=== PATIENT | male | born 1955 | race Caucasian/White ===

== ENCOUNTER 2020-04-22 16:27 | Emergency (ER) | payer BC ==
[2020-04-22 16:44] VITALS: BP 126/77; PULSE 91; RESP 18; TEMP 98.4
[2020-04-22] MEDS ORDERED: SODIUM CHLORIDE 0.9% 1,000 ML IV ONE (17:14)
[2020-04-22] MEDS ORDERED: THIAMINE 100 MG/ML 2 ML VIAL IM STA (17:14)
[2020-04-22 18:00] LABS: Basophils # (A) 0.1 k/uL (0-0.2); Basophils % (A) 1 %; Eosinophils # (A) 0.1 k/uL (0-0.7); Eosinophils % (A) 2 %; HCT 47.7 % (39.0-53.0); HGB 15.7 gm/dL (13.0-17.5); Lymphocytes # (A) 2.7 k/uL (1.0-4.8); Lymphocytes % (A) 44 %; MCH 33.7 pg (25.0-35.0); MCHC 32.9 g/dL (31.0-37.0); MCV 102.4 fL (80.0-100.0); Macrocytosis Slight; Mean Platelet Volume 8.6; Monocytes # (A) 0.5 k/uL (0-1.0); Monocytes % (A) 9 %; Neutrophils # (A) 2.4 k/uL (1.3-7.7); Neutrophils % (A) 40 %; Platelet Count 191 k/uL (150-450); RBC 4.66 m/uL (4.30-5.90); RDW 14.2 % (11.5-15.5)
[2020-04-22 18:11] LABS: Amphetamine Screen,Urine Not Detected (NotDetected); Barbiturate Screen,Urine Not Detected (NotDetected); Benzodiazepines Screen,Urine Not Detected (NotDetected); Cocaine Screen,Urine Not Detected (NotDetected); Methadone Screen, Urine Not Detected (NotDetected); Opiate Screen,Urine Not Detected (NotDetected); Oxycodone Screen, Urine Not Detected (NotDetected); Phencyclidine Screen,Urine Not Detected (NotDetected); Tricyclic Antidepressant,Urine Not Detected (NotDetected); Urn Cannabinoid Scrn Not Detected (NotDetected)
[2020-04-22 18:18] LABS: ALT 67 U/L (4-49); AST 179 U/L (17-59); African American GFR (CKD) >90 (>60 ml/min/1.73 sqM); Albumin 3.9 g/dL (3.5-5.0); Alkaline Phosphatase 170 U/L (38-126); Anion Gap 9 mmol/L; Blood Urea Nitrogen 9 mg/dL (9-20); Calcium 8.9 mg/dL (8.4-10.2); Carbon Dioxide 36 mmol/L (22-30); Chloride 97 mmol/L (98-107); Glucose 103 mg/dL (74-99); Magnesium 1.6 mg/dL (1.6-2.3); Non-African American GFR(CKD) >90 (>60 ml/min/1.73 sqM); Potassium 3.1 mmol/L (3.5-5.1); Sodium 142 mmol/L (137-145); Total Bilirubin 0.8 mg/dL (0.2-1.3); Total Protein 7.3 g/dL (6.3-8.2)
--- NOTE | 2020-04-22 18:53 | ED ---
General Adult HPI - General Source: patient, RN notes reviewed, old records reviewed Mode of arrival: ambulatory Limitations: no limitations <Chema Perez - Last Filed: 04/22/20 20:53> <Maki Baca - Last Filed: 04/22/20 22:00> - General Chief complaint: Psychiatric Symptoms Stated complaint: pickup order Time Seen by Provider: 04/22/20 16:40 - History of Present Illness Initial comments: This is a 64-year-old male who presents to the emergency department because he's been petition by his to the Court in the Court has directed him to come to the emergency department for evaluation. Patient himself does not want to be here he denies any problems he denies suicidal ideations however he does state he is depressed and doesn't care to live anymore but he has no plans to kill himself. Patient states he just assumed continued drinking and enjoys fpc. Patient denies any pain patient denies difficulty breathing patient denies any fever chills per patient denies any abdominal pain patient denies nausea vomiting. Patient states he has drank today. states is not taking care of himself is not eating and he has not taken a shower. states she's lost all motivation. (Chema Perez) - Related Data Home Medications Medication Instructions Recorded Confirmed Naproxen Sodium [Aleve] 220 mg PO DAILY PRN 04/22/20 04/22/20 Allergies Allergy/AdvReac Type Severity Reaction Status Date / Time Penicillins Allergy Rash/Hives Verified 04/22/20 16:44 Review of Systems ROS Other: All systems not noted in ROS Statement are negative. <Chema Perez - Last Filed: 04/22/20 20:53> ROS Other: All systems not noted in ROS Statement are negative. <Maki Baca - Last Filed: 04/22/20 22:00> ROS Statement: Those systems with pertinent positive or pertinent negative responses have been documented in the HPI. Past Medical History Past Medical History: Hypertension Past Surgical History: Hernia Repair Past Psychological History: Depression Smoking Status: Never smoker Past Alcohol Use History: Abuse, Daily Past Drug Use History: None Reported <Chema Perez - Last Filed: 04/22/20 20:53> General Exam Limitations: no limitations <Chema Perez - Last Filed: 04/22/20 20:53> - General Exam Comments Initial Comments: GENERAL: Patient is well-developed and well-nourished. Patient is nontoxic and well- hydrated and is in no acute distress. Patient does appear to be intoxicated ENT: Neck is soft and supple. No significant lymphadenopathy is noted. Oropharynx i s clear. Moist mucous membranes. Neck has full range of motion without eliciting any pain. EYES: The sclera were anicteric and conjunctiva were pink and moist. Extraocular movements were intact and pupils were equal round and reactive to light. Eyelids were unremarkable. PULMONARY: Unlabored respirations. Good breath sounds bilaterally. No audible rales rhonchi or wheezing was noted. CARDIOVASCULAR: There is a regular rate and rhythm without any murmurs gallops or rubs. ABDOMEN: Soft and nontender with normal bowel sounds. SKIN: Skin is clear with no lesions or rashes and otherwise unremarkable. NEUROLOGIC: Patient is alert and oriented x3. Cranial nerves II through XII are grossly intact. Motor and sensory are also intact. Normal speech, volume and content. Symmetrical smile. MUSCULOSKELETAL: Normal extremities with adequate strength and full range of motion. LYMPHATICS: No significant lymphadenopathy is noted PSYCHIATRIC: Patient is not suicidal however he does seem very depressed and he states he doesn't care if he lives or dies. (Chema Perez) Course Vital Signs 04/22/20 16:40 Temperature 98.4 F Pulse Rate 91 Respiratory 18 Rate Blood Pressure 126/77 O2 Sat by Pulse 94 L Oximetry Medical Decision Making - Lab Data Result diagrams: 04/22/20 17:56 04/22/20 17:57 <Chema Perez - Last Filed: 04/22/20 20:53> - Lab Data Result diagrams: 04/22/20 17:56 04/22/20 17:57 <Maki Baca - Last Filed: 04/22/20 22:00> - Medical Decision Making Dr. Baca will be taking over the care of this patient at 8:45 PM (Chema Perez) - Lab Data Lab Results 04/22/20 04/22/20 04/22/20 Range/Units 17:56 17:56 17:57 WBC 6.0 (3.8-10.6) k/uL RBC 4.66 (4.30-5.90) m/uL Hgb 15.7 (13.0-17.5) gm/dL Hct 47.7 (39.0-53.0) % MCV 102.4 H (80.0-100.0) fL MCH 33.7 (25.0-35.0) pg MCHC 32.9 (31.0-37.0) g/dL RDW 14.2 (11.5-15.5) % Plt Count 191 (150-450) k/uL Neutrophils % 40 % Lymphocytes % 44 % Monocytes % 9 % Eosinophils % 2 % Basophils % 1 % Neutrophils # 2.4 (1.3-7.7) k/uL Lymphocytes # 2.7 (1.0-4.8) k/uL Monocytes # 0.5 (0-1.0) k/uL Eosinophils # 0.1 (0-0.7) k/uL Basophils # 0.1 (0-0.2) k/uL Macrocytosis Slight Sodium 142 (137-145) mmol/L Potassium 3.1 L (3.5-5.1) mmol/L Chloride 97 L (98-107) mmol/L Carbon Dioxide 36 H (22-30) mmol/L Anion Gap 9 mmol/L BUN 9 (9-20) mg/dL Creatinine 0.51 L (0.66-1.25) mg/dL Est GFR (CKD-EPI)AfAm >90 (>60 ml/min/1.73 sqM) Est GFR (CKD-EPI)NonAf >90 (>60 ml/min/1.73 sqM) Glucose 103 H (74-99) mg/dL Calcium 8.9 (8.4-10.2) mg/dL Magnesium 1.6 (1.6-2.3) mg/dL Total Bilirubin 0.8 (0.2-1.3) mg/dL AST 179 H (17-59) U/L ALT 67 H (4-49) U/L Alkaline Phosphatase 170 H (38-126) U/L Total Protein 7.3 (6.3-8.2) g/dL Albumin 3.9 (3.5-5.0) g/dL Urine Opiates Screen Not Detected (NotDetected) Ur Oxycodone Screen Not Detected (NotDetected) Urine Methadone Screen Not Detected (NotDetected) Ur Propoxyphene Screen Not Detected (NotDetected) Ur Barbiturates Screen Not Detected (NotDetected) U Tricyclic Antidepress Not Detected (NotDetected) Ur Phencyclidine Scrn Not Detected (NotDetected) Ur Amphetamines Screen Not Detected (NotDetected) U Methamphetamines Scrn Not Detected (NotDetected) U Benzodiazepines Scrn Not Detected (NotDetected) Urine Cocaine Screen Not Detected (NotDetected) U Marijuana (THC) Screen Not Detected (NotDetected) Disposition <Chema Perez - Last Filed: 04/22/20 20:53> Is patient prescribed a controlled substance at d/c from ED?: No Time of Disposition: 22:00 <Maki Baca - Last Filed: 04/22/20 22:00> Clinical Impression: Alcohol abuse Disposition: HOME SELF-CARE Condition: Stable Instructions (If sedation given, give patient instructions): Abuse of Alcohol (ED) Referrals: None,Stated [Primary Care Provider] - 1-2 days
== END 2020-04-22 22:14 | disposition home or self-care (01) ==
LOC: EC 16:27
DX: F10.10 Alcohol abuse, uncomplicated (principal); F32.9 Major depressive disorder, single episode, unspecified; Z88.0 Allergy status to penicillin; Y90.9 Presence of alcohol in blood, level not specified
CPT/HCPCS: 36415; 80053; 80306; 82075; 83735; 85025; 99284

== ENCOUNTER 2020-06-02 16:32 | Inpatient (IN) | payer BC ==
[2020-06-02] MEDS ORDERED: THIAMINE 100 MG/ML 2 ML VIAL IM STA (16:59)
[2020-06-02] MEDS ORDERED: LORazepam 2 MG/ML INJ IV PRN ×3 (16:59)
[2020-06-02 17:53] LABS: Basophils # (A) 0.1 k/uL (0-0.2); Basophils % (A) 1 %; Eosinophils % (A) 0 %; HCT 33.8 % (39.0-53.0); HGB 11.4 gm/dL (13.0-17.5); Lymphocytes # (A) 0.7 k/uL (1.0-4.8); Lymphocytes % (A) 7 %; MCH 32.9 pg (25.0-35.0); MCHC 33.8 g/dL (31.0-37.0); Mean Platelet Volume 11.5; Monocytes # (A) 0.5 k/uL (0-1.0); Monocytes % (A) 6 %; Neutrophils # (A) 7.7 k/uL (1.3-7.7); Neutrophils % (A) 85 %; Platelet Count 257 k/uL (150-450); RBC 3.47 m/uL (4.30-5.90); RDW 15.4 % (11.5-15.5); WBC 9.1 k/uL (3.8-10.6)
[2020-06-02 18:05] LABS: ALT 16 U/L (4-49); AST 47 U/L (17-59); African American GFR (CKD) >90 (>60 ml/min/1.73 sqM); Albumin 3.1 g/dL (3.5-5.0); Alcohol <10 mg/dL; Alkaline Phosphatase 98 U/L (38-126); Anion Gap 11 mmol/L; Blood Urea Nitrogen 22 mg/dL (9-20); Calcium 8.3 mg/dL (8.4-10.2); Carbon Dioxide 40 mmol/L (22-30); Chloride 83 mmol/L (98-107); Glucose 143 mg/dL (74-99); Magnesium 1.6 mg/dL (1.6-2.3); Non-African American GFR(CKD) >90 (>60 ml/min/1.73 sqM); Sodium 134 mmol/L (137-145)
--- NOTE | 2020-06-02 18:08 | ED ---
General Adult HPI - General Chief complaint: Chest Pain Stated complaint: Chest pain Time Seen by Provider: 06/02/20 16:45 Source: patient, RN notes reviewed, old records reviewed Mode of arrival: wheelchair - History of Present Illness Initial comments: 64-year-old male presenting for psychiatric evaluation and evaluation of chest pain. Patient has been basically bedbound for the past several months. He's been drinking one gallon of vodka every 1-2 days. He has not been eating or drinking otherwise. He denies a suicidal plan but states he does not want to live. He admits that he has been depressed. Additionally has been complaining of chest pain anterior chest pain nonradiating. Patient is a poor historian but further history is obtained from the patient's . He states that his last drink was approximately 4 days ago. - Related Data Home Medications Medication Instructions Recorded Confirmed No Known Home Medications 06/02/20 06/02/20 Allergies Allergy/AdvReac Type Severity Reaction Status Date / Time Penicillins Allergy Rash/Hives Verified 06/02/20 17:45 Review of Systems ROS Statement: Those systems with pertinent positive or pertinent negative responses have been documented in the HPI. ROS Other: All systems not noted in ROS Statement are negative. Past Medical History Past Medical History: Hypertension Past Surgical History: Hernia Repair Past Psychological History: Depression Smoking Status: Former smoker Past Alcohol Use History: Abuse, Daily Past Drug Use History: None Reported General Exam General appearance: alert, in no apparent distress, cachectic Head exam: Present: atraumatic, normocephalic Eye exam: Present: normal appearance ENT exam: Present: mucous membranes dry Neck exam: Present: normal inspection. Absent: tenderness, meningismus Respiratory exam: Present: normal lung sounds bilaterally. Absent: respiratory distress Cardiovascular Exam: Present: regular rate, normal rhythm GI/Abdominal exam: Present: soft, tenderness (Minimal epigastric tenderness). Absent: distended, guarding, rebound Extremities exam: Present: normal inspection, normal capillary refill. Absent: pedal edema Neurological exam: Present: alert, oriented X3, CN II-XII intact. Absent: motor sensory deficit Psychiatric exam: Present: depressed, flat affect, suicidal ideation Skin exam: Present: warm, dry, intact Course Vital Signs 06/02/20 06/02/20 06/02/20 16:38 16:52 18:17 Temperature 98.7 F Pulse Rate 102 H 94 Pulse Rate [ 95 Web Content Coordinator ] Respiratory 18 18 Rate Blood Pressure 99/62 120/60 O2 Sat by Pulse 98 87 L Oximetry 06/02/20 18:18 Temperature Pulse Rate Pulse Rate [ Web Content Coordinator ] Respiratory Rate Blood Pressure O2 Sat by Pulse 96 Oximetry EKG Findings - EKG Comments: EKG Findings:: EKG: Sinus rhythm with marked arrhythmia, low voltage, no ST segment elevation, rate of 95, UT interval 146, QRS duration 88, QTC prolonged at 580. Medical Decision Making - Medical Decision Making 64-year-old male with suicidal thoughts, chest pain, alcohol abuse. Patient has been sober for the past 4 days. Workup reveals EKG which is sinus rhythm, no ST segment elevation there is significantly prolonged QTC at 580. Patient has significant left foot abnormalities with a potassium of 2.0. His magnesium is 1.6. He is replaced with both oral and IV potassium as well as IV magnesium. His troponin is negative. Chest x-ray negative for acute cardiopulmonary dis ease. Given the very low potassium and prolonged QT I did discuss case with Dr. Sherrie calixto for the ICU, at this time she has felt to be stable for a telemetry bed on stepdown unit does not require ICU at this time. Patient has been admitted to Dr. Dey who has accepted patient. He will be monitored for alcohol withdrawal, electrolyte Replacement, and suicide precaution. - Lab Data Result diagrams: 06/02/20 17:40 06/02/20 17:40 Lab Results 06/02/20 06/02/20 06/02/20 Range/Units 17:40 17:40 17:40 WBC 9.1 (3.8-10.6) k/uL RBC 3.47 L (4.30-5.90) m/uL Hgb 11.4 L D (13.0-17.5) gm/dL Hct 33.8 L (39.0-53.0) % MCV 97.4 D (80.0-100.0) fL MCH 32.9 (25.0-35.0) pg MCHC 33.8 (31.0-37.0) g/dL RDW 15.4 (11.5-15.5) % Plt Count 257 (150-450) k/uL Neutrophils % 85 % Lymphocytes % 7 % Monocytes % 6 % Eosinophils % 0 % Basophils % 1 % Neutrophils # 7.7 (1.3-7.7) k/uL Lymphocytes # 0.7 L (1.0-4.8) k/uL Monocytes # 0.5 (0-1.0) k/uL Eosinophils # 0.0 (0-0.7) k/uL Basophils # 0.1 (0-0.2) k/uL PT 9.8 (9.0-12.0) sec INR 0.9 (<1.2) APTT 22.9 (22.0-30.0) sec Sodium 134 L (137-145) mmol/L Potassium 2.0 L* (3.5-5.1) mmol/L Chloride 83 L (98-107) mmol/L Carbon Dioxide 40 H (22-30) mmol/L Anion Gap 11 mmol/L BUN 22 H (9-20) mg/dL Creatinine 0.66 (0.66-1.25) mg/dL Est GFR (CKD-EPI)AfAm >90 (>60 ml/min/1.73 sqM) Est GFR (CKD-EPI)NonAf >90 (>60 ml/min/1.73 sqM) Glucose 143 H (74-99) mg/dL Calcium 8.3 L (8.4-10.2) mg/dL Magnesium 1.6 (1.6-2.3) mg/dL Total Bilirubin 1.0 (0.2-1.3) mg/dL AST 47 (17-59) U/L ALT 16 (4-49) U/L Alkaline Phosphatase 98 (38-126) U/L Troponin I (0.000-0.034) ng/mL Total Protein 6.0 L (6.3-8.2) g/dL Albumin 3.1 L (3.5-5.0) g/dL Lipase 128 (23-300) U/L Serum Alcohol <10 mg/dL 06/02/20 Range/Units 17:40 WBC (3.8-10.6) k/uL RBC (4.30-5.90) m/uL Hgb (13.0-17.5) gm/dL Hct (39.0-53.0) % MCV (80.0-100.0) fL MCH (25.0-35.0) pg MCHC (31.0-37.0) g/dL RDW (11.5-15.5) % Plt Count (150-450) k/uL Neutrophils % % Lymphocytes % % Monocytes % % Eosinophils % % Basophils % % Neutrophils # (1.3-7.7) k/uL Lymphocytes # (1.0-4.8) k/uL Monocytes # (0-1.0) k/uL Eosinophils # (0-0.7) k/uL Basophils # (0-0.2) k/uL PT (9.0-12.0) sec INR (<1.2) APTT (22.0-30.0) sec Sodium (137-145) mmol/L Potassium (3.5-5.1) mmol/L Chloride (98-107) mmol/L Carbon Dioxide (22-30) mmol/L Anion Gap mmol/L BUN (9-20) mg/dL Creatinine (0.66-1.25) mg/dL Est GFR (CKD-EPI)AfAm (>60 ml/min/1.73 sqM) Est GFR (CKD-EPI)NonAf (>60 ml/min/1.73 sqM) Glucose (74-99) mg/dL Calcium (8.4-10.2) mg/dL Magnesium (1.6-2.3) mg/dL Total Bilirubin (0.2-1.3) mg/dL AST (17-59) U/L ALT (4-49) U/L Alkaline Phosphatase (38-126) U/L Troponin I <0.012 (0.000-0.034) ng/mL Total Protein (6.3-8.2) g/dL Albumin (3.5-5.0) g/dL Lipase (23-300) U/L Serum Alcohol mg/dL Critical Care Time Critical Care Time: Yes Total Critical Care Time: 35 Disposition Clinical Impression: Chest pain, Suicidal ideation, Hypokalemia, Prolonged QT interval, Alcohol withdrawal Disposition: ADMITTED IP TO THIS [facility] Condition: Serious Is patient prescribed a controlled substance at d/c from ED?: No Referrals: None,Stated [Primary Care Provider] - 1-2 days Decision to Admit Reason: Admit from EC Decision Date: 06/02/20 Decision Time: 18:41
[2020-06-02 18:09] LABS: INR 0.9 (<1.2); MCV 97.4 fL (80.0-100.0); Partial Thromboplastin Time 22.9 sec (22.0-30.0); Prothrombin Time 9.8 sec (9.0-12.0)
[2020-06-02] MEDS ORDERED: POTASSIUM CHLORIDE ER 20 MEQ TAB.ER PO STA (18:12)
[2020-06-02] MEDS ORDERED: MAGNESIUM SULFATE-D5W PMX 1 GM in DEXTROSE/WATER 1 100ML.BAG IVPB ONE (18:12)
--- NOTE | 2020-06-02 18:34 | XR ---
EXAMINATION TYPE: XR chest 2V DATE OF EXAM: 06/02/2020 COMPARISON: NONE HISTORY: Palpitations. Alcohol withdrawal for 4 days. TECHNIQUE: Frontal and lateral views of the chest are obtained. FINDINGS: There is no focal air space opacity, pleural effusion, or pneumothorax seen. The cardiac silhouette size is within normal limits. The osseous structures are somewhat demineralized. High ri ding bilateral humeral head suggests chronic rotator cuff tears. IMPRESSION: No acute cardiopulmonary process.
[2020-06-02] MEDS ORDERED: NALOXONE 0.4 MG/ML 1 ML VIAL IV PRN (18:37)
[2020-06-02] MEDS: POTASSIUM CHLORIDE 10 MEQ in WATER FOR INJECTION 1 100ML.BAG IVPB SCH ×2 (18:48→20:10)
[2020-06-02] MEDS: SODIUM CHLORIDE 0.9% 1,000 ML IV SCH (18:49)
[2020-06-02 21:49] LABS: African American GFR (CKD) >90 (>60 ml/min/1.73 sqM); Anion Gap 9 mmol/L; Blood Urea Nitrogen 21 mg/dL (9-20); Calcium 7.9 mg/dL (8.4-10.2); Chloride 83 mmol/L (98-107); Glucose 118 mg/dL (74-99); Magnesium 2.2 mg/dL (1.6-2.3); Non-African American GFR(CKD) >90 (>60 ml/min/1.73 sqM); Sodium 132 mmol/L (137-145)
[2020-06-02 21:56] LABS: Carbon Dioxide 40 mmol/L (22-30); Potassium 2.4 mmol/L (3.5-5.1)
[2020-06-02] MEDS ORDERED: Potassium Replacement Protocol 1 EACH MISC MISCELLANE PRN (22:14)
[2020-06-02] MEDS ORDERED: POTASSIUM CHLORIDE 10 MEQ in WATER FOR INJECTION 1 100ML.BAG IVPB STA (22:53)
--- NOTE | 2020-06-02 23:35 | P.HPIM ---
History of Present Illness H&P Date: 06/02/20 Chief Complaint: skipped beats 64 year old male with alcohol abuse and hypertension not currently on medications patient comes in due to skipped beats that he has felt earlier today, that he has never felt in his life, he grew concerned and decided to come to the hospital patient describes the event as "he felt his heart has stopped" and was very scared. he down plays his alcohol abuse, and does not think he has a problem , his reported that he drinks 1 gallon of vodka over 2 days. he does not take any medications at home, except for occasional aspirin. he claims to be in good health. denies any chest pain or truoble breathing. denies any GI bleeding. with the episode of skipped beat today, he denies any associated chest pain or trouble breathing, denies any dizziness or lightheadedness, he was not doing anything when it happened, but when he felt it he layed down to rest , and notified his to call EMS and take him to the hospital , as he was afraid to . he denies any suicidal ideation, and claims that he was taken out of context , as he meant he does not want to live with heart disease. again he denies suicidal ideation. patient , reports that he seems to be depressed, and that he has been bed bound for the past month, and all he does is drinking. denies any recent travel or hospitalization , denies any heart disease, denies any sick contact. in the ED, he was found to be hypoxic 87% on room air, and started on oxygen , severe hypokalemia and hypomagnesemia with prolonged QT interval. ER discussed the patient condition with ICU who declined the patient and suggested he get admitted to step down unit at this time with close monitoring. Review of Systems Pertinent positives as noted in HPI. All other systems were reviewed and are negative Past Medical History Past Medical History: Hypertension Past Surgical History: Hernia Repair Past Psychological History: Depression Smoking Status: Former smoker Past Alcohol Use History: Abuse, Daily Past Drug Use History: None Reported Medications and Allergies Home Medications Medication Instructions Recorded Confirmed Type No Known Home Medications 06/02/20 06/02/20 History Allergies Allergy/AdvReac Type Severity Reaction Status Date / Time Penicillins Allergy Rash/Hives Verified 06/02/20 17:45 Physical Exam Vitals: Vital Signs Temp Pulse Pulse Resp BP Pulse Ox 06/02/20 20:14 98.9 F 102 H 17 110/81 99 06/02/20 18:18 96 06/02/20 18:17 94 18 120/60 87 L 06/02/20 16:52 95 06/02/20 16:38 98.7 F 102 H 18 99/62 98 Intake and Output 06/02/20 06/02/20 06/02/20 06:59 14:59 22:59 Other: Weight 45.359 kg Constitutional: No acute distress, conversant, pleasant, patient looks older than stated age Eyes: Anicteric sclerae, moist conjunctiva, Pupils equal round reactive to light ENMT: NC/AT Oropharynx clear, no erythema, exudates Neck: Supple, FROM, no masses, or JVD No carotid bruits No thyromegaly Lungs: Clear to auscultation Clear to percussion Normal respiratory effort, no accessory muscle use Cardiovascular: Heart regular in rate and rhythm, No murmurs, gallops, or rubs No peripheral edema Abdominal: Soft Nontender, no guarding, rebound or rigidity Abdomen moving with respiration Normoactive bowel sounds No hepatomegaly, No splenomegaly No palpable mass No abdominal wall hernia noted Skin: Normal temperature, tone, texture, turgor No induration No subcutaneous nodules No rash, lesions No ulcers Extremities: No digital cyanosis No clubbing Pedal pulses intact and symmetrical Radial pulses intact and symmetrical No calf tenderness Psychiatric: Alert and oriented to person, place depressed affect fair judgement Neuro Muscles Strength 4/5 in all 4 extremities Sensation to light touch grossly present throughout Cranial nerves II-XII grossly intact No focal sensory deficits Lymphatics: no palpable cervical or supraclavicular , or inguinal lymph nodes Results CBC & Chem 7: 06/02/20 17:40 06/02/20 21:14 Labs: Abnormal Lab Results - Last 24 Hours (Table) 06/02/20 06/02/20 Range/Units 17:40 17:40 RBC 3.47 L (4.30-5.90) m/uL Hgb 11.4 L D (13.0-17.5) gm/dL Hct 33.8 L (39.0-53.0) % Lymphocytes # 0.7 L (1.0-4.8) k/uL Sodium 134 L (137-145) mmol/L Potassium 2.0 L* (3.5-5.1) mmol/L Chloride 83 L (98-107) mmol/L Carbon Dioxide 40 H (22-30) mmol/L BUN 22 H (9-20) mg/dL Glucose 143 H (74-99) mg/dL Calcium 8.3 L (8.4-10.2) mg/dL Total Protein 6.0 L (6.3-8.2) g/dL Albumin 3.1 L (3.5-5.0) g/dL Assessment and Plan Assessment: Acute hypoxic respiratory failure Acute severe hypokalemia and hypomagnesemia with prolonged QT interval Alcohol abuse pending all call withdrawals Metabolic alkalosis Very mild anemia Plan Replace potassium Supplemental oxygen as needed Chest x-ray is negative Nephrology consult for severe hypokalemia and metabolic alkalosis Check UA PPI Close monitoring of potassium Cardiac monitoring Benzodiazepines per CIWA scale Thiamine suicide precautions psych eval full code DVT prophylaxis: heparin sc tid Discussed with: Patient, ER Anticipated length of stay > than [address]: home A total of 75 minutes was spent on the care of this complex patient more than 50% of the time was spent in counseling and care coordination.
[2020-06-02] MEDS ORDERED: POTASSIUM CHLORIDE 10 MEQ in WATER FOR INJECTION 1 100ML.BAG IVPB ONE (23:59)
[2020-06-03] MEDS: HEPARIN SODIUM,PORCINE 5,000 UNIT/ML 1 ML VIAL SQ SCH ×3 (00:02→18:18)
[2020-06-03] MEDS: POTASSIUM CHLORIDE ER 20 MEQ TAB.ER PO SCH ×3 (01:03→05:25)
[2020-06-03] MEDS: POTASSIUM CHLORIDE 20 MEQ in WATER FOR INJECTION 1 100ML.BAG IVPB SCH ×4 (01:55→09:11)
[2020-06-03] MEDS: POTASSIUM CHLORIDE 10 MEQ in WATER FOR INJECTION 1 100ML.BAG IVPB SCH (03:43)
[2020-06-03 04:28] LABS: Appearance,Urine Clear (Clear); Bilirubin,Urine Negative (Negative); Blood,Urine Negative (Negative); Color,Urine Yellow; Glucose,Urine (UA) Negative (Negative); Ketones,Urine 2+ (Negative); Leukocyte Esterase,Urine Negative (Negative); Nitrite,Urine Negative (Negative); PH, Urine 8.5 (5.0-8.0); Protein,Urine Trace (Negative); Specific Gravity,Urine 1.012 (1.001-1.035)
[2020-06-03] MEDS ORDERED: POTASSIUM CHLORIDE ER 20 MEQ TAB.ER PO STA (07:01)
[2020-06-03 07:44] LABS: African American GFR (CKD) >90 (>60 ml/min/1.73 sqM); Anion Gap 6 mmol/L; Blood Urea Nitrogen 17 mg/dL (9-20); Calcium 7.9 mg/dL (8.4-10.2); Carbon Dioxide 35 mmol/L (22-30); Chloride 94 mmol/L (98-107); Glucose 83 mg/dL (74-99); Non-African American GFR(CKD) >90 (>60 ml/min/1.73 sqM); Potassium 3.5 mmol/L (3.5-5.1); Sodium 135 mmol/L (137-145)
[2020-06-03 07:57] LABS: HCT 30.4 % (39.0-53.0); HGB 10.3 gm/dL (13.0-17.5); MCHC 33.9 g/dL (31.0-37.0); MCV 100.3 fL (80.0-100.0); Platelet Count 255 k/uL (150-450); RBC 3.03 m/uL (4.30-5.90); RDW 15.3 % (11.5-15.5)
[2020-06-03 08:18] LABS: Mean Platelet Volume 12.2
[2020-06-03] MEDS: PANTOPRAZOLE 40 MG TABLET PO SCH (09:18)
[2020-06-03] MEDS: FOLIC ACID 1 MG TAB PO SCH (09:18)
[2020-06-03] MEDS: THIAMINE 100 MG TAB PO SCH ×2 (09:18→18:52)
--- NOTE | 2020-06-03 11:31 | P.PN ---
Subjective Progress Note Date: 06/03/20 Patient's only complaint today is weakness of his left arm as well as back pain, tells me that this is the reason he came in to be evaluated. Denies any mood disturbance today including suicidal ideation. Objective - Vital Signs Vital signs: Vital Signs Temp 97.9 F 06/03/20 08:00 Pulse 81 06/03/20 08:00 Resp 17 06/03/20 08:00 BP 136/60 06/03/20 08:00 Pulse Ox 95 06/03/20 08:00 Intake & Output 06/02/20 06/03/20 06/03/20 18:59 06:59 18:59 Intake Total 1000 Balance 1000 Weight 45.359 kg 47.2 kg 47.2 kg Intake: Intake, IV Titration 500 Amount Potassium Chloride 10 meq 100 In Water For Injection 1 100ml.bag @ 100 mls/hr IVPB ONCE STA Rx#: [id number] Potassium Chloride 20 meq 100 In Water For Injection 1 100ml.bag @ 50 mls/hr IVPB Q2HR [facility] Rx#: [id number] Sodium Chloride 0.9% 1, 300 000 ml @ 50 mls/hr IV . Q20H [facility] Rx#:[id number] Blood Product 500 Other: Voiding Method Toilet Toilet # Voids 1 1 - Exam Gen: awake, alert HEENT: normocephalic, atraumatic, good hearing acuity, moist mucous membranes Resp: CTAB, good air exchange, no accessory muscle use, no wheezes, crackles, rhonchi CVS: good distal perfusion x 4, RRR, no murmurs, clicks, gallops GI: soft, NTTP, ND : no SPT, no CVAT, bautista catheter not present MSK: no pitting edema, no clubbing Neuro: left arm proximal weakness, cannot abduct shoulder against gravityno sensory deficits, appropriate tone Psych: cooperative, euthymic mood - Labs CBC & Chem 7: 06/03/20 06:48 06/03/20 06:48 Labs: Abnormal Lab Results - Last 24 Hours (Table) 06/02/20 06/02/20 06/02/20 Range/Units 17:40 17:40 21:14 RBC 3.47 L (4.30-5.90) m/uL Hgb 11.4 L D (13.0-17.5) gm/dL Hct 33.8 L (39.0-53.0) % MCV (80.0-100.0) fL Lymphocytes # 0.7 L (1.0-4.8) k/uL Sodium 134 L 132 L (137-145) mmol/L Potassium 2.0 L* 2.4 L* (3.5-5.1) mmol/L Chloride 83 L 83 L (98-107) mmol/L Carbon Dioxide 40 H 40 H (22-30) mmol/L BUN 22 H 21 H (9-20) mg/dL Creatinine 0.59 L (0.66-1.25) mg/dL Glucose 143 H 118 H (74-99) mg/dL Calcium 8.3 L 7.9 L (8.4-10.2) mg/dL Total Protein 6.0 L (6.3-8.2) g/dL Albumin 3.1 L (3.5-5.0) g/dL Urine pH (5.0-8.0) Urine Protein (Negative) Urine Ketones (Negative) 06/03/20 06/03/20 06/03/20 Range/Units 04:16 04:17 06:48 RBC 3.03 L (4.30-5.90) m/uL Hgb 10.3 L (13.0-17.5) gm/dL Hct 30.4 L (39.0-53.0) % MCV 100.3 H (80.0-100.0) fL Lymphocytes # (1.0-4.8) k/uL Sodium (137-145) mmol/L Potassium 3.1 L (3.5-5.1) mmol/L Chloride (98-107) mmol/L Carbon Dioxide (22-30) mmol/L BUN (9-20) mg/dL Creatinine (0.66-1.25) mg/dL Glucose (74-99) mg/dL Calcium (8.4-10.2) mg/dL Total Protein (6.3-8.2) g/dL Albumin (3.5-5.0) g/dL Urine pH 8.5 H (5.0-8.0) Urine Protein Trace H (Negative) Urine Ketones 2+ H (Negative) 06/03/20 Range/Units 06:48 RBC (4.30-5.90) m/uL Hgb (13.0-17.5) gm/dL Hct (39.0-53.0) % MCV (80.0-100.0) fL Lymphocytes # (1.0-4.8) k/uL Sodium 135 L (137-145) mmol/L Potassium (3.5-5.1) mmol/L Chloride 94 L (98-107) mmol/L Carbon Dioxide 35 H (22-30) mmol/L BUN (9-20) mg/dL Creatinine 0.54 L (0.66-1.25) mg/dL Glucose (74-99) mg/dL Calcium 7.9 L (8.4-10.2) mg/dL Total Protein (6.3-8.2) g/dL Albumin (3.5-5.0) g/dL Urine pH (5.0-8.0) Urine Protein (Negative) Urine Ketones (Negative) Assessment and Plan Assessment: Back Pain with Radiculopathy Acute severe hypokalemia and hypomagnesemia with prolonged QT interval Alcohol abuse pending Alcohol Withdrawal Syndrome Metabolic alkalosis Very mild anemia Acute hypoxic respiratory failure, resolved Plan Replace potassium Supplemental oxygen as needed Chest x-ray is negative Nephrology consult for severe hypokalemia and metabolic alkalosis Check UA PPI Close monitoring of potassium Cardiac monitoring Benzodiazepines per CIWA scale Thiamine suicide precautions psych eval MRI C/T Spine to evaluate left sided radiculopathy full code DVT prophylaxis: heparin sc tid Discussed with: Patient, ER Anticipated length of stay > than [address]: home A total of 75 minutes was spent on the care of this complex patient more than 50% of the time was spent in counseling and care coordination.
--- NOTE | 2020-06-03 12:40 | P.NPCON ---
History of Present Illness - Reason for Consult hypokalemia - History of Present Illness Reason for consultation: Hypokalemia History of present illness: Patient is a 64-year-old male seen in renal consultation for hypokalemia. Patient's potassium level was 2.0 on admission and was aggressively replaced. It was 3.5 this morning. Patient states he came to the hospital due to a syncopal episode. He has history of heavy alcohol abuse and states he drinks about 3 alcoholic beverages daily with vodka. Patient states that his oral intake for about 2 months has been quite poor. He also states he wasn't high blood pressure medications but is unsure of the name but states he has been taking them for quite some time now. His magnesium level is 1.6 on admission and was also replaced. He denies any history of kidney disease. Denies family history of kidney disease. No vomiting or diarrhea. Good urine output. No hematuria or dysuria. Blood pressure well controlled. He also admits to generalized weakness as well as pain in his lower back. Vital signs are stable. General: The patient appeared well nourished and normally developed. HEENT: Head exam is unremarkable. Neck is without jugular venous distension. LUNGS: Lungs are clear to auscultation and percussion. Breath sounds decreased. HEART: Rate and Rhythm are regular. ABDOMEN: Soft, nontender. EXTREMITITES: No clubbing, cyanosis, or edema. Past Medical History Past Medical History: Hypertension History of Any Multi-Drug Resistant Organisms: None Reported Past Surgical History: Hernia Repair Past Anesthesia/Blood Transfusion Reactions: No Reported Reaction Smoking Status: Former smoker - Past Family History Mother Additional Family Medical History / Comment(s): PT. STATES HIS [facility] Medications and Allergies Home Medications Medication Instructions Recorded Confirmed Type No Known Home Medications 06/02/20 06/02/20 History Allergies Allergy/AdvReac Type Severity Reaction Status Date / Time Penicillins Allergy Rash/Hives Verified 06/02/20 17:45 Physical Exam Vitals: Vital Signs Temp Pulse Pulse Pulse Resp BP BP 06/03/20 08:00 97.9 F 81 17 136/60 06/03/20 04:00 87 19 110/61 06/03/20 00:00 98.4 F 83 18 114/60 06/02/20 20:14 98.9 F 102 H 17 110/81 06/02/20 18:18 06/02/20 18:17 94 18 120/60 06/02/20 16:52 95 06/02/20 16:38 98.7 F 102 H 18 99/62 Pulse Ox 06/03/20 08:00 95 06/03/20 04:00 93 L 06/03/20 00:00 91 L 06/02/20 20:14 99 06/02/20 18:18 96 06/02/20 18:17 87 L 06/02/20 16:52 06/02/20 16:38 98 Intake and Output 06/02/20 06/03/20 06/03/20 22:59 06:59 14:59 Intake Total 1000 Balance 1000 Intake: Intake, IV Titration 500 Amount Potassium Chloride 10 meq 100 In Water For Injection 1 100ml.bag @ 100 mls/hr IVPB ONCE STA Rx#: [id number] Potassium Chloride 20 meq 100 In Water For Injection 1 100ml.bag @ 50 mls/hr IVPB Q2HR [facility] Rx#: [id number] Sodium Chloride 0.9% 1, 300 000 ml @ 50 mls/hr IV . Q20H [facility] Rx#:[id number] Blood Product 500 Other: Voiding Method Toilet Toilet # Voids 1 1 Weight 45.359 kg 47.2 kg 47.2 kg Results - Lab Results Most recent lab results Calcium 7.9 mg/dL (8.4-10.2) L 06/03/20 06:48 Magnesium 2.2 mg/dL (1.6-2.3) 06/02/20 21:14 06/03/20 06:48 06/03/20 06:48 Assessment and Plan Plan: Assessment: 1. Hypokalemia secondary to poor oral intake and saline diuresis. Improved. 2. Hypomagnesemia secondary to poor intake and further renal losses due to alcohol abuse. 3. Alcohol abuse. 4. Hypovolemic hyponatremia. 5. Metabolic alkalosis secondary to volume contraction. Better with IV fluids. Plan: Replace potassium. 40 mEq k-dur today. Maintain normal saline. Repeat electrolytes in the morning. Check phosphorus level. Thank you for the consultation. I will continue to follow the patient with you during his hospital stay.
--- NOTE | 2020-06-03 13:45 | P.CN ---
Psychiatric Consult - . Consult date: 06/03/20 Consult:: 06/03/20 13:35 IDENTIFYING DATA: This patient is a 64-year-old male with a history of alcohol use who is currently lives with his in a house and also lives with his 2 kids. Patient has been retired from working at [employer]. HISTORY OF PRESENT ILLNESS: The patient presented to the hospital yesterday with his for the complaints of chest pain and alcohol use. Patient apparently has been bed bound for several months and claimed to have been drinking alcohol excessively at home for the past 4 days. Patient also reported that he was having poor intake with food recently as per ER report. Patient apparently made a passive suicidal statement to ER staff members and psychiatry was asked to evaluate patient. Patient had low potassium low magnesium and troponins were negative on admission. Patient's nurse claims that he has been denying any suicidal thoughts and has had no behavioral issues. Patient was seen lying on the bed and was agreeable to speak to automatic typewriter inspector. Patient appeared to be debilitated and weak and strength. He claims that he is doing "fine today" and denied any depressive symptoms. He states that "it was all taken out of context when I said that" referring to the passive suicidal statement that he made in the ER and claims that it was mainly because of his bedbound condition. He states that he has been drinking approximately 2 glasses of vodka per day and switches between that and beer for the past few years. He was minimizing his drinking. He did admit that his drinking has been causing him to deteriorate more medically and claims that he would be willing to take medications for cravings. He denies any issues with sleep and states that he is getting his appetite back. At this time patient denies any suicidal or homical ideations, intent or plan. Patient denies any auditory, visual hallucinations and denies any paranoia or delusions. Patients admits to using alcohol less stated above and denies any cigarette use or any other recreational drug use. PAST PSYCHIATRIC HISTORY: Patient has a a history of anxiety/depression. Patient denies being on any psychiatric medications. Patient denies any previous psychiatric hospitalizations. Patient denies any psychiatric outpatient follow- up. Patient denies any history of suicide attempts in the past. PAST MEDICAL HISTORY: Hypertension and hernia repair.. ALLERGIES: as per EMR. CHEMICAL DEPENDENCY HISTORY: as per HPI. FAMILY PSYCHIATRIC/SUBSTANCE USE HISTORY: denies SOCIAL HISTORY: Patient was born and raised in [place] and he states that he completed high school. He claims that he worked for [employer] for 25 years and is now retired. He currently lives with his in a house along with his 2 kids. He denies any legal history. MENTAL STATUS EXAM: General Appearance: Patient appears to be older than stated age is thin/frail, alert, pleasant, and cooperative. Patient appears to have poor hygiene and grooming wearing hospital gown with fair eye contact. Behavior: Patient is calmly lying in bed without any agitated behavior. Speech: Patient's speech is fluent and nonpressured. Mood/Affect: Patient reports their mood is "fine today ", affect is congruent Suicidality/Homicidality: Patient denies having any suicidal or homicidal ideation intent or plan. Perceptions: Patient denies any visual hallucinations and denies any auditory hallucinations Though content/process: There is no evidence of any delusional thought content and thought process is linear and goal-directed. [place] and minimizing alcohol use. Memory and concentration: AOX3, grossly intact for the purposes of this session. Can spell "WORLD" backwards Judgment and insight: Superficial IMPRESSIONS: Depressive disorder unspecified, rule out secondary to alcohol use Alcohol use disorder, currently in withdrawal PLAN: -At this time patient DOES NOT meet criteria for inpatient psychiatric admission. -Would recommend the following medication changes/additions: Patient is agreeable to start Cymbalta 30 mg daily for mood/anxiety/pain, patient is also agreeable to start naltrexone 50 mg by mouth daily for alcohol cravings. -Continue with thiamine and folic acid. -1-1 sitter can be discontinued at this time as patient is denying any suicidal thoughts -Continue with [facility] protocol with when necessary Ativan for alcohol withdrawal. Continue to monitor monitor vital signs and restore electrolytes. -machine farmworker to provide patient with resources for outpatient treatment programs and AA meetings in the community. -Psychiatry will sign off at this point, please contact with any questions. 06/03/20 13:44
[2020-06-03] MEDS: DULoxetine HCL 30 MG CAPSULE.DR PO SCH (15:03)
[2020-06-03] MEDS: NALTREXONE HCL 50 MG TAB PO SCH (15:03)
--- NOTE | 2020-06-03 16:26 | CDI ---
Likely secondary to Bone marrow suppression from ETOH abuse Documentation Clarification Form Date: 06/03/2020 04:21:35 PM From: Carol Wright RN, CCDS Admit Date: 06/02/2020 06:38:00 PM Patient Name: Sage Ibarra Visit Number: [id number] ATTENTION: The Clinical Documentation Specialists (CDI) and [facility] Coding Staff appreciate your assistance in clarifying documentation. Please respond to the clarification below the line at the bottom and electronically sign. The CDI & [facility] Coding staff will review the response and follow-up if needed. Please note: Queries are made part of the Legal Health Record. If you have any questions, please contact the author of this message via ITS. Dr. Aaron Connors Anemia is documented in the H&P and Progress Notes and requires further specificity. . History/Risk Factors: ETOH abuse with withdrawal, hypomag, hypokalemia, hyponatremia, prolonged QT interval Clinical indicators: 06/02-06/03 H&P and Attending Progress note: "Very mild Anemia" Hemoglobin: 11.4/10.3 Hematocrit: 33.8/30.4 Treatment: Labs AM Daily In order to capture the severity of condition, please clarify the type of anemia and etiology if known. Chronic blood loss anemia Iron deficiency anemia Nutritional anemia Anemia of chronic disease Unable to determine Other, please specify (Last Form Revision: December 2019) MTDD
--- NOTE | 2020-06-03 16:37 | CDI ---
Mild protein calorie nutrition Documentation Clarification Form Date: 06/03/2020 04:27:40 PM From: Carol Wright RN, CCDS Admit Date: 06/02/2020 06:38:00 PM Patient Name: Sage Ibarra Visit Number: [id number] ATTENTION: The Clinical Documentation Specialists (CDI) and [facility] Coding Staff appreciate your assistance in clarifying documentation. Please respond to the clarification below the line at the bottom and electronically sign. The CDI & [facility] Coding staff will review the response and follow-up if needed. Please note: Queries are made part of the Legal Health Record. If you have any questions, please contact the author of this message via ITS. Dr. Aaron Connors A low BMI has been noted in a patient with chronic alcoholism. Please provide clinical significance. History/Risk Factors: ETOH, Depression, HTN Clinical Indicators: 06/02 ED Note: " General appearance: alert, in no apparent distress, cachectic." 06/03 Psych consult: "Patient appears to be older than stated age is thin/frail, alert, pleasant, and cooperative." 06/02-06/03 Lab: NA+ 134/132/135, K+ 2.0/2.4/3.5, total protein 6, albumin 3.1 Current BMI: 17.9 Insufficient energy intake: poor appetite Weight Loss: pt denies weight loss 06/03 Dietary Consult: Patient appears underweight, 79% of IBW Treatment: Dietary Consult: completed 06/03 Supplements: Ensure Enlive BID, Thiamine 100 mg PO BID Folic acid 1 mg PO QD Mag replacement protocol Potassium replacement protocol Lab monitoring: Am Daily In your professional opinion, can you please clarify if these findings signify one of the following conditions? Mild Protein-Calorie Malnutrition Moderate Protein-Calorie Malnutrition Severe Protein-Calorie Malnutrition Other condition, please specify Unable to determine (Last Revision: April 2019) MTDD
[2020-06-03] MEDS: SODIUM CHLORIDE 0.9% 1,000 ML IV SCH (18:18)
[2020-06-04] MEDS: HEPARIN SODIUM,PORCINE 5,000 UNIT/ML 1 ML VIAL SQ SCH ×3 (00:22→17:10)
[2020-06-04] MEDS: PANTOPRAZOLE 40 MG TABLET PO SCH (06:34)
[2020-06-04] MEDS: THIAMINE 100 MG TAB PO SCH ×2 (06:34→17:15)
[2020-06-04 08:06] LABS: African American GFR (CKD) >90 (>60 ml/min/1.73 sqM); Anion Gap 7 mmol/L; Blood Urea Nitrogen 11 mg/dL (9-20); Carbon Dioxide 31 mmol/L (22-30); Chloride 100 mmol/L (98-107); Glucose 101 mg/dL (74-99); Magnesium 1.8 mg/dL (1.6-2.3); Non-African American GFR(CKD) >90 (>60 ml/min/1.73 sqM); Phosphorus 1.3 mg/dL (2.5-4.5); Potassium 2.9 mmol/L (3.5-5.1); Sodium 138 mmol/L (137-145)
[2020-06-04] MEDS ORDERED: Phosphorus Replacement Protoco 1 EACH MISC MISCELLANE PRN (08:44)
[2020-06-04] MEDS ORDERED: Magnesium Replacement Protocol 1 EACH MISC MISCELLANE PRN (08:45)
[2020-06-04] MEDS ORDERED: POTASSIUM CHLORIDE ER 20 MEQ TAB.ER PO ONE (09:00)
--- NOTE | 2020-06-04 10:25 | P.PN ---
Subjective Progress Note Date: 06/04/20 No new complaints today. Pending MRI results. K is within normal range at this time. Objective - Vital Signs Vital signs: Vital Signs Temp 97.5 F L 06/03/20 20:40 Pulse 81 06/04/20 04:00 Resp 19 06/04/20 04:00 BP 143/79 06/04/20 04:00 Pulse Ox 92 L 06/04/20 04:00 Intake & Output 06/03/20 06/04/20 06/04/20 18:59 06:59 18:59 Intake Total 580 Balance 580 Weight 47.2 kg 47.3 kg Intake: Intake, IV Titration 100 Amount Potassium Chloride 10 meq 100 In Water For Injection 1 100ml.bag @ 100 mls/hr IVPB ONCE ONE Rx#: [id number] Oral 480 Other: Voiding Method Toilet Toilet # Voids 3 1 # Bowel Movements 4 - Exam Gen: awake, alert HEENT: normocephalic, atraumatic, good hearing acuity, moist mucous membranes Resp: CTAB, good air exchange, no accessory muscle use, no wheezes, crackles, rhonchi CVS: good distal perfusion x 4, RRR, no murmurs, clicks, gallops GI: soft, NTTP, ND : no SPT, no CVAT, bautista catheter not present MSK: no pitting edema, no clubbing Neuro: left arm proximal weakness, cannot abduct shoulder against gravityno sensory deficits, appropriate tone Psych: cooperative, euthymic mood - Labs CBC & Chem 7: 06/03/20 06:48 06/04/20 07:09 Labs: Abnormal Lab Results - Last 24 Hours (Table) 06/04/20 Range/Units 07:09 Potassium 2.9 L (3.5-5.1) mmol/L Carbon Dioxide 31 H (22-30) mmol/L Creatinine 0.42 L (0.66-1.25) mg/dL Glucose 101 H (74-99) mg/dL Calcium 8.0 L (8.4-10.2) mg/dL Phosphorus 1.3 L (2.5-4.5) mg/dL Assessment and Plan Assessment: Back Pain with Radiculopathy Acute severe hypokalemia and hypomagnesemia with prolonged QT interval Alcohol abuse pending Alcohol Withdrawal Syndrome Metabolic alkalosis Very mild anemia Acute hypoxic respiratory failure, resolved Plan Replace potassium Supplemental oxygen as needed Chest x-ray is negative Nephrology consult for severe hypokalemia and metabolic alkalosis Check UA PPI Close monitoring of potassium Cardiac monitoring Benzodiazepines per CIWA scale Thiamine suicide precautions psych eval MRI C/T Spine to evaluate left sided radiculopathy - pending, can likely go home with appropriate follow up afterward full code DVT prophylaxis: heparin sc tid Discussed with: Patient Anticipated length of stay > than [address]: home
[2020-06-04] MEDS: MAGNESIUM SULFATE-D5W PMX 1 GM in DEXTROSE/WATER 1 100ML.BAG IVPB SCH ×2 (10:26→13:06)
[2020-06-04] MEDS: FOLIC ACID 1 MG TAB PO SCH (10:27)
[2020-06-04] MEDS: DULoxetine HCL 30 MG CAPSULE.DR PO SCH (10:27)
[2020-06-04] MEDS: NALTREXONE HCL 50 MG TAB PO SCH (10:28)
[2020-06-04] MEDS: POTASSIUM PHOSPHATE 10 MMOL in SODIUM CHLORIDE 0.9% 250 ML IV SCH ×3 (10:38→17:10)
[2020-06-04] MEDS: POTASSIUM CHLORIDE ER 20 MEQ TAB.ER PO SCH ×2 (13:06→17:10)
--- NOTE | 2020-06-04 15:09 | P.PN ---
Subjective Patient is seen in follow-up for hypokalemia. Potassium 2.9 today. Oral intake poor. Admits to diarrhea. No n/v. Good UO. Vitals: stable. HEENT: NC/AT, no JVD. Heart: RRR, no murmurs. Lungs: Breath sounds decreased. Abdomen: Soft, non-tender. Ext: No edema. Objective - Vital Signs Vital signs: Vital Signs Temp 97.8 F 06/04/20 08:00 Pulse 80 06/04/20 08:00 Resp 18 06/04/20 08:00 BP 146/67 06/04/20 08:00 Pulse Ox 98 06/04/20 08:00 Intake & Output 06/03/20 06/04/20 06/04/20 18:59 06:59 18:59 Intake Total 580 Balance 580 Weight 47.2 kg 47.3 kg Intake: Intake, IV Titration 100 Amount Potassium Chloride 10 meq 100 In Water For Injection 1 100ml.bag @ 100 mls/hr IVPB ONCE ONE Rx#: [id number] Oral 480 Other: Voiding Method Toilet Toilet Toilet # Voids 3 1 # Bowel Movements 4 - Labs CBC & Chem 7: 06/03/20 06:48 06/04/20 07:09 Labs: Abnormal Lab Results - Last 24 Hours (Table) 06/04/20 Range/Units 07:09 Potassium 2.9 L (3.5-5.1) mmol/L Carbon Dioxide 31 H (22-30) mmol/L Creatinine 0.42 L (0.66-1.25) mg/dL Glucose 101 H (74-99) mg/dL Calcium 8.0 L (8.4-10.2) mg/dL Phosphorus 1.3 L (2.5-4.5) mg/dL Assessment and Plan Plan: Assessment: 1. Hypokalemia secondary to poor oral intake and saline diuresis. Improving with replacement. 2. Hypomagnesemia secondary to poor intake and further renal losses due to alcohol abuse. Better. 3. Alcohol abuse. 4. Hypovolemic hyponatremia. Better. 5. Metabolic alkalosis secondary to volume contraction. Better with IV fluids. 6. Hypophosphatemia due to poor intake. Plan: Replace potassium. 80 mEq k-dur today. Maintain normal saline. Repeat electrolytes in the morning. Replace phosphorus.
--- NOTE | 2020-06-04 17:31 | MR ---
EXAMINATION TYPE: MR cspine/tspine wo con DATE OF EXAM: 06/04/2020 COMPARISON: NONE HISTORY: Weakness, lt arm radiculopathy TECHNIQUE: Multiplanar, multisequence imaging of cervical and thoracic spine are performed without co ntrast FINDINGS: C-SPINE: FINDINGS: Sagittal images of the cervical spine show the craniocervical junction to appear within nor mal limits. The cervical and upper thoracic spinal cord is normal in caliber and signal. There is lo ss of normal cervical curvature with grade 1 anterolisthesis C3 on C4 and C4 on C5 and grade 1 retrol isthesis of C5 on C6 and C6 on C7. The vertebral body heights are normal. Mild to moderate disc spac e narrowing C4-C5 through C6-C7 levels with mild to moderate anterior spurring. The bone marrow signa l intensity is overall heterogeneous. Axial images at the C2-C3 level shows mild uncovertebral facet degenerative changes causing mild righ t greater than left bilateral neural foraminal narrowing. Axial images at the C3-C4 level show broad-based posterior disc protrusion mildly effacing anterior t hecal sac and uncovertebral facet degenerative changes causing mild to moderate left greater than rig ht bilateral neural foraminal narrowing. Axial images at C4-C5 levels are broad-based posterior disc protrusion effacing anterior thecal sac w ith mild to moderate bilateral neural foraminal narrowing. Axial images at C5-C6 level show spondylolisthesis and right paracentral spur disc complex effacing t he anterior thecal sac and causing moderate right greater than left bilateral neural foraminal narrow ing. Axial images at C6-C7 level shows spondylosis and broad-based right paracentral/foraminal disc protru hazel effacing ventral lateral thecal sac and causing advanced right with moderate to advanced left-si ded neural foraminal narrowing. Axial images at C7-T1 level are within normal limits. IMPRESSION: Loss of normal cervical curvature with multilevel spondylolisthesis and degenerative walls ges greatest at C6-C7 level as detailed above. T-SPINE: Spinal cord shows normal course, caliber, and signal as it courses the thoracic spine. Vertebral bod y heights and alignment are satisfactory. Disc space heights fairly well maintained. Mild multilevel anterior spurring in the lower thoracic spine. Bone marrow signal intensity is preserved. No suspici ous large posterior disc herniations in the thoracic spine. Axial images show tiny central disc protrusion mildly facing anterior thecal sac at T2-T3 level. Ther e are left paracentral disc protrusions effacing the anterolateral thecal sac at T8-T9 and T9-T10 lev els corresponding to sagittal image 7. Visualized upper abdomen and thorax shows no obvious abnormali ty. IMPRESSION: Mild multilevel degenerative changes in thoracic spine as detailed above.
[2020-06-04 18:14] VITALS: RESP 16
[2020-06-05] MEDS: HEPARIN SODIUM,PORCINE 5,000 UNIT/ML 1 ML VIAL SQ SCH ×2 (00:57→09:06)
[2020-06-05 04:23] VITALS: PULSE 76
[2020-06-05] MEDS: SODIUM CHLORIDE 0.9% 1,000 ML IV SCH ×2 (06:03→06:48)
[2020-06-05] MEDS: PANTOPRAZOLE 40 MG TABLET PO SCH (06:48)
[2020-06-05] MEDS: THIAMINE 100 MG TAB PO SCH (06:48)
[2020-06-05 06:51] LABS: African American GFR (CKD) >90 (>60 ml/min/1.73 sqM); Anion Gap 5 mmol/L; Blood Urea Nitrogen 5 mg/dL (9-20); Calcium 7.9 mg/dL (8.4-10.2); Carbon Dioxide 27 mmol/L (22-30); Chloride 101 mmol/L (98-107); Glucose 92 mg/dL (74-99); Magnesium 1.8 mg/dL (1.6-2.3); Non-African American GFR(CKD) >90 (>60 ml/min/1.73 sqM); Phosphorus 2.5 mg/dL (2.5-4.5); Potassium 3.4 mmol/L (3.5-5.1); Sodium 133 mmol/L (137-145)
[2020-06-05] MEDS ORDERED: SODIUM PHOSPHATE 10 MMOL in SODIUM CHLORIDE 0.9% 250 ML IVPB ONE (07:29)
[2020-06-05] MEDS ORDERED: Magnesium Replacement Protocol 1 EACH MISC MISCELLANE PRN (07:30)
[2020-06-05] MEDS: MAGNESIUM SULFATE-D5W PMX 1 GM in DEXTROSE/WATER 1 100ML.BAG IVPB SCH ×2 (09:05→10:26)
[2020-06-05] MEDS: POTASSIUM CHLORIDE ER 20 MEQ TAB.ER PO SCH ×2 (09:06→10:27)
[2020-06-05] MEDS: DULoxetine HCL 30 MG CAPSULE.DR PO SCH (09:06)
[2020-06-05] MEDS: NALTREXONE HCL 50 MG TAB PO SCH (09:06)
[2020-06-05] MEDS: FOLIC ACID 1 MG TAB PO SCH (09:06)
--- NOTE | 2020-06-05 11:09 | P.PN ---
Subjective Patient is seen in follow-up for hypokalemia. Potassium 3.4 today. Oral intake remains poor. No vomiting. Hemodynamically stable. Vitals: stable. HEENT: NC/AT, no JVD. Heart: RRR, no murmurs. Lungs: Breath sounds decreased. Abdomen: Soft, non-tender. Ext: No edema. Objective - Vital Signs Vital signs: Vital Signs Temp 97.7 F 06/04/20 20:00 Pulse 76 06/05/20 04:00 Resp 16 06/05/20 04:00 BP 162/71 06/05/20 04:00 Pulse Ox 94 L 06/05/20 04:00 Intake & Output 06/04/20 06/05/20 06/05/20 18:59 06:59 18:59 Intake Total 240 1140 100 Balance 240 1140 100 Weight 48.7 kg Intake: Intake, IV Titration 400 Amount Sodium Chloride 0.9% 1, 400 000 ml @ 50 mls/hr IV . Q20H [facility] Rx#:[id number] Oral 240 740 100 Other: Voiding Method Toilet Toilet # Voids 0 1 # Bowel Movements 1 - Labs CBC & Chem 7: 06/03/20 06:48 06/05/20 06:04 Labs: Abnormal Lab Results - Last 24 Hours (Table) 06/04/20 06/05/20 Range/Units 20:21 06:04 Sodium 133 L (137-145) mmol/L Potassium 3.4 L 3.4 L (3.5-5.1) mmol/L BUN 5 L (9-20) mg/dL Creatinine 0.43 L (0.66-1.25) mg/dL Calcium 7.9 L (8.4-10.2) mg/dL Assessment and Plan Plan: Assessment: 1. Hypokalemia secondary to poor oral intake and saline diuresis. Improving with replacement. 2. Hypomagnesemia secondary to poor intake and further renal losses due to alcohol abuse. Better. 3. Alcohol abuse. 4. Hypovolemic hyponatremia. Improved with IV hydration. 5. Metabolic alkalosis secondary to volume contraction. Better with IV fluids. 6. Hypophosphatemia due to poor intake. Better post replacement. Plan: Replace potassium. 40 mEq k-dur today. Maintain normal saline. Repeat electrolytes in the morning. Encouraged oral intake.
[2020-06-05 11:58] VITALS: BP 123/70; TEMP 98
[2020-06-05 15:17] VITALS: BMI 18.4
--- NOTE | 2020-06-05 21:17 | P.DS ---
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 Initial vital signs showed a pulse of 102 and a blood pressure of 99/62. He was initially 87% on room air. Laboratory analysis demonstrated profound hypokalemia, hyponatremia, and hypomagnesemia. Chest x-ray showed no acute process. He was admitted for severe electrolyte arrangement and impending alcohol withdrawal. He was seen by nephrology who felt that his electrolytes disturbances were secondary to low solute intake and accommodation with alcohol use. He was seen by psychiatry who recommended initiation of naltrexone and Cymbalta as well as outpatient therapy, and the patient did not require inpatient mental health unit. During his hospital stay he did complain of some neck pain he underwent MRI of the cervical and thoracic spine which showed multiple areas of neural foraminal narrowing. He was started on Valtrex down and did well. He did not require any b enzodiazepines for treatment of alcohol withdrawal during his hospital stay. He is determined stable for discharge home. He will started on steroids to help with his neck pain and radiculopathy. He will follow-up with Dr. James. I also suggested Emily Young for nurse practitioner however wants to set him up with her PCP. Patient given 10 day supply of naltrexone and cymbalta as well as medrol dose pack. Patient seen and examined at bedside. No chest pain, no neck pain, no nausea, tolerating oral intake. Vital signs reviewed and stable. General: non toxic, no distress, appears older than stated age Derm: warm, dry Head: atraumatic, normocephalic, symmetric Eyes: EOMI, no lid lag, anicteric sclera Mouth: no lip lesion, mucus membranes moist Cardiovascular: S1S2 reg, no murmur, positive posterior tibial pulse bilateral, Lungs: CTA bilateral, no rhonchi, no rales , no accessory muscle use Abdominal: soft, nontender to palpation, no guarding, no appreciable organomegaly Ext: no gross muscle atrophy, no edema, no contractures Neuro: CN II-XI grossly intact, no focal neuro deficits Psych: Alert, oriented, appropriate affect A total of 35 minutes of time were spent preparing this complex discharge summary . Patient Condition at Discharge: Stable Plan - Discharge Summary Discharge Rx Participant: No New Discharge Prescriptions: New DULoxetine HCL [Cymbalta] 30 mg PO DAILY #10 capsule. Folic Acid 1 mg PO DAILY #10 tab methylPREDNISolone Dose Pack [Medrol Dose Pack] 4 mg PO DIRECTED #21 package Naltrexone HCl [Revia] 50 mg PO DAILY #10 tab Thiamine [Vitamin B-1] 100 mg PO BID-W/MEALS #10 tab Discharge Medication List DULoxetine HCL [Cymbalta] 30 mg PO DAILY #10 capsule. 06/05/20 [Rx] Folic Acid 1 mg PO DAILY #10 tab 06/05/20 [Rx] Naltrexone HCl [Revia] 50 mg PO DAILY #10 tab 06/05/20 [Rx] Thiamine [Vitamin B-1] 100 mg PO BID-W/MEALS #10 tab 06/05/20 [Rx] methylPREDNISolone Dose Pack [Medrol Dose Pack] 4 mg PO DIRECTED #21 package 06/05/20 [Rx] Follow up Appointment(s)/Referral(s): Kyra James DO [Doctor of Osteopathic Medicine] - 06/10/20 10:30 am ([facility]) Emily Young NPC [REFERRING] - 1 Week ( would like to set up with her PCP) None,Stated [Primary Care Provider] - 1-2 days Patient Instructions/Handouts: Alcohol Withdrawal (DC), Alcohol Withdrawal (GEN) Activity/Diet/Wound Care/Special Instructions: Activity: as tolerated Diet: regular Special Instructions: Abstain alcohol Follow with Psychiatry Discharge Disposition: HOME SELF-CARE
== END 2020-06-05 15:39 | disposition home or self-care (01) | DRG 896 ==
LOC: EC 16:32 → 3SCARD 18:38
PROVIDERS: ADMIT Family Medicine; ATTEND Family Medicine
DX: F10.230 Alcohol dependence with withdrawal, uncomplicated (principal); J96.01 Acute respiratory failure with hypoxia; E44.1 Mild protein-calorie malnutrition; Z68.1 Body mass index [BMI] 19.9 or less, adult; R64 Cachexia; R45.851 Suicidal ideations; E87.3 Alkalosis; E87.1 Hypo-osmolality and hyponatremia; D63.8 Anemia in other chronic diseases classified elsewhere; E83.39 Other disorders of phosphorus metabolism; F10.220 Alcohol dependence with intoxication, uncomplicated; F32.9 Major depressive disorder, single episode, unspecified; I10 Essential (primary) hypertension; R94.31 Abnormal electrocardiogram [ECG] [EKG]; E87.6 Hypokalemia; E83.42 Hypomagnesemia; D75.89 Other specified diseases of blood and blood-forming organs; M48.02 Spinal stenosis, cervical region; M54.12 Radiculopathy, cervical region; E86.1 Hypovolemia; Y90.0 Blood alcohol level of less than 20 mg/100 ml; Z74.01 Bed confinement status; Z98.890 Other specified postprocedural states; Z87.891 Personal history of nicotine dependence; Z88.0 Allergy status to penicillin
CPT/HCPCS: 36415; 71046; 72141; 72146; 80048; 80053; 80320; 81003; 83690; 83735; 84100; 84132; 84484; 85025; 85027; 85610; 85730; 93005; 96365; 96368; 96372; 99291

== ENCOUNTER 2021-08-21 20:40 | Inpatient (IN) | payer BC, MEDICARE ==
--- NOTE | 2021-08-21 22:16 | ED ---
Psych HPI - General Chief Complaint: Psychiatric Symptoms Stated Complaint: Mental Health Time Seen by Provider: 08/21/21 21:37 Source: patient, family, EMS, RN notes reviewed, old records reviewed Mode of arrival: EMS Limitations: no limitations - History of Present Illness Initial Comments: This is a 65-year-old male to the emergency department today. Patient presents today for evaluation of psychiatric illness. Patient has EMS called by family under petition for evaluation by psychiatry. Patient started taking care of himself not taking his medications and was concerned about patient's mental health MD Complaint: feels depressed Associated Psychiatric Symptoms: depression History of same: Yes Quality: intermittent, getting worse Worsens With: none Context: not taking psychiatric medications Associated Symptoms: denies other symptoms Treatments Prior to Arrival: placed on mental health hold If Self Harm: admits thoughts of self harm - Related Data Home Medications Medication Instructions Recorded Confirmed DULoxetine HCL [Cymbalta] 60 mg PO DAILY 08/21/21 08/21/21 Thiamine [Vitamin B-1] 100 mg PO DAILY 08/21/21 08/21/21 Previous Rx's Medication Instructions Recorded Folic Acid 1 mg PO DAILY #10 tab 06/05/20 Allergies Allergy/AdvReac Type Severity Reaction Status Date / Time Penicillins Allergy Rash/Hives Verified 08/21/21 22:15 Review of Systems ROS Statement: Those systems with pertinent positive or pertinent negative responses have been documented in the HPI. ROS Other: All systems not noted in ROS Statement are negative. Past Medical History Past Medical History: Hypertension History of Any Multi-Drug Resistant Organisms: None Reported Past Surgical History: Hernia Repair Additional Past Surgical History / Comment(s): 2 umbilical hernia repair Past Anesthesia/Blood Transfusion Reactions: No Reported Reaction Past Psychological History: Depression Smoking Status: Former smoker Past Alcohol Use History: Daily Past Drug Use History: None Reported - Past Family History Mother Additional Family Medical History / Comment(s): PT. STATES HIS MOTHER FROM [facility] General Exam Limitations: no limitations General appearance: alert, in no apparent distress, anxious Head exam: Present: atraumatic, normocephalic, normal inspection Eye exam: Present: normal appearance, PERRL, EOMI. Absent: scleral icterus, conjunctival injection, periorbital swelling ENT exam: Present: normal exam, mucous membranes moist Neck exam: Present: normal inspection. Absent: tenderness, meningismus, lymphadenopathy Respiratory exam: Present: normal lung sounds bilaterally. Absent: respiratory distress, wheezes, rales, rhonchi, stridor Cardiovascular Exam: Present: normal rhythm, tachycardia, normal heart sounds. Absent: systolic murmur, diastolic murmur, rubs, gallop, clicks GI/Abdominal exam: Present: soft, normal bowel sounds. Absent: distended, tenderness, guarding, rebound, rigid Extremities exam: Present: normal inspection, full ROM, normal capillary refill. Absent: tenderness, pedal edema, joint swelling, calf tenderness Back exam: Present: normal inspection Neurological exam: Present: alert, oriented X3, CN II-XII intact Psychiatric exam: Present: normal affect, normal mood Skin exam: Present: warm, dry, intact, normal color. Absent: rash Course Vital Signs 08/21/21 08/22/21 20:56 05:43 Temperature 99.0 F Pulse Rate 120 H 88 Respiratory 18 19 Rate Blood Pressure 181/89 164/76 O2 Sat by Pulse 96 100 Oximetry - Reevaluation(s) Reevaluation #1: 08/21/21 22:15 Medical record is reviewed Reevaluation #2: 08/21/21 22:15 Medical clear for psychiatric evaluation Disposition Clinical Impression: Suicidal ideation, Alcohol withdrawal Disposition: TRANSFER TO PSYCH HOSP/UNIT Condition: Fair Is patient prescribed a controlled substance at d/c from ED?: No
[2021-08-21] MEDS: LORazepam 1 MG TAB PO ONE ×2 (22:39→22:48)
[2021-08-22] MEDS ORDERED: MAG HYDROX/AL HYDROX/SIMETH 30 ML CUP PO PRN (07:18)
[2021-08-22] MEDS ORDERED: ACETAMINOPHEN TAB 325 MG TAB PO PRN (07:18)
[2021-08-22] MEDS ORDERED: MAGNESIUM HYDROXIDE 2,400 MG/10 ML CUP PO PRN (07:18)
[2021-08-22] MEDS ORDERED: LORazepam 1 MG TAB PO PRN (07:18)
[2021-08-22] MEDS ORDERED: NICOTINE 21MG/24HR PATCH TRANSDERM SCH (09:00)
[2021-08-22] MEDS ORDERED: LORazepam 2 MG/ML INJ IM STA (10:48)
[2021-08-22 11:10] VITALS: BP 204/109; PULSE 120; RESP 16; TEMP 97.4
== END 2021-08-22 12:35 | disposition short-term general hospital (02) | DRG 885 ==
LOC: EC 20:40 → SUPCPDRO 20:40 → 3MHU 08-22 07:14
PROVIDERS: ADMIT Psychiatry & Neurology Psychiatry; ATTEND Psychiatry & Neurology Psychiatry
DX: F33.3 Major depressive disorder, recurrent, severe with psychotic symptoms (principal); R45.851 Suicidal ideations; F10.231 Alcohol dependence with withdrawal delirium; I10 Essential (primary) hypertension; Z87.891 Personal history of nicotine dependence; Z20.822 Contact with and (suspected) exposure to COVID-19; Z98.890 Other specified postprocedural states; Z91.14 Patient's other noncompliance with medication regimen; Z79.899 Other long term (current) drug therapy; Z88.0 Allergy status to penicillin; Z82.5 Family history of asthma and other chronic lower respiratory diseases; F10.229 Alcohol dependence with intoxication, unspecified; E83.42 Hypomagnesemia; R00.0 Tachycardia, unspecified
CPT/HCPCS: 82075; 87635; 99285

== ENCOUNTER 2021-08-22 11:00 | Inpatient (IN) | payer BC, MEDICARE ==
[2021-08-22] MEDS ORDERED: NALOXONE 0.4 MG/ML 1 ML VIAL IV PRN (13:05)
[2021-08-22] MEDS ORDERED: MELATONIN 3 MG TABLET PO PRN (13:05)
[2021-08-22] MEDS ORDERED: ACETAMINOPHEN TAB 325 MG TAB PO PRN (13:05)
[2021-08-22] MEDS ORDERED: ONDANSETRON 4 MG/2 ML VIAL IVP PRN (13:05)
[2021-08-22] MEDS ORDERED: THIAMINE 100 MG/ML 2 ML VIAL IM STA (13:07)
[2021-08-22] MEDS ORDERED: LORazepam 2 MG/ML INJ IV PRN (13:07)
[2021-08-22 13:44] LABS: Basophils % (A) 0 %; Eosinophils # (A) 0.1 k/uL (0-0.7); Eosinophils % (A) 1 %; HCT 42.9 % (39.0-53.0); HGB 14.7 gm/dL (13.0-17.5); Lymphocytes # (A) 1.1 k/uL (1.0-4.8); Lymphocytes % (A) 8 %; MCH 35.5 pg (25.0-35.0); MCHC 34.4 g/dL (31.0-37.0); MCV 103.2 fL (80.0-100.0); Macrocytosis Slight; Mean Platelet Volume 8.1; Monocytes # (A) 0.8 k/uL (0-1.0); Monocytes % (A) 6 %; Neutrophils # (A) 11.6 k/uL (1.3-7.7); Neutrophils % (A) 84 %; Platelet Count 167 k/uL (150-450); RBC 4.15 m/uL (4.30-5.90); RDW 13.5 % (11.5-15.5); WBC 13.8 k/uL (3.8-10.6)
[2021-08-22 13:55] LABS: ALT 35 U/L (4-49); AST 88 U/L (17-59); African American GFR (CKD) >90 (>60 ml/min/1.73 sqM); Albumin 3.9 g/dL (3.5-5.0); Alkaline Phosphatase 132 U/L (38-126); Anion Gap 12 mmol/L; Blood Urea Nitrogen 16 mg/dL (9-20); Calcium 9.1 mg/dL (8.4-10.2); Carbon Dioxide 24 mmol/L (22-30); Chloride 102 mmol/L (98-107); Glucose 138 mg/dL (74-99); Magnesium 1.2 mg/dL (1.6-2.3); Non-African American GFR(CKD) >90 (>60 ml/min/1.73 sqM); Potassium 3.6 mmol/L (3.5-5.1); Sodium 138 mmol/L (137-145); Total Bilirubin 1.2 mg/dL (0.2-1.3); Total Protein 7.1 g/dL (6.3-8.2)
[2021-08-22] MEDS ORDERED: METOPROLOL TARTRATE 25 MG TAB PO SCH (14:01)
[2021-08-22] MEDS ORDERED: POTASSIUM CHLORIDE ER 20 MEQ TAB.ER PO STA (14:02)
[2021-08-22] MEDS ORDERED: SODIUM CHLORIDE 0.9% 1,000 ML IV ONE (14:06)
--- NOTE | 2021-08-22 14:09 | P.HPIM ---
History of Present Illness H&P Date: 08/22/21 This is a 65-year-old male with past medical history significant for alcohol abuse presented to the ER yesterday petition by his as he was making suicidal statements while he was drunk. Patient was evaluated in the ER and admitted to the psych unit. I was called by the psych nurse today as patient was having significant alcohol withdrawal and they could not handle him. I asked them to transfer the patient to the medical floor. Sewn after arrival to the medical floor his nurse only as patient was having episodes of wide complex tachycardia with heart rate up to 200. Patient was hemodynamically stable. He was only complaining of heart fluttering but denies any chest pain. He denies any cardiac history. He was inconsistent with the amount of alcohol that he usually drinks. He told me that he drinks 2-3 beers per day +1 drink of vodka. I was able to discuss the patient's condition with Dr. Allen in the hallway and he walked into the room and at that time patient was having a narrow complex tachycardia with a heart rate up to 195. After carotid massage heart rate came down to 130 sinus tachycardia. Patient remained hemodynamically stable. Review of Systems Review of system: 14 points review of systems were obtained and were negative except to what were mentioned in the HPI. Past Medical History Past Medical History: Hypertension History of Any Multi-Drug Resistant Organisms: None Reported Past Surgical History: Hernia Repair Additional Past Surgical History / Comment(s): 2 umbilical hernia repair Past Anesthesia/Blood Transfusion Reactions: No Reported Reaction Past Psychological History: Depression Smoking Status: Former smoker Past Alcohol Use History: Daily Past Drug Use History: None Reported - Past Family History Mother Additional Family Medical History / Comment(s): PT. STATES HIS MOTHER FROM [facility] Medications and Allergies Home Medications Medication Instructions Recorded Confirmed Type Folic Acid 1 mg PO DAILY #10 tab 06/05/20 08/21/21 Rx DULoxetine HCL [Cymbalta] 60 mg PO DAILY 08/21/21 08/21/21 History Thiamine [Vitamin B-1] 100 mg PO DAILY 08/21/21 08/21/21 History Allergies Allergy/AdvReac Type Severity Reaction Status Date / Time Penicillins Allergy Rash/Hives Verified 08/21/21 22:15 Physical Exam Vitals: Intake and Output 08/21/21 08/22/2108/22/21 22:59 06:59 14:59 Other: Weight 55.9 kg General: The patient is awake and alert, in no distress Eye: there is normal conjunctiva bilaterally. Neck: The neck is supple, there is no JVD. Cardiovascular: Normal S1-S2, no S3-S4, no murmurs. Respiratory: Lungs clear to auscultation bilaterally Gastrointestinal: Abdomen is soft, nontender Musculoskeletal: There is no pedal edema. Neurological:. Speech is normal. Skin: Skin is warm and dry Results CBC & Chem 7: 08/22/21 13:34 08/22/21 13:34 Labs: Abnormal Lab Results - Last 24 Hours (Table) 08/22/21 08/22/21 Range/Units 13:34 13:34 WBC 13.8 H (3.8-10.6) k/uL RBC 4.15 L (4.30-5.90) m/uL MCV 103.2 H (80.0-100.0) fL MCH 35.5 H (25.0-35.0) pg Neutrophils # 11.6 H (1.3-7.7) k/uL Glucose 138 H (74-99) mg/dL Magnesium 1.2 L (1.6-2.3) mg/dL AST 88 H (17-59) U/L Alkaline Phosphatase 132 H (38-126) U/L Assessment and Plan Assessment: 1. Alcohol intoxication on presentation now with alcohol withdrawal/impending DTs 2. Wide-complex tachycardia with heart rate up to 200 then SVT aborted with carotid massage 3. Hypomagnesemia 4. Suicidal ideation on presentation while patient was on, currently denies any suicidal thoughts Today, I reviewed his medication list and lab work results I will replace his potassium and magnesium Continue telemetry monitoring, check troponin, order echocardiogram Cardiology consulted, appreciate recommendations 1 L normal saline bolus then D5/half-normal saline at 100 mL per hour [facility] Valium 5 mg 3 times a day Thiamine and folic acid and multivitamins Repeat lab work in the morning
[2021-08-22] MEDS: MAGNESIUM SULFATE-D5W PMX 1 GM in DEXTROSE/WATER 1 100ML.BAG IVPB SCH ×2 (14:18→15:30)
[2021-08-22] MEDS: THIAMINE 100 MG TAB PO SCH (14:18)
[2021-08-22] MEDS: DEXTROSE 5%-0.45% NACL 1,000 ML IV SCH ×2 (14:25→22:44)
[2021-08-22 15:31] LABS: Magnesium 1.3 mg/dL (1.6-2.3)
--- NOTE | 2021-08-22 15:48 | CONS ---
CONSULTATION Mr. Ibarra is a 65-year-old male who was admitted to the hospital to undergo evaluation for alcohol withdrawal. He had episode of tachycardia, was transferred to telemetry floor. On the telemetry floor he was in what appeared to be SVT with narrow complex. Apparently the patient was making suicidal statements. According to the patient, he was told about 6 months ago that he has a rapid heartbeat. He denies any chest discomfort. He has dyspnea. He is feeling the palpitations but no syncope. He has no clear PND or orthopnea. On the telemetry floor he was noted to have narrow- complex tachycardia at a rate in the 190s. After carotid massage and a he is in sinus tachycardia. Hemodynamically he is stable otherwise. He has no documented history of hypertension or hyperlipidemia. He is nondiabetic. REVIEW OF SYSTEMS: RESPIRATORY SYSTEM: He has dyspnea on exertion. No recent wheezing or cough. GI SYSTEM: No recent GI bleeding. No peptic ulcer disease. SYSTEM: No dysuria or hematuria. NERVOUS SYSTEM: No stroke or seizure. PHYSICAL EXAMINATION: He is a 65-year-old male, alert. No apparent distress. Blood pressure initially 172/105. Heart rate was in the 200s. After carotid massage his rate in sinus tachycardia in the 130s. Blood pressure 184/80. HEAD: Normocephalic. EYES: Sclerae anicteric. NECK: Good carotid upstroke. No bruit. LUNGS: Decreased air exchange. No wheezes. HEART: Regular rate and rhythm. S1, S2. Tachycardic. No rub. Plus a systolic murmur. ABDOMEN: Soft, nontender. Positive bowel sounds. No organomegaly. EXTREMITIES: No edema. Intact distal pulses. LAB DATA: Troponin 0.022. BUN and creatinine of 16 and 0.7. Potassium 3.6. Hemoglobin of 14.7. EKG revealed a narrow-complex tachycardia consistent with SVT. IMPRESSION: 1. Alcohol withdrawal with history of alcoholism. 2. Supraventricular tachycardia, probably exacerbated from the alcohol. 3. Hypertension of unknown duration. RECOMMENDATIONS: I will increase the dose of his beta kevin that was started recently. I will check his thyroid function tests. I will obtain echocardiogram with Doppler. Will check his magnesium. Continue the rest of his medical regimen. Depending on his progress, further recommendations will be made. Thank you for this consult. Will follow with you. MMODL / IJN: [id number] /
[2021-08-22] MEDS: diazePAM 5 MG TAB PO SCH ×2 (17:19→21:04)
[2021-08-22] MEDS: METOPROLOL TARTRATE 50 MG TAB PO SCH (20:21)
[2021-08-23] MEDS: LORazepam 2 MG/ML INJ IV PRN ×5 (00:04→22:15)
[2021-08-23] MEDS: THIAMINE 100 MG TAB PO SCH ×2 (06:37→16:50)
[2021-08-23] MEDS: DEXTROSE 5%-0.45% NACL 1,000 ML IV SCH (06:37)
[2021-08-23 08:25] LABS: African American GFR (CKD) >90 (>60 ml/min/1.73 sqM); Anion Gap 11 mmol/L; Blood Urea Nitrogen 6 mg/dL (9-20); Calcium 8.9 mg/dL (8.4-10.2); Carbon Dioxide 26 mmol/L (22-30); Chloride 100 mmol/L (98-107); Glucose 183 mg/dL (74-99); Magnesium 1.7 mg/dL (1.6-2.3); Non-African American GFR(CKD) >90 (>60 ml/min/1.73 sqM); Sodium 137 mmol/L (137-145)
[2021-08-23] MEDS ORDERED: Magnesium Replacement Protocol 1 EACH MISC MISCELLANE PRN (08:27)
[2021-08-23] MEDS ORDERED: Potassium Replacement Protocol 1 EACH MISC MISCELLANE PRN (08:27)
[2021-08-23] MEDS: METOPROLOL TARTRATE 50 MG TAB PO SCH ×2 (08:59→21:22)
[2021-08-23] MEDS: MAGNESIUM SULFATE-D5W PMX 1 GM in DEXTROSE/WATER 1 100ML.BAG IVPB SCH ×2 (08:59→10:59)
[2021-08-23] MEDS: POTASSIUM CHLORIDE ER 20 MEQ TAB.ER PO SCH ×2 (08:59→10:59)
[2021-08-23] MEDS: diazePAM 5 MG TAB PO SCH (08:59)
[2021-08-23] MEDS: MULTIVITAMINS, THERA 1 EACH TAB PO SCH (08:59)
--- NOTE | 2021-08-23 12:53 | PN ---
PROGRESS NOTE Mrs. Ibarra is a 65-year-old male with a history of chronic alcoholism who was transferred to telemetry floor because of SVT. He remains in sinus mechanism. He appears to be more awake and alert. He has some abdominal pain but no chest pain. His breathing has been stable. He denies any dizziness or palpitation. He denies any nausea. He continues to be on metoprolol tartrate 50 mg twice a day. PHYSICAL EXAMINATION: Blood pressure 147/80 with a heart rate in the 90s. LUNGS: With decreased air exchange, no wheezes. HEART: Regular rate and rhythm, S1, S2. No S3. No rub. ABDOMEN: Soft. Mild generalized tenderness. EXTREMITIES: No edema. LAB DATA: Potassium 3.0, BUN and creatinine 66 and 0.64. IMPRESSION: 1. Alcoholism, being treated with alcohol withdrawal. 2. Supraventricular tachycardia, remains sinus mechanism. 3. Hypertension, stable. RECOMMENDATIONS: From the cardiac standpoint I will replace his potassium. Continue rest of his medical regimen. He will have an echocardiogram done tomorrow and if he is stable, we will continue on the present regimen. MMODL / IJN: [id number] /
--- NOTE | 2021-08-23 13:40 | P.PN ---
Subjective Patient is doing well today. Heart rate well controlled on the monitor. No events overnight reported to me by nursing staff. No evidence of withdrawal. Patient is not requiring IV Ativan anymore. Objective - Vital Signs Vital signs: Vital Signs Temp 98.1 F 08/23/21 10:58 Pulse 85 08/23/21 10:58 Resp 16 08/23/21 10:58 BP 150/89 08/23/21 10:58 Pulse Ox 96 08/23/21 10:58 Intake & Output 08/22/21 08/23/21 08/23/21 18:59 06:59 18:59 Intake Total 237 240 118 Output Total 450 850 Balance -213 -610 118 Weight 55.9 kg 55 kg Intake: Intake, IV Titration 240 Amount Dextrose 5%-0.45% NaCl 1, 240 000 ml @ 100 mls/hr IV . Q10H MABEL Rx#:[id number] Oral 237 118 Output: Urine 450 850 Other: Voiding Method Urinal # Voids 2 1 # Bowel Movements 1 - Exam General: The patient is awake and alert, in no distress Eye: there is normal conjunctiva bilaterally. Neck: The neck is supple, there is no JVD. Cardiovascular: Normal S1-S2, no S3-S4, no murmurs. Respiratory: Lungs clear to auscultation bilaterally Gastrointestinal: Abdomen is soft, nontender Musculoskeletal: There is no pedal edema. Neurological:. Speech is normal. Skin: Skin is warm and dry - Labs CBC & Chem 7: 08/22/21 13:34 08/23/21 07:48 Labs: Abnormal Lab Results - Last 24 Hours (Table) 08/22/21 08/22/21 08/22/21 Range/Units 13:34 13:34 13:34 WBC 13.8 H (3.8-10.6) k/uL RBC 4.15 L (4.30-5.90) m/uL MCV 103.2 H (80.0-100.0) fL MCH 35.5 H (25.0-35.0) pg Neutrophils # 11.6 H (1.3-7.7) k/uL Potassium (3.5-5.1) mmol/L BUN (9-20) mg/dL Creatinine (0.66-1.25) mg/dL Glucose 138 H (74-99) mg/dL Magnesium 1.2 L 1.3 L (1.6-2.3) mg/dL AST 88 H (17-59) U/L Alkaline Phosphatase 132 H (38-126) U/L 08/23/21 Range/Units 07:48 WBC (3.8-10.6) k/uL RBC (4.30-5.90) m/uL MCV (80.0-100.0) fL MCH (25.0-35.0) pg Neutrophils # (1.3-7.7) k/uL Potassium 3.0 L (3.5-5.1) mmol/L BUN 6 L (9-20) mg/dL Creatinine 0.64 L (0.66-1.25) mg/dL Glucose 183 H (74-99) mg/dL Magnesium (1.6-2.3) mg/dL AST (17-59) U/L Alkaline Phosphatase (38-126) U/L Assessment and Plan Assessment: 1. Alcohol intoxication on presentation now with alcohol withdrawal/impending DTs 2. Wide-complex tachycardia with heart rate up to 200 then SVT aborted with carotid massage 3. Hypomagnesemia 4. Suicidal ideation on presentation while patient was on, currently denies any suicidal thoughts Today, I reviewed his medication list and lab work results Potassium and magnesium replacement ordered Continue telemetry monitoring, Pending echocardiogram Cardiology consulted, appreciate recommendations As needed [facility] protocol Decrease Valium dose of 5 mg daily Thiamine and folic acid and multivitamins Repeat lab work in the morning Anticipate transfer back to [facility] possibly tomorrow
[2021-08-23 15:15] VITALS: RESP 18
[2021-08-23 19:30] LABS: African American GFR (CKD) >90 (>60 ml/min/1.73 sqM); Anion Gap 7 mmol/L; Blood Urea Nitrogen 5 mg/dL (9-20); Carbon Dioxide 28 mmol/L (22-30); Chloride 101 mmol/L (98-107); Glucose 135 mg/dL (74-99); Non-African American GFR(CKD) >90 (>60 ml/min/1.73 sqM); Potassium 3.4 mmol/L (3.5-5.1); Sodium 136 mmol/L (137-145)
[2021-08-23] MEDS ORDERED: LORazepam 2 MG/ML INJ IV STA (21:16)
[2021-08-24] MEDS: DEXTROSE 5%-0.45% NACL 1,000 ML IV SCH ×2 (02:06→06:41)
[2021-08-24] MEDS: LORazepam 2 MG/ML INJ IV PRN ×3 (03:14→08:52)
[2021-08-24 06:10] LABS: Basophils % (A) 0 %; Eosinophils # (A) 0.1 k/uL (0-0.7); Eosinophils % (A) 1 %; HCT 43.2 % (39.0-53.0); HGB 14.1 gm/dL (13.0-17.5); Lymphocytes # (A) 1.5 k/uL (1.0-4.8); Lymphocytes % (A) 19 %; MCH 35.1 pg (25.0-35.0); MCHC 32.7 g/dL (31.0-37.0); MCV 107.3 fL (80.0-100.0); Macrocytosis Moderate; Mean Platelet Volume 8.8; Monocytes # (A) 0.5 k/uL (0-1.0); Monocytes % (A) 6 %; Neutrophils # (A) 5.7 k/uL (1.3-7.7); Neutrophils % (A) 72 %; Platelet Count 131 k/uL (150-450); RBC 4.03 m/uL (4.30-5.90); RDW 12.5 % (11.5-15.5); WBC 7.9 k/uL (3.8-10.6)
[2021-08-24 06:26] LABS: African American GFR (CKD) >90 (>60 ml/min/1.73 sqM); Anion Gap 8 mmol/L; Blood Urea Nitrogen 4 mg/dL (9-20); Carbon Dioxide 26 mmol/L (22-30); Chloride 104 mmol/L (98-107); Glucose 113 mg/dL (74-99); Non-African American GFR(CKD) >90 (>60 ml/min/1.73 sqM); Potassium 3.4 mmol/L (3.5-5.1); Sodium 138 mmol/L (137-145)
[2021-08-24] MEDS: THIAMINE 100 MG TAB PO SCH ×2 (06:40→15:57)
[2021-08-24] MEDS: POTASSIUM CHLORIDE ER 20 MEQ TAB.ER PO SCH ×2 (06:40→08:00)
[2021-08-24] MEDS: MULTIVITAMINS, THERA 1 EACH TAB PO SCH (08:00)
[2021-08-24] MEDS: METOPROLOL TARTRATE 50 MG TAB PO SCH ×2 (08:00→20:09)
[2021-08-24] MEDS ORDERED: amLODIPine 2.5 MG TAB PO SCH (09:00)
[2021-08-24] MEDS ORDERED: diazePAM 5 MG TAB PO SCH (09:00)
--- NOTE | 2021-08-24 11:39 | ECHOF ---
Referral Reason:Arrhythmia MEASUREMENTS -------- HEIGHT: 162.6 cm WEIGHT: 55.3 kg BP: 169/84 RVIDd: 2.8 cm (< 3.3) IVSd: 1.1 cm (0.6 - 1.1) LVIDd: 4.1 cm (3.9 - 5.3) LVPWd: 1.3 cm (0.6 - 1.1) IVSs: 1.4 cm LVIDs: 3.5 cm LVPWs: 1.5 cm LA Diam: 3.0 cm (2.7 - 3.8) LAESV Index (A-L): 18.26 ml/m Ao Diam: 3.2 cm (2.0 - 3.7) AV Cusp: 1.9 cm (1.5 - 2.6) MV EXCURSION: 18.221 mm (> 18.000) MV EF SLOPE: 192 mm/s (70 - 150) EPSS: 0.5 cm MV E Giancarlo: 0.70 m/s MV DecT: 88 ms MV A Giancarlo: 0.31 m/s MV E/A Ratio: 2.22 FINDINGS -------- Sinus rhythm. This was a technically good study. The left ventricular size is normal. There is mild concentric left ventricular hypertrophy. Overa ll left ventricular systolic function is mild-moderately impaired with, an EF between 40 - 45 %. Ba toño posterior LV wall motion is hypokinetic. Basal inferior LV wall motion is hypokinetic. Basa l inferoseptal LV wall motion is hypokinetic. Mid inferior LV wall motion is hypokinetic. Mid i nferoseptal LV wall motion is hypokinetic. The right ventricle is normal in size. Normal LA size by volume 22+/-6 ml/m2. The right atrium is normal in size. Interatrial and interventricular septum intact. The aortic valve is trileaflet, and appears structurally normal. No aortic stenosis or regurgitation. The mitral valve leaflets are mildly thickened. There is trace mitral regurgitation. The tricuspid valve appears structurally normal. Unable to estimate RVSP due to inadequate TR jet s pectral doppler profile. The pulmonic valve was not well visualized. The aortic root size is normal. Normal inferior vena cava with normal inspiratory collapse consistent with estimated right atrial pre ssure of 5 mmHg. There is no pericardial effusion. CONCLUSIONS -------- 1. The left ventricular size is normal. 2. There is mild concentric left ventricular hypertrophy. 3. Overall left ventricular systolic function is mild-moderately impaired with, an EF between 40 - 45 %. 4. Basal posterior LV wall motion is hypokinetic. 5. Basal inferior LV wall motion is hypokinetic. 6. Basal inferoseptal LV wall motion is hypokinetic. 7. Mid inferior LV wall motion is hypokinetic. 8. Mid inferoseptal LV wall motion is hypokinetic. 9. The aortic valve is trileaflet, and appears structurally normal. No aortic stenosis or regurgitati on. 10. The mitral valve leaflets are mildly thickened. 11. There is trace mitral regurgitation. 12. The aortic root size is normal. 13. There is no pericardial effusion. FIRE TENDER: Angie Gordon RDCS
--- NOTE | 2021-08-24 14:05 | P.DS ---
Providers Date of admission: 08/22/21 12:54 Expected date of discharge: 08/24/21 Attending physician: Julio Fajardo Consults: 08/22/21 14:01 Consult Physician Routine Consulting Provider: Ladi Allen Consult Reason/Comments: Wide complex tachycardia Do you want consulting provider notified?: Yes 08/22/21 14:08 Consult Physician Routine Consulting Provider: Balta Pettit Consult Reason/Comments: Suicidal ideation on presentation Do you want consulting provider notified?: Yes Primary care physician: [facility] Course: This is a 65-year-old male who was transferred from the psych unit to the medical floor for further treatment of symptoms of withdrawal. Upon her laboratory with the floor, patient went into SVT with a heart rate up to 200 that was aborted with carotid massage. This is always a list of his medical problems at this this hospitalization. 1. Alcohol intoxication on presentation now with alcohol withdrawal/impending DTs 2. SVT: Seen and evaluated by cardiology. Started on metoprolol 50 mg twice daily. Echocardiogram showed percent with some wall motion abnormalities. 3. Hypomagnesemia, replaced 4. Suicidal ideation on presentation while patient was on, currently denies any suicidal thoughts Patient's overall condition remains stable. He was cleared by cardiology for discharge. He will return to the psych unit for further treatment. Plan - Discharge Summary Discharge Rx Participant: No New Discharge Prescriptions: New Metoprolol Tartrate [Lopressor] 50 mg PO BID tab Multivitamins, Thera [Multivitamin (formulary)] 1 each PO DAILY tab Continue Folic Acid 1 mg PO DAILY #10 tab DULoxetine HCL [Cymbalta] 60 mg PO DAILY Thiamine [Vitamin B-1] 100 mg PO DAILY Discharge Medication List Folic Acid 1 mg PO DAILY #10 tab 06/05/20 [Rx] DULoxetine HCL [Cymbalta] 60 mg PO DAILY 08/21/21 [History] Thiamine [Vitamin B-1] 100 mg PO DAILY 08/21/21 [History] Metoprolol Tartrate [Lopressor] 50 mg PO BID tab 08/24/21 [Rx] Multivitamins, Thera [Multivitamin (formulary)] 1 each PO DAILY tab 08/24/21 [Rx] Discharge Disposition: TRANSFER TO PSYCH HOSP/UNIT
--- NOTE | 2021-08-24 14:14 | P.PN ---
Subjective Progress Note Date: 08/24/21 HISTORY OF PRESENT ILLNESS: This is a 65-year-old male who presented to the hospital with apparent suicidal ideations. Patient was admitted for evaluation and also for alcohol withdrawal. Cardiology is following for an episode of SVT that resolved with carotid massage. The patient has had no further episodes of SVT. Echocardiogram completed revealed ejection fraction 40-45%, basal posterior, basal inferior, basal inferior septal, mid inferior, and mid inferior septal LV wall hypokinesis, trace mitral regurgitation. The patient currently denies chest pain or pressure. He denies shortness of breath. He denies palpitations. Denies dizziness or lightheadedness. PHYSICAL EXAM: VITAL SIGNS: Reviewed. GENERAL: Well-developed in no acute distress. NECK: Supple. No JVD or thyromegaly LUNGS: Respirations even and unlabored. Lungs essentially clear to auscultation bilaterally. HEART: Regular rate and rhythm. S1 and S2 heard. EXTREMITIES: Normal range of motion. No clubbing or cyanosis. Peripheral pulses intact. No lower extremity edema ASSESSMENT: Suicidal ideation Alcohol withdrawal History of alcohol abuse Hypertension Supraventricular tachycardia Mildly impaired LV function, etiology unclear PLAN: Continue metoprolol 50 mg twice a day Add Lisinopril 5 mg daily Patient is stable from a cardiac standpoint. Continue with conservative management. Patient to follow up outpatient with Dr. Allen We will sign off. Please reconsult if needed. Nurse practitioner note has been reviewed by physician. Signing provider agrees with the documented findings, assessment, and plan of care. Objective - Vital Signs Vital signs: Vital Signs Temp 98.7 F 08/24/21 11:39 Pulse 87 08/24/21 11:39 Resp 18 08/24/21 11:39 BP 136/74 08/24/21 11:39 Pulse Ox 95 08/24/21 11:39 Intake & Output 08/23/21 08/24/21 08/24/21 18:59 06:59 18:59 Intake Total 1412 Balance 1412 Weight 55.5 kg Intake: Intake, IV Titration 600 Amount Dextrose 5%-0.45% NaCl 1, 400 000 ml @ 100 mls/hr IV . Q10H [facility] Rx#:[id number] Magnesium Sulfate-D5w Pmx 200 1 gm In Dextrose/Water 1 100ml.bag @ 100 mls/hr IVPB Q1H MABEL Rx#: [id number] Oral 812 Other: Voiding Method Toilet Urinal # Voids 2 700 # Bowel Movements 2 - Labs CBC & Chem 7: 08/24/21 05:47 08/24/21 05:47 Labs: Abnormal Lab Results - Last 24 Hours (Table) 08/23/21 08/24/21 08/24/21 Range/Units 18:33 05:47 05:47 RBC 4.03 L (4.30-5.90) m/uL MCV 107.3 H (80.0-100.0) fL MCH 35.1 H (25.0-35.0) pg Plt Count 131 L (150-450) k/uL Sodium 136 L (137-145) mmol/L Potassium 3.4 L 3.4 L (3.5-5.1) mmol/L BUN 5 L 4 L (9-20) mg/dL Glucose 135 H 113 H (74-99) mg/dL
--- NOTE | 2021-08-24 14:29 | P.CN ---
Psychiatric Consult - . Consult date: 08/24/21 Consult:: 08/24/21 14:28 IDENTIFYING DATA: This patient is a retired, , 65-year-old male who presented to the emergency department on 08/21/21 under petition by his family for increased depression and suicidal ideation. HISTORY OF PRESENT ILLNESS: The patient presented to the hospital on 08/21/21, brought in under petition by EMS for increased depression and suicidal ideation. The patient was initially transferred to the psychiatric unit but due to concerns of significant alcohol withdrawal, the patient was transferred to the medical floor. Upon admission to the medical floor, the patient was having episodes of eye complex tachycardia with heart rate up to 200. The patient did endorse significant palpitations. Patient was placed on CIWA protocol with Ativan as needed and scheduled Valium 5 mg daily. The patient was assessed on the medical floor by this provider. The patient continues to endorse significant symptoms of depression. He reports feelings of helplessness, low mood, difficulty sleeping, and suicidal ideation. He reports that he has been feeling increasingly suicidal over the past few weeks. He is unable to determine how long he has been feeling depressed. Present at the patient's bedside is the patient's who provides collateral information with permission granted by the patient. The patient's reports that the patient has been feeling increasingly depressed ever since 2016. She reports that he was generally a very high functioning individual although did drink heavily and excessively for many years. She reports that in 2016, the patient began being more irritable, depressed, and isolative. She also states that the patient has a a decrease in appetite, hygiene and grooming, and has not been sleeping. Within the past 2 weeks, the patient is also dealing with the loss of his dog. Patient endorses significant feelings of hopelessness and helplessness secondary to this. The patient does not endorse any significant symptoms of bipolar disorder. He reports no peer to excessive energy, grandiosity, mood lability, or psychosis. The patient is currently denying any auditory or visual hallucinations but his does express concern that the patient has been noted to speak to people that were not present. Furthermore, the patient does later admit that he has been able to see his grandmother who many years ago. This occurs in the context of his alcohol use. In regards to substance abuse, the patient does report that he drinks 1 glass of a vodka cranberry per day. Collateral information from the patient's reveals that the patient drinks up to a half gallon of vodka per day on top of 2-3 beers per day. The patient's reports that the patient has been drinking heavily for many years. The patient denies any previous treatment for his alcohol use disorder. He states that he went to Alcoholics Anonymous once but refuses to go back there. He currently denies any significant issues regarding his alcohol use. The patient denies any tobacco use. He reports no marijuana use or illicit drug use. The patient denies any significant history of trauma. He reports no history of physical or sexual abuse. PAST PSYCHIATRIC HISTORY: Patient has a history of depression and alcohol use disorder. The patient is currently prescribed Cymbalta which she is not adherent to. As per , the patient appears a hospitalized in [facility] 2 years ago for depression and suicidal ideation the context of heavy alcohol use. Patient denies any psychiatric outpatient follow-up. Patient denies any history of suicide attempts in the past. PAST MEDICAL HISTORY: Past Medical History: Hypertension History of Any Multi-Drug Resistant Organisms: None Reported Past Surgical History: Hernia Repair Additional Past Surgical History / Comment(s): 2 umbilical hernia repair Past Anesthesia/Blood Transfusion Reactions: No Reported Reaction Past Psychological History: Depression Smoking Status: Former smoker Past Alcohol Use History: Daily Past Drug Use History: None Reported ALLERGIES: as per EMR. CHEMICAL DEPENDENCY HISTORY: as per HPI. FAMILY PSYCHIATRIC/SUBSTANCE USE HISTORY: No reported family psychiatric history or substance abuse history. SOCIAL HISTORY: Patient was born and raised in [place], [place]. The patient has been to his Kelly for 25 years and they have 2 adult children ages 24 and 27 together. The patient lives with his son, daughter, and his . The patient recently lost his dog 2 weeks ago. History of Kelly working at [employer] prior to retiring in 2019. He reports graduating high school. He denies any legal issues. MENTAL STATUS EXAM: General Appearance: Patient appears to be stated age is alert, pleasant, and cooperative. Patient appears to have poor hygiene and grooming wearing hospital gown with intermittent eye contact. Behavior: Patient is calmly lying in bed without any agitated behavior. Speech: Patient's speech is fluent and nonpressured. At times, the patient's speech is dysarthric. Mood/Affect: Patient reports their mood is "depressed", affect is congruent, irritable, and sad. Suicidality/Homicidality: Patient admits to suicidal ideation but no homicidal ideation, intention, and/or plan. Perceptions: The patient admits to visual hallucinations but no auditory hallucinations. Though content/process: The patient appears to confabulate some things as the patient's denies certain events of the patient speaks of. Memory and concentration: AOX2, the patient is not alert and oriented to place. Grossly intact for the purposes of this session. Can spell "WORLD" backwards Judgment and insight: poor Vital Signs Temp 98.7 F 08/24/21 11:39 Pulse 87 08/24/21 11:39 Resp 18 08/24/21 11:39 BP 136/74 08/24/21 11:39 Pulse Ox 95 08/24/21 11:39 Intake & Output 08/23/21 08/24/21 08/24/21 18:59 06:59 18:59 Intake Total 1412 Balance 1412 Weight 55.5 kg Intake: Intake, IV Titration 600 Amount Dextrose 5%-0.45% NaCl 1, 400 000 ml @ 100 mls/hr IV . Q10H [facility]EL Rx#:[id number] Magnesium Sulfate-D5w Pmx 200 1 gm In Dextrose/Water 1 100ml.bag @ 100 mls/hr IVPB Q1H MABEL Rx#: [id number] Oral 812 Other: Voiding Method Toilet Urinal # Voids 2 700 # Bowel Movements 2 Laboratory Results - Last 24 Hours 08/23/21 08/23/21 08/24/21 18:33 18:33 05:47 WBC RBC Hgb Hct MCV MCH MCHC RDW Plt Count MPV Neutrophils % Lymphocytes % Monocytes % Eosinophils % Basophils % Neutrophils # Lymphocytes # Monocytes # Eosinophils # Basophils # Macrocytosis Sodium 136 L 138 Potassium 3.4 L 3.4 L Chloride 101 104 Carbon Dioxide 28 26 Anion Gap 7 8 BUN 5 L 4 L Creatinine 0.82 0.68 Est GFR (CKD-EPI)AfAm >90 >90 Est GFR (CKD-EPI)NonAf >90 >90 Glucose 135 H 113 H Calcium 9.0 9.0 Magnesium 2.2 2.0 08/24/21 05:47 WBC 7.9 RBC 4.03 L Hgb 14.1 Hct 43.2 MCV 107.3 H MCH 35.1 H MCHC 32.7 RDW 12.5 Plt Count 131 L MPV 8.8 Neutrophils % 72 Lymphocytes % 19 Monocytes % 6 Eosinophils % 1 Basophils % 0 Neutrophils # 5.7 Lymphocytes # 1.5 Monocytes # 0.5 Eosinophils # 0.1 Basophils # 0.0 Macrocytosis Moderate Sodium Potassium Chloride Carbon Dioxide Anion Gap BUN Creatinine Est GFR (CKD-EPI)AfAm Est GFR (CKD-EPI)NonAf Glucose Calcium Magnesium IMPRESSIONS: Major depressive disorder, recurrent, severe with psychotic features Alcohol use disorder PLAN: -At this time patient DOES meet criteria for inpatient psychiatric admission. -Would recommend the following medication changes/additions: Continue Valium 5 mg by mouth daily for alcohol withdrawal Continue Ativan PRN per CIWA protocol -Repeat EKG to monitor for QTc prolongation. -Cannot leave AMA at this time. Patient will need a petition and certification if attempting to leave AMA. -When medically stable, patient is eligible for transfer to a psych bed when available. 08/24/21 14:28
[2021-08-24 20:15] VITALS: BP 109/65; PULSE 103; TEMP 98.4
[2021-08-25] MEDS ORDERED: lisinopriL 5 MG TAB PO SCH (09:00)
== END 2021-08-24 20:20 | DRG 897 ==
LOC: 3SCARD 12:54
PROVIDERS: ADMIT Internal Medicine; ATTEND Internal Medicine
DX: F10.229 Alcohol dependence with intoxication, unspecified (principal); I47.1 Supraventricular tachycardia; R45.851 Suicidal ideations; F10.239 Alcohol dependence with withdrawal, unspecified; E83.42 Hypomagnesemia; I10 Essential (primary) hypertension; Z79.899 Other long term (current) drug therapy; Z87.891 Personal history of nicotine dependence; F32.9 Major depressive disorder, single episode, unspecified
CPT/HCPCS: 80048; 80053; 83036; 83735; 84443; 84484; 85025; 93306

== ENCOUNTER 2021-08-24 17:42 | Inpatient (IN) | payer BC, MEDICARE ==
[2021-08-24] MEDS ORDERED: LORazepam 1 MG TAB PO PRN ×2 (17:45→17:47)
[2021-08-24] MEDS ORDERED: MAGNESIUM HYDROXIDE 2,400 MG/10 ML CUP PO PRN (17:45)
[2021-08-24] MEDS ORDERED: MAG HYDROX/AL HYDROX/SIMETH 30 ML CUP PO PRN (17:45)
[2021-08-24] MEDS ORDERED: LORazepam 2 MG/ML INJ IM PRN (17:47)
[2021-08-24] MEDS ORDERED: HALOPERIDOL LACTATE 5 MG/ML 1 ML VIAL IM PRN (17:47)
[2021-08-24] MEDS: METOPROLOL TARTRATE 50 MG TAB PO SCH (22:08)
--- NOTE | 2021-08-25 01:28 | P.PN ---
Progress Note - Text Progress Note Date: 08/25/21 The patient refused to be seen or evaluated.
[2021-08-25] MEDS: MULTIVITAMINS, THERA 1 EACH TAB PO SCH (08:50)
[2021-08-25] MEDS: THIAMINE 100 MG TAB PO SCH (08:50)
[2021-08-25] MEDS: METOPROLOL TARTRATE 50 MG TAB PO SCH ×2 (08:50→20:59)
[2021-08-25] MEDS: lisinopriL 5 MG TAB PO SCH (08:50)
[2021-08-25] MEDS: FOLIC ACID 1 MG TAB PO SCH (08:50)
[2021-08-25] MEDS: LORazepam 1 MG TAB PO PRN (08:56)
[2021-08-25] MEDS: ACETAMINOPHEN TAB 325 MG TAB PO PRN (08:57)
[2021-08-25] MEDS ORDERED: DULoxetine HCL 60 MG CAPSULE.DR PO SCH (09:00)
--- NOTE | 2021-08-25 12:51 | P.HP ---
Psychiatric H&P - . H&P Date: 08/25/21 History & Physical: Allergies Allergy/AdvReac Type Severity Reaction Status Date / Time Penicillins Allergy Rash/Hives Verified 08/22/21 15:05 Vital Signs Temp 97.7 F 08/24/21 21:15 Pulse 113 H 08/25/21 08:55 Resp 18 08/25/21 08:55 BP 156/87 08/25/21 08:55 Pulse Ox 99 08/24/21 21:15 Intake & Output 08/24/21 08/25/21 08/25/21 18:59 06:59 18:59 Weight 55.5 kg 57.1 kg 08/25/21 12:51 IDENTIFYING DATA: Patient is a tired, , 65-year-old male who presented to the emergency department on 08/21/21, under petition by his family for increased depression and suicidal ideation. HPI: Patient presented to the hospital initially on 08/21/2001, brought in under petition by EMS for increased depression and suicidal ideation. The patient was initially transferred to the psychiatric unit but due to concerns for alcohol withdrawal, the patient was transferred to the medical floor. The patient was stabilized and monitored on the medical floor and was transferred back to the psychiatric unit. Upon presentation on the psychiatric unit, the patient continues to endorse significant symptoms of depression outside the context of his heavy alcohol use. He reports feelings of helplessness, hopelessness, low mood, difficult to sleeping, and does admit to suicidal ideation. He reports that the suicidal ideation occurs only when he is drinking heavily. The patient reports that he drinks excessively in order to cope. He states that he is coping because he believes that his has been cheating on him for the last 2 years. He reports that he feels unwanted and that him and his sleep in separate beds and that he misses sex. The patient does report on top of his marital stressors that he lost his dog 2 weeks prior to this admission. The patient does admit that he has been having a difficult time and feels like people do not want anything to do with him anymore. As per discussion with the patient's all the patient was admitted on the medical floor, the patient's notes that the patient has had a significant decline in his hygiene and grooming as well. The patient reports no prior attempts at suicide. The patient does not endorse any significant history of bipolar disorder. He reports no pervasive depressive energy, grandiosity, or impulsivity. He does report a history of auditory hallucinations and visual hallucinations which she describes as seeing his and mother who many years ago. This typically occurs when the patient is drinking. The patient minimizes how much she drinks. Initially, he tells this provider as well as the staff that he drinks approximately 1 shot of vodka per day. Collateral information provided by the patient's all use on the medical floor report that the patient has been drinking up to half a gallon of vodka per day for many years. Of concern, the patient appears to have issues regarding his short-term memory and has at times seemed to confabulate. He seems to be slow in processing what is told to him. PAST PSYCHIATRIC HISTORY: Patient states that he has a history of depression and alcohol use disorder. The patient has been prescribed Cymbalta but has not been in adherent to this medication. The patient was hospitalized in [place] approximately 2 years ago for depression and suicidal ideation. The patient does not follow up with any outpatient provider. Patient denies any history of suicide attempts in the past. PMH: Past Medical History: Hypertension History of Any Multi-Drug Resistant Organisms: None Reported Past Surgical History: Hernia Repair Additional Past Surgical History / Comment(s): 2 umbilical hernia repair Past Anesthesia/Blood Transfusion Reactions: No Reported Reaction Past Psychological History: Depression Smoking Status: Former smoker Past Alcohol Use History: Daily Past Drug Use History: None Reported ALLERGIES: Penicillins CHEMICAL DEPENDENCY HISTORY: As per HPI FAMILY PSYCHIATRIC/SUBSTANCE USE HISTORY: No reported psychiatric or substance abuse history in the family. SOCIAL HISTORY: Patient was born and raised in [place], [place]. He has been to his Aruna for 25 years and they have 2 adult children ages 24 and 27 together. The patient lives with his son, daughter, and his . He was preceding employed working at [employer] prior to retiring in 2019. He graduated high school. He denies any legal issues. MENTAL STATUS EXAM: General Appearance: Patient appears to be stated age is alert, directable, and attempts to cooperate. Patient appears to have poor hygiene and grooming, albeit better than yesterday.. Behavior: Patient is seated without any agitated behavior. Psychomotor slowing is evident. Eye contact is intermittent. Speech: Patient's speech is monotone, nonspontaneous, low in volume, minimal. Mood/Affect: Patient reports their mood is depressed, affect is congruent and withdrawn. Suicidality/Homicidality: The patient denies any current suicidal or homicidal ideation, intention, and/or plan. Perceptions: Patient denies any visual hallucinations and denies any auditory hallucinations Though content/process: There is no evidence of any delusional thought content and thought process is linear and goal-directed. Memory and concentration: Patient is alert and oriented to person and place but not to time. Concentration appears to be grossly poor. Judgment and insight: poor STRENGTHS/WEAKNESSES: Strength is that patient has a supportive family, housing, and income. Weakness is that patient engages in heavy alcohol use. INTELLECT: average IMPRESSIONS: Major depressive disorder, recurrent, severe, with psychotic features Alcohol use disorder Rule out major neurocognitive disorder secondary to prolonged alcohol use PLAN: -Patient is admitted under involuntary status to MHU for stabilization of psychiatric symptoms and safety. Patient signed adult voluntary form and medication consent and is placed in patient's chart. -Medications : We will start the patient on Zoloft for management of depression/anxiety Discontinue Cymbalta at this time. We will consider the initiation of naltrexone for alcohol use disorder. -We will perform a MoCA for assessment of neurocognitive disorder -Ativan and haldol PRN for agitation/aggression -Started thiamine, MVM for etoh use -CIWA protocol with Ativan PRN for ETOH withdrawal -Patient was counselled on substance abuse and desired to cut back on use -Patient was informed of the risks, benefits and side effects of the medication and patient verbally consented to taking the medications. Patient signed med consent form and was placed in chart. -Internal Medicine consult to perform medical evaluation and physical. -NRT - nicotine patch -SW on board for discharge planning. Encourage patient to participate in groups to work on coping skills. 08/25/21 12:51
[2021-08-26] MEDS: THIAMINE 100 MG TAB PO SCH (08:21)
[2021-08-26] MEDS: METOPROLOL TARTRATE 50 MG TAB PO SCH ×2 (08:21→21:39)
[2021-08-26] MEDS: MULTIVITAMINS, THERA 1 EACH TAB PO SCH (08:21)
[2021-08-26] MEDS: lisinopriL 5 MG TAB PO SCH (08:22)
[2021-08-26] MEDS: LORazepam 1 MG TAB PO PRN (08:22)
[2021-08-26] MEDS: ACETAMINOPHEN TAB 325 MG TAB PO PRN (08:22)
[2021-08-26] MEDS: FOLIC ACID 1 MG TAB PO SCH (08:22)
[2021-08-26] MEDS ORDERED: SERTRALINE 25 MG TAB PO SCH (09:00)
--- NOTE | 2021-08-26 10:30 | P.PN ---
Progress Note - Text Progress Note Date: 08/26/21 Interval History: Patient was seen resting in bed and was directable and agreeable to speak with data analyst report writer in the office., The patient is unable to provide hospitalization. He is currently a poor historian. He is otherwise not reporting any significant symptoms regarding his depression or anxiety at this time. He is currently denying any suicidal or homicidal ideation, intention, and/or plan. He is not reporting any auditory or visual hallucinations. He is denying any paranoia or other delusions. The patient was agreeable to a [place] Cognitive Assessment today which revealed that the patient did have significant issues regarding his cognitive function. The patient does acknowledge today that he does have an alcohol problem. He does not wish to start any inpatient rehabilitation at this time. He has been adherent with his medications and is not endorsing any significant side effects. Mental Status Exam: General Appearance: Patient appears to be stated age is alert, directable, and cooperative. Fair hygiene and grooming. Behavior: Patient is calmly seated without any agitated behavior. Psychomotor slowing is evident. Speech: Patient's speech is fluent and nonpressured. Mood/Affect: Mood is improving mildly, affect is congruent and blunted. Suicidality/Homicidality: Patient is currently denying any suicidal or homicidal ideation, intention, and/or plan. Perceptions: Patient denies any visual hallucinations and denies any auditory hallucinations Though content/process: There is no evidence of any delusional thought content and thought process is linear and goal-directed. 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 Patient has signed adult voluntary form and medication consent and was placed in patient's chart. -Medications: Increase Zoloft to 50 mg by mouth daily for depression/anxiety Start Naltrexone 50 mg daily for alcohol use disorder. -When necessary Ativan and Haldol for agitation/aggression. -SW on board for discharge planning. Encouraged the patient to participate in milieu.
[2021-08-27] MEDS: LORazepam 1 MG TAB PO PRN (01:18)
[2021-08-27] MEDS: ACETAMINOPHEN TAB 325 MG TAB PO PRN (03:18)
[2021-08-27] MEDS: MULTIVITAMINS, THERA 1 EACH TAB PO SCH (08:54)
[2021-08-27] MEDS: NALTREXONE HCL 50 MG TAB PO SCH (08:54)
[2021-08-27] MEDS: FOLIC ACID 1 MG TAB PO SCH (08:54)
[2021-08-27] MEDS: THIAMINE 100 MG TAB PO SCH (08:54)
[2021-08-27] MEDS: lisinopriL 5 MG TAB PO SCH (08:54)
[2021-08-27] MEDS: METOPROLOL TARTRATE 50 MG TAB PO SCH ×2 (08:54→20:17)
[2021-08-27] MEDS ORDERED: SERTRALINE 50 MG TAB PO SCH (09:00)
--- NOTE | 2021-08-27 11:01 | P.PN ---
Progress Note - Text Progress Note Date: 08/27/21 Interval History: Patient was seen resting in bed and was directable and agreeable to speak with writer editor in his room. Currently, the patient is not reporting any suicidal or homicidal ideation, intention, and/or plan. He is not reporting any auditory or visual hallucinations. He is not reporting any paranoia or delusions. The patient is alert and oriented in all spheres this morning. He has been adherent with his medications and is not endorsing any significant side effects at this time. He does not wish to go to rehab as he does not think that his alcohol use is a problem but reports that he only drinks approximately one to 2 shots of liquor per night as compared to the history provided by his reports that he drinks much more than that. The patient was informed that he does have neurocognitive deficits that are likely due to his prolonged alcohol use. Despite this, the patient does not appear to be interested in rehabilitation at this time is requesting to be discharged home. Hygiene and grooming has improved. Mental Status Exam: General Appearance: Patient appears to be stated age is alert, directable, and cooperative. Fair hygiene and grooming. Behavior: Patient is calmly seated upright in bed without any agitated behavior. Psychomotor slowing is evident. Speech: Patient's speech is fluent and nonpressured. Mood/Affect: Mood is improving mildly, affect is congruent and constricted Suicidality/Homicidality: Patient is currently denying any suicidal or homicidal ideation, intention, and/or plan. Perceptions: Patient denies any visual hallucinations and denies any auditory hallucinations Though content/process: There is no evidence of any delusional thought content and thought process is linear and goal-directed. 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 Patient has signed adult voluntary form and medication consent and was placed in patient's chart. Anticipate discharge tomorrow. We will set up aftercare appointments with the recommendation for intensive outpatient treatment. -Medications: Increase Zoloft to 75 mg by mouth daily for depression/anxiety Continue Naltrexone 50 mg daily for alcohol use disorder. -When necessary Ativan and Haldol for agitation/aggression. -SW on board for discharge planning. Encouraged the patient to participate in milieu.
[2021-08-28 06:32] VITALS: TEMP 98.2
[2021-08-28 08:58] VITALS: BP 166/69; PULSE 92; RESP 16
[2021-08-28] MEDS: METOPROLOL TARTRATE 50 MG TAB PO SCH (08:59)
[2021-08-28] MEDS: THIAMINE 100 MG TAB PO SCH (09:00)
[2021-08-28] MEDS: NALTREXONE HCL 50 MG TAB PO SCH (09:00)
[2021-08-28] MEDS: lisinopriL 5 MG TAB PO SCH (09:00)
[2021-08-28] MEDS ORDERED: SERTRALINE 25 MG TAB PO SCH (09:00)
[2021-08-28] MEDS: MULTIVITAMINS, THERA 1 EACH TAB PO SCH (09:00)
[2021-08-28] MEDS: FOLIC ACID 1 MG TAB PO SCH (09:00)
--- NOTE | 2021-08-28 11:13 | P.DS ---
Providers Date of admission: 08/24/21 20:25 Expected date of discharge: 08/28/21 Attending physician: Johnny Dunaway MD Consults: 08/24/21 17:45 Consult Physician Routine Consulting Provider: Arlette Joe Consult Reason/Comments: H&P and medical Do you want consulting provider notified?: Yes Primary care physician: Emily Amado - Discharge Diagnosis(es) (1) Major depressive disorder Current Visit: Yes Status: Acute Priority: High (2) Alcohol use disorder Current Visit: Yes Status: Chronic Priority: Medium (3) Neurocognitive disorder Current Visit: Yes Status: Chronic Priority: Medium Hospital Course: Admission HPI: Patient is a tired, , 65-year-old male who presented to the emergency department on 08/21/21, under petition by his family for increased depression and suicidal ideation. Patient presented to the hospital initially on 08/21/2001, brought in under petition by EMS for increased depression and suicidal ideation. The patient was initially transferred to the psychiatric unit but due to concerns for alcohol withdrawal, the patient was transferred to the medical floor. The patient was stabilized and monitored on the medical floor and was transferred back to the psychiatric unit. Upon presentation on the psychiatric unit, the patient continues to endorse significant symptoms of depression outside the context of his heavy alcohol use. He reports feelings of helplessness, hopelessness, low mood, difficult to sleeping, and does admit to suicidal ideation. He reports that the suicidal ideation occurs only when he is drinking heavily. The patient reports that he drinks excessively in order to cope. He states that he is coping because he believes that his has been cheating on him for the last 2 years. He reports that he feels unwanted and that him and his sleep in separate beds and that he misses sex. The patient does report on top of his marital stressors that he lost his dog 2 weeks prior to this admission. The patient does admit that he has been having a difficult time and feels like people do not want anything to do with him anymore. As per discussion with the patient's all the patient was admitted on the medical floor, the patient's notes that the patient has had a significant decline in his hygiene and grooming as well. The patient reports no prior attempts at suicide. The patient does not endorse any significant history of bipolar disorder. He reports no pervasive depressive energy, grandiosity, or impulsivity. He does report a history of auditory hallucinations and visual hallucinations which she describes as seeing his and mother who many years ago. This typically occurs when the patient is drinking. The patient minimizes how much she drinks. Initially, he tells this provider as well as the staff that he drinks approximately 1 shot of vodka per day. Collateral information provided by the patient's all use on the medical floor report that the patient has been drinking up to half a gallon of vodka per day for many years. Of concern, the patient appears to have issues regarding his short-term memory and has at times seemed to confabulate. He seems to be slow in processing what is told to him. Patient states that he has a history of depression and alcohol use disorder. The patient has been prescribed Cymbalta but has not been in adherent to this medication. The patient was hospitalized in [place] approximately 2 years ago for depression and suicidal ideation. The patient does not follow up with any outpatient provider. Patient denies any history of suicide attempts in the past. Hospital course: Upon admission to the unit patient was initially presenting with significant cognitive deficits and endorsing symptoms of depression and a history of alcoholism. Patient was however directable and agreeable to commence treatment after much discussion and counseling. Patient got along well with other patients on the unit and followed unit protocol. Patient was compliant with the medications and denied any side effects throughout hospital course. Patient was started on zoloft for depression/anxiety. Patient spoke of his stressors and engaged in therapy both group and individual. Patient was also seen by medical team for history and physical exam. Naltrexone was added to his regimen to aid in decreasing alcohol consumption. A [place] Cognitive Assessment was performed on the unit which revealed significant cognitive deficits as the patient scored a 20/30. Throughout the course of the hospitalization patient gradually improved with regards to mood, anxiety, judgement and insught. On the day of discharge patient denied any suicidal or homicidal ideations intent or plan denied any auditory or visual hallucinations. Patient endorsed wanting to live for his health and family. The patient denied any access to guns or weapons. Patient denied any paranoia and did not endorse any delusions. Patient does have a significant history of alcohol abuse was counseled on abstaining from all substances including alcohol and marijuana. Patient was offered however declined inpatient substance-abuse rehab. Patient was also counseled on the medications and need for regular compliance and was encouraged to follow-up with their outpatient appointment for mental health and also for primary care. Prior to discharge a family meeting will be arranged by social work therapist to answer any questions and ensure safety upon discharge. Mental status exam: General Appearance: Patient appears to be stated age is alert, pleasant, and cooperative. Patient is in no acute distress and has good hygiene and grooming Behavior: Patient is calmly seated without any agitated behavior. Speech: Patient's speech is fluent and nonpressured. Mood/Affect: Patient reports their mood is "Feeling okay", affect is congruent and euthymic. Suicidality/Homicidality: Patient denies having any suicidal or homicidal ideation intent or plan. Perceptions: Patient denies any auditory or visual hallucinations. Though content/process: There is no evidence of any delusional thought content and thought process is linear and goal-directed. Patient is more future- oriented. Memory and concentration: AOX3, grossly intact for the purposes of this session. Can spell "WORLD" backwards correctly. Judgment and insight: Improved with guarded prognosis Vital Signs Temp 98.2 F 08/28/21 06:31 Pulse 92 08/28/21 08:57 Resp 16 08/28/21 08:57 BP 166/69 08/28/21 08:57 Pulse Ox 99 08/28/21 08:57 Impression: Major depressive disorder, recurrent, severe, with psychotic features Alcohol use disorder Neurocognitive disorder secondary to prolonged alcohol use Plan: -Continue with discharge today as patient has improved and stabilized psychiatrically and is not currently an imminent threat to himself and/or others. Patient will remain at chronically elevated risk for harm to self and/or others due to his alcohol abuse. -Continue medications: Zoloft 75 mg daily for depression/anxiety Naltrexone 50 mg daily for alcohol use disorder. -Patient was counseled on the need for medication compliance and appropriate follow-up at mental health and also primary care for medical issues. Patient verbalized understanding and agreed. -Social work to arrange for and conduct family meeting to ensure safety upon discharge and answer any questions/concerns. Social work also to arrange for patients follow up appointments with [facility] for psychiatric care along with follow up with primary care provider. -Patient counseled on abstaining from recreational drugs and marijuana and alcohol. Was informed/educated on the adverse effects on their physical and mental health. Patient verbally agreed and understood. Patient was offered substance abuse treatment however declined at this time. -Patient was instructed to return to the hospital or seek immediate medical care if their psychiatric or medical symptoms do worsen or reoccur. -Psychoeducation and supportive therapy provided to patient. Risks and benefits of pharmacological treatment versus the risks and benefits of nontreatment weight and discussed. Informed consent discussion held. Common side effects of psychotropics discussed such as, but not limited to headache, GI disturbance, sexual dysfunction, movement disorders, sedation, and orthostatic hypotension. Life threatening and blackbox warnings of prescribed medications also discussed. Potential risks of operating a vehicle or heavy machinery discussed with patient at length. Advised on importance of compliance and a reliable and responsible manner. Patient advised to review FDA consumer labeling of all medications prior to taking. Patient verbalized understanding of potential risks, and agrees with current treatment plan. Patient advised to medically contact physician/emergency personnel if any acute changes in condition occur. -Please refer to the patient's medical hospitalization prior to transfer to this unit for a copy of his labs. Allergies Allergy/AdvReac Type Severity Reaction Status Date / Time Penicillins Allergy Rash/Hives Verified 08/22/21 15:05 Patient Condition at Discharge: Stable Plan - Discharge Summary Discharge Rx Participant: No New Discharge Prescriptions: New Folic Acid 1 mg PO DAILY 30 Days tab Metoprolol Tartrate [Lopressor] 50 mg PO BID 30 Days tab Multivitamins, Thera [Multivitamin (formulary)] 1 each PO DAILY 30 Days tab lisinopriL [Zestril] 5 mg PO DAILY 30 Days tab Naltrexone HCl [Revia] 50 mg PO DAILY 30 Days tab Thiamine [Vitamin B-1] 100 mg PO DAILY 30 Days tab Sertraline [Zoloft] 75 mg PO DAILY 30 Days tab Discontinued Folic Acid 1 mg PO DAILY #10 tab DULoxetine HCL [Cymbalta] 60 mg PO DAILY lisinopriL [Zestril] 5 mg PO DAILY #90 tablet Thiamine [Vitamin B-1] 100 mg PO DAILY Metoprolol Tartrate [Lopressor] 50 mg PO BID tab Multivitamins, Thera [Multivitamin (formulary)] 1 each PO DAILY tab Discharge Medication List Folic Acid 1 mg PO DAILY 30 Days tab 08/28/21 [Rx] Metoprolol Tartrate [Lopressor] 50 mg PO BID 30 Days tab 08/28/21 [Rx] Multivitamins, Thera [Multivitamin (formulary)] 1 each PO DAILY 30 Days tab 08/28/21 [Rx] Naltrexone HCl [Revia] 50 mg PO DAILY 30 Days tab 08/28/21 [Rx] Sertraline [Zoloft] 75 mg PO DAILY 30 Days tab 08/28/21 [Rx] Thiamine [Vitamin B-1] 100 mg PO DAILY 30 Days tab 08/28/21 [Rx] lisinopriL [Zestril] 5 mg PO DAILY 30 Days tab 08/28/21 [Rx] Follow up Appointment(s)/Referral(s): [facility] [Outside] - 09/08/21 12:30 pm (Lila Vallejo ) [facility] [NON-STAFF] - 1 Week Patient Instructions/Handouts: Help Prevent Suicide (DC) Activity/Diet/Wound Care/Special Instructions: Activity and diet as tolerated. Avoid the use of street drugs and alcohol. Take all medications as prescribed. When you are in need of refills on your medications please contact your medical provider and/or outpatient psychiatrist to have this done. Please go to scheduled outpatient appointment for aftercare treatment. If symptoms return or become worse, call the crisis line at and/or go to the nearest emergency room for evaluation. Discharge Disposition: HOME SELF-CARE
== END 2021-08-28 11:10 | disposition home or self-care (01) | DRG 885 ==
LOC: 3MHU 20:25
PROVIDERS: ADMIT Psychiatry & Neurology Psychiatry; ATTEND Psychiatry & Neurology Psychiatry
PROC: HZ2ZZZZ Detoxification Services for Substance Abuse Treatment (ICD-10-PCS; principal; 2021-08-24)
DX: F33.3 Major depressive disorder, recurrent, severe with psychotic symptoms (principal); R45.851 Suicidal ideations; R41.9 Unspecified symptoms and signs involving cognitive functions and awareness; F10.10 Alcohol abuse, uncomplicated; F41.9 Anxiety disorder, unspecified; I10 Essential (primary) hypertension; Z79.899 Other long term (current) drug therapy; Z87.891 Personal history of nicotine dependence; Z88.0 Allergy status to penicillin; Z87.19 Personal history of other diseases of the digestive system

== ENCOUNTER → 2024-06-08 | Outpatient (CLI) | payer MEDICARE | END | disposition home or self-care (01) | LOC: LABPRL 12:00 | PROVIDERS: ATTEND Nurse Practitioner Family | DX: Z00.00 Encounter for general adult medical examination without abnormal findings (principal); Z12.5 Encounter for screening for malignant neoplasm of prostate | CPT/HCPCS: 80061; 80053; 82607; 82746; 85025; 82306; 83036; G0103 ==

== ENCOUNTER 2024-09-08 11:14 | Emergency (ER) | payer MEDICARE ==
[2024-09-08 11:30] VITALS: RESP 16
--- NOTE | 2024-09-08 11:44 | ED ---
General Adult HPI - General Source: patient, EMS, RN notes reviewed, old records reviewed Mode of arrival: EMS Limitations: altered mental status <Chema Perez - Last Filed: 09/08/24 14:13> <Tristin Fenton - Last Filed: 09/08/24 18:29> - General Chief complaint: Psychiatric Symptoms Stated complaint: Suicidal ideations Time Seen by Provider: 09/08/24 11:30 - History of Present Illness Initial comments: This is a 68-year-old male who presents to the emergency department and he states he was drinking last night watching hockey game he got up this morning had a few more drinks and then his son wanted to come to be evaluated. Patient states he has no physical complaints. Patient states he is a little depressed because his told him that she loves him but is not in love with him but he is not suicidal and states he never has been. Patient denies wanting to hurt anyone else he denies any delusions or hallucinations. Patient admits to drinking freely. (Chema Perez) - Related Data Home Medications Medication Instructions Recorded Confirmed No Known Home Medications 09/08/24 09/08/24 Allergies Allergy/AdvReac Type Severity Reaction Status Date / Time Penicillins Allergy Rash/Hives Verified 09/08/24 13:11 Review of Systems ROS Other: All systems not noted in ROS Statement are negative. <Chema Perez - Last Filed: 09/08/24 14:13> ROS Other: All systems not noted in ROS Statement are negative. <Tristin Fenton - Last Filed: 09/08/24 18:29> ROS Statement: Those systems with pertinent positive or pertinent negative responses have been documented in the HPI. Past Medical History Past Medical History: Hypertension Additional Past Medical History / Comment(s): Alcohol dependence. states patient drinks daily. SHe finds shooters and bottles empty all day long. States, "He is NEVER without a drink in his hands". History of Any Multi-Drug Resistant Organisms: None Reported Past Surgical History: Hernia Repair Additional Past Surgical History / Comment(s): 2 umbilical hernia repair Past Anesthesia/Blood Transfusion Reactions: No Reported Reaction Past Psychological History: Depression Smoking Status: Current every day smoker Past Alcohol Use History: Daily Past Drug Use History: None Reported - Past Family History Mother Additional Family Medical History / Comment(s): PT. STATES HIS MOTHER FROM [facility] <Chema Perez - Last Filed: 09/08/24 14:13> General Exam Limitations: altered mental status <Chema Perez - Last Filed: 09/08/24 14:13> - General Exam Comments Initial Comments: GENERAL: Patient is well-developed and well-nourished. Patient is nontoxic and well- hydrated and is in no acute distress. ENT: Neck is soft and supple. No significant lymphadenopathy is noted. Oropharynx is clear. Moist mucous membranes. Neck has full range of motion without eliciting any pain. EYES: The sclera were anicteric and conjunctiva were pink and moist. Extraocular movements were intact and pupils were equal round and reactive to light. Eyelids were unremarkable. PULMONARY: Unlabored respirations. Good breath sounds bilaterally. No audible rales rhonchi or wheezing was noted. CARDIOVASCULAR: There is a regular rate and rhythm without any murmurs gallops or rubs. ABDOMEN: Soft and nontender with normal bowel sounds. SKIN: Skin is clear with no lesions or rashes and otherwise unremarkable. NEUROLOGIC: Patient is alert and oriented x3. Cranial nerves II through XII are grossly intact. Motor and sensory are also intact. Normal speech, volume and content. Symmetrical smile. MUSCULOSKELETAL: Normal extremities with adequate strength and full range of motion. LYMPHATICS: No significant lymphadenopathy is noted PSYCHIATRIC: Normal psychiatric evaluation. Patient denies suicidal or homicidal ideations (Chema Perez) Course Vital Signs 09/08/24 11:17 Temperature 98.6 F Pulse Rate 91 Respiratory 16 Rate Blood Pressure 125/87 O2 Sat by Pulse 99 Oximetry Medical Decision Making - Lab Data Result diagrams: 09/08/24 12:20 09/08/24 12:20 <Chema Perez - Last Filed: 09/08/24 14:13> - Lab Data Result diagrams: 09/08/24 12:20 09/08/24 12:20 <Tristin Fenton - Last Filed: 09/08/24 18:29> - Medical Decision Making Was pt. sent in by a medical professional or institution (, PA, PRACTICE PERFORMANCE MANAGER, urgent care, hospital, or shelter...) When possible be specific @ -No Did you speak to anyone other than the patient for history (EMS, parent, family, police, friend...)? What history was obtained from this source @ -No Did you review nursing and triage notes (agree or disagree)? Why? @ -I reviewed and agree with nursing and triage notes Were old charts reviewed (outside hosp., previous admission, EMS record, old EKG, old radiological studies, urgent care reports/EKG's, shelter records)? Report findings @ -No old charts were reviewed Differential Diagnosis? @ -Differential Mental Health Depression, anxiety, bipolar, psychosis, schizophrenia, borderline personality, situational depression, adjustment disorder, behavioral disorder, brain tumor, malingering, substance abuse, encephalopathy, medication reaction, dementia, hypothyroidism, degenerative neurologic disorder, lupus.... This is not meant to be all-inclusive list EKG interpreted by me (3pts min.). @ -As above X-rays interpreted by me (1pt min.). @ -None done CT interpreted by me (1pt min.). @ -None done U/S interpreted by me (1pt. min.). @ -None done What testing was considered but not performed or refused? (CT, X-rays, U/S, labs)? Why? @ -None What meds were considered but not given or refused? Why? @ -None Did you discuss the management of the patient with other professionals (pro fessionals i.e. , PA, PRACTICE PERFORMANCE MANAGER, lab, RT, psych nurse, social media content specialist, switch engineer, teacher, juvenile probation officer, case investigator)? Give summary @ -No Was smoking cessation discussed for >3mins.? @ -No Was critical care preformed (if so, how long)? @ -No Were there social determinants of health that impacted care today? How? (Homelessness, low income, unemployed, alcoholism, drug addiction, transportation, low edu. Level, literacy, decrease access to med. care, fdc, rehab)? @ -No Was there de-escalation of care discussed even if they declined (Discuss DNR or withdrawal of care, Hospice)? DNR status @ -No What co-morbidities impacted this encounter? (DM, HTN, Smoking, COPD, CAD, Cancer, CVA, ARF, Chemo, Hep., AIDS, mental health diagnosis, sleep apnea, morbid obesity)? @ -None Was patient admitted / discharged? Hospital course, mention meds given and route, prescriptions, significant lab abnormalities, going to OR and other pertinent info. @ -Patient is still intoxicated so Dr. Fenton will be taking over the care of this patient at 3 PM (Chema Perez) Signed out to me pending sobriety and evaluation by EPS. EPS evaluated patient and determined after discussion with psychiatry that he does not meet inpatient criteria for inpatient psychiatry. Patient be discharged home with a safety plan. Patient, myself, EPS all in agreement with this plan. Patient will be discharged home at this time. Diagnosis/symptom? @ -Encounter for psychiatric evaluation, alcohol intoxication Acute, or Chronic, or Acute on Chronic? @ -Acute Uncomplicated (without systemic symptoms) or Complicated (systemic symptoms)? @ -Uncomplicated Side effects of treatment? @ -None Exacerbation, Progression, or Severe Exacerbation] @ -No Poses a threat to life or bodily function? @ -Unlikely (Tristin Fenton) - Lab Data Lab Results 09/08/24 09/08/24 09/08/24 Range/Units 12:20 12:20 12:20 WBC 7.5 (3.8-10.6) k/uL RBC 5.13 (4.30-5.90) m/uL Hgb 17.5 (13.0-17.5) gm/dL Hct 54.2 H (39.0-53.0) % MCV 105.8 H (80.0-100.0) fL MCH 34.2 (25.0-35.0) pg MCHC 32.3 (31.0-37.0) g/dL RDW 12.9 (11.5-15.5) % Plt Count 164 (150-450) k/uL MPV 9.0 Neutrophils % 64 % Lymphocytes % 23 % Monocytes % 9 % Eosinophils % 0 % Basophils % 1 % Neutrophils # 4.8 (1.3-7.7) k/uL Lymphocytes # 1.7 (1.0-4.8) k/uL Monocytes # 0.7 (0-1.0) k/uL Eosinophils # 0.0 (0-0.7) k/uL Basophils # 0.1 (0-0.2) k/uL Macrocytosis Slight Sodium 142 (137-145) mmol/L Potassium 4.4 (3.5-5.1) mmol/L Chloride 103 (98-107) mmol/L Carbon Dioxide 27 (22-30) mmol/L Anion Gap 12 mmol/L BUN 25 H (9-20) mg/dL Creatinine 1.03 (0.66-1.25) mg/dL Est GFR (CKD-EPI)AfAm 86 (>60 ml/min/1.73 sqM) Est GFR (CKD-EPI)NonAf 75 (>60 ml/min/1.73 sqM) Glucose 79 (74-99) mg/dL Calcium 9.9 (8.4-10.2) mg/dL Magnesium 1.9 (1.6-2.3) mg/dL Total Bilirubin 1.0 (0.2-1.3) mg/dL AST 355 H (17-59) U/L ALT 172 H (4-49) U/L Alkaline Phosphatase 110 (38-126) U/L Total Protein 8.5 H (6.3-8.2) g/dL Albumin 5.2 H (3.5-5.0) g/dL Urine Opiates Screen Not Detected (NotDetected) Ur Oxycodone Screen Not Detected (NotDetected) Urine Methadone Screen Not Detected (NotDetected) Ur Barbiturates Screen Not Detected (NotDetected) U Tricyclic Antidepress Not Detected (NotDetected) Ur Phencyclidine Scrn Not Detected (NotDetected) Ur Amphetamines Screen Not Detected (NotDetected) U Methamphetamines Scrn Not Detected (NotDetected) U Benzodiazepines Scrn Not Detected (NotDetected) Urine Cocaine Screen Not Detected (NotDetected) U Marijuana (THC) Screen Detected H (NotDetected) Disposition <Chema Perez - Last Filed: 09/08/24 14:13> Is patient prescribed a controlled substance at d/c from ED?: No Time of Disposition: 18:26 <Tristin Fenton - Last Filed: 09/08/24 18:29> Clinical Impression: Encounter for psychiatric assessment, Alcohol intoxication Disposition: HOME SELF-CARE Condition: Good Additional Instructions: Follow safety plan Referrals: None,Stated [Primary Care Provider] - 1-2 days
[2024-09-08] MEDS: SODIUM CHLORIDE 0.9% 1,000 ML IV ONE (12:23)
[2024-09-08 14:02] LABS: Basophils # (A) 0.1 k/uL (0-0.2); Basophils % (A) 1 %; Eosinophils % (A) 0 %; HCT 54.2 % (39.0-53.0); HGB 17.5 gm/dL (13.0-17.5); Lymphocytes # (A) 1.7 k/uL (1.0-4.8); Lymphocytes % (A) 23 %; MCH 34.2 pg (25.0-35.0); MCHC 32.3 g/dL (31.0-37.0); MCV 105.8 fL (80.0-100.0); Macrocytosis Slight; Monocytes # (A) 0.7 k/uL (0-1.0); Monocytes % (A) 9 %; Neutrophils # (A) 4.8 k/uL (1.3-7.7); Neutrophils % (A) 64 %; Platelet Count 164 k/uL (150-450); RBC 5.13 m/uL (4.30-5.90); RDW 12.9 % (11.5-15.5); WBC 7.5 k/uL (3.8-10.6)
[2024-09-08 14:09] LABS: ALT 172 U/L (4-49); AST 355 U/L (17-59); African American GFR (CKD) 86 (>60 ml/min/1.73 sqM); Albumin 5.2 g/dL (3.5-5.0); Alkaline Phosphatase 110 U/L (38-126); Anion Gap 12 mmol/L; Blood Urea Nitrogen 25 mg/dL (9-20); Calcium 9.9 mg/dL (8.4-10.2); Carbon Dioxide 27 mmol/L (22-30); Chloride 103 mmol/L (98-107); Glucose 79 mg/dL (74-99); Magnesium 1.9 mg/dL (1.6-2.3); Non-African American GFR(CKD) 75 (>60 ml/min/1.73 sqM); Potassium 4.4 mmol/L (3.5-5.1); Sodium 142 mmol/L (137-145); Total Protein 8.5 g/dL (6.3-8.2)
[2024-09-08 14:12] LABS: Amphetamine Screen,Urine Not Detected (NotDetected); Barbiturate Screen,Urine Not Detected (NotDetected); Benzodiazepines Screen,Urine Not Detected (NotDetected); Cocaine Screen,Urine Not Detected (NotDetected); Methadone Screen, Urine Not Detected (NotDetected); Opiate Screen,Urine Not Detected (NotDetected); Oxycodone Screen, Urine Not Detected (NotDetected); Phencyclidine Screen,Urine Not Detected (NotDetected); Tricyclic Antidepressant,Urine Not Detected (NotDetected); Urn Cannabinoid Scrn Detected (NotDetected)
[2024-09-08 19:02] VITALS: BP 158/72; PULSE 83; TEMP 98.7
== END 2024-09-08 19:28 | disposition home or self-care (01) ==
LOC: EC 11:14
DX: Z13.30 Encounter for screening examination for mental health and behavioral disorders, unspecified (principal); F10.129 Alcohol abuse with intoxication, unspecified; F17.200 Nicotine dependence, unspecified, uncomplicated; Z88.0 Allergy status to penicillin
CPT/HCPCS: 36415; 80053; 80306; 82075; 83735; 85025; 99285

== ENCOUNTER 2025-01-13 16:56 | Inpatient (IN) | payer BC, MEDICARE ==
[2025-01-13 17:43] LABS: Basophils # (A) 0.1 k/uL (0-0.2); Basophils % (A) 1 %; Eosinophils # (A) 0.1 k/uL (0-0.7); Eosinophils % (A) 1 %; HCT 50.6 % (39.0-53.0); HGB 16.2 gm/dL (13.0-17.5); Lymphocytes # (A) 2.2 k/uL (1.0-4.8); Lymphocytes % (A) 26 %; Macrocytosis Moderate; Mean Platelet Volume 7.9; Monocytes # (A) 0.4 k/uL (0-1.0); Monocytes % (A) 5 %; Neutrophils # (A) 5.3 k/uL (1.3-7.7); Neutrophils % (A) 64 %; Platelet Count 316 k/uL (150-450); RBC 4.77 m/uL (4.30-5.90); RDW 13.2 % (11.5-15.5); WBC 8.3 k/uL (3.8-10.6)
[2025-01-13 18:06] LABS: INR 0.9 (<1.2); Prothrombin Time 10.6 sec (10.0-12.5)
[2025-01-13 18:08] LABS: Amphetamine Screen,Urine Not Detected (NotDetected); Barbiturate Screen,Urine Not Detected (NotDetected); Benzodiazepines Screen,Urine Not Detected (NotDetected); Cocaine Screen,Urine Not Detected (NotDetected); Methadone Screen, Urine Not Detected (NotDetected); Opiate Screen,Urine Not Detected (NotDetected); Oxycodone Screen, Urine Not Detected (NotDetected); Phencyclidine Screen,Urine Not Detected (NotDetected); Tricyclic Antidepressant,Urine Not Detected (NotDetected); Urn Cannabinoid Scrn Not Detected (NotDetected)
[2025-01-13 18:17] LABS: ALT 43 U/L (4-49); AST 104 U/L (17-59); African American GFR (CKD) >90 (>60 ml/min/1.73 sqM); Albumin 4.6 g/dL (3.5-5.0); Alkaline Phosphatase 128 U/L (38-126); Anion Gap 16 mmol/L; Blood Urea Nitrogen 11 mg/dL (9-20); Calcium 9.8 mg/dL (8.4-10.2); Carbon Dioxide 26 mmol/L (22-30); Chloride 104 mmol/L (98-107); Glucose 88 mg/dL (74-99); Magnesium 1.8 mg/dL (1.6-2.3); Non-African American GFR(CKD) >90 (>60 ml/min/1.73 sqM); Sodium 146 mmol/L (137-145); Total Bilirubin 0.6 mg/dL (0.2-1.3); Total Protein 8.1 g/dL (6.3-8.2)
--- NOTE | 2025-01-13 19:10 | CT ---
EXAMINATION TYPE: CT brain cspine wo con DATE OF EXAM: 01/13/2025 COMPARISON: CLINICAL INDICATION: Male, 69 years old with history of trauma; [facility], Pt presents to ED following a fa ll from standing position around 1pm today. Pt did hit head, +LOC, denies thinner use. Pt c/o left ri b and back pain TECHNIQUE: CT scan of the head and cervical spine are performed without contrast. CT DLP: [address] CTDI: mGy Automated exposure control for dose reduction was used. FINDINGS: There is no acute intracranial hemorrhage, mass effect, or midline shift identified. The ventricles and sulci are within normal limits in size. The globes are intact and the visualized sinuses are dhruv ar. Cervical spine is visualized in its entirety from C1 through upper thoracic levels and demonstrates s atisfactory alignment without evidence of acute fracture or dislocation. Prevertebral soft tissue ap pears within normal limits. The C1-C2 articulation is unremarkable. IMPRESSION: There is no acute fracture or dislocation evident in the cervical spine. 2. No acute intracranial hemorrhage, mass effect, or midline shift is seen. [facility], , 01/13/2025 7:07 PM
--- NOTE | 2025-01-13 19:14 | CT ---
EXAMINATION TYPE: CT ChestAbdPelvis w con DATE OF EXAM: 01/13/2025 7:03 PM COMPARISON: None. CLINICAL INDICATION: Male, 69 years old with history of trauma, Pt presents to ED following a fall fr om standing position around 1pm today. Pt did hit head, +LOC, denies thinner use. Pt c/o left rib and back pain, TECHNIQUE: Axial imaging was performed with sagittal coronal reformats. 3D reconstruction performed o n a separate workstation. IV CONTRAST: with IV Contrast, patient injected with 100ml mL of Isovue 300. (None if empty) CT DLP: 908.4 mGycm, Automated exposure control for dose reduction was used. FINDINGS: CHEST LUNGS: There is no evidence for pneumothorax. The lungs are clear and free of focal contusion or ate lectasis. No pleural effusion MEDIASTINUM: Thoracic aorta is of normal caliber without CT evidence to suggest traumatic induced ao rtic injury. No mediastinal fluid or blood. No pericardial fluid or cardia abnormality. HILAR STRUCTURES: No evidence for mass. No hilar adenopathy is appreciated. OTHER: No significant abnormality. OSSEOUS: No displaced osseous fractures identified. CT ABDOMEN AND PELVIS FINDINGS: LIVER/GB: No focal laceration, contusion or subcapsular hemorrhage. Noncalcified gallstones sugges brittanie. Hepatic steatosis. No space occupying hepatic lesion. Biliary tree is of normal caliber. PANCREAS: No evidence for transection. No inflammation. No distinct mass. SPLEEN: No focal laceration, contusion or subcapsular hemorrhage. ADRENALS: No hemorrhage. No nodule. No thickening. KIDNEYS/BLADDER: No focal laceration, contusion or subcapsular hemorrhage. No hydronephrosis. No n ephrolithiasis. No disctinct renal mass. BOWEL: Bowel is intact. No evidence for pneumoperitoneum. GENITAL ORGANS: No gross abnormality. LYMPH NODES: No greater than 1cm abdominal or pelvic lymph nodes areappreciated. AORTA: No traumatic aortic injury visualized. OSSEOUS STRUCTURES: No displaced fracture seen. OTHER: No evidence for hemoperitoneum. Trace free fluid within the pelvis. IMPRESSION: 1. No evidence for traumatic injury to the chest. 2. No evidence for traumatic injury to the abdomen or pelvis. [facility], , 01/13/2025 7:12 PM
--- NOTE | 2025-01-13 19:15 | ED ---
General Adult HPI - General Chief complaint: Fall Stated complaint: Fall Time Seen by Provider: 01/13/25 17:00 Source: patient, family, RN notes reviewed, old records reviewed Mode of arrival: ambulatory Limitations: no limitations - History of Present Illness Initial comments: Is a 69-year-old male who presents to the emergency department who is a daily drinker. Patient tripped today and fell and hit his head normal as if he lost conscious because no one was there. Patient was down at most for an hour according to family. Patient does not have any complaints other than rib pain at this time. Patient denies any back pain. Patient denies any leg or upper extremity pain. - Related Data Home Medications Medication Instructions Recorded Confirmed No Known Home Medications 09/08/24 01/13/25 Allergies Allergy/AdvReac Type Severity Reaction Status Date / Time Penicillins Allergy Rash/Hives Verified 01/13/25 19:24 Review of Systems ROS Statement: Those systems with pertinent positive or pertinent negative responses have been documented in the HPI. ROS Other: All systems not noted in ROS Statement are negative. Past Medical History Past Medical History: Hypertension Additional Past Medical History / Comment(s): Alcohol dependence. states patient drinks daily. SHe finds shooters and bottles empty all day long. States, "He is NEVER without a drink in his hands". History of Any Multi-Drug Resistant Organisms: None Reported Past Surgical History: Hernia Repair Additional Past Surgical History / Comment(s): 2 umbilical hernia repair Past Anesthesia/Blood Transfusion Reactions: No Reported Reaction Past Psychological History: Depression Smoking Status: Current every day smoker Past Alcohol Use History: Daily Past Drug Use History: None Reported - Past Family History Mother Additional Family Medical History / Comment(s): PT. STATES HIS MOTHER FROM [facility] General Exam - General Exam Comments Initial Comments: GENERAL: Patient is well-developed and well-nourished. Patient is nontoxic and well- hydrated and is in no acute distress however he does appear very intoxicated ENT: Neck is soft and supple. No significant lymphadenopathy is noted. Oropharynx is clear. Moist mucous membranes. Neck has full range of motion without eliciting any pain. EYES: The sclera were anicteric and conjunctiva were pink and moist. Extraocular movements were intact and pupils were equal round and reactive to light. Eyelids were unremarkable. PULMONARY: Unlabored respirations. Good breath sounds bilaterally. No audible rales rhonchi or wheezing was noted. CARDIOVASCULAR: There is a regular rate and rhythm without any murmurs gallops or rubs. ABDOMEN: Soft and nontender with normal bowel sounds. SKIN: Patient has a superficial laceration on top of his scalp in the frontal region. Also has an abrasion to his back in the right thoracic region. Patient has an abrasion above the right eye NEUROLOGIC: Patient is alert and oriented x3. Cranial nerves II through XII are grossly intact. Motor and sensory are also intact. Normal speech, volume and content. Symmetrical smile. MUSCULOSKELETAL: Normal extremities with adequate strength and full range of motion. LYMPHATICS: No significant lymphadenopathy is noted PSYCHIATRIC: Normal psychiatric evaluation. Limitations: no limitations Course Vital Signs 01/13/25 01/13/25 01/13/25 16:57 17:55 18:47 Temperature 98.0 F Pulse Rate 100 101 H 90 Respiratory 24 20 20 Rate Blood Pressure 174/96 161/97 160/87 O2 Sat by Pulse 98 97 97 Oximetry Procedures - Adams Protocol (Time Out) Nurse: John Chavez Medical Decision Making - Medical Decision Making Use interpreted by myself but EKG shows sinus rhythm at 97 bpm AR was under 97 QRS is 80 QT interval 343 QTc is 398. Patient's EKG shows no ST segment elevation or depression. Was pt. sent in by a medical professional or institution ([facility] Alcantara, [employer]IVER, urgent care, hospital, or prison...) When possible be specific @ -No Did you speak to anyone other than the patient for history (EMS, parent, family, police, friend...)? What history was obtained from this source @ -No Did you review nursing and triage notes (agree or disagree)? Why? @ -I reviewed and agree with nursing and triage notes Were old charts reviewed (outside hosp., previous admission, EMS record, old EKG, old radiological studies, urgent care reports/EKG's, prison records)? Report findings @ -No old charts were reviewed Differential Diagnosis? @ -Differential Musculoskeletal Muscular strain, contusion, ligament sprain, fracture, arthritis, septic arthritis, bursitis, cellulitis, muscle spasm, nerve compression, DVT, arterial occlusion, herpes zoster, electrolyte abnormality, tumor.... This is not meant to be in all inclusive list EKG interpreted by me (3pts min.). @ -As above X-rays interpreted by me (1pt min.). @ -None done CT interpreted by me (1pt min.). @ -The brain and C-spine showed no acute abnormality. I remove the collar at this point because the patient was moving his neck around would not sit still. CT of the chest abdomen pelvis showed no acute abnormality. U/S interpreted by me (1pt. min.). @ -None done What testing was considered but not performed or refused? (CT, X-rays, U/S, labs)? Why? @ -None What meds were considered but not given or refused? Why? @ -None Did you discuss the management of the patient with other professionals (professionals i.e. , PA, AUTO TRANSPORT DRIVER, lab, RT, psych nurse, community mental health social worker, all around patternmaker, teacher, school resource officer, case assistant)? Give summary @ -I spoke with sound physicians he agreed admit the patient Was smoking cessation discussed for >3mins.? @ -No Was critical care preformed (if so, how long)? @ -No Were there social determinants of health that impacted care today? How? (Homelessness, low income, unemployed, alcoholism, drug addiction, transportation, low edu. Level, literacy, decrease access to med. care, shelter, rehab)? @ -No Was there de-escalation of care discussed even if they declined (Discuss DNR or withdrawal of care, Hospice)? DNR status @ -No What co-morbidities impacted this encounter? (DM, HTN, Smoking, COPD, CAD, Cancer, CVA, ARF, Chemo, Hep., AIDS, mental health diagnosis, sleep apnea, morbid obesity)? @ -None Was patient admitted / discharged? Hospital course, mention meds given and route, prescriptions, significant lab abnormalities, going to OR and other pertinent info. @ -Patient's alcohol level was 333 and the troponin was mildly elevated since. Patient was highly intoxicated could not trust his history at this point so he will be admitted overnight troponins will be repeated and patient will be put on CIID protocol Undiagnosed new problem with uncertain prognosis? @ -No Drug Therapy requiring intensive monitoring for toxicity (Heparin, Nitro, Insulin, Cardizem)? @ -No Were any procedures done? @ -No Diagnosis/symptom? @ -Alcohol intoxication Acute, or Chronic, or Acute on Chronic? @ -Default Uncomplicated (without systemic symptoms) or Complicated (systemic symptoms)? @ -Complicated Side effects of treatment? @ -No Exacerbation, Progression, or Severe Exacerbation? @ -No Poses a threat to life or bodily function? How? (Chest pain, USA, PA, pneumonia, PE, COPD, DKA, ARF, appy, cholecystitis, CVA, Diverticulitis, Homicidal, Suicidal, threat to staff... and all critical care pts) @ -No Diagnosis/symptom? @ -Abrasion scalp Acute, or Chronic, or Acute on Chronic? @ -Acute Uncomplicated (without systemic symptoms) or Complicated (systemic symptoms)? @ -Uncomplicated Side effects of treatment? @ -None Exacerbation, Progression, or Severe Exacerbation] @ -No Poses a threat to life or bodily function? @ -No Diagnosis/symptom? @ -Elevated troponin Acute, or Chronic, or Acute on Chronic? @ -Acute Uncomplicated (without systemic symptoms) or Complicated (systemic symptoms)? @ -Complicated Side effects of treatment? @ -None Exacerbation, Progression, or Severe Exacerbation] @ -No Poses a threat to life or bodily function? @ -Yes this could lead to an PA and endorgan dysfunction - Lab Data Result diagrams: 01/13/25 17:28 01/13/25 17:28 Lab Results 01/13/25 01/13/25 01/13/25 Range/Units 17:20 17:24 17:28 WBC 8.3 (3.8-10.6) k/uL RBC 4.77 (4.30-5.90) m/uL Hgb 16.2 (13.0-17.5) gm/dL Hct 50.6 (39.0-53.0) % MCV 106.0 H (80.0-100.0) fL MCH 34.0 (25.0-35.0) pg MCHC 32.0 (31.0-37.0) g/dL RDW 13.2 (11.5-15.5) % Plt Count 316 (150-450) k/uL MPV 7.9 Neutrophils % 64 % Lymphocytes % 26 % Monocytes % 5 % Eosinophils % 1 % Basophils % 1 % Neutrophils # 5.3 (1.3-7.7) k/uL Lymphocytes # 2.2 (1.0-4.8) k/uL Monocytes # 0.4 (0-1.0) k/uL Eosinophils # 0.1 (0-0.7) k/uL Basophils # 0.1 (0-0.2) k/uL Macrocytosis Moderate PT (10.0-12.5) sec INR (<1.2) APTT (22.0-30.0) sec Sodium (137-145) mmol/L Potassium (3.5-5.1) mmol/L Chloride (98-107) mmol/L Carbon Dioxide (22-30) mmol/L Anion Gap mmol/L BUN (9-20) mg/dL Creatinine (0.66-1.25) mg/dL Est GFR (CKD-EPI)AfAm (>60 ml/min/1.73 sqM) Est GFR (CKD-EPI)NonAf (>60 ml/min/1.73 sqM) Glucose (74-99) mg/dL Plasma Lactic Acid Yaakov (0.7-2.0) mmol/L Calcium (8.4-10.2) mg/dL Magnesium (1.6-2.3) mg/dL Total Bilirubin (0.2-1.3) mg/dL AST (17-59) U/L ALT (4-49) U/L Alkaline Phosphatase (38-126) U/L Troponin I (0.000-0.034) ng/mL Total Protein (6.3-8.2) g/dL Albumin (3.5-5.0) g/dL Urine Opiates Screen (NotDetected) Ur Oxycodone Screen (NotDetected) Urine Methadone Screen (NotDetected) Ur Barbiturates Screen (NotDetected) U Tricyclic Antidepress (NotDetected) Ur Phencyclidine Scrn (NotDetected) Ur Amphetamines Screen (NotDetected) U Methamphetamines Scrn (NotDetected) U Benzodiazepines Scrn (NotDetected) Urine Cocaine Screen (NotDetected) U Marijuana (THC) Screen (NotDetected) Serum Alcohol mg/dL Blood Type O Positive Blood Type Confirm O Positive Blood Type Recheck No Previous Record Bld Type Recheck Status CABO Indicated Antibody Screen NEGATIVE Spec Expiration Date 01/16/2025232301/13/25 01/13/25 01/13/25 Range/Units 17:28 17:28 17:28 WBC (3.8-10.6) k/uL RBC (4.30-5.90) m/uL Hgb (13.0-17.5) gm/dL Hct (39.0-53.0) % MCV (80.0-100.0) fL MCH (25.0-35.0) pg MCHC (31.0-37.0) g/dL RDW (11.5-15.5) % Plt Count (150-450) k/uL MPV Neutrophils % % Lymphocytes % % Monocytes % % Eosinophils % % Basophils % % Neutrophils # (1.3-7.7) k/uL Lymphocytes # (1.0-4.8) k/uL Monocytes # (0-1.0) k/uL Eosinophils # (0-0.7) k/uL Basophils # (0-0.2) k/uL Macrocytosis PT 10.6 (10.0-12.5) sec INR 0.9 (<1.2) APTT 24.0 (22.0-30.0) sec Sodium 146 H (137-145) mmol/L Potassium 5.0 (3.5-5.1) mmol/L Chloride 104 (98-107) mmol/L Carbon Dioxide 26 (22-30) mmol/L Anion Gap 16 mmol/L BUN 11 (9-20) mg/dL Creatinine 0.76 (0.66-1.25) mg/dL Est GFR (CKD-EPI)AfAm >90 (>60 ml/min/1.73 sqM) Est GFR (CKD-EPI)NonAf >90 (>60 ml/min/1.73 sqM) Glucose 88 (74-99) mg/dL Plasma Lactic Acid Yaakov 3.0 H* (0.7-2.0) mmol/L Calcium 9.8 (8.4-10.2) mg/dL Magnesium 1.8 (1.6-2.3) mg/dL Total Bilirubin 0.6 (0.2-1.3) mg/dL AST 104 H (17-59) U/L ALT 43 (4-49) U/L Alkaline Phosphatase 128 H (38-126) U/L Troponin I (0.000-0.034) ng/mL Total Protein 8.1 (6.3-8.2) g/dL Albumin 4.6 (3.5-5.0) g/dL Urine Opiates Screen (NotDetected) Ur Oxycodone Screen (NotDetected) Urine Methadone Screen (NotDetected) Ur Barbiturates Screen (NotDetected) U Tricyclic Antidepress (NotDetected) Ur Phencyclidine Scrn (NotDetected) Ur Amphetamines Screen (NotDetected) U Methamphetamines Scrn (NotDetected) U Benzodiazepines Scrn (NotDetected) Urine Cocaine Screen (NotDetected) U Marijuana (THC) Screen (NotDetected) Serum Alcohol mg/dL Blood Type Blood Type Confirm Blood Type Recheck Bld Type Recheck Status Antibody Screen Spec Expiration Date 01/13/25 01/13/25 01/13/25 Range/Units 17:28 17:28 17:43 WBC (3.8-10.6) k/uL RBC (4.30-5.90) m/uL Hgb (13.0-17.5) gm/dL Hct (39.0-53.0) % MCV (80.0-100.0) fL MCH (25.0-35.0) pg MCHC (31.0-37.0) g/dL RDW (11.5-15.5) % Plt Count (150-450) k/uL MPV Neutrophils % % Lymphocytes % % Monocytes % % Eosinophils % % Basophils % % Neutrophils # (1.3-7.7) k/uL Lymphocytes # (1.0-4.8) k/uL Monocytes # (0-1.0) k/uL Eosinophils # (0-0.7) k/uL Basophils # (0-0.2) k/uL Macrocytosis PT (10.0-12.5) sec INR (<1.2) APTT (22.0-30.0) sec Sodium (137-145) mmol/L Potassium (3.5-5.1) mmol/L Chloride (98-107) mmol/L Carbon Dioxide (22-30) mmol/L Anion Gap mmol/L BUN (9-20) mg/dL Creatinine (0.66-1.25) mg/dL Est GFR (CKD-EPI)AfAm (>60 ml/min/1.73 sqM) Est GFR (CKD-EPI)NonAf (>60 ml/min/1.73 sqM) Glucose (74-99) mg/dL Plasma Lactic Acid Yaakov (0.7-2.0) mmol/L Calcium (8.4-10.2) mg/dL Magnesium (1.6-2.3) mg/dL Total Bilirubin (0.2-1.3) mg/dL AST (17-59) U/L ALT (4-49) U/L Alkaline Phosphatase (38-126) U/L Troponin I 0.038 H* (0.000-0.034) ng/mL Total Protein (6.3-8.2) g/dL Albumin (3.5-5.0) g/dL Urine Opiates Screen Not Detected (NotDetected) Ur Oxycodone Screen Not Detected (NotDetected) Urine Methadone Screen Not Detected (NotDetected) Ur Barbiturates Screen Not Detected (NotDetected) U Tricyclic Antidepress Not Detected (NotDetected) Ur Phencyclidine Scrn Not Detected (NotDetected) Ur Amphetamines Screen Not Detected (NotDetected) U Methamphetamines Scrn Not Detected (NotDetected) U Benzodiazepines Scrn Not Detected (NotDetected) Urine Cocaine Screen Not Detected (NotDetected) U Marijuana (THC) Screen Not Detected (NotDetected) Serum Alcohol 333 H* mg/dL Blood Type Blood Type Confirm Blood Type Recheck Bld Type Recheck Status Antibody Screen Spec Expiration Date Disposition Clinical Impression: Fall, Elevated troponin, Alcohol intoxication, Scalp abrasion Disposition: ADMITTED IP TO THIS HOSP Referrals: Emily Amado MD [Primary Care Provider] - 1-2 days Time of Disposition: 19:37
[2025-01-13] MEDS ORDERED: LORazepam 1 MG TAB PO PRN (19:42)
[2025-01-13] MEDS ORDERED: LORazepam 2 MG/ML INJ IV PRN ×2 (19:42)
[2025-01-13] MEDS: LORazepam 2 MG/ML INJ IV STA (19:46)
[2025-01-13] MEDS: DIPH,PERTUS(ACELL)TETVAC-LF 0.5 ML VIAL IM ONE (19:47)
[2025-01-13] MEDS: SODIUM CHLORIDE 0.9% 1,000 ML IV ONE (19:48)
[2025-01-13] MEDS: THIAMINE 100 MG/ML 2 ML VIAL IM STA (20:56)
[2025-01-13] MEDS: NICOTINE 21MG/24HR PATCH TRANSDERM SCH (22:02)
[2025-01-14] MEDS: LORazepam 2 MG/ML INJ IV PRN (03:33)
[2025-01-14] MEDS: SODIUM CHLORIDE 0.9% 1,000 ML IV ONE ×2 (05:12)
--- NOTE | 2025-01-14 05:39 | P.HPIM ---
History of Present Illness H&P Date: 01/14/25 Patient is a 69-year-old male with a PMH of alcohol abuse who presents to the emergency room after a fall with alcohol intoxication. The patient reports that he has been drinking heavily for the past several years and drinks a bottle of Hair a walker every 3 days. Reports that earlier today while he was intoxicated that he lost his footing and fell forward hitting his head on the ground. He reported not losing consciousness. Also denied experiencing chest discomfort or shortness of breath. Also denied fever, chills, cough, nausea, vomiting, abdominal pain, diarrhea. Denied urinary or bowel incontinence. Head/cervical spine CT in the emergency room was unremarkable with chest/abdomen/pelvis CT also unremarkable. EKG revealed sinus rhythm at [address]/T wave changes noted as reviewed by me. The patient was noted to go into runs of V. tach in the emergency room. Laboratory evaluation did reveal a lactic acid of 3.0 with troponin I 0.038. Serum alcohol level was 333. ED documentation reviewed and case discussed with ED provider. Review of systems: Pertinent positives and negatives as discussed in HPI, a complete review of systems was performed and all other systems are negative. Physical examination: Vital signs reviewed General: non toxic, no distress, appears at stated age, normal weight Derm: no unusual rashes/lesions, warm Head: Scalp laceration 5 cm, normocephalic, symmetric Eyes: EOMI, no lid lag, anicteric sclera, pupils equal round reactive to light ENT: Nasal bridge dressing intact Neck: No cervical lymphadenopathy, trachea midline, supple Mouth: no lip lesion, mucus membranes moist Cardiovascular: S1S2 reg, no murmur, positive dorsalis pedis pulse bilateral, no edema Lungs: CTA bilateral, no rhonchi, no rales, no accessory muscle use Abdominal: soft, nontender to palpation, no guarding Ext: muscle strength 5 out of 5 in all 4 extremities grossly, no gross muscle atrophy, no contractures, Neuro: CN II-XI grossly intact, no gross focal neuro deficits Psych: Alert, oriented, appropriate affect Assessment: Mechanical fall with facial trauma Alcohol intoxication Elevated troponin with runs of V. tach Macrocytosis Imaging: Head/cervical spine CT in the emergency room was unremarkable with chest/abdomen/pelvis CT also unremarkable. EKG revealed sinus rhythm at [address]/T wave changes noted as reviewed by me. Data Review: Laboratory evaluation did reveal a lactic acid of 3.0 with troponin I 0.038. Serum alcohol level was 333. Plan: Continue to monitor for signs of withdrawal with CIWA protocol with Ativan IV push Obtain echocardiogram Fall precautions Monitor electrolytes daily Cardiac monitoring Trend troponin Check B12 and Folate levels DVT prophylaxis: Lovenox Subq code The patient is admitted with an anticipated less than 2 midnight stay for evaluation of EtOH withdrawal CODE STATUS: Full Code Discussed with: Patient Anticipated discharge place: Home Past Medical History Past Medical History: Hypertension Additional Past Medical History / Comment(s): Alcohol dependence. states patient drinks daily. SHe finds shooters and bottles empty all day long. States, "He is NEVER without a drink in his hands". History of Any Multi-Drug Resistant Organisms: None Reported Past Surgical History: Hernia Repair Additional Past Surgical History / Comment(s): 2 umbilical hernia repair Past Anesthesia/Blood Transfusion Reactions: No Reported Reaction Past Psychological History: Depression Smoking Status: Current every day smoker Past Alcohol Use History: Daily Past Drug Use History: None Reported - Past Family History Mother Additional Family Medical History / Comment(s): PT. STATES HIS MOTHER FROM [facility] Medications and Allergies Home Medications Medication Instructions Recorded Confirmed Type No Known Home Medications 09/08/24 01/13/25 History Allergies Allergy/AdvReac Type Severity Reaction Status Date / Time Penicillins Allergy Rash/Hives Verified 01/13/25 19:24 Physical Exam Vitals: Vital Signs Temp Pulse Resp BP Pulse Ox 01/14/25 04:12 105 H 19 183/81 96 01/14/25 00:01 98.1 F 96 15 155/78 92 L 01/13/25 22:03 96 18 142/66 97 01/13/25 20:00 96 18 156/81 96 01/13/25 19:45 96 18 141/80 96 01/13/25 18:47 90 20 160/87 97 01/13/25 17:55 101 H 20 161/97 97 01/13/25 16:57 98.0 F 100 24 174/96 98 Intake and Output 01/13/25 01/13/25 01/14/25 14:59 22:59 06:59 Other: Weight 62.596 kg Results CBC & Chem 7: 01/13/25 17:28 01/13/25 17:28 Labs: Abnormal Lab Results - Last 24 Hours (Table) 01/13/25 01/13/25 01/13/25 Range/Units 17:28 17: 17: MCV 106.0 H (80.0-100.0) fL Sodium 146 H (137-145) mmol/L Plasma Lactic Acid Yaakov 3.0 H* (0.7-2.0) mmol/L AST 104 H (17-59) U/L Alkaline Phosphatase 128 H (38-126) U/L Troponin I (0.000-0.034) ng/mL Serum Alcohol mg/dL 01/13/25 01/13/25 01/13/25 Range/Units 17: 17: 20:45 MCV (80.0-100.0) fL Sodium (137-145) mmol/L Plasma Lactic Acid Yaakov (0.7-2.0) mmol/L AST (17-59) U/L Alkaline Phosphatase (38-126) U/L Troponin I 0.038 H* 0.046 H* (0.000-0.034) ng/mL Serum Alcohol 333 H* mg/dL 01/13/25 01/14/25 01/14/25 Range/Units 21:09 00:12 00:12 MCV (80.0-100.0) fL Sodium (137-145) mmol/L Plasma Lactic Acid Yaakov 2.7 H* 2.9 H* (0.7-2.0) mmol/L AST (17-59) U/L Alkaline Phosphatase (38-126) U/L Troponin I 0.056 H* (0.000-0.034) ng/mL Serum Alcohol mg/dL
[2025-01-14] MEDS: hydrALAZINE HCL 25 MG TAB PO STA (06:47)
[2025-01-14] MEDS: ENOXAPARIN 40 MG/0.4 ML SYRINGE SQ SCH (08:20)
[2025-01-14 09:35] LABS: African American GFR (CKD) >90 (>60 ml/min/1.73 sqM); Anion Gap 13 mmol/L; Blood Urea Nitrogen 11 mg/dL (9-20); Calcium 9.6 mg/dL (8.4-10.2); Carbon Dioxide 24 mmol/L (22-30); Chloride 101 mmol/L (98-107); Glucose 107 mg/dL (74-99); Non-African American GFR(CKD) >90 (>60 ml/min/1.73 sqM); Potassium 4.5 mmol/L (3.5-5.1); Sodium 138 mmol/L (137-145)
--- NOTE | 2025-01-14 10:16 | P.CRDCN ---
History of Present Illness Consult date: 01/14/25 History of present illness: The patient is a pleasant 69-year-old gentleman with a past medical history significant for history of alcohol use on daily basis as well as hypertension and dyslipidemia and history of cardiomyopathy based on echocardiogram was performed in 2020 with a EF between 40 to 45% with wall motion abnormalities as well as multiple comorbid conditions who was brought to the hospital after he fell at home. 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 He developed face in jury with he underwent further evaluation including CT scan did not show any intracranial bleeding. He also underwent CT scan of the abdomen and pelvis came in to be unremarkable with no acute abnormalities but we consulted see the patient because of abnormal cardiac enzymes. Troponin is mildly elevated. The chest x-ray did not show any acute abnormalities. The EKG showed sinus mechanism with nonspecific ST and T wave abnormalities most prominent in the inferolateral leads. No history of CAD but echo was performed in 2020 showed cardiomyopathy with wall motion abnormalities and no further testing performed at that point. Currently he is asymptomatic beside chest discomfort in the left upper chest secondary to falling. No rib fractures noted. The physical examination is remarkable for regular rhythm with a soft systolic murmur and clear breathing sounds bilaterally and no carotid bruit and no edema was noted Assessment Hypertension and tachycardia likely secondary to alcohol withdrawal Alcohol intoxication and possible going through withdrawal in the next few hours History of cardiomyopathy Abnormal EKG Evidence of myocardial injury Multiple comorbid conditions Plan Start the patient on aspirin and statin and beta-kevin Obtain an echocardiogram with Doppler for more risk stratification Further recommendation to follow the echocardiogram Consider medical treatment since the patient is potentially going through alcohol withdrawal Past Medical History Past Medical History: Hypertension Additional Past Medical History / Comment(s): Alcohol dependence. states patient drinks daily. SHe finds shooters and bottles empty all day long. States, "He is NEVER without a drink in his hands". History of Any Multi-Drug Resistant Organisms: None Reported Past Surgical History: Hernia Repair Additional Past Surgical History / Comment(s): 2 umbilical hernia repair Past Anesthesia/Blood Transfusion Reactions: No Reported Reaction Past Psychological History: Depression Smoking Status: Current every day smoker Past Alcohol Use History: Daily Past Drug Use History: None Reported - Past Family History Mother Additional Family Medical History / Comment(s): PT. STATES HIS MOTHER FROM EPMPHYSEMA Medications and Allergies Home Medications Medication Instructions Recorded Confirmed Type No Known Home Medications 09/08/24 01/13/25 History Allergies Allergy/AdvReac Type Severity Reaction Status Date / Time Penicillins Allergy Rash/Hives Verified 01/13/25 19:24 Physical Exam Vitals: Vital Signs Temp Pulse Resp BP Pulse Ox 01/14/25 10:00 103 H 20 96 01/14/25 08:00 104 H 20 181/85 96 01/14/25 05:21 98.8 F 105 H 17 195/90 99 01/14/25 04:12 105 H 19 183/81 96 01/14/25 00:01 98.1 F 96 15 155/78 92 L 01/13/25 22:03 96 18 142/66 97 01/13/25 20:00 96 18 156/81 96 01/13/25 19:45 96 18 141/80 96 01/13/25 18:47 90 20 160/87 97 01/13/25 17:55 101 H 20 161/97 97 01/13/25 16:57 98.0 F 100 24 174/96 98 Intake and Output 01/13/25 01/14/25 01/14/25 22:59 06:59 14:59 Other: Weight 62.596 kg Results 01/13/25 17:28 01/14/25 08:49 Cardiac Enzymes 01/13/25 01/13/25 01/13/25 Range/Units 17:28 17:28 20:45 AST 104 H (17-59) U/L Troponin I 0.038 H* 0.046 H* (0.000-0.034) ng/mL 01/14/25 Range/Units 00:12 AST (17-59) U/L Troponin I 0.056 H* (0.000-0.034) ng/mL Coagulation 01/13/25 Range/Units 17:28 PT 10.6 (10.0-12.5) sec APTT 24.0 (22.0-30.0) sec CBC 01/13/25 Range/Units 17:28 WBC 8.3 (3.8-10.6) k/uL RBC 4.77 (4.30-5.90) m/uL Hgb 16.2 (13.0-17.5) gm/dL Hct 50.6 (39.0-53.0) % Plt Count 316 (150-450) k/uL Comprehensive Metabolic Panel 01/13/25 01/14/25 Range/Units 17:28 08:49 Sodium 146 H 138 (137-145) mmol/L Potassium 5.0 4.5 (3.5-5.1) mmol/L Chloride 104 101 (98-107) mmol/L Carbon Dioxide 26 24 (22-30) mmol/L BUN 11 11 (9-20) mg/dL Creatinine 0.76 0.66 (0.66-1.25) mg/dL Glucose 88 107 H (74-99) mg/dL Calcium 9.8 9.6 (8.4-10.2) mg/dL AST 104 H (17-59) U/L ALT 43 (4-49) U/L Alkaline Phosphatase 128 H (38-126) U/L Total Protein 8.1 (6.3-8.2) g/dL Albumin 4.6 (3.5-5.0) g/dL Current Medications Generic Name Dose Route Start Last Admin Trade Name Freq PRN Reason Stop Dose Admin Acetaminophen 650 mg 01/14/25 10:03 Acetaminophen Tab 325 Mg Tab PO Q6HR PRN Fever and/ or Pain Enoxaparin Sodium 40 mg 01/14/25 09:00 01/14/25 08:20 Enoxaparin 40 Mg/0.4 Ml Syringe SQ Not Given DAILY [facility] Folic Acid 1 mg 01/14/25 09:00 Folic Acid 1 Mg Tab PO DAILY [facility] Lidocaine 1 patch 01/15/25 09:00 Lidocaine 4% Patch TOPICAL DAILY [facility] Protocol Lorazepam 1 mg 01/13/25 19:42 Lorazepam 1 Mg Tab PO Q4HR PRN Ciwa 6 To 7 Lorazepam 0.5 mg 01/13/25 19:42 Lorazepam 0.5 Mg Tab PO Q4HR PRN Ciwa 4 To 5 Lorazepam 2 mg 01/13/25 19:42 Lorazepam 2 Mg/Ml Inj IV 01/15/25 19:43 Q10M PRN CIWA 16 or higher Lorazepam 1 mg 01/13/25 19:42 01/14/25 08:30 Lorazepam 2 Mg/Ml Inj IV 1 mg Q2HR PRN Administration CIWA 8 or 9 Lorazepam 1 mg 03/23/25 19:42 Lorazepam 2 Mg/Ml Inj IV Q1HR PRN CIWA 10 to 15 Multivitamins 1 each 01/14/25 09:00 Multivitamins, Thera 1 Each Tab PO DAILY [facility] Nicotine 1 patch 01/13/25 21:45 01/14/25 08:20 Nicotine 21mg/24hr Patch TRANSDERM Not Given DAILY [facility] Thiamine HCl 100 mg 01/14/25 09:00 Thiamine 100 Mg Tab PO DAILY [facility] Intake and Output 01/13/25 01/14/25 01/14/25 22:59 06:59 14:59 Other: Weight 62.596 kg 01/13/25 17:28 01/14/25 08:49
[2025-01-14] MEDS: LIDOCAINE 4% PATCH TOPICAL SCH (10:23)
[2025-01-14] MEDS: ACETAMINOPHEN TAB 325 MG TAB PO PRN (10:25)
[2025-01-14] MEDS: THIAMINE 100 MG TAB PO SCH (10:25)
[2025-01-14] MEDS: MULTIVITAMINS, THERA 1 EACH TAB PO SCH (10:25)
[2025-01-14] MEDS: FOLIC ACID 1 MG TAB PO SCH (10:26)
--- NOTE | 2025-01-14 14:14 | P.PN ---
Subjective Progress Note Date: 01/14/25 Hospital Course: 69-year-old male with PMH of fentanyl abuse, hypertension, SVTs, history of mil dly impaired LV function 40 to 45%, dyslipidemia, who presented to the ER after he had a fall at home The patient reports that he has been drinking heavily for the past several years and drinks a bottle of Hair a walker every 3 days. Reports that earlier today while he was intoxicated that he lost his footing and fell forward hitting his head on the ground. He reported not losing consciousness. Also denied experiencing chest discomfort or shortness of breath. Also denied fever, chills, cough, nausea, vomiting, abdominal pain, diarrhea. Denied urinary or bowel incontinence. Head/cervical spine CT in the emergency room was unremarkable with chest/abdomen/pelvis CT also unremarkable. EKG revealed sinus rhythm at [address]/T wave changes noted as reviewed by me. The patient was noted to go into runs of V. tach in the emergency room. Laboratory evaluation did reveal a lactic acid of 3.0 with troponin I 0.038. Serum alcohol level was 333. Patient was admitted for further management of impending alcohol withdrawal, alcohol intoxication, elevated troponin Cardiology was consulted. Recommended to obtain TTE, start patient on aspirin, statins, beta-blockers. Pertinent Imaging: No new imaging Subjective: Seen and examined at bedside, no complaints, patient did have another fall this morning after he tripped over a wire in the ER. Patient's was at bedside, updated Pertinent positives and negatives as discussed above, a complete review of systems was performed and all other systems are negative. Vitals Signs Reviewed. General: [nontoxic], [no distress], [appears at stated age] Derm: [warm], [dry] Head: [Palp laceration 5 cm, multiple bruises Eyes: [EOMI], [no lid lag], [anicteric sclera] Mouth: [no lip lesion], [mucus membranes moist] Cardiovascular: [S1S2 reg], [no murmur] Lungs: [CTA bilateral], [no rhonchi, no rales] , [no accessory muscle use] Abdominal: [soft], [ nontender to palpation], [no guarding], [no appreciable organomegaly] Ext: [no gross muscle atrophy], [no edema], [no contractures] Neuro: [ CN II-XI grossly intact], [no focal neuro deficits] Psych: [Alert], [oriented], [appropriate affect] Data Reviewed Today: Pertinent Labs: Sodium, potassium, creatinine, bicarb normal, blood glucose 107, troponin 0.0 78, vitamin B12 504 Imaging: No new imaging Assessment and Plan: Alcohol intoxication Mechanical fall with facial trauma secondary to above -Received IV hydration in the ER -Continue with CIWA with Ativan, vitamin B-1 100 mg p.o. daily, folic acid 1 mg daily -Social work Hypertension Tachycardia likely secondary to alcohol withdrawal History of HFrEF EF 40 to 45% Elevated troponin -Cardiology following, patient started on aspirin 81 p.o. daily, atorvastatin 40 mg p.o. nightly, Coreg 6.25 mg p.o. twice daily -TTE ordered and pending DVT ppx: Lovenox Code status: Full code Anticipated discharge place: Home Anticipated discharge time: 24 to 48 hours Objective - Vital Signs Vital signs: Vital Signs Temp 98.6 F 01/14/25 13:04 Pulse 89 01/14/25 13:04 Resp 18 01/14/25 13:04 BP 187/95 01/14/25 13:04 Pulse Ox 95 01/14/25 13:04 FiO2 Intake & Output 01/13/25 01/14/25 01/14/25 18:59 06:59 18:59 Weight 62.596 kg - Labs CBC & Chem 7: 01/13/25 17:28 01/14/25 08:49 Labs: Abnormal Lab Results - Last 24 Hours (Table) 01/13/25 01/13/25 01/13/25 Range/Units 17:28 17:28 17:28 MCV 106.0 H (80.0-100.0) fL Sodium 146 H (137-145) mmol/L Glucose (74-99) mg/dL Plasma Lactic Acid Yaakov 3.0 H* (0.7-2.0) mmol/L Magnesium (1.6-2.3) mg/dL AST 104 H (17-59) U/L Alkaline Phosphatase 128 H (38-126) U/L Troponin I (0.000-0.034) ng/mL Serum Alcohol mg/dL 01/13/25 01/13/25 01/13/25 Range/Units 17:28 17:28 20:45 MCV (80.0-100.0) fL Sodium (137-145) mmol/L Glucose (74-99) mg/dL Plasma Lactic Acid Yaakov (0.7-2.0) mmol/L Magnesium (1.6-2.3) mg/dL AST (17-59) U/L Alkaline Phosphatase (38-126) U/L Troponin I 0.038 H* 0.046 H* (0.000-0.034) ng/mL Serum Alcohol 333 H* mg/dL 01/13/25 01/14/25 01/14/25 Range/Units 21:09 00:12 00:12 MCV (80.0-100.0) fL Sodium (137-145) mmol/L Glucose (74-99) mg/dL Plasma Lactic Acid Yaakov 2.7 H* 2.9 H* (0.7-2.0) mmol/L Magnesium (1.6-2.3) mg/dL AST (17-59) U/L Alkaline Phosphatase (38-126) U/L Troponin I 0.056 H* (0.000-0.034) ng/mL Serum Alcohol mg/dL 01/14/25 01/14/25 01/14/25 Range/Units 08:49 08:49 10:55 MCV (80.0-100.0) fL Sodium (137-145) mmol/L Glucose 107 H (74-99) mg/dL Plasma Lactic Acid Yaakov (0.7-2.0) mmol/L Magnesium 1.4 L (1.6-2.3) mg/dL AST (17-59) U/L Alkaline Phosphatase (38-126) U/L Troponin I 0.078 H* (0.000-0.034) ng/mL Serum Alcohol mg/dL
[2025-01-14] MEDS: carvediloL 6.25 MG TAB PO SCH (16:54)
--- NOTE | 2025-01-14 17:12 | CA ---
Transthoracic Echo Report Name: Sage Ibarra Age: 69 Gender: M : 1955 Exam Date: 01/14/2025 14:20 Exam Location: [place] [facility] Ht (in): 65 Wt (lb): 138 Ordering Physician: Frank Turner MD Attending/Referring Phys: Painting Technician Juan Hernandez RDCS Procedure CPT: Indications: elev troponin Cardiac Hx: HTN Technical Quality: Good Contrast 1: Total Dose (mL): Contrast 2: Total Dose (mL): MEASUREMENTS (Male / Female) Normal Values 2D ECHO LV Diastolic Diameter PLAX 4.7 cm 4.2 - 5.9 / 3.9 - 5.3 cm LV Systolic Diameter PLAX 4.1 cm IVS Diastolic Thickness 0.9 cm 0.6 - 1.0 / 0.6 - 0.9 cm LVPW Diastolic Thickness 0.9 cm 0.6 - 1.0 / 0.6 - 0.9 cm LV Relative Wall Thickness 0.4 RV Internal Dim ED PLAX 2.4 cm LVOT Diameter 1.8 cm LA Systolic Diameter LX 3.2 cm 3.0 - 4.0 / 2.7 - 3.8 cm LV Diastolic Volume MOD BP 79.8 cm??? 67 - 155 / 56 - 104 cm??? LV Systolic Volume MOD BP 53.7 cm??? - 58 / 19 - 49 cm??? LV Ejection Fraction MOD BP 32.7 % >= 55 % LV Cardiac Index MOD BP 1336.9 cm???/min???m??? LV Diastolic Volume MOD 4C 76.7 cm??? LV Systolic Volume MOD 4C 48.4 cm??? LV Ejection Fraction MOD 4C 36.9 % LV Cardiac Index MOD 4C 1449.1 cm???/min???m??? LV Diastolic Length 4C 7.5 cm LV Systolic Length 4C 6.6 cm LV Diastolic Volume MOD 2C 80.6 cm??? LV Systolic Volume MOD 2C 55.2 cm??? LV Ejection Fraction MOD 2C 31.6 % LV Cardiac Index MOD 2C 1302.8 cm???/min???m??? LV Diastolic Length 2C 7.8 cm LV Systolic Length 2C 7.2 cm LA Volume 52.1 cm??? 18 - 58 / 22 - 52 cm??? LA Volume Index 30.6 cm???/m??? 16 - 28 cm???/m??? DOPPLER MV Area PHT 3.7 cm??? Mitral E Point Velocity 46.0 cm/s Mitral A Point Velocity 71.6 cm/s Mitral E to A Ratio 0.6 MV Deceleration Time 205.2 ms TR Peak Velocity 193.3 cm/s TR Peak Gradient 14.9 mmHg Right Atrial Pressure 5.0 mmHg Pulmonary Artery Systolic Pressu 19.9 mmHg Right Ventricular Systolic Press 19.9 mmHg FINDINGS Left Ventricle Left ventricular ejection fraction is estimated at 40%. Moderately decreased left ventricular ejection fraction. Moderately reduced global left ventricular systolic function. Left ventricular wall thickness normal. Right Ventricle Normal right ventricular size and function. Right ventricular systolic pressure within normal limits. Right Atrium Normal right atrial size. Left Atrium Mildly increased left atrial volume. Mitral Valve Mitral valve thickened. No mitral stenosis. Trace mitral regurgitation. Aortic Valve Trileaflet aortic valve. No aortic stenosis. Trace aortic regurgitation. Tricuspid Valve Structurally normal tricuspid valve. No tricuspid stenosis. No tricuspid regurgitation. Pulmonic Valve Pulmonic valve not well visualized. No pulmonic stenosis. Trace pulmonic regurgitation. Pericardium No pericardial effusion. No pleural effusion. Aorta Normal size aortic root and proximal ascending aorta. CONCLUSIONS LV systolic dysfunction with an ejection fraction of 40% Hypokinesis involving inferior wall Previewed by: Dr. Alvarado Mccracken MD (Electronically Signed) Final Date: 14 January 2025 17:11
[2025-01-14] MEDS ORDERED: LORazepam 1 MG/0.5 ML VIAL IV PRN (19:09)
[2025-01-14] MEDS: ATORVASTATIN 40 MG TAB PO SCH (20:02)
[2025-01-14] MEDS: LORazepam 1 MG/0.5 ML VIAL IV PRN (20:02)
--- NOTE | 2025-01-15 07:32 | P.PN ---
Subjective Progress Note Date: 01/15/25 The patient is a pleasant 69-year-old gentleman with a past medical history significant for history of alcohol use on daily basis as well as hypertension and dyslipidemia and history of cardiomyopathy based on echocardiogram was performed in 2020 with a EF between 40 to 45% with wall motion abnormalities as well as multiple comorbid conditions who was brought to the hospital after he fell at home. 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 He developed face injury with he underwent further evaluation including CT scan did not show any intracranial bleeding. He also underwent CT scan of the abdomen and pelvis came in to be unremarkable with no acute abnormalities but we consulted see the patient because of abnormal cardiac enzymes. Troponin is mildly elevated. The chest x-ray did not show any acute abnormalities. The EKG showed sinus mechanism with nonspecific ST and T wave abnormalities most prominent in the in ferolateral leads. No history of CAD but echo was performed in 2020 showed cardiomyopathy with wall motion abnormalities and no further testing performed at that point. Currently he is asymptomatic beside chest discomfort in the left upper chest secondary to falling. No rib fractures noted. The physical examination is remarkable for regular rhythm with a soft systolic murmur and clear breathing sounds bilaterally and no carotid bruit and no edema was noted January 15, 2025 The patient was seen and evaluated this morning. He underwent an echo yesterday which revealed impaired LV function with EF around 40% with basal inferior hypokinesia. The pressure remains elevated. I am going to increase the dose of beta-kevin and also add losartan to the current medical regimen. Beside that continue aspirin and continue statin. The patient need to undergo a heart catheterization once the alcohol withdrawal is over. Currently he is asymptomatic. The physical examination is remarkable for regular rhythm with a soft systolic murmur and clear breathing sounds bilaterally and no edema was noted in the lower extremities Assessment Hypertension and tachycardia likely secondary to alcohol withdrawal Alcohol intoxication and possible going through withdrawal in the next few hours Cardiomyopathy with EF around 40% with basal inferior hypokinesia Abnormal EKG Evidence of myocardial injury Multiple comorbid conditions Plan Continue the current medical regimen Increase dose of carvedilol Add losartan to the current medical regimen The patient need to undergo a heart catheterization once alcohol withdrawal is over Objective - Vital Signs Vital signs: Vital Signs Temp 98.2 F 01/15/25 04:00 Pulse 81 01/15/25 04:00 Resp 14 01/15/25 04:00 BP 152/75 01/15/25 04:00 Pulse Ox 95 01/15/25 04:00 FiO2 Intake & Output 01/14/25 01/15/25 01/15/25 18:59 06:59 18:59 Weight 62.596 kg 48.8 kg Other: # Voids 3 - Labs CBC & Chem 7: 01/13/25 17:28 01/14/25 08:49 Labs: Abnormal Lab Results - Last 24 Hours (Table) 01/14/25 01/14/25 01/14/25 Range/Units 08:49 08:49 10:55 Glucose 107 H (74-99) mg/dL Magnesium 1.4 L (1.6-2.3) mg/dL Troponin I 0.078 H* (0.000-0.034) ng/mL
[2025-01-15 08:05] LABS: African American GFR (CKD) >90 (>60 ml/min/1.73 sqM); Anion Gap 9 mmol/L; Blood Urea Nitrogen 11 mg/dL (9-20); Calcium 10.2 mg/dL (8.4-10.2); Carbon Dioxide 30 mmol/L (22-30); Chloride 96 mmol/L (98-107); Glucose 130 mg/dL (74-99); Magnesium 1.4 mg/dL (1.6-2.3); Non-African American GFR(CKD) 89 (>60 ml/min/1.73 sqM); Potassium 4.8 mmol/L (3.5-5.1); Sodium 135 mmol/L (137-145)
[2025-01-15] MEDS ORDERED: Magnesium Replacement Protocol 1 EACH MISC MISCELLANE PRN (08:09)
[2025-01-15] MEDS ORDERED: LIDOCAINE 4% PATCH TOPICAL SCH (09:00)
[2025-01-15] MEDS: LORazepam 1 MG/0.5 ML VIAL IV PRN (09:12)
[2025-01-15] MEDS: LOSARTAN 25 MG TAB PO SCH (09:43)
[2025-01-15] MEDS: ASPIRIN 81 MG PO SCH (09:44)
[2025-01-15] MEDS: MAGNESIUM SULFATE-D5W PMX 1 GM in DEXTROSE/WATER 1 100ML.BAG IVPB SCH (09:46)
[2025-01-15] MEDS: carvediloL 6.25 MG TAB PO ONE (09:50)
--- NOTE | 2025-01-15 10:53 | P.PN ---
Subjective Progress Note Date: 01/15/25 Hospital Course: 69-year-old male with PMH of fentanyl abuse, hypertension, SVTs, history of mil dly impaired LV function 40 to 45%, dyslipidemia, who presented to the ER after he had a fall at home The patient reports that he has been drinking heavily for the past several years and drinks a bottle of Hair a walker every 3 days. Reports that earlier today while he was intoxicated that he lost his footing and fell forward hitting his head on the ground. He reported not losing consciousness. Also denied experiencing chest discomfort or shortness of breath. Also denied fever, chills, cough, nausea, vomiting, abdominal pain, diarrhea. Denied urinary or bowel incontinence. Head/cervical spine CT in the emergency room was unremarkable with chest/abdomen/pelvis CT also unremarkable. EKG revealed sinus rhythm at [address]/T wave changes noted as reviewed by me. The patient was noted to go into runs of V. tach in the emergency room. Laboratory evaluation did reveal a lactic acid of 3.0 with troponin I 0.038. Serum alcohol level was 333. Patient was admitted for further management of impending alcohol withdrawal, alcohol intoxication, elevated troponin Cardiology was consulted. Recommended to obtain TTE, start patient on aspirin, statins, beta-blockers. TTE showed EF of 40%, hypokinesis involving the inferior wall. Patient will need to undergo heart cath once alcohol withdrawal is over, medications adjusted by resp therapist as following: Coreg increased to 12.5 twice daily, added losartan 12.5 daily Subjective: Seen and examined at bedside, complains of left sided rib cage pain, known before admission, started after fall. present during exam, updated, all questions answered. Pertinent positives and negatives as discussed above, a complete review of systems was performed and all other systems are negative. Vitals Signs Reviewed. General: [nontoxic], [no distress], [appears at stated age] Derm: [warm], [dry] Head: [Palp laceration 5 cm, multiple bruises Eyes: [EOMI], [no lid lag], [anicteric sclera] Mouth: [no lip lesion], [mucus membranes moist] Cardiovascular: [S1S2 reg], [no murmur] Lungs: [CTA bilateral], [no rhonchi, no rales] , [no accessory muscle use] Abdominal: [soft], [ nontender to palpation], [no guarding], [no appreciable organomegaly] Ext: [no gross muscle atrophy], [no edema], [no contractures] Neuro: [ CN II-XI grossly intact], [no focal neuro deficits] Psych: [Alert], [oriented], [appropriate affect] Data Reviewed Today: Pertinent Labs: Sodium 135, potassium normal, creatinine normal, bicarb, magnesium 1.4 Assessment and Plan: Alcohol intoxication Alcohol withdrawal Mechanical fall with facial trauma secondary to above -Received IV hydration in the ER -Continue with CIWA with Ativan, vitamin B-1 100 mg p.o. daily, folic acid 1 mg daily -Social work -lidocaine patch and tylenol for pain control Hypomagnesemia: Replaced with 1 g, repeat in the morning Hypertension Tachycardia likely secondary to alcohol withdrawal HFrEF EF 40 % Hypokinesis involving the inferior wal Elevated troponin -Cardiology following, patient started on aspirin 81 p.o. daily, atorvastatin 40 mg p.o. nightly, TTE showed EF of 40%, hypokinesis involving the inferior wall. Patient will need to undergo heart cath once alcohol withdrawal is over, medications adjusted by resp therapist as following: Coreg increased to 12.5 twice daily, added losartan 12.5 daily -Plan for heart cath once withdrawal is over DVT ppx: Lovenox Code status: Full code Anticipated discharge place: tbd Anticipated discharge time: tbd Objective - Vital Signs Vital signs: Vital Signs Temp 97.9 F 01/15/25 07:30 Pulse 87 01/15/25 07:30 Resp 14 01/15/25 07:30 BP 154/87 01/15/25 07:30 Pulse Ox 100 01/15/25 07:30 FiO2 Intake & Output 01/14/25 01/15/25 01/15/25 18:59 06:59 18:59 Weight 62.596 kg 48.8 kg Other: # Voids 3 - Labs CBC & Chem 7: 01/13/25 17:28 01/15/25 07:31 Labs: Abnormal Lab Results - Last 24 Hours (Table) 01/14/25 01/14/25 01/14/25 Range/Units 08:49 08:49 10:55 Sodium (137-145) mmol/L Chloride (98-107) mmol/L Glucose 107 H (74-99) mg/dL Magnesium 1.4 L (1.6-2.3) mg/dL Troponin I 0.078 H* (0.000-0.034) ng/mL 01/15/25 Range/Units 07:31 Sodium 135 L (137-145) mmol/L Chloride 96 L (98-107) mmol/L Glucose 130 H (74-99) mg/dL Magnesium 1.4 L (1.6-2.3) mg/dL Troponin I (0.000-0.034) ng/mL
[2025-01-15 11:59] VITALS: BMI 17.9
[2025-01-15] MEDS: carvediloL 12.5 MG TAB PO SCH (15:56)
[2025-01-15] MEDS: LORazepam 0.5 MG TAB PO PRN (20:09)
[2025-01-16 02:02] VITALS: TEMP 98.2
[2025-01-16 08:40] LABS: African American GFR (CKD) >90 (>60 ml/min/1.73 sqM); Anion Gap 10 mmol/L; Blood Urea Nitrogen 12 mg/dL (9-20); Calcium 9.7 mg/dL (8.4-10.2); Carbon Dioxide 25 mmol/L (22-30); Chloride 99 mmol/L (98-107); Glucose 132 mg/dL (74-99); Magnesium 1.6 mg/dL (1.6-2.3); Non-African American GFR(CKD) 89 (>60 ml/min/1.73 sqM); Potassium 4.3 mmol/L (3.5-5.1); Sodium 134 mmol/L (137-145)
[2025-01-16 08:46] VITALS: BP 106/71; PULSE 81; RESP 16
--- NOTE | 2025-01-16 08:50 | P.PN ---
Subjective Progress Note Date: 01/16/25 The patient is a pleasant 69-year-old gentleman with a past medical history significant for history of alcohol use on daily basis as well as hypertension and dyslipidemia and history of cardiomyopathy based on echocardiogram was performed in 2020 with a EF between 40 to 45% with wall motion abnormalities as well as multiple comorbid conditions who was brought to the hospital after he fell at home. 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 He developed face injury with he underwent further evaluation including CT scan did not show any intracranial bleeding. He also underwent CT scan of the abdomen and pelvis came in to be unremarkable with no acute abnormalities but we consulted see the patient because of abnormal cardiac enzymes. Troponin is mildly elevated. The chest x-ray did not show any acute abnormalities. The EKG showed sinus mechanism with nonspecific ST and T wave abnormalities most prominent in the in ferolateral leads. No history of CAD but echo was performed in 2020 showed cardiomyopathy with wall motion abnormalities and no further testing performed at that point. Currently he is asymptomatic beside chest discomfort in the left upper chest secondary to falling. No rib fractures noted. The physical examination is remarkable for regular rhythm with a soft systolic murmur and clear breathing sounds bilaterally and no carotid bruit and no edema was noted January 15, 2025 The patient was seen and evaluated this morning. He underwent an echo yesterday which revealed impaired LV function with EF around 40% with basal inferior hypokinesia. The pressure remains elevated. I am going to increase the dose of beta-kevin and also add losartan to the current medical regimen. Beside that continue aspirin and continue statin. The patient need to undergo a heart catheterization once the alcohol withdrawal is over. Currently he is asymptomatic. The physical examination is remarkable for regular rhythm with a soft systolic murmur and clear breathing sounds bilaterally and no edema was noted in the lower extremities January 16, 2025 The patient was seen and evaluated this morning with he is asymptomatic and hemodynamically stable. He would like to go home. Severe CAD to be ruled out but the patient would like to go home and that need to be done as an outpatient meanwhile I am going to add Plavix to the current medical regimen and increase the dose of losartan. He is asymptomatic. The pressure is consistent with stage II hypertension. The physical examination is remarkable for regular rhythm with a soft systolic murmur and clear breathing sounds bilaterally Assessment Hypertension and tachycardia likely secondary to alcohol withdrawal Alcohol intoxication and possible going through withdrawal in the next few hours Cardiomyopathy with EF around 40% with basal inferior hypokinesia Abnormal EKG Evidence of myocardial injury Multiple comorbid conditions Plan Continue the current medical regimen Increase the dose of losartan Add Plavix to the current medical regimen Potentially can be discharged home Objective - Vital Signs Vital signs: Vital Signs Temp 98.2 F 01/16/25 08:30 Pulse 81 01/16/25 08:30 Resp 16 01/16/25 08:30 BP 106/71 01/16/25 08:30 Pulse Ox 92 L 01/16/25 08:30 FiO2 Intake & Output 01/15/25 01/16/25 01/16/25 18:59 06:59 18:59 Intake Total 240 Balance 240 Weight 48.8 kg 46.8 kg Intake: Oral 240 Other: Voiding Method Toilet # Voids 2 1 # Bowel Movements 1 - Labs CBC & Chem 7: 01/13/25 17:28 01/16/25 07:53 Labs: Abnormal Lab Results - Last 24 Hours (Table) 01/16/25 Range/Units 07:53 Sodium 134 L (137-145) mmol/L Glucose 132 H (74-99) mg/dL
[2025-01-16] MEDS: CLOPIDOGREL 75 MG TAB PO SCH (09:17)
[2025-01-16] MEDS: LOSARTAN 25 MG TAB PO SCH (09:19)
--- NOTE | 2025-01-16 10:12 | P.DS ---
Providers Date of admission: 01/13/25 19:39 Attending physician: Aaron Connors MD Consults: 01/13/25 21:55 Consult Physician Routine Consulting Provider: Clinton Lopez Consult Reason/Comments: elevated troponin and tachycardia Do you want consulting provider notified?: Yes Primary care physician: [facility] Course: Discharge Diagnosis: Alcohol intoxication Alcohol withdrawal Mechanical fall with facial trauma secondary to above Hypomagnesemia Hypertension Tachycardia likely secondary to alcohol withdrawal HFrEF EF 40% Hypokinesis involving the inferior wall Elevated troponin Tobacco use disorder Hospital Course: 69-year-old male with PMH of fentanyl abuse, hypertension, SVTs, history of mildly impaired LV function 40 to 45%, dyslipidemia, who presented to the ER after he had a fall at home The patient reports that he has been drinking heavily for the past several years and drinks a bottle of Hair a walker every 3 days. Reports that earlier today while he was intoxicated that he lost his footing and fell forward hitting his head on the ground. He reported not losing consciousness. Also denied experiencing chest discomfort or shortness of breath. Also denied fever, chills, cough, nausea, vomiting, abdominal pain, diarrhea. Denied urinary or bowel incontinence. Head/cervical spine CT in the emergency room was unremarkable with chest/abdomen/pelvis CT also unremarkable. EKG revealed sinus rhythm at [address]/T wave changes noted as reviewed by me. The patient was noted to go into runs of V. tach in the emergency room. Laboratory evaluation did reveal a lactic acid of 3.0 with troponin I 0.038. Serum alcohol level was 333. Patient was admitted for further management of impending alcohol withdrawal, alcohol intoxication, elevated troponin Cardiology was consulted. Recommended to obtain TTE, start patient on aspirin, statins, beta-blockers. TTE showed EF of 40%, hypokinesis involving the inferior wall. Patient will need to undergo heart cath as outpatient, medications adjusted by director index as following: Coreg increased to 12.5 twice daily, added losartan 25 daily, Plavix 75 daily, aspirin 81 mg daily, atorvastatin 40 mg daily 01/16 CIWA is 0, patient feels well, ready to go home, was cleared for discharge by cardiology Extensively discussed importance of alcohol and smoking cessation, patient demonstrated understanding Patient seen and examined at bedside.[] Vital signs reviewed and stable. General: [nontoxic], [no distress], [appears at stated age] Derm: [warm], [dry], scalp laceration, bruising Head: [Palp laceration 5 cm, multiple bruises Eyes: [EOMI], [no lid lag], [anicteric sclera] Mouth: [no lip lesion], [mucus membranes moist] Cardiovascular: [S1S2 reg], [no murmur] Lungs: [CTA bilateral], [no rhonchi, no rales] , [no accessory muscle use] Abdominal: [soft], [ nontender to palpation], [no guarding], [no appreciable organomegaly] Ext: [no gross muscle atrophy], [no edema], [no contractures] Neuro: [ CN II-XI grossly intact], [no focal neuro deficits] Psych: [Alert], [oriented], [appropriate affect] A total of [40 minutes of time were spent preparing this complex discharge summary. Patient was discharged on 01/16 Plan - Discharge Summary New Discharge Prescriptions: New Aspirin 81 mg PO DAILY #30 tab carvediloL [Coreg*] 12.5 mg PO BID-W/MEALS #30 tab Losartan [Cozaar] 25 mg PO DAILY #30 tab Clopidogrel [Plavix] 75 mg PO DAILY #30 tab Folic Acid 1 mg PO DAILY #30 tab Atorvastatin [Lipitor] 40 mg PO HS #30 tab Thiamine [Vitamin B-1] 100 mg PO DAILY #30 tab Discharge Medication List Aspirin 81 mg PO DAILY #30 tab 01/16/25 [Rx] Atorvastatin [Lipitor] 40 mg PO HS #30 tab 01/16/25 [Rx] Clopidogrel [Plavix] 75 mg PO DAILY #30 tab 01/16/25 [Rx] Folic Acid 1 mg PO DAILY #30 tab 01/16/25 [Rx] Losartan [Cozaar] 25 mg PO DAILY #30 tab 01/16/25 [Rx] Thiamine [Vitamin B-1] 100 mg PO DAILY #30 tab 01/16/25 [Rx] carvediloL [Coreg*] 12.5 mg PO BID-W/MEALS #30 tab 01/16/25 [Rx] Follow up Appointment(s)/Referral(s): Emily Amado MD [Primary Care Provider] - 1-2 days Zana Carr MD [STAFF PHYSICIAN] - 1 Week Patient Instructions/Handouts: Heart Healthy Diet (DC), Low-Sodium Diet (GEN) Activity/Diet/Wound Care/Special Instructions: Please, follow-up with your primary care physician, director index. Please take all the medications as prescribed without skipping doses. As we discussed, alcohol cessation and smoking cessation strongly recommended, please use the resources provided in the after visit summary. Please, check your blood pressure daily, keep a log of the readings to discuss with your primary care physician and director index, watch your salt intake, heart healthy diet recommended and provided in the AVS Discharge/Stand Alone Forms: AA Britney Mann, Outpatient Counseling, In Substance Abuse Facilities Discharge Disposition: HOME SELF-CARE
--- NOTE | 2025-01-18 14:10 | CDI ---
Documentation Clarification Form Date: 01/18/2025 01:36:20 PM From: Zakiya Lawton RN, CCDS Email: [email or web address] Admit Date: 01/13/2025 07:39:00 PM Patient Name: Sage Ibarra Visit Number: [id number] Discharge Date: 01/16/2025 11:06:00 AM ATTENTION: The Clinical Documentation Specialists (CDI) and [facility] Coding Staff appreciate your assistance in clarifying documentation. Please respond to the clarification below the line at the bottom and electronically sign. The CDI & [facility] Coding staff will review the response and follow-up if needed. Please note: Queries are made part of the Legal Health Record. If you have any questions, please contact the author of this message via ITS. Doctor Zana Carr The patient had elevated troponin levels and evidence of myocardial injury. Please clarify if there is an additional diagnosis and/or clinical significance related to this value. Patient history/risk factors: daily alcohol use, HTN, cardiomyopathy and dyslipidemia. Presented after a fall at home. Admitted with alcohol intoxication, withdrawal and elevated troponins. Clinical indicators: 01/13-01/14 Troponins: 0.038-0.046-0.056-0.078 01/13 Serum alcohol 333 01/13 HR 101 BP 174/96 01/14 H&P: "The patient was noted to go into runs of V. tach in the emergency room. Elevated troponin with runs of V. tach." 01/14 Cardiology consult: "consulted to see the patient because of abnormal cardiac enzymes.Troponin is mildly elevated. The EKG showed sinus mechanism with nonspecific ST and T wave abnormalities most prominent in the inferolateral leads. Hypertension and tachycardia likely secondary to alcohol withdrawal. Evidence of myocardial injury." 01/15 Cardiology: "I am going to increase the dose of beta-kevin and also add Losartan to the current medical regimen. Beside that continue Aspirin and continue Statin. The patient needs to undergo a heart catheterization once the alcohol withdrawal is over." 01/14 Echo: LV systolic dysfunction with an ejection fraction of 40%. Hypokinesis involving inferior wall Treatment: ASA 81mg po daily 01/15-01/16; Lipitor 40mg po HS 01/14-01/15; Coreg 6.25mg po BID 01/14-01/15; Coreg 6.25mg po x1 on 01/15; Coreg 12.5mg po BID 01/15- 01/16; Cozaar 12.5mg po daily 01/15; Cozaar 25mg po daily 01/16 Is there an additional diagnosis and/or clinical significance related to the above lab result/information: [ ] STEMI type 1 [ ] Type 2 GA due to HTN and tachycardia from alcohol withdrawal [ ] Non-ischemic with acute myocardial injury [ ] No additional diagnosis/Not clinically significant [ ] Other, please specify [ ] Unable to determine MTDD
== END 2025-01-16 11:06 | disposition home or self-care (01) | DRG 897 ==
LOC: EC 16:56 → 3SCARD 19:39 → OBSVTOIN 19:39 → 3SCARD 01-14 12:54
PROVIDERS: ADMIT Internal Medicine; ATTEND Internal Medicine
DX: F10.229 Alcohol dependence with intoxication, unspecified (principal); E87.20 Acidosis, unspecified; I47.20 Ventricular tachycardia, unspecified; I11.0 Hypertensive heart disease with heart failure; F10.239 Alcohol dependence with withdrawal, unspecified; F32.A Depression, unspecified; I42.9 Cardiomyopathy, unspecified; I50.22 Chronic systolic (congestive) heart failure; I5A Non-ischemic myocardial injury (non-traumatic); S00.211A Abrasion of right eyelid and periocular area, initial encounter; R94.31 Abnormal electrocardiogram [ECG] [EKG]; D75.89 Other specified diseases of blood and blood-forming organs; E78.5 Hyperlipidemia, unspecified; F17.200 Nicotine dependence, unspecified, uncomplicated; E83.42 Hypomagnesemia; S00.01XA Abrasion of scalp, initial encounter; W01.0XXA Fall on same level from slipping, tripping and stumbling without subsequent striking against object, initial encounter; Y90.8 Blood alcohol level of 240 mg/100 ml or more; Y92.009 Unspecified place in unspecified non-institutional (private) residence as the place of occurrence of the external cause; Z71.41 Alcohol abuse counseling and surveillance of alcoholic; Z71.3 Dietary counseling and surveillance; Z71.6 Tobacco abuse counseling; Z88.0 Allergy status to penicillin
CPT/HCPCS: 36415; 70450; 71260; 72125; 74177; 80048; 80053; 80306; 80320; 82607; 82747; 83605; 83735; 84484; 85025; 85610; 85730; 86850; 86900; 86901; 90471; 90715; 93005; 93306; 96361; 96372; 96374; 96376; 99285

== ENCOUNTER 2025-02-01 07:55 | Inpatient (IN) | payer BC, MEDICARE ==
[2025-02-01 08:01] LABS: Glucose,Whole Blood 309 mg/dL (70-110)
[2025-02-01] MEDS: LABETALOL 5 MG/ML VIAL MDV IVP STA (08:08)
--- NOTE | 2025-02-01 08:10 | ED ---
General Adult HPI - General Chief complaint: Altered Mental Status Stated complaint: Stroke Time Seen by Provider: 02/01/25 07:56 Source: EMS, RN notes reviewed, old records reviewed Mode of arrival: EMS Limitations: altered mental status - History of Present Illness Initial comments: 69-year-old male presenting with altered mental status. Patient history extremely limited only history available at the time of evaluation is paramedics. He stated the patient had been found on the bathroom floor he was altered and cyanotic. Unresponsive. Unknown when this acute change began. Apparently the patient was in his usual state of health yesterday evening but uncertain when he went to bed or if there was any preceding symptoms. Patient had recent hospital admission within the past 2 weeks which was reported as related to cardiac issues. There is a history of alcohol abuse. - Related Data Previous Rx's Medication Instructions Recorded Aspirin 81 mg PO DAILY #30 tab 01/16/25 Atorvastatin [Lipitor] 40 mg PO HS #30 tab 01/16/25 Clopidogrel [Plavix] 75 mg PO DAILY #30 tab 01/16/25 Folic Acid 1 mg PO DAILY #30 tab 01/16/25 Losartan [Cozaar] 25 mg PO DAILY #30 tab 01/16/25 Thiamine [Vitamin B-1] 100 mg PO DAILY #30 tab 01/16/25 carvediloL [Coreg*] 12.5 mg PO BID-W/MEALS #30 tab 01/16/25 Allergies Allergy/AdvReac Type Severity Reaction Status Date / Time Penicillins Allergy Rash/Hives Verified 01/13/25 19:24 Review of Systems ROS Statement: Those systems with pertinent positive or pertinent negative responses have been documented in the HPI. ROS Other: All systems not noted in ROS Statement are negative. Past Medical History Past Medical History: Hypertension Additional Past Medical History / Comment(s): Alcohol dependence. states patient drinks daily. SHe finds shooters and bottles empty all day long. States, "He is NEVER without a drink in his hands". History of Any Multi-Drug Resistant Organisms: None Reported Past Surgical History: Hernia Repair Additional Past Surgical History / Comment(s): 2 umbilical hernia repair Past Anesthesia/Blood Transfusion Reactions: No Reported Reaction Past Psychological History: Depression Smoking Status: Current every day smoker Past Alcohol Use History: Daily Past Drug Use History: None Reported - Past Family History Mother Additional Family Medical History / Comment(s): PT. STATES HIS MOTHER FROM [facility] General Exam General appearance: obtunded, in distress Head exam: Present: atraumatic, normocephalic Eye exam: Present: normal appearance, PERRL ENT exam: Present: mucous membranes dry Respiratory exam: Present: respiratory distress, decreased breath sounds Cardiovascular Exam: Present: regular rate, normal rhythm GI/Abdominal exam: Present: soft. Absent: distended, tenderness, guarding Extremities exam: Present: normal inspection Neurological exam: Present: altered, motor sensory deficit (Minimal withdrawal to pain, no localizing, no spontaneous movement). Absent: alert, oriented X3, CN II-XII intact Skin exam: Present: warm, intact, diaphoretic Course Vital Signs 02/01/25 02/01/25 02/01/25 07:57 08:04 08:27 Temperature Pulse Rate 93 91 51 L Respiratory 25 H 26 H 22 Rate Blood Pressure 206/163 219/144 100/64 O2 Sat by Pulse 89 L 100 Oximetry Fraction of 100 Inspired Oxygen (FIO2) 02/01/25 02/01/25 02/01/25 08:30 08:44 08:45 Temperature Pulse Rate 51 L 53 L Respiratory 21 18 Rate Blood Pressure 123/70 105/62 O2 Sat by Pulse 100 100 Oximetry Fraction of 100 Inspired Oxygen (FIO2) 02/01/25 02/01/25 02/01/25 09:00 09:03 09:06 Temperature 89.4 F L Pulse Rate 54 L 54 L Respiratory 21 Rate Blood Pressure 114/69 O2 Sat by Pulse 100 Oximetry Fraction of 40 Inspired Oxygen (FIO2) 02/01/25 02/01/25 02/01/25 09:15 09:25 09:30 Temperature 89.2 F L Pulse Rate 56 L 54 L 56 L Respiratory 28 H 28 H Rate Blood Pressure 98/55 98/55 O2 Sat by Pulse 100 97 Oximetry Fraction of Inspired Oxygen (FIO2) 02/01/25 02/01/25 09:45 10:04 Temperature 89.2 F L 89.8 F L Pulse Rate 59 L 61 Respiratory 28 H 28 H Rate Blood Pressure 114/76 117/70 O2 Sat by Pulse 99 93 L Oximetry Fraction of Inspired Oxygen (FIO2) Procedures - Intubation Sedative: Versed Mg Given: 5 Paralytic: Succinylcholine Mg Given: 80 Laryngoscope: Ann Size: 4 ET Tube Size: 7.5 ET Tube Uncuffed: No Tube Secured Depth (cm): 23 Tube Secured Location: lips Tube Placement Confirmation: equal breath sounds bilaterally, no breath sounds over epigastrium, confirmation by capnometry Patient Tolerated Procedure: well Intubation Complications: none Medical Decision Making - Medical Decision Making Was pt. sent in by a medical professional or institution (DARA Alcantara, CLINICAL ESTHETICIAN, urgent care, hospital, or assisted...) When possible be specific @ -No Did you speak to anyone other than the patient for history (EMS, parent, family, police, friend...)? What history was obtained from this source @ -No Did you review nursing and triage notes (agree or disagree)? Why? @ -I reviewed and agree with nursing and triage notes Were old charts reviewed (outside hosp., previous admission, EMS record, old EKG, old radiological studies, urgent care reports/EKG's, assisted records)? Report findings @ -No old charts were reviewed Differential Diagnosis (chest pain, altered mental status, abdominal pain women, abdominal pain men, vaginal bleeding, weakness, fever, dyspnea, syncope, headache, dizziness, GI bleed, back pain, seizure, CVA, palpatations, mental he alth, musculoskeletal)? @ -Not applicable EKG interpreted by me (3pts min.). @EKG: Sinus rhythm rate of 90, DC interval 202, QRS duration 95, QTc 430 depression in the precordial leads no ST segment elevation X-rays interpreted by me (1pt min.). @ -Single view chest x-ray shows satisfactory endotracheal tube placement, no pneumothorax, no consolidated pneumonia CT interpreted by me (1pt min.). @ -[CT brain without contrast negative for intracranial hemorrhage U/S interpreted by me (1pt. min.). @ -None done What testing was considered but not performed or refused? (CT, X-rays, U/S, labs)? Why? @ -None What meds were considered but not given or refused? Why? @ -None Did you discuss the management of the patient with other professionals (professionals i.e. DARA Alcantara, CLINICAL ESTHETICIAN, lab, RT, psych nurse, executive secretary social welfare, telegraph office route aide, teacher, chief program officer, bilingual patient support caseworker)? Give summary @ -Case discussed with Dr. Sherrie calixto for pulmonary critical care who is able to evaluate the patient in the emergency department. Case discussed with Dr. Villanueva who will admit. Was smoking cessation discussed for >3mins.? @ -No Was critical care preformed (if so, how long)? @ -Yes, 35 minutes Were there social determinants of health that impacted care today? How? (Homelessness, low income, unemployed, alcoholism, drug addiction, transportation, low edu. Level, literacy, decrease access to med. care, long-term, rehab)? @ -No Was there de-escalation of care discussed even if they declined (Discuss DNR or withdrawal of care, Hospice)? DNR status @ -No What co-morbidities impacted this encounter? (DM, HTN, Smoking, COPD, CAD, Cancer, CVA, ARF, Chemo, Hep., AIDS, mental health diagnosis, sleep apnea, morb id obesity)? @ -COPD, alcohol abuse Was patient admitted / discharged? Hospital course, mention meds given and route, prescriptions, significant lab abnormalities, going to OR and other pertinent info. @ -69-year-old male presenting after being found at home unresponsive on the bathroom floor. Patient was hypoxic, he was spontaneously breathing but was otherwise completely unresponsive. Decision was made upon arrival that the patient would require intubation for hypoxic hypercapnic respiratory failure and for airway protection. I did discuss the goals of care with the who states he is a full code and has been doing well until recently. Patient is hypertensive, hypothermic upon arrival. He is taken immediately to CT for concern for ischemic or hemorrhagic stroke. CT without contrast is negative. Patient has significant lab abnormalities including a respiratory acidosis, elev ated white blood cell count, elevated troponin, elevated blood sugar. Blood culture and lactic acid are pending, patient is prophylactically started on antibiotics. He remains intubated and sedated in the emergency department. He is placed on external warming devices for hypothermia. Multiple laboratory tests have been ordered, complete results are pending. The patient is admitted to the ICU who is aware, admitted to internal medicine. Initial ammonia was elevated, repeat pending Undiagnosed new problem with uncertain prognosis? @ -No Drug Therapy requiring intensive monitoring for toxicity (Heparin, Nitro, Insulin, Cardizem)? @ -No Were any procedures done? @ -Yes, intubation Diagnosis/symptom? @ -Hypoxic hypercapnic respiratory failure, altered mental status Acute, or Chronic, or Acute on Chronic? @ -Acute Uncomplicated (without systemic symptoms) or Complicated (systemic symptoms)? @Complicated Side effects of treatment? @ -No Exacerbation, Progression, or Severe Exacerbation? @ -No Poses a threat to life or bodily function? How? (Chest pain, [place], [place], pneumonia, PE, COPD, DKA, ARF, appy, cholecystitis, CVA, Diverticulitis, Homicidal, Suicidal, threat to staff... and all critical care pts) @ -Yes, respiratory failure - Lab Data Result diagrams: 02/01/25 08:11 02/01/25 08:47 Lab Results 02/01/25 02/01/25 02/01/25 Range/Units 07:59 08:11 08:11 WBC 17.76 H (4.50-10.00) 10*3/uL RBC 4.49 (4.40-5.60) 10*6/uL Hgb 15.7 (13.0-17.0) g/dL Hct 49.1 (39.6-50.0) % MCV 109.4 H (80.0-97.0) fL MCH 35.0 H (27.0-32.0) pg MCHC 32.0 (32.0-37.0) g/dL Plt Count 240 (140-440) 10*3/uL MPV 11.7 (9.5-12.2) fL Immature Gran % (Auto) 1.4 % Neutrophils % (Manual) 47 % Lymphocytes % (Manual) 47 % Monocytes % (Manual) 5 % Eosinophils % (Manual) 1 % Immature Gran # 0.24 H (0.00-0.04) 10*3/uL Neutrophils # (Manual) 8.35 H (1.3-7.7) k/uL Lymphocytes # (Manual) 8.35 H (1.0-4.8) k/uL Monocytes # (Manual) 0.89 (0-1.0) k/uL Eosinophils # (Manual) 0.18 (0-0.7) k/uL Nucleated RBCs 0 (0-0) /100 WBC Manual Slide Review Performed PT 12.1 (10.0-12.5) sec INR 1.1 (<1.2) APTT 25.9 (22.0-30.0) sec Sample Site ABG pH (7.35-7.45) ABG pCO2 (35-45) mmHg ABG pO2 (83-108) mmHg ABG O2 Saturation (94-97) % Joshua Test VBG pH (7.31-7.41) VBG pCO2 (37-51) mmHg VBG HCO3 (24-28) mmol/L Hemoglobin (13.0-17.5) gm/dL FiO2 % Sodium (137-145) mmol/L Potassium (3.5-5.1) mmol/L Chloride (98-107) mmol/L Carbon Dioxide (22-30) mmol/L Anion Gap mmol/L BUN (9-20) mg/dL Creatinine (0.66-1.25) mg/dL Est GFR (CKD-EPI)AfAm (>60 ml/min/1.73 sqM) Est GFR (CKD-EPI)NonAf (>60 ml/min/1.73 sqM) Glucose (74-99) mg/dL POC Glucose (mg/dL) 309 H (70-110) mg/dL POC Glu Rn Practitioner ID Jovi Robles Calcium (8.4-10.2) mg/dL Magnesium (1.6-2.3) mg/dL Total Bilirubin (0.2-1.3) mg/dL AST (17-59) U/L ALT (4-49) U/L Alkaline Phosphatase (38-126) U/L Ammonia (<30) umol/L Troponin I (0.000-0.034) ng/mL Total Protein (6.3-8.2) g/dL Albumin (3.5-5.0) g/dL TSH (0.465-4.680) mIU/L Urine Color Urine Appearance (Clear) Urine pH (5.0-8.0) Ur Specific [place] (1.001-1.035) Urine Protein (Negative) Urine Glucose (UA) (Negative) Urine Ketones (Negative) Urine Blood (Negative) Urine Nitrite (Negative) Urine Bilirubin (Negative) Urine Urobilinogen (<2.0) mg/dL Ur Leukocyte Esterase (Negative) Urine RBC (0-5) /hpf Urine WBC (0-5) /hpf Ur Squamous Epith Cells (0-4) /hpf Urine Bacteria (None) /hpf Urine Mucus (None) /hpf Urine Opiates Screen (NotDetected) Ur Oxycodone Screen (NotDetected) Urine Methadone Screen (NotDetected) Ur Barbiturates Screen (NotDetected) U Tricyclic Antidepress (NotDetected) Ur Phencyclidine Scrn (NotDetected) Ur Amphetamines Screen (NotDetected) U Methamphetamines Scrn (NotDetected) U Benzodiazepines Scrn (NotDetected) Urine Cocaine Screen (NotDetected) U Marijuana (THC) Screen (NotDetected) Serum Alcohol mg/dL 02/01/25 02/01/25 02/01/25 Range/Units 08:11 08:11 08:11 WBC (4.50-10.00) 10*3/uL RBC (4.40-5.60) 10*6/uL Hgb (13.0-17.0) g/dL Hct (39.6-50.0) % MCV (80.0-97.0) fL MCH (27.0-32.0) pg MCHC (32.0-37.0) g/dL Plt Count (140-440) 10*3/uL MPV (9.5-12.2) fL Immature Gran % (Auto) % Neutrophils % (Manual) % Lymphocytes % (Manual) % Monocytes % (Manual) % Eosinophils % (Manual) % Immature Gran # (0.00-0.04) 10*3/uL Neutrophils # (Manual) (1.3-7.7) k/uL Lymphocytes # (Manual) (1.0-4.8) k/uL Monocytes # (Manual) (0-1.0) k/uL Eosinophils # (Manual) (0-0.7) k/uL Nucleated RBCs (0-0) /100 WBC Manual Slide Review PT (10.0-12.5) sec INR (<1.2) APTT (22.0-30.0) sec Sample Site ABG pH (7.35-7.45) ABG pCO2 (35-45) mmHg ABG pO2 (83-108) mmHg ABG O2 Saturation (94-97) % Joshua Test VBG pH 6.96 L* (7.31-7.41) VBG pCO2 85 H* (37-51) mmHg VBG HCO3 19 L (24-28) mmol/L Hemoglobin (13.0-17.5) gm/dL FiO2 % Sodium (137-145) mmol/L Potassium (3.5-5.1) mmol/L Chloride (98-107) mmol/L Carbon Dioxide (22-30) mmol/L Anion Gap mmol/L BUN (9-20) mg/dL Creatinine (0.66-1.25) mg/dL Est GFR (CKD-EPI)AfAm (>60 ml/min/1.73 sqM) Est GFR (CKD-EPI)NonAf (>60 ml/min/1.73 sqM) Glucose (74-99) mg/dL POC Glucose (mg/dL) (70-110) mg/dL POC Glu Rn Practitioner ID Calcium (8.4-10.2) mg/dL Magnesium (1.6-2.3) mg/dL Total Bilirubin (0.2-1.3) mg/dL AST (17-59) U/L ALT (4-49) U/L Alkaline Phosphatase (38-126) U/L Ammonia 121 H (<30) umol/L Troponin I 0.193 H* (0.000-0.034) ng/mL Total Protein (6.3-8.2) g/dL Albumin (3.5-5.0) g/dL TSH (0.465-4.680) mIU/L Urine Color Urine Appearance (Clear) Urine pH (5.0-8.0) Ur Specific [place] (1.001-1.035) Urine Protein (Negative) Urine Glucose (UA) (Negative) Urine Ketones (Negative) Urine Blood (Negative) Urine Nitrite (Negative) Urine Bilirubin (Negative) Urine Urobilinogen (<2.0) mg/dL Ur Leukocyte Esterase (Negative) Urine RBC (0-5) /hpf Urine WBC (0-5) /hpf Ur Squamous Epith Cells (0-4) /hpf Urine Bacteria (None) /hpf Urine Mucus (None) /hpf Urine Opiates Screen (NotDetected) Ur Oxycodone Screen (NotDetected) Urine Methadone Screen (NotDetected) Ur Barbiturates Screen (NotDetected) U Tricyclic Antidepress (NotDetected) Ur Phencyclidine Scrn (NotDetected) Ur Amphetamines Screen (NotDetected) U Methamphetamines Scrn (NotDetected) U Benzodiazepines Scrn (NotDetected) Urine Cocaine Screen (NotDetected) U Marijuana (THC) Screen (NotDetected) Serum Alcohol mg/dL 02/01/25 02/01/25 02/01/25 Range/Units 08:47 08:53 09:03 WBC (4.50-10.00) 10*3/uL RBC (4.40-5.60) 10*6/uL Hgb (13.0-17.0) g/dL Hct (39.6-50.0) % MCV (80.0-97.0) fL MCH (27.0-32.0) pg MCHC (32.0-37.0) g/dL Plt Count (140-440) 10*3/uL MPV (9.5-12.2) fL Immature Gran % (Auto) % Neutrophils % (Manual) % Lymphocytes % (Manual) % Monocytes % (Manual) % Eosinophils % (Manual) % Immature Gran # (0.00-0.04) 10*3/uL Neutrophils # (Manual) (1.3-7.7) k/uL Lymphocytes # (Manual) (1.0-4.8) k/uL Monocytes # (Manual) (0-1.0) k/uL Eosinophils # (Manual) (0-0.7) k/uL Nucleated RBCs (0-0) /100 WBC Manual Slide Review PT (10.0-12.5) sec INR (<1.2) APTT (22.0-30.0) sec Sample Site Left Radial ABG pH 6.96 L* (7.35-7.45) ABG pCO2 >98 H* (35-45) mmHg ABG pO2 >420 H (83-108) mmHg ABG O2 Saturation 99.6 H (94-97) % Joshua Test Yes VBG pH (7.31-7.41) VBG pCO2 (37-51) mmHg VBG HCO3 (24-28) mmol/L Hemoglobin 13.3 (13.0-17.5) gm/dL FiO2 100 % Sodium 137 (137-145) mmol/L Potassium 5.8 H (3.5-5.1) mmol/L Chloride 107 (98-107) mmol/L Carbon Dioxide 21 L (22-30) mmol/L Anion Gap 9 mmol/L BUN 17 (9-20) mg/dL Creatinine 1.19 (0.66-1.25) mg/dL Est GFR (CKD-EPI)AfAm 72 (>60 ml/min/1.73 sqM) Est GFR (CKD-EPI)NonAf 62 (>60 ml/min/1.73 sqM) Glucose 289 H (74-99) mg/dL POC Glucose (mg/dL) (70-110) mg/dL POC Glu Rn Practitioner ID Calcium 8.8 (8.4-10.2) mg/dL Magnesium 1.8 (1.6-2.3) mg/dL Total Bilirubin 0.3 (0.2-1.3) mg/dL AST 95 H (17-59) U/L ALT 47 (4-49) U/L Alkaline Phosphatase 112 (38-126) U/L Ammonia (<30) umol/L Troponin I (0.000-0.034) ng/mL Total Protein 5.6 L (6.3-8.2) g/dL Albumin 3.0 L (3.5-5.0) g/dL TSH 5.000 H (0.465-4.680) mIU/L Urine Color Light yellow Urine Appearance Cloudy (Clear) Urine pH 6.5 (5.0-8.0) Ur Specific [place] 1.037 H (1.001-1.035) Urine Protein 2+ H (Negative) Urine Glucose (UA) 2+ H (Negative) Urine Ketones Negative (Negative) Urine Blood Large H (Negative) Urine Nitrite Negative (Negative) Urine Bilirubin Negative (Negative) Urine Urobilinogen <2.0 (<2.0) mg/dL Ur Leukocyte Esterase Negative (Negative) Urine RBC >182 H (0-5) /hpf Urine WBC 12 H (0-5) /hpf Ur Squamous Epith Cells 1 (0-4) /hpf Urine Bacteria Rare H (None) /hpf Urine Mucus Rare H (None) /hpf Urine Opiates Screen Not Detected (NotDetected) Ur Oxycodone Screen Not Detected (NotDetected) Urine Methadone Screen Not Detected (NotDetected) Ur Barbiturates Screen Not Detected (NotDetected) U Tricyclic Antidepress Not Detected (NotDetected) Ur Phencyclidine Scrn Not Detected (NotDetected) Ur Amphetamines Screen Not Detected (NotDetected) U Methamphetamines Scrn Not Detected (NotDetected) U Benzodiazepines Scrn Not Detected (NotDetected) Urine Cocaine Screen Not Detected (NotDetected) U Marijuana (THC) Screen Not Detected (NotDetected) Serum Alcohol <10 mg/dL Critical Care Time Critical Care Time: Yes Total Critical Care Time: 35 Disposition Clinical Impression: Elevated troponin, Acute respiratory failure with hypoxia and hypercapnia Disposition: ADMITTED IP TO THIS [facility] Condition: Serious Is patient prescribed a controlled substance at d/c from ED?: No Referrals: Emily Amado MD [Primary Care Provider] - 1-2 days Time of Disposition: 10:23
[2025-02-01 08:29] LABS: HCT 49.1 % (39.6-50.0); HGB 15.7 g/dL (13.0-17.0); MCV 109.4 fL (80.0-97.0); Mean Platelet Volume 11.7 fL (9.5-12.2); Platelet Count 240 10*3/uL (140-440); RBC 4.49 10*6/uL (4.40-5.60); RDW 12.1 % (11.5-14.5); WBC 17.76 10*3/uL (4.50-10.00)
[2025-02-01] MEDS: SUCCINYLCHOLINE CHLORIDE 200 MG/10 ML VIAL IV STA (08:33)
[2025-02-01] MEDS: MIDAZOLAM 1 MG/ML 5 ML VIAL IV STA (08:33)
[2025-02-01 08:37] LABS: INR 1.1 (<1.2); Partial Thromboplastin Time 25.9 sec (22.0-30.0); Prothrombin Time 12.1 sec (10.0-12.5)
[2025-02-01 08:45] LABS: VBG PH 6.96 (7.31-7.41)
--- NOTE | 2025-02-01 08:50 | CT ---
EXAMINATION TYPE: CT brain wo con DATE OF EXAM: 02/01/2025 8:31 AM COMPARISON: 01/13/2025 CLINICAL INDICATION: Male, 69 years old with history of Altered mental status, Altered mental status TECHNIQUE: CT of the brain is performed utilizing 3 mm thick sections through the posterior fossa and 3 mm thick sections through the remaining calvarium. Study is performed within 24 hours of arrival to the hospital. Contrast used: mL of , (none if empty) CT DLP: 1094.4 mGycm, Automated exposure control for dose reduction was used. FINDINGS: No abnormal hyperdensity is present to suggest an acute intracranial hemorrhage. No mass lesion is evident. No acute infarcts are evident. Mild scattered small areas of hyperintensity are in the periventricula r white matter, likely on the basis of chronic white matter ischemic change. Ventricles and sulci are prominent for the patient age. Paranasal sinuses and mastoid air cells within the [id number] are clear. IMPRESSION: 1. No acute intracranial process. Follow up MRI can be performed as clinically indicated. 2. Stable appearing chronic white matter ischemic type changes with age related atrophy. [facility], , 02/01/2025 8:48 AM
[2025-02-01 08:56] LABS: ABG Oxygen Saturation 99.6 % (94-97); Allen Test Performed? Yes
--- NOTE | 2025-02-01 09:02 | CT ---
EXAMINATION TYPE: CT angio head neck DATE OF EXAM: 02/01/2025 8:45 AM COMPARISON: None. CLINICAL INDICATION: Male, 69 years old with history of AMS, altered mental status TECHNIQUE: CTA scan is performed with axial images are obtained, coronal and sagittal reformatted quique ges are reviewed. MIP images created on a separate workstation and submitted for review. 3-D reconstr ucted images are created on an independent workstation and reviewed. Source images are reviewed. KATELYN CET criteria was used in interpretation of this exam? Contrast used:65 mL of Isovue 370 with IV Contrast, (none if empty) Oral contrast used: (none if empty) CT DLP: 483.5 mGycm, Automated exposure control for dose reduction was used. FINDINGS: There are small bilateral pleural effusions. Mild diffuse increased lung markings are present. Correl ate for pulmonary edema. Carotid/Vascular Structures: There is a 3 vessel arch. Common carotid arteries bifurcate into internal and external carotid arteries. Dense calcification is present at the carotid bifurcations more notably on the right. The right internal carotid artery brayan ears to be obstructed at its origin. Left internal carotid artery is patent without significant flow- limiting stenosis. There is vascular calcification at the left internal carotid artery origin. Vertebral arteries are codominant. Cervical of Carey: Vertebral basilar system appears normal. Posterior cerebral vasculature is unrema rkable. On reconstructed images the right A1 segment appears hypoplastic. This appears less so on the source images. Right and left middle cerebral arteries branch normally The anterior communicating artery is patent. The right posterior communicating artery is patent. The left posterior communicating artery is patent. IMPRESSION: 1. 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 2. Contralateral flow from the left to the right is present into the right anterior middle and aircraft armament mechanic ior cerebral arteries. [facility], , 02/01/2025 8:59 AM
[2025-02-01] MEDS: IPRATROPIUM-ALBUTEROL 3 ML NEB INHALATION STA (09:06)
--- NOTE | 2025-02-01 09:06 | XR ---
EXAMINATION TYPE: XR chest 1V portable DATE OF EXAM: 02/01/2025 8:48 AM COMPARISON: Chest radiographs from 06/02/2020 CLINICAL INDICATION: Male, 69 years old with history of altered mental status; [facility] TECHNIQUE: XR chest 1V portable Frontal view of the chest. FINDINGS: Lungs/Pleura: There is no evidence of pleural effusion, focal consolidation, or pneumothorax. Pulmonary vascularity: Unremarkable. Heart/mediastinum: Cardiomediastinal silhouette is unremarkable. Musculoskeletal: No acute osseous pathology. Other findings: None Endotracheal tube 6.1 cm below the agustin. Nasogastric tube terminating over the gastric lumen. IMPRESSION: No acute cardiopulmonary disease/process. [facility], , 02/01/2025 9:04 AM
[2025-02-01 09:10] LABS: ABG PCO2 >98 mmHg (35-45); ABG PH 6.96 (7.35-7.45); ABG PO2 >420 mmHg (83-108)
[2025-02-01 09:10] LABS: Eosinophils # (M) 0.18 k/uL (0-0.7); Lymphocytes # (M) 8.35 k/uL (1.0-4.8); Monocytes # (M) 0.89 k/uL (0-1.0); Neutrophils # (M) 8.35 k/uL (1.3-7.7); Neutrophils % (M) 47 %; Nucleated Red Blood Cells 0 /100 WBC (0-0); Total Cells Counted 100
[2025-02-01 09:12] LABS: Appearance,Urine Cloudy (Clear); Bacteria,Urine Rare /hpf; Bilirubin,Urine Negative (Negative); Blood,Urine Large (Negative); Color,Urine Light yellow; Glucose,Urine (UA) 2+ (Negative); Ketones,Urine Negative (Negative); Leukocyte Esterase,Urine Negative (Negative); Mucus,Urine Rare /hpf; Nitrite,Urine Negative (Negative); PH, Urine 6.5 (5.0-8.0); Protein,Urine 2+ (Negative); RBC,Urine >182 /hpf (0-5); Specific Gravity,Urine 1.037 (1.001-1.035); Squamous Epithelial Cell,Urine 1 /hpf (0-4); Urobilinogen,Urine <2.0 mg/dL (<2.0); WBC,Urine 12 /hpf (0-5)
[2025-02-01 09:17] LABS: Amphetamine Screen,Urine Not Detected (NotDetected); Barbiturate Screen,Urine Not Detected (NotDetected); Benzodiazepines Screen,Urine Not Detected (NotDetected); Cocaine Screen,Urine Not Detected (NotDetected); Methadone Screen, Urine Not Detected (NotDetected); Opiate Screen,Urine Not Detected (NotDetected); Oxycodone Screen, Urine Not Detected (NotDetected); Phencyclidine Screen,Urine Not Detected (NotDetected); Tricyclic Antidepressant,Urine Not Detected (NotDetected); Urn Cannabinoid Scrn Not Detected (NotDetected)
[2025-02-01] MEDS: SODIUM CHLORIDE 0.9% 500 ML 500 ML IV ONE (09:21)
[2025-02-01] MEDS: SODIUM CHLORIDE 0.9% 1,000 ML IV SCH ×2 (09:21→17:41)
[2025-02-01] MEDS: methylPREDNISolone SOD SUCCI 125 MG/2 ML VIAL IV STA (09:26)
[2025-02-01 09:31] LABS: ALT 47 U/L (4-49); AST 95 U/L (17-59); African American GFR (CKD) 72 (>60 ml/min/1.73 sqM); Alcohol <10 mg/dL; Alkaline Phosphatase 112 U/L (38-126); Anion Gap 9 mmol/L; Blood Urea Nitrogen 17 mg/dL (9-20); Calcium 8.8 mg/dL (8.4-10.2); Carbon Dioxide 21 mmol/L (22-30); Chloride 107 mmol/L (98-107); Glucose 289 mg/dL (74-99); Magnesium 1.8 mg/dL (1.6-2.3); Non-African American GFR(CKD) 62 (>60 ml/min/1.73 sqM); Potassium 5.8 mmol/L (3.5-5.1); Sodium 137 mmol/L (137-145); Total Bilirubin 0.3 mg/dL (0.2-1.3); Total Protein 5.6 g/dL (6.3-8.2)
[2025-02-01] MEDS ORDERED: VANCOMYCIN IV PER PHARMACY 1 EACH MISC MISCELLANE PRN (09:42)
[2025-02-01] MEDS ORDERED: DEXTROSE 50% SYRINGE 50 ML IVP PRN ×2 (09:43)
[2025-02-01] MEDS: SODIUM BICARB 8.4% 50 ML SYR (1 MEQ/ML) IV STA (10:00)
[2025-02-01 10:17] LABS: African American GFR (CKD) 82 (>60 ml/min/1.73 sqM); Anion Gap 6 mmol/L; Blood Urea Nitrogen 17 mg/dL (9-20); Calcium 8.3 mg/dL (8.4-10.2); Carbon Dioxide 24 mmol/L (22-30); Chloride 108 mmol/L (98-107); Glucose 231 mg/dL (74-99); Non-African American GFR(CKD) 71 (>60 ml/min/1.73 sqM); Potassium 5.1 mmol/L (3.5-5.1); Sodium 138 mmol/L (137-145)
[2025-02-01] MEDS ORDERED: NALOXONE 0.4 MG/ML 1 ML VIAL IV PRN (10:17)
[2025-02-01 10:21] LABS: Lactic Acid, Venous 2.1 mmol/L (0.7-2.0)
[2025-02-01 10:35] LABS: Influenza A Not Detected (Not Detectd); Influenza B Not Detected (Not Detectd); RSV Not Detected (Not Detectd)
[2025-02-01] MEDS: VANCOMYCIN 1,250 MG in SODIUM CHLORIDE 0.9% 250 ML IVPB ONE (10:38)
--- NOTE | 2025-02-01 10:57 | P.HPIM ---
History of Present Illness H&P Date: 02/01/25 Patient is a 69-year-old male with past medical history of alcohol abuse, hypertension, SVTs,, history of mildly impaired LV function EF 40%, tobacco use disorder, dyslipidemia, recently discharged from our institution on 01/13/2025 after being admitted for alcohol intoxication, fall, underwent cardiology evaluation for elevated troponin, TTE showed EF of 40% with hypokinesis involving the inferior wall, was recommended to undergo heart cath as outpatient, discharged on Plavix and aspirin, statins, hypertension meds., Presented to the ER on 02/01 with altered mental status. History obtained from chart review due to acuity of condition and patient being intubated. History obtained from patient's who he lives with, patient's children provide with collateral history as well. Patient has been doing generally well after his discharge, family only noted some shortness of breath going up and down stairs. He stopped drinking alcohol. Said his usual state of health yesterday evening had a dinner, went to the bed at the noon time. His found him on 02/01 in the bathroom on the floor, unconscious, not responding, moaning, with eyes staring at the ceiling. She called EMS and patient was brought here No fevers, chills, sick contacts, no unusual symptoms reported by patient's family On arrival hypothermic temperature 89.4, bradycardic heart rate 53, respirations 11 on mechanical ventilation, blood pressure soft 105/62, SpO2 100% on FiO2 40%. Lab work significant for leukocytosis 17.7, normal hemoglobin and platelet count, normal coagulation panel ABG showed severe respiratory acidosis with pH of 6.96, pCO2 more than 98, pO2 more than 420, UDS negative, UA positive for protein, glucose, negative for UTI. EKG showed sinus rhythm with heart rate of 90s, QTc 430, ST depression in V4, V5, V6, lead II, personally reviewed CT brain showed no acute process, chronic white matter ischemic type changes, age-related atrophy. CTA head and neck showed bilateral pleural effusions, mild diffuse increased lung marking, right internal carotid artery appears to be obstructed at its origin, vascular calcification of the left internal carotid artery Chest x-ray showed no acute cardiopulmonary process, ETT tube in place, NG tube in place Pertinent positives and negatives as discussed in HPI, a complete review of systems was performed and all other systems are negative. Patient seen and examined at bedside. Patient's family including his and children present during the exam Vital signs reviewed General: Ill-appearing, intubated, sedated Derm: warm, dry Head: Bruising present Eyes: EOMI, no lid lag, anicteric sclera, pupils equal round reactive to light ENT: Nose and ears atraumatic Neck: No thyromegaly, supple Mouth: no lip lesion, mucus membranes moist, ETT and NG in place Cardiovascular: S1S2 reg, no murmur, no edema Lungs: Some bilateral rhonchi, , no wheeze, Abdominal: soft, nontender to palpation, no guarding, no appreciable organomegaly Ext: no gross muscle atrophy, unable to perform full exam as patient is intubated and sedated Neuro: Unable to perform full exam patient is intubated and sedated, patient opens eyes, tries to reach ETT, cough and gag reflex present Psych: Intubated and sedated Assessment/Plan: Acute hypoxic hypercapnic respiratory failure quiring intubation02/01 Severe respiratory acidosis SIRS but hypothermia, leukocytosis Elevated troponin Acute toxic metabolic encephalopathy Right internal carotid artery obstruction Hyperammonemia hyperKalemia -ICU consulted, appreciate recommendations -Cardiology and vascular surgery consulted, appreciate recommendations -Started on broad-spectrum antibiotics cefepime 2 g every 12 hours, for vancomycin 1250 mg, pharmacy to dose, monitor for renal toxicity with daily BMP. Recently admitted as inpatient status provided with MRSA and pseudomonal coverage -MRSA swab, blood cultures, sputum cultures ordered and pending -Follow-up lactic acid level, procalcitonin, Cepheid ordered and pending -Repeat ABG -Provided with bicarb push of 50 mEq, started on sodium bicarb infusion at 100 cc/h -Accu-Cheks every 6 hours, hypoglycemia protocol, low intensity SSI -, repeat ammonia level, TSH pending -Continue telemetry, strict I's and O's HFrEF EF 40% Hypokinesis involving the inferior wall Alcohol abuse Hypertension -With aspirin 81 mg daily, atorvastatin 40 mg nightly, clopidogrel 75 mg daily The patient is admitted with an anticipated [greater] than 2 midnight stay as [inpatient] status for evaluation of acute hypoxic hypercapnic respiratory failure, Surrogate decision-maker: CODE STATUS: Full code DVT prophylaxis: Heparin Anticipated discharge date: TBD Anticipated discharge place: TBD A total of 50 minutes was spent on the care of this complex patient more than 50% of the time was spent in counseling and care coordination. Past Medical History Past Medical History: Hypertension Additional Past Medical History / Comment(s): Alcohol dependence. states patient drinks daily. SHe finds shooters and bottles empty all day long. States, "He is NEVER without a drink in his hands". History of Any Multi-Drug Resistant Organisms: None Reported Past Surgical History: Hernia Repair Additional Past Surgical History / Comment(s): 2 umbilical hernia repair Past Anesthesia/Blood Transfusion Reactions: No Reported Reaction Past Psychological History: Depression Smoking Status: Current every day smoker Past Alcohol Use History: Daily Past Drug Use History: None Reported - Past Family History Mother Additional Family Medical History / Comment(s): PT. STATES HIS MOTHER FROM EPMPHYSEMA Medications and Allergies Home Medications Medication Instructions Recorded Confirmed Type Aspirin 81 mg PO DAILY #30 tab 01/16/25 02/01/25 Rx Atorvastatin [Lipitor] 40 mg PO HS #30 tab 01/16/25 02/01/25 Rx Clopidogrel [Plavix] 75 mg PO DAILY #30 tab 01/16/25 02/01/25 Rx Folic Acid 1 mg PO DAILY #30 tab 01/16/25 02/01/25 Rx Losartan [Cozaar] 25 mg PO DAILY #30 tab 01/16/25 02/01/25 Rx Thiamine [Vitamin B-1] 100 mg PO DAILY #30 tab 01/16/25 02/01/25 Rx carvediloL [Coreg*] 12.5 mg PO BID-W/MEALS #30 tab 01/16/25 02/01/25 Rx Allergies Allergy/AdvReac Type Severity Reaction Status Date / Time Penicillins Allergy Rash/Hives Verified 02/01/25 10:49 Physical Exam Vitals: Vital Signs Temp Pulse Resp BP Pulse Ox FiO2 02/01/25 10:30 91.6 F L 73 22 129/74 91 L 40 02/01/25 10:15 90.5 F L 65 22 135/69 91 L 40 02/01/25 10:04 89.8 F L 61 28 H 117/70 93 L 02/01/25 09:45 89.2 F L 59 L 28 H 114/76 99 02/01/25 09:30 89.2 F L 56 L 28 H 98/55 97 02/01/25 09:25 54 L 02/01/25 09:15 56 L 28 H 98/55 100 02/01/25 09:06 54 L 02/01/25 09:03 40 02/01/25 09:00 89.4 F L 54 L 21 114/69 100 02/01/25 08:45 53 L 18 105/62 100 02/01/25 08:44 100 02/01/25 08:30 51 L 21 123/70 100 02/01/25 08:27 51 L 22 100/64 100 100 02/01/25 08:04 91 26 H 219/144 02/01/25 07:57 93 25 H 206/163 89 L Intake and Output 01/31/25 02/01/25 02/01/25 22:59 06:59 14:59 Intake Total 12.52 Balance 12.52 Intake: Intake, IV Titration 12.52 Amount propofoL 1,000 mg In 12.52 Empty Bag 1 bag @ 15 MCG/ KG/MIN 6.124 mls/hr IV . [id number] [facility] Rx#: [id number] Other: Weight 68.039 kg Results CBC & Chem 7: 02/01/25 08:11 02/01/25 09:30 Labs: Abnormal Lab Results - Last 24 Hours (Table) 02/01/25 02/01/25 02/01/25 Range/Units 07:59 08:11 08:11 WBC 17.76 H (4.50-10.00) 10*3/uL MCV 109.4 H (80.0-97.0) fL MCH 35.0 H (27.0-32.0) pg Immature Gran # 0.24 H (0.00-0.04) 10*3/uL Neutrophils # (Manual) 8.35 H (1.3-7.7) k/uL Lymphocytes # (Manual) 8.35 H (1.0-4.8) k/uL ABG pH (7.35-7.45) ABG pCO2 (35-45) mmHg ABG pO2 (83-108) mmHg ABG O2 Saturation (94-97) % VBG pH (7.31-7.41) VBG pCO2 (37-51) mmHg VBG HCO3 (24-28) mmol/L Potassium (3.5-5.1) mmol/L Chloride (98-107) mmol/L Carbon Dioxide (22-30) mmol/L Glucose (74-99) mg/dL POC Glucose (mg/dL) 309 H (70-110) mg/dL Plasma Lactic Acid Yaakov (0.7-2.0) mmol/L Calcium (8.4-10.2) mg/dL AST (17-59) U/L Ammonia 121 H (<30) umol/L Troponin I (0.000-0.034) ng/mL Total Protein (6.3-8.2) g/dL Albumin (3.5-5.0) g/dL TSH (0.465-4.680) mIU/L Ur Specific [place] (1.001-1.035) Urine Protein (Negative) Urine Glucose (UA) (Negative) Urine Blood (Negative) Urine RBC (0-5) /hpf Urine WBC (0-5) /hpf Urine Bacteria (None) /hpf Urine Mucus (None) /hpf 02/01/25 02/01/25 02/01/25 Range/Units 08:11 08:11 08:47 WBC (4.50-10.00) 10*3/uL MCV (80.0-97.0) fL MCH (27.0-32.0) pg Immature Gran # (0.00-0.04) 10*3/uL Neutrophils # (Manual) (1.3-7.7) k/uL Lymphocytes # (Manual) (1.0-4.8) k/uL ABG pH (7.35-7.45) ABG pCO2 (35-45) mmHg ABG pO2 (83-108) mmHg ABG O2 Saturation (94-97) % VBG pH 6.96 L* (7.31-7.41) VBG pCO2 85 H* (37-51) mmHg VBG HCO3 19 L (24-28) mmol/L Potassium 5.8 H (3.5-5.1) mmol/L Chloride (98-107) mmol/L Carbon Dioxide 21 L (22-30) mmol/L Glucose 289 H (74-99) mg/dL POC Glucose (mg/dL) (70-110) mg/dL Plasma Lactic Acid Yaakov (0.7-2.0) mmol/L Calcium (8.4-10.2) mg/dL AST 95 H (17-59) U/L Ammonia (<30) umol/L Troponin I 0.193 H* (0.000-0.034) ng/mL Total Protein 5.6 L (6.3-8.2) g/dL Albumin 3.0 L (3.5-5.0) g/dL TSH 5.000 H (0.465-4.680) mIU/L Ur Specific [place] (1.001-1.035) Urine Protein (Negative) Urine Glucose (UA) (Negative) Urine Blood (Negative) Urine RBC (0-5) /hpf Urine WBC (0-5) /hpf Urine Bacteria (None) /hpf Urine Mucus (None) /hpf 02/01/25 02/01/25 02/01/25 Range/Units 08:53 09:03 09:30 WBC (4.50-10.00) 10*3/uL MCV (80.0-97.0) fL MCH (27.0-32.0) pg Immature Gran # (0.00-0.04) 10*3/uL Neutrophils # (Manual) (1.3-7.7) k/uL Lymphocytes # (Manual) (1.0-4.8) k/uL ABG pH 6.96 L* (7.35-7.45) ABG pCO2 >98 H* (35-45) mmHg ABG pO2 >420 H (83-108) mmHg ABG O2 Saturation 99.6 H (94-97) % VBG pH (7.31-7.41) VBG pCO2 (37-51) mmHg VBG HCO3 (24-28) mmol/L Potassium (3.5-5.1) mmol/L Chloride (98-107) mmol/L Carbon Dioxide (22-30) mmol/L Glucose (74-99) mg/dL POC Glucose (mg/dL) (70-110) mg/dL Plasma Lactic Acid Yaakov 2.1 H* (0.7-2.0) mmol/L Calcium (8.4-10.2) mg/dL AST (17-59) U/L Ammonia 74 H (<30) umol/L Troponin I (0.000-0.034) ng/mL Total Protein (6.3-8.2) g/dL Albumin (3.5-5.0) g/dL TSH (0.465-4.680) mIU/L Ur Specific [place] 1.037 H (1.001-1.035) Urine Protein 2+ H (Negative) Urine Glucose (UA) 2+ H (Negative) Urine Blood Large H (Negative) Urine RBC >182 H (0-5) /hpf Urine WBC 12 H (0-5) /hpf Urine Bacteria Rare H (None) /hpf Urine Mucus Rare H (None) /hpf 02/01/25 Range/Units 09:30 WBC (4.50-10.00) 10*3/uL MCV (80.0-97.0) fL MCH (27.0-32.0) pg Immature Gran # (0.00-0.04) 10*3/uL Neutrophils # (Manual) (1.3-7.7) k/uL Lymphocytes # (Manual) (1.0-4.8) k/uL ABG pH (7.35-7.45) ABG pCO2 (35-45) mmHg ABG pO2 (83-108) mmHg ABG O2 Saturation (94-97) % VBG pH (7.31-7.41) VBG pCO2 (37-51) mmHg VBG HCO3 (24-28) mmol/L Potassium (3.5-5.1) mmol/L Chloride 108 H (98-107) mmol/L Carbon Dioxide (22-30) mmol/L Glucose 231 H (74-99) mg/dL POC Glucose (mg/dL) (70-110) mg/dL Plasma Lactic Acid Yaakov (0.7-2.0) mmol/L Calcium 8.3 L (8.4-10.2) mg/dL AST (17-59) U/L Ammonia (<30) umol/L Troponin I (0.000-0.034) ng/mL Total Protein (6.3-8.2) g/dL Albumin (3.5-5.0) g/dL TSH (0.465-4.680) mIU/L Ur Specific [place] (1.001-1.035) Urine Protein (Negative) Urine Glucose (UA) (Negative) Urine Blood (Negative) Urine RBC (0-5) /hpf Urine WBC (0-5) /hpf Urine Bacteria (None) /hpf Urine Mucus (None) /hpf
[2025-02-01] MEDS: PROPOFOL 10 MG/ML 20 ML VIAL IV ONE (10:58)
[2025-02-01] MEDS: DEXTROSE 5% IN WATER 1,000 ML with SODIUM BICARB (1 MEQ/ML) 150 ML IV SCH (11:01)
[2025-02-01] MEDS: IPRATROPIUM-ALBUTEROL 3 ML NEB INHALATION SCH (11:11)
[2025-02-01 11:30] LABS: ABG Base Excess -2.3 mmol/L; ABG HCO3 27 mmol/L (21-25); ABG Oxygen Saturation 94.9 % (94-97); ABG PCO2 64 mmHg (35-45); ABG PH 7.22 (7.35-7.45); ABG PO2 82 mmHg (83-108); ABG TCO2 28 mmol/L (19-24); Allen Test Performed? Yes
[2025-02-01 11:47] LABS: T4, Free (Free Thyroxine) 1.27 ng/dL (0.78-2.19)
[2025-02-01] MEDS ORDERED: methylPREDNISolone SOD SUCCI 125 MG/2 ML VIAL IV SCH (12:00)
[2025-02-01] MEDS: NOREPINEPHRINE 4 MG in SODIUM CHLORIDE 0.9% 250 ML IV ONE (12:16)
[2025-02-01] MEDS: INSULIN LISPRO (HumaLOG) 100 UNIT/ML 10 mL VL SQ SCH (13:09)
[2025-02-01 13:10] LABS: Glucose,Whole Blood 99 mg/dL (70-110)
[2025-02-01 13:26] LABS: ABG Base Excess 0.5 mmol/L; ABG HCO3 26 mmol/L (21-25); ABG PCO2 46 mmHg (35-45); ABG PH 7.37 (7.35-7.45); ABG PO2 95 mmHg (83-108); ABG TCO2 28 mmol/L (19-24); Allen Test Performed? Yes
--- NOTE | 2025-02-01 13:40 | P.CRDCN ---
History of Present Illness Consult date: 02/01/25 History of present illness: History of Present Illness: The patient is a 69-year-old male with prior history of alcohol intake, history of chronic tobacco use was found by his family in the bathroom in the morning, unresponsive and tachypneic. He was brought into the emergency room and subsequently intubated. His pH was 6.96 after intubation. He had mild troponin elevation on presentation and he is in sinus mechanism. The history is obtained from the family apparently he has not consumed any alcohol since discharge but continues to smoke. He has dyspnea on exertion but has not complained of chest discomfort. He has prior history of syncope that was though t to be related to alcohol intake. His echocardiogram done during last admission told anesthesia showed an ejection fraction of 40%. He had no peripheral edema, dizziness or palpitation. Medications: Carvedilol 12.5 twice daily, losartan 25 mg daily, Plavix 75 mg daily, aspirin once a day, atorvastatin 40 mg daily Review of Systems: Could not be obtained the patient is intubated and sedated Physical Examination: 69-year-old male, intubated and sedated,Blood pressure 113/80, Heart rate 74, t emperature on presentation 89.4 Head: Normocephalic. Eyes: Sclerae nonicteric. Neck: Good carotid upstroke, right bruit, no jugular venous distention. Lungs: Clear to auscultation. Heart: Regular rate and rhythm, S1-S2, no S3, no rub. No murmur. Abdomen: Soft , positive bowel sounds no organomegaly. Extremities: No edema, intact distal pulses. Labs: White blood cell 17.7, hemoglobin 15.7, pH 6.96, BUN 17, creatinine 1.1, potassium 5.8. Troponin 0.193. Head showed obstruction of the right internal carotid artery with collateral from left to right. Chest x-ray with no acute infiltrate EKG: Sinus mechanism with ST segment depression in the anterolateral leads, possible ischemia Impression: 1. Respiratory failure requiring mechanical ventilation with severe acidosis 2. Troponin elevation, probably secondary to type II myocardial infarction 3. History of cardiomyopathy 4. History of alcohol abuse, stopped 1 week ago 5. History of chronic tobacco use 6. Hypothermia, improving 7. Right carotid artery obstruction Plan: 1. Continue supportive care 2. No indications for aggressive cardiac workup at this time 3. No need to repeat the echo 4. Depending on the blood pressure reinitiate beta-kevin and losartan 5. Prognosis is guarded, thank you for this consult we will follow with you Past Medical History Past Medical History: Hypertension Additional Past Medical History / Comment(s): Alcohol dependence. states patient drinks daily. SHe finds shooters and bottles empty all day long. States, "He is NEVER without a drink in his hands". History of Any Multi-Drug Resistant Organisms: None Reported Past Surgical History: Hernia Repair Additional Past Surgical History / Comment(s): 2 umbilical hernia repair Past Anesthesia/Blood Transfusion Reactions: No Reported Reaction Past Psychological History: Depression Smoking Status: Current every day smoker Past Alcohol Use History: Daily Past Drug Use History: None Reported - Past Family History Mother Additional Family Medical History / Comment(s): PT. STATES HIS MOTHER FROM EPHYSEMA Medications and Allergies Home Medications Medication Instructions Recorded Confirmed Type Aspirin 81 mg PO DAILY #30 tab 01/16/25 02/01/25 Rx Atorvastatin [Lipitor] 40 mg PO HS #30 tab 01/16/25 02/01/25 Rx Clopidogrel [Plavix] 75 mg PO DAILY #30 tab 01/16/25 02/01/25 Rx Folic Acid 1 mg PO DAILY #30 tab 01/16/25 02/01/25 Rx Losartan [Cozaar] 25 mg PO DAILY #30 tab 01/16/25 02/01/25 Rx Thiamine [Vitamin B-1] 100 mg PO DAILY #30 tab 01/16/25 02/01/25 Rx carvediloL [Coreg*] 12.5 mg PO BID-W/MEALS #30 tab 01/16/25 02/01/25 Rx Allergies Allergy/AdvReac Type Severity Reaction Status Date / Time Penicillins Allergy Rash/Hives Verified 02/01/25 10:49 Physical Exam Vitals: Vital Signs Temp Pulse Resp BP Pulse Ox FiO2 02/01/25 13:11 95.5 F L 76 26 H 113/82 98 02/01/25 12:59 95 F L 73 21 112/61 98 02/01/25 12:30 94.8 F L 73 21 99/58 97 02/01/25 12:15 94.6 F L 78 21 99/59 96 02/01/25 12:00 94.6 F L 71 21 96/50 96 02/01/25 11:50 93.4 F L 70 21 80/54 96 02/01/25 11:26 70 02/01/25 11:15 70 21 74/45 94 L 02/01/25 11:12 40 02/01/25 11:11 70 02/01/25 11:00 92.1 F L 71 21 76/49 94 L 02/01/25 10:45 70 21 86/50 92 L 02/01/25 10:30 91.6 F L 73 22 129/74 91 L 40 02/01/25 10:15 90.5 F L 65 22 135/69 91 L 40 02/01/25 10:04 89.8 F L 61 28 H 117/70 93 L 02/01/25 09:45 89.2 F L 59 L 28 H 114/76 99 02/01/25 09:30 89.2 F L 56 L 28 H 98/55 97 02/01/25 09:25 54 L 02/01/25 09:15 56 L 28 H 98/55 100 02/01/25 09:06 54 L 02/01/25 09:03 40 02/01/25 09:00 89.4 F L 54 L 21 114/69 100 02/01/25 08:45 53 L 18 105/62 100 02/01/25 08:44 100 02/01/25 08:30 51 L 21 123/70 100 02/01/25 08:27 51 L 22 100/64 100 100 02/01/25 08:04 91 26 H 219/144 02/01/25 07:57 93 25 H 206/163 89 L Intake and Output 01/31/25 02/01/25 02/01/25 22:59 06:59 14:59 Intake Total 31.774 Balance 31.774 Intake: Intake, IV Titration 31.774 Amount Norepinephrine 4 mg In 2.074 Sodium Chloride 0.9% 250 ml @ 0.03 MCG/KG/MIN 7. 777 mls/hr IV .Q24H [facility] Rx#:[id number] propofoL 1,000 mg In 29.700 Empty Bag 1 bag @ 15 MCG/ KG/MIN 6.124 mls/hr IV . [id number] [facility] Rx#: [id number] Other: Weight 68.039 kg Results 02/01/25 08:11 04/11/25 09:30 Cardiac Enzymes 02/01/25 02/01/25 Range/Units 08:11 08:47 AST 95 H (17-59) U/L Troponin I 0.193 H* (0.000-0.034) ng/mL Coagulation 02/01/25 Range/Units 08:11 PT 12.1 (10.0-12.5) sec APTT 25.9 (22.0-30.0) sec CBC 02/01/25 Range/Units 08:11 WBC 17.76 H (4.50-10.00) 10*3/uL RBC 4.49 (4.40-5.60) 10*6/uL Hgb 15.7 (13.0-17.0) g/dL Hct 49.1 (39.6-50.0) % Plt Count 240 (140-440) 10*3/uL Comprehensive Metabolic Panel 02/01/25 02/01/25 Range/Units 08:47 09:30 Sodium 137 138 (137-145) mmol/L Potassium 5.8 H 5.1 (3.5-5.1) mmol/L Chloride 107 108 H (98-107) mmol/L Carbon Dioxide 21 L 24 (22-30) mmol/L BUN 17 17 (9-20) mg/dL Creatinine 1.19 1.07 (0.66-1.25) mg/dL Glucose 289 H 231 H (74-99) mg/dL Calcium 8.8 8.3 L (8.4-10.2) mg/dL AST 95 H (17-59) U/L ALT 47 (4-49) U/L Alkaline Phosphatase 112 (38-126) U/L Total Protein 5.6 L (6.3-8.2) g/dL Albumin 3.0 L (3.5-5.0) g/dL Current Medications Generic Name Dose Route Start Last Admin Trade Name Freq PRN Reason Stop Dose Admin Albuterol/Ipratropium 3 ml 02/01/25 12:00 02/01/25 11:11 Ipratropium-Albuterol 3 Ml Neb INHALATION 3 ml RT-Q4H MABEL Administration Aspirin 81 mg 02/02/25 09:00 Aspirin 81 Mg NG-TUBE DAILY [facility] Atorvastatin Calcium 40 mg 02/01/25 21:00 Atorvastatin 40 Mg Tab NG-TUBE HS [facility] Clopidogrel Bisulfate 75 mg 02/02/25 09:00 Clopidogrel 75 Mg Tab NG-TUBE DAILY [facility] Dextrose/Water 25 ml 02/01/25 09:43 Dextrose 50% Syringe 50 Ml IVP PER PROTOCOL PRN Hypoglycemia Protocol Dextrose/Water 50 ml 02/01/25 09:43 Dextrose 50% Syringe 50 Ml IVP PER PROTOCOL PRN Hypoglycemia Protocol Heparin Sodium (Porcine) 5,000 unit 02/01/25 21:00 Heparin Sodium,Porcine 5,000 Unit/Ml 1 Ml Vial SQ Q12HR [facility] Vancomycin HCl 1,250 mg/ 250 mls @ 125 mls/hr 02/02/25 03:00 Sodium Chloride IVPB Q16H [facility] Propofol 1,000 mg/ IV Solution 100 mls @ 6.124 mls/hr 02/01/25 10:30 02/01/25 12:00 IV 40 mcg/kg/min .[id number] MABEL 16.329 mls/hr Titration Protocol 15 MCG/KG/MIN Norepinephrine Bitartrate 4 mg 254 mls @ 7.777 mls/hr 02/01/25 12:01 02/01/25 12:32 / Sodium Chloride IV 02/02/25 12:00 0 mcg/kg/min .Q24H [facility] 0 mls/hr Titration Protocol 0.03 MCG/KG/MIN Cefepime HCl 2 gm/ Sodium 100 mls @ 25 mls/hr 02/01/25 21:00 Chloride IVPB Q12HR [facility] Protocol Insulin Human Lispro 0 unit 02/01/25 12:00 02/01/25 13:09 Insulin Lispro (Humalog) 100 Unit/Ml 10 Ml Vl SQ Not Given Q6HR [facility] Protocol Methylprednisolone Sodium Succinate 60 mg 02/01/25 16:00 Methylprednisolone Sod Succi 125 Mg/2 Ml Vial IV Q6H [facility] Naloxone HCl 0.2 mg 02/01/25 10:17 Naloxone 0.4 Mg/Ml 1 Ml Vial IV Q2M PRN Opioid Reversal Intake and Output 01/31/25 02/01/25 02/01/25 22:59 06:59 14:59 Intake Total 31.774 Balance 31.774 Intake: Intake, IV Titration 31.774 Amount Norepinephrine 4 mg In 2.074 Sodium Chloride 0.9% 250 ml @ 0.03 MCG/KG/MIN 7. 777 mls/hr IV .Q24H [facility] Rx#:[id number] propofoL 1,000 mg In 29.700 Empty Bag 1 bag @ 15 MCG/ KG/MIN 6.124 mls/hr IV . [id number] [facility] Rx#: [id number] Other: Weight 68.039 kg Patient Weight 02/02/25 06:59 Weight 68.039 kg 02/01/25 08:11 02/01/25 09:30
--- NOTE | 2025-02-01 14:10 | P.CNPUL ---
History of Present Illness Consult date: 02/01/25 Requesting physician: Checo Villanueva (Review of) Reason for consult: other (Acute hypoxic and hypercapnic respiratory failure) Chief complaint: Unresponsive History of present illness: This is a 69-year-old white male, history of alcohol abuse, tobacco dependence syndrome, patient was found this morning by his in the bathroom unresponsive and tachypneic. Brought into the emergency room, and upon arrival the patient was intubated. Initial venous blood gas reflected hypercapnia and severe respiratory acidosis with a pH of 6.96. ABG postintubation showed a pO2 of 82 pCO2 64 pH of 7.22 and this was on 40% FiO2 with tidal volume 400 and rate of 22. Then another ABG was done after adjustment of his rate came back showing a pO2 of 95 pCO2 46 pH of 7.37. His blood sugar was 99, lactic acid was normal found to have leukocytosis with WBC count of 17.76 hemoglobin 15.7 basic metab olic profile was relatively normal BUN is 17 creatinine 1.07 troponin was a bit elevated at 0.193 drug screen was negative viral screen was also negative. I saw the patient down in the ER, and I felt that this is most likely a presentation of acute hypercapnia related to underlying COPD or possible CVA. Patient had a CT of the brain which came back negative after evaluating the patient in the ER, recommended admission to ICU, discussed his condition with his briefly at bedside. Urinalysis did show evidence of hematuria, negative leukocyte esterase and negative nitrites. Review of Systems Could not have actual review of systems as the patient was intubated however according to the the patient has had no pulmonary symptoms recently except for some vague aches and pains in his hips. According to he had no symptoms to suggest worsening COPD or any cardiac symptoms. Prior to this. Past Medical History Past Medical History: Hypertension Additional Past Medical History / Comment(s): Alcohol dependence. states patient drinks daily. SHe finds shooters and bottles empty all day long. States, "He is NEVER without a drink in his hands". History of Any Multi-Drug Resistant Organisms: None Reported Past Surgical History: Hernia Repair Additional Past Surgical History / Comment(s): 2 umbilical hernia repair Past Anesthesia/Blood Transfusion Reactions: No Reported Reaction Past Psychological History: Depression Smoking Status: Current every day smoker Past Alcohol Use History: Daily Past Drug Use History: None Reported - Past Family History Mother Additional Family Medical History / Comment(s): PT. STATES HIS MOTHER FROM EPMPHYSEMA Medications and Allergies Home Medications Medication Instructions Recorded Confirmed Type Aspirin 81 mg PO DAILY #30 tab 01/16/25 02/01/25 Rx Atorvastatin [Lipitor] 40 mg PO HS #30 tab 01/16/25 02/01/25 Rx Clopidogrel [Plavix] 75 mg PO DAILY #30 tab 01/16/25 02/01/25 Rx Folic Acid 1 mg PO DAILY #30 tab 01/16/25 02/01/25 Rx Losartan [Cozaar] 25 mg PO DAILY #30 tab 01/16/25 02/01/25 Rx Thiamine [Vitamin B-1] 100 mg PO DAILY #30 tab 01/16/25 02/01/25 Rx carvediloL [Coreg*] 12.5 mg PO BID-W/MEALS #30 tab 01/16/25 02/01/25 Rx Allergies Allergy/AdvReac Type Severity Reaction Status Date / Time Penicillins Allergy Rash/Hives Verified 02/01/25 10:49 Physical Exam Vitals: Vital Signs Temp Pulse Resp BP Pulse Ox FiO2 02/01/25 13:52 96.1 F L 77 21 121/64 98 02/01/25 13:37 95.9 F L 77 21 129/68 98 02/01/25 13:11 95.5 F L 76 26 H 113/82 98 02/01/25 12:59 95 F L 73 21 112/61 98 02/01/25 12:30 94.8 F L 73 21 99/58 97 02/01/25 12:15 94.6 F L 78 21 99/59 96 02/01/25 12:00 94.6 F L 71 21 96/50 96 02/01/25 11:50 93.4 F L 70 21 80/54 96 02/01/25 11:26 70 02/01/25 11:15 70 21 74/45 94 L 02/01/25 11:12 40 02/01/25 11:11 70 02/01/25 11:00 92.1 F L 71 21 76/49 94 L 02/01/25 10:45 70 21 86/50 92 L 02/01/25 10:30 91.6 F L 73 22 129/74 91 L 40 02/01/25 10:15 90.5 F L 65 22 135/69 91 L 40 02/01/25 10:04 89.8 F L 61 28 H 117/70 93 L 02/01/25 09:45 89.2 F L 59 L 28 H 114/76 99 02/01/25 09:30 89.2 F L 56 L 28 H 98/55 97 02/01/25 09:25 54 L 02/01/25 09:15 56 L 28 H 98/55 100 02/01/25 09:06 54 L 02/01/25 09:03 40 02/01/25 09:00 89.4 F L 54 L 21 114/69 100 02/01/25 08:45 53 L 18 105/62 100 02/01/25 08:44 100 02/01/25 08:30 51 L 21 123/70 100 02/01/25 08:27 51 L 22 100/64 100 100 02/01/25 08:04 91 26 H 219/144 02/01/25 07:57 93 25 H 206/163 89 L Intake and Output 01/31/25 02/01/25 02/01/25 22:59 06:59 14:59 Intake Total 60.894 Output Total 240 Balance -179.106 Intake: Intake, IV Titration 60.894 Amount Norepinephrine 4 mg In 2.074 Sodium Chloride 0.9% 250 ml @ 0.03 MCG/KG/MIN 7. 777 mls/hr IV .Q24H ONE Rx#:[id number] propofoL 1,000 mg In 58.820 Empty Bag 1 bag @ 15 MCG/ KG/MIN 6.124 mls/hr IV . [id number] [facility] Rx#: [id number] Output: Urine 240 Uretheral (Rosario) 240 Other: Weight 68.039 kg Physical Examination: Revealed a 69-year-old white male intubated mechanically ventilated, unresponsive to any stimuli patient was just intubated prior to my evaluation. Head: Atraumatic, normocephalic Eyes: PERRLA, EOMI, nonicteric. Throat: Clear, endotracheal tube is intact orogastric tube is intact. Neck: Supple no neck masses no JVD no stridor. Lungs: Diminished breath sounds at bases no rhonchi no wheezes Heart: Distant S1-S2, no S3 gallop. Abdomen: Soft nontender no megaly no rebound no guarding Extremities: No clubbing edema or cyanosis Neurologic exam: Could not assess patient is sedated, intubated mechanically ventilated Psychiatric: Could not assess. Results - Laboratory Findings CBC and BMP: 02/01/25 08:11 02/01/25 09:30 ABG ABG pH 7.37 (7.35-7.45) 02/01/25 13:23 ABG pCO2 46 mmHg (35-45) H 02/01/25 13:23 ABG pO2 95 mmHg (83-108) 02/01/25 13:23 ABG O2 Saturation 98.0 % (94-97) H 02/01/25 13:23 PT/INR, D-dimer PT 12.1 sec (10.0-12.5) 02/01/25 08:11 INR 1.1 (<1.2) 02/01/25 08:11 Abnormal lab findings: Abnormal Labs 02/01/25 02/01/25 02/01/25 07:59 08:11 08:11 WBC 17.76 H MCV 109.4 H MCH 35.0 H Immature Gran # 0.24 H Neutrophils # (Manual) 8.35 H Lymphocytes # (Manual) 8.35 H ABG pH ABG pCO2 ABG pO2 ABG HCO3 ABG Total CO2 ABG O2 Saturation VBG pH VBG pCO2 VBG HCO3 Hemoglobin Potassium Chloride Carbon Dioxide Glucose POC Glucose (mg/dL) 309 H Plasma Lactic Acid Yaakov Calcium AST Ammonia 121 H Troponin I Total Protein Albumin TSH Ur Specific [place] Urine Protein Urine Glucose (UA) Urine Blood Urine RBC Urine WBC Urine Bacteria Urine Mucus 02/01/25 02/01/25 02/01/25 08:11 08:11 08:47 WBC MCV MCH Immature Gran # Neutrophils # (Manual) Lymphocytes # (Manual) ABG pH ABG pCO2 ABG pO2 ABG HCO3 ABG Total CO2 ABG O2 Saturation VBG pH 6.96 L* VBG pCO2 85 H* VBG HCO3 19 L Hemoglobin Potassium 5.8 H Chloride Carbon Dioxide 21 L Glucose 289 H POC Glucose (mg/dL) Plasma Lactic Acid Yaakov Calcium AST 95 H Ammonia Troponin I 0.193 H* Total Protein 5.6 L Albumin 3.0 L TSH 5.000 H Ur Specific [place] Urine Protein Urine Glucose (UA) Urine Blood Urine RBC Urine WBC Urine Bacteria Urine Mucus 02/01/25 02/01/25 02/01/25 08:53 09:03 09:30 WBC MCV MCH Immature Gran # Neutrophils # (Manual) Lymphocytes # (Manual) ABG pH 6.96 L* ABG pCO2 >98 H* ABG pO2 >420 H ABG HCO3 ABG Total CO2 ABG O2 Saturation 99.6 H VBG pH VBG pCO2 VBG HCO3 Hemoglobin Potassium Chloride Carbon Dioxide Glucose POC Glucose (mg/dL) Plasma Lactic Acid Yaakov 2.1 H* Calcium AST Ammonia 74 H Troponin I Total Protein Albumin TSH Ur Specific [place] 1.037 H Urine Protein 2+ H Urine Glucose (UA) 2+ H Urine Blood Large H Urine RBC >182 H Urine WBC 12 H Urine Bacteria Rare H Urine Mucus Rare H 02/01/25 02/01/25 02/01/25 09:30 11:26 13:23 WBC MCV MCH Immature Gran # Neutrophils # (Manual) Lymphocytes # (Manual) ABG pH 7.22 L ABG pCO2 64 H 46 H ABG pO2 82 L ABG HCO3 27 H 26 H ABG Total CO2 28 H 28 H ABG O2 Saturation 98.0 H VBG pH VBG pCO2 VBG HCO3 Hemoglobin 12.0 L 12.5 L Potassium Chloride 108 H Carbon Dioxide Glucose 231 H POC Glucose (mg/dL) Plasma Lactic Acid Yaakov Calcium 8.3 L AST Ammonia Troponin I Total Protein Albumin TSH Ur Specific [place] Urine Protein Urine Glucose (UA) Urine Blood Urine RBC Urine WBC Urine Bacteria Urine Mucus - Diagnostic Findings Chest x-ray: image reviewed (Chest x-ray was reviewed no acute cardiopulmonary process noted.) Additional studies: CT brain shows no acute intracranial process Assessment and Plan Assessment: Impression: Acute hypoxic and hypercapnic respiratory failure with severe respiratory acidosis and profoundly low pH on presentation Acute toxic metabolic encephalopathy most likely secondary to hypercapnia, and related to hepatic encephalopathy with elevated bated ammonia level History of alcoholism History of underlying COPD which is another contributing factor to his hypercapnia Hyperkalemia secondary to respiratory acidosis with profoundly low pH History of underlying cardiomyopathy ejection fraction of 40% most likely related to his alcoholism. History of benign essential hypertension Tobacco dependence syndrome Recommendation: Continue ventilatory support Hemodynamic support if felt necessary, patient to be placed on norepinephrine if blood pressure remains low in spite of fluid boluses Lactulose for elevated ammonia level Bronchodilators for underlying COPD Continue to monitor electrolytes and correct accordingly Repeat ammonia level in a.m. GI and DVT prophylaxis Empiric antibiotics, patient was placed on Rocephin and Zithromax since admission patient seems to have a picture of systemic inflammatory response sy ndrome, doubt sepsis, doubt septic shock [facility] protocol considering his history of alcohol use Discussed his condition briefly with the at bedside. Patient is critically ill Prognosis is guarded, will continue to follow Time with Patient: Greater than 30
[2025-02-01] MEDS: LACTULOSE 20 GM/30 ML CUP PO SCH (14:23)
--- NOTE | 2025-02-01 14:35 | P.GSCN ---
History of Present Illness Consult date: 02/01/25 Reason for Consult: Right carotid obstruction Requesting physician: Hilda Meyer History of present illness: This is a 69-year-old male, HPI obtained from chart. Patient is currently sedated and intubated. Apparently patient was brought in by EMS and was stated that patient had been found on the bathroom floor by his unconscious and not responsive but moaning and eyes staring at the ceiling. EMS was called and patient was brought into the emergency department. He on arrival patient was hypothermic, bradycardic and in respiratory distress. He was intubated and started on mechanical ventilation. Past medical history includes alcohol abuse, hypertension, SVT, history of mildly impaired LV function EF 40%, tobacco use, dyslipidemia and was recently discharged from our hospital on 01/13/2025 after being admitted for alcohol intoxication, fall and cardiac evaluation for elevated troponins. Went a ESTHER showing EF of 40% with hypokinesis involving the inferior wall recommendation was heart cath on outpatient and patient was started on Plavix and aspirin. Was worked up as a code stroke he had a CT of the brain that showed no acute process, CT angiogram head and neck reported obstruction at the right carotid bifurcation, no significant carotid stenosis of left ICA. Vascular surgery was consulted for right internal carotid artery obstruction. Patient's and family are at the bedside. Patient's collaborates story from chart. Apparently patient had been doing well over the last couple weeks after being discharged from the hospital. Patient's denies any known history of carotid stenosis. To her knowledge she does not believe he has ever had his carotid arteries looked at before. States patient has not had any alcohol since his last hospital admission. She also states that patient does have chronic lower extremity pain and cramping with ambulating. Review of Systems ROS unobtainable: due to endotracheal tube Past Medical History Past Medical History: Hypertension Additional Past Medical History / Comment(s): Alcohol dependence. states patient drinks daily. SHe finds shooters and bottles empty all day long. States, "He is NEVER without a drink in his hands". History of Any Multi-Drug Resistant Organisms: None Reported Past Surgical History: Hernia Repair Additional Past Surgical History / Comment(s): 2 umbilical hernia repair Past Anesthesia/Blood Transfusion Reactions: No Reported Reaction Past Psychological History: Depression Smoking Status: Current every day smoker Past Alcohol Use History: Daily Past Drug Use History: None Reported - Past Family History Mother Additional Family Medical History / Comment(s): PT. STATES HIS MOTHER FROM EPMPHYSEMA Medications and Allergies Home Medications Medication Instructions Recorded Confirmed Type Aspirin 81 mg PO DAILY #30 tab 01/16/25 02/01/25 Rx Atorvastatin [Lipitor] 40 mg PO HS #30 tab 01/16/25 02/01/25 Rx Clopidogrel [Plavix] 75 mg PO DAILY #30 tab 01/16/25 02/01/25 Rx Folic Acid 1 mg PO DAILY #30 tab 01/16/25 02/01/25 Rx Losartan [Cozaar] 25 mg PO DAILY #30 tab 01/16/25 02/01/25 Rx Thiamine [Vitamin B-1] 100 mg PO DAILY #30 tab 01/16/25 02/01/25 Rx carvediloL [Coreg*] 12.5 mg PO BID-W/MEALS #30 tab 01/16/25 02/01/25 Rx Allergies Allergy/AdvReac Type Severity Reaction Status Date / Time Penicillins Allergy Rash/Hives Verified 02/01/25 10:49 Surgical - Exam Vital Signs Pulse Resp BP Pulse Ox 93 25 H 206/163 89 L 02/01/25 07:57 02/01/25 07:57 02/01/25 07:57 02/01/25 07:57 General appearance: The patient is sedated and intubated. HET: Head is normocephalic and atraumatic. Neck: Supple. Right carotid bruit. Heart: Regular. Lungs: Equal expansion, mechanical ventilation. Abdomen: Soft, nontender, nondistended. Extremities: Normal skin color and turgor. Palpable bilateral femoral pulses. Nonpalpable DP or PT pulses. Good capillary refill. Neurological: Sedated and intubated. Results - Labs 02/01/25 08:11 02/01/25 09:30 Abnormal Lab Results - Last 24 Hours (Table) 02/01/25 02/01/25 02/01/25 Range/Units 07:59 08:11 08:11 WBC 17.76 H (4.50-10.00) 10*3/uL MCV 109.4 H (80.0-97.0) fL MCH 35.0 H (27.0-32.0) pg Immature Gran # 0.24 H (0.00-0.04) 10*3/uL Neutrophils # (Manual) 8.35 H (1.3-7.7) k/uL Lymphocytes # (Manual) 8.35 H (1.0-4.8) k/uL ABG pH (7.35-7.45) ABG pCO2 (35-45) mmHg ABG pO2 (83-108) mmHg ABG HCO3 (21-25) mmol/L ABG Total CO2 (19-24) mmol/L ABG O2 Saturation (94-97) % VBG pH (7.31-7.41) VBG pCO2 (37-51) mmHg VBG HCO3 (24-28) mmol/L Hemoglobin (13.0-17.5) gm/dL Potassium (3.5-5.1) mmol/L Chloride (98-107) mmol/L Carbon Dioxide (22-30) mmol/L Glucose (74-99) mg/dL POC Glucose (mg/dL) 309 H (70-110) mg/dL Plasma Lactic Acid Yaakov (0.7-2.0) mmol/L Calcium (8.4-10.2) mg/dL AST (17-59) U/L Ammonia 121 H (<30) umol/L Troponin I (0.000-0.034) ng/mL Total Protein (6.3-8.2) g/dL Albumin (3.5-5.0) g/dL TSH (0.465-4.680) mIU/L Ur Specific [place] (1.001-1.035) Urine Protein (Negative) Urine Glucose (UA) (Negative) Urine Blood (Negative) Urine RBC (0-5) /hpf Urine WBC (0-5) /hpf Urine Bacteria (None) /hpf Urine Mucus (None) /hpf 02/01/25 02/01/25 02/01/25 Range/Units 08:11 08:11 08:47 WBC (4.50-10.00) 10*3/uL MCV (80.0-97.0) fL MCH (27.0-32.0) pg Immature Gran # (0.00-0.04) 10*3/uL Neutrophils # (Manual) (1.3-7.7) k/uL Lymphocytes # (Manual) (1.0-4.8) k/uL ABG pH (7.35-7.45) ABG pCO2 (35-45) mmHg ABG pO2 (83-108) mmHg ABG HCO3 (21-25) mmol/L ABG Total CO2 (19-24) mmol/L ABG O2 Saturation (94-97) % VBG pH 6.96 L* (7.31-7.41) VBG pCO2 85 H* (37-51) mmHg VBG HCO3 19 L (24-28) mmol/L Hemoglobin (13.0-17.5) gm/dL Potassium 5.8 H (3.5-5.1) mmol/L Chloride (98-107) mmol/L Carbon Dioxide 21 L (22-30) mmol/L Glucose 289 H (74-99) mg/dL POC Glucose (mg/dL) (70-110) mg/dL Plasma Lactic Acid Yaakov (0.7-2.0) mmol/L Calcium (8.4-10.2) mg/dL AST 95 H (17-59) U/L Ammonia (<30) umol/L Troponin I 0.193 H* (0.000-0.034) ng/mL Total Protein 5.6 L (6.3-8.2) g/dL Albumin 3.0 L (3.5-5.0) g/dL TSH 5.000 H (0.465-4.680) mIU/L Ur Specific [place] (1.001-1.035) Urine Protein (Negative) Urine Glucose (UA) (Negative) Urine Blood (Negative) Urine RBC (0-5) /hpf Urine WBC (0-5) /hpf Urine Bacteria (None) /hpf Urine Mucus (None) /hpf 02/01/25 02/01/25 02/01/25 Range/Units 08:53 09:03 09:30 WBC (4.50-10.00) 10*3/uL MCV (80.0-97.0) fL MCH (27.0-32.0) pg Immature Gran # (0.00-0.04) 10*3/uL Neutrophils # (Manual) (1.3-7.7) k/uL Lymphocytes # (Manual) (1.0-4.8) k/uL ABG pH 6.96 L* (7.35-7.45) ABG pCO2 >98 H* (35-45) mmHg ABG pO2 >420 H (83-108) mmHg ABG HCO3 (21-25) mmol/L ABG Total CO2 (19-24) mmol/L ABG O2 Saturation 99.6 H (94-97) % VBG pH (7.31-7.41) VBG pCO2 (37-51) mmHg VBG HCO3 (24-28) mmol/L Hemoglobin (13.0-17.5) gm/dL Potassium (3.5-5.1) mmol/L Chloride (98-107) mmol/L Carbon Dioxide (22-30) mmol/L Glucose (74-99) mg/dL POC Glucose (mg/dL) (70-110) mg/dL Plasma Lactic Acid Yaakov 2.1 H* (0.7-2.0) mmol/L Calcium (8.4-10.2) mg/dL AST (17-59) U/L Ammonia 74 H (<30) umol/L Troponin I (0.000-0.034) ng/mL Total Protein (6.3-8.2) g/dL Albumin (3.5-5.0) g/dL TSH (0.465-4.680) mIU/L Ur Specific [place] 1.037 H (1.001-1.035) Urine Protein 2+ H (Negative) Urine Glucose (UA) 2+ H (Negative) Urine Blood Large H (Negative) Urine RBC >182 H (0-5) /hpf Urine WBC 12 H (0-5) /hpf Urine Bacteria Rare H (None) /hpf Urine Mucus Rare H (None) /hpf 02/01/25 02/01/25 Range/Units 09:30 11:26 WBC (4.50-10.00) 10*3/uL MCV (80.0-97.0) fL MCH (27.0-32.0) pg Immature Gran # (0.00-0.04) 10*3/uL Neutrophils # (Manual) (1.3-7.7) k/uL Lymphocytes # (Manual) (1.0-4.8) k/uL ABG pH 7.22 L (7.35-7.45) ABG pCO2 64 H (35-45) mmHg ABG pO2 82 L (83-108) mmHg ABG HCO3 27 H (21-25) mmol/L ABG Total CO2 28 H (19-24) mmol/L ABG O2 Saturation (94-97) % VBG pH (7.31-7.41) VBG pCO2 (37-51) mmHg VBG HCO3 (24-28) mmol/L Hemoglobin 12.0 L (13.0-17.5) gm/dL Potassium (3.5-5.1) mmol/L Chloride 108 H (98-107) mmol/L Carbon Dioxide (22-30) mmol/L Glucose 231 H (74-99) mg/dL POC Glucose (mg/dL) (70-110) mg/dL Plasma Lactic Acid Yaakov (0.7-2.0) mmol/L Calcium 8.3 L (8.4-10.2) mg/dL AST (17-59) U/L Ammonia (<30) umol/L Troponin I (0.000-0.034) ng/mL Total Protein (6.3-8.2) g/dL Albumin (3.5-5.0) g/dL TSH (0.465-4.680) mIU/L Ur Specific [place] (1.001-1.035) Urine Protein (Negative) Urine Glucose (UA) (Negative) Urine Blood (Negative) Urine RBC (0-5) /hpf Urine WBC (0-5) /hpf Urine Bacteria (None) /hpf Urine Mucus (None) /hpf Diabetes panel 02/01/25 02/01/25 Range/Units 08:47 09:30 Sodium 137 138 (137-145) mmol/L Potassium 5.8 H 5.1 (3.5-5.1) mmol/L Chloride 107 108 H (98-107) mmol/L Carbon Dioxide 21 L 24 (22-30) mmol/L BUN 17 17 (9-20) mg/dL Creatinine 1.19 1.07 (0.66-1.25) mg/dL Glucose 289 H 231 H (74-99) mg/dL Calcium 8.8 8.3 L (8.4-10.2) mg/dL AST 95 H (17-59) U/L ALT 47 (4-49) U/L Alkaline Phosphatase 112 (38-126) U/L Total Protein 5.6 L (6.3-8.2) g/dL Albumin 3.0 L (3.5-5.0) g/dL Thyroid panel 02/01/25 Range/Units 08:47 TSH 5.000 H (0.465-4.680) mIU/L Calcium panel 02/01/25 02/01/25 Range/Units 08:47 09:30 Calcium 8.8 8.3 L (8.4-10.2) mg/dL Albumin 3.0 L (3.5-5.0) g/dL Pituitary panel 02/01/25 02/01/25 Range/Units 08:47 09:30 Sodium 137 138 (137-145) mmol/L Potassium 5.8 H 5.1 (3.5-5.1) mmol/L Chloride 107 108 H (98-107) mmol/L Carbon Dioxide 21 L 24 (22-30) mmol/L BUN 17 17 (9-20) mg/dL Creatinine 1.19 1.07 (0.66-1.25) mg/dL Glucose 289 H 231 H (74-99) mg/dL Calcium 8.8 8.3 L (8.4-10.2) mg/dL TSH 5.000 H (0.465-4.680) mIU/L Adrenal panel 02/01/25 02/01/25 Range/Units 08:47 09:30 Sodium 137 138 (137-145) mmol/L Potassium 5.8 H 5.1 (3.5-5.1) mmol/L Chloride 107 108 H (98-107) mmol/L Carbon Dioxide 21 L 24 (22-30) mmol/L BUN 17 17 (9-20) mg/dL Creatinine 1.19 1.07 (0.66-1.25) mg/dL Glucose 289 H 231 H (74-99) mg/dL Calcium 8.8 8.3 L (8.4-10.2) mg/dL Total Bilirubin 0.3 (0.2-1.3) mg/dL AST 95 H (17-59) U/L ALT 47 (4-49) U/L Alkaline Phosphatase 112 (38-126) U/L Total Protein 5.6 L (6.3-8.2) g/dL Albumin 3.0 L (3.5-5.0) g/dL - Imaging Comments: CT angiogram head and neck reports obstruction of the right internal carotid artery at its origin. Contralateral flow from the left to the right is present into the right anterior middle and posterior cerebral arteries. Brain CT without contrast reports no acute intracranial process. Follow-up MRI can be performed as clinically indicated. Stable appearing chronic white matter ischemic type change with age-related atrophy. Assessment and Plan Assessment: 1. Altered mental status changes patient found unresponsive on bathroom floor 2. Acute hypoxic respiratory failure requiring intubation and elation 3. Right internal carotid artery occlusion 4. Hypothermia 5. Acute metabolic encephalopathy 6. Cardiomyopathy with EF around 40% 7. Recent LA 8. Hypertension 9. History of alcohol abuse 10. Tobacco use Plan: 1. Carotid duplex ordered for further evaluation of right ICA occlusion and to obtain peak systolic velocities 2. Suspect complete occlusion of right ICA, no intervention indicated. Unsure if this is acute or chronic as patient's never had carotid artery imaging 3. Recommend outpatient follow-up with vascular surgery, can also workup lower extremity evaluation at that time as well. 4. Continue medical management with continue aspirin, Plavix and statin 5. Rest of medical management per report writer and multiple consultants Thank you for this consultation. The impression and plan of care has been dictated as directed. I performed a history and examination of this patient, discussed the same with the dictator. I agree with the dictator's note ,documented as a scribe. Any additional findings or plans will be noted.
[2025-02-01 15:26] LABS: Glucose,Whole Blood 105 mg/dL (70-110)
--- NOTE | 2025-02-01 17:36 | US ---
EXAMINATION TYPE: US carotid duplex BILAT DATE OF EXAM: 02/01/2025 COMPARISON: CTA: 02/01/25 CLINICAL INDICATION: Male, 69 years old with history of evaluate PSV, occluded right ICA CTA; occlude d ICA Additional History: I65.- Occlusion/stenosis of specified precerebral artery, specified laterality TECHNIQUE: Grayscale, color Doppler and spectral Doppler evaluation of the bilateral carotid systems and vertebral arteries. Indirect Doppler criteria was utilized. FINDINGS: EXAM MEASUREMENTS: RIGHT: Peak Systolic Velocity (PSV) cm/sec ----- Right CCA: 32.7 ----- Right ICA: occluded ----- Right ECA: 298.4 ICA/CCA ratio: occluded RIGHT: End Diastole cm/sec ----- Right CCA: 4.2 ----- Right ICA: occluded ----- Right ECA: 7.4 LEFT: Peak Systolic Velocity (PSV) cm/sec ----- Left CCA: 94.7 ----- Left ICA: 125.3 ----- Left ECA: 219.1 ICA/CCA ratio: 1.3 LEFT: End Diastole cm/sec ----- Left CCA: 18.7 ----- Left ICA: 43.0 ----- Left ECA: 7.2 VERTEBRALS (direction of flow): Right Vertebral: Antegrade Left Vertebral: Antegrade Rhythm: Normal TOMOGRAPHIC TECH NOTES: RIght ICA occluded. Plaque seen throughout left ICA and bilateral bulbs. Color Doppler imaging shows patency with blood flow throughout the carotid artery. Spectral waveforms are within normal limits. IMPRESSION: Right: Internal carotid artery occluded Left: Large plaques present on the left moderate stenosis of approximately 50% is present based on ve locities. Criteria for Assigning % of Stenosis / Diameter reduction (Estimation based on the indirect measurements of the internal carotid artery velocities (ICA PSV). 1. Normal (no stenosis)=ICA PSV < 180 cm/s: ratio < 2.0: ICA EDV<40 cm/s. 2. Less than 50% stenosis=ICA PSV < 180 cm/s: ratio < 2.0: ICA EDV<40 cm/s. 3. 50 to 69% stenosis=ICA PSV of 180 to 230 cm/s: ration 2.0 ? 4.0: ICA EDV 40-100 cm/s. PSV 125-180 cm/sec and ICA/CCA PSV Ratio ? 2.0 is also consistent with 50-69% stenosis 4. Greater than 70% stenosis to near occlusion= ICA PSV > 230 cm/s: ratio > 4.0: ICA EDV > 100 cm/s. 5. Near occlusion= ICA PSV velocities may be low or undetectable: variable ratio and ICA EDV. 6. Total occlusion=unable to detect flow. [facility], , 02/01/2025 5:34 PM
[2025-02-01] MEDS: methylPREDNISolone SOD SUCCI 125 MG/2 ML VIAL IV SCH (17:41)
[2025-02-01] MEDS: HYDROmorphone 2 MG/ML 1 ML SYRINGE IVP PRN (18:51)
[2025-02-01 19:02] LABS: African American GFR (CKD) 87 (>60 ml/min/1.73 sqM); Anion Gap 6 mmol/L; Blood Urea Nitrogen 18 mg/dL (9-20); Calcium 8.2 mg/dL (8.4-10.2); Carbon Dioxide 25 mmol/L (22-30); Chloride 111 mmol/L (98-107); Glucose 104 mg/dL (74-99); Non-African American GFR(CKD) 75 (>60 ml/min/1.73 sqM); Sodium 142 mmol/L (137-145)
[2025-02-01] MEDS ORDERED: ATORVASTATIN 40 MG TAB PO SCH (21:00)
[2025-02-01] MEDS: ATORVASTATIN 40 MG TAB NG-TUBE SCH (21:00)
[2025-02-01] MEDS: HEPARIN SODIUM,PORCINE 5,000 UNIT/ML 1 ML VIAL SQ SCH (21:00)
[2025-02-01] MEDS ORDERED: CEFEPIME 2 GM in SODIUM CHLORIDE 0.9% 100 ML IVPB SCH (21:00)
--- NOTE | 2025-02-01 22:11 | OP ---
OPERATIVE REPORT DATE OF SERVICE : PROCEDURE PERFORMED: Placement of a right radial arterial line. PREOPERATIVE DIAGNOSES: Acute hypoxic and hypercapnic respiratory failure. POSTOPERATIVE DIAGNOSIS: Acute hypoxic and hypercapnic respiratory failure. ANESTHESIA: None deployed. DESCRIPTION OF PROCEDURE: The right wrist was prepared in a sterile fashion. Drapes were applied. The right radial artery was palpated, cannulated easily. A guidewire was placed, a Cook catheter was inserted over the guidewire, and guidewire was removed. Good blood flow, good waveform noted. No complications. Line was secured using 3-0 silk sutures. MMODL / IJN: [id number] /
[2025-02-01 23:22] LABS: Glucose,Whole Blood 149 mg/dL (70-110)
[2025-02-02] MEDS: VANCOMYCIN 1,250 MG in SODIUM CHLORIDE 0.9% 250 ML IVPB SCH (03:36)
[2025-02-02 03:43] LABS: Glucose,Whole Blood 153 mg/dL (70-110)
[2025-02-02 04:06] LABS: HCT 38.1 % (39.6-50.0); MCH 34.8 pg (27.0-32.0); MCHC 33.3 g/dL (32.0-37.0); Mean Platelet Volume 12.2 fL (9.5-12.2); Platelet Count 146 10*3/uL (140-440); RBC 3.65 10*6/uL (4.40-5.60); WBC 9.07 10*3/uL (4.50-10.00)
[2025-02-02 04:31] LABS: HGB 12.7 g/dL (13.0-17.0); MCV 104.4 fL (80.0-97.0)
[2025-02-02 04:50] LABS: African American GFR (CKD) >90 (>60 ml/min/1.73 sqM); Anion Gap 10 mmol/L; Blood Urea Nitrogen 18 mg/dL (9-20); Calcium 8.9 mg/dL (8.4-10.2); Carbon Dioxide 22 mmol/L (22-30); Chloride 110 mmol/L (98-107); Glucose 139 mg/dL (74-99); Magnesium 1.4 mg/dL (1.6-2.3); Non-African American GFR(CKD) >90 (>60 ml/min/1.73 sqM); Potassium 3.6 mmol/L (3.5-5.1); Sodium 142 mmol/L (137-145)
[2025-02-02 04:51] LABS: ABG Base Excess -1.9 mmol/L; ABG HCO3 24 mmol/L (21-25); ABG Oxygen Saturation 97.8 % (94-97); ABG PCO2 43 mmHg (35-45); ABG PH 7.35 (7.35-7.45); ABG PO2 99 mmHg (83-108); ABG TCO2 25 mmol/L (19-24)
[2025-02-02] MEDS ORDERED: Potassium Replacement Protocol 1 EACH MISC MISCELLANE PRN (05:12)
[2025-02-02] MEDS ORDERED: Magnesium Replacement Protocol 1 EACH MISC MISCELLANE PRN (05:13)
[2025-02-02 05:22] LABS: Allen Test Performed? no
[2025-02-02] MEDS: POTASSIUM CHLORIDE ER 20 MEQ TAB.ER PO SCH (05:23)
[2025-02-02] MEDS: MAGNESIUM SULFATE-D5W PMX 1 GM in DEXTROSE/WATER 1 100ML.BAG IVPB SCH (05:23)
[2025-02-02] MEDS: CLOPIDOGREL 75 MG TAB NG-TUBE SCH (08:16)
[2025-02-02] MEDS: ASPIRIN 81 MG NG-TUBE SCH (08:16)
[2025-02-02] MEDS ORDERED: ASPIRIN 81 MG PO SCH (09:00)
[2025-02-02] MEDS ORDERED: CLOPIDOGREL 75 MG TAB PO SCH (09:00)
--- NOTE | 2025-02-02 09:05 | XR ---
EXAMINATION TYPE: XR chest 1V portable DATE OF EXAM: 02/02/2025 4:31 AM COMPARISON: 02/01/2025 CLINICAL INDICATION: Male, 69 years old with history of Intubated, difficulty breathing prior abnorma l chest TECHNIQUE: XR chest 1V portable view(s) obtained. FINDINGS: The heart size is normal. The pulmonary vasculature is slightly less prominent than prior. Scattered mild increased lung markings are present. This is improved from comparison. Correlate for r esolving pulmonary edema. Endotracheal tube tip is 3.5 cm above agustin. Nasogastric tube tip is in left upper quadrant of the a bdomen IMPRESSION: 1. Resolving pulmonary edema. Continued follow-up is recommended. 2. Lines and catheters discussed above [facility], , 02/02/2025 9:03 AM
[2025-02-02 09:39] LABS: Glucose,Whole Blood 158 mg/dL (70-110)
--- NOTE | 2025-02-02 10:13 | P.PN ---
Subjective Progress Note Date: 02/02/25 PROGRESS NOTE The patient is a 69-year-old male with prior history of alcohol intake, history of chronic tobacco use was found by his family in the bathroom in the morning, unresponsive and tachypneic. He was brought into the emergency room and subsequently intubated. His pH was 6.96 after intubation. He had mild troponin elevation on presentation and he is in sinus mechanism. The history is obtained from the family apparently he has not consumed any alcohol since discharge but continues to smoke. He has dyspnea on exertion but has not complained of chest discomfort. He has prior history of syncope that was thought to be related to alcohol intake. His echocardiogram done during last admission told anesthesia showed an ejection fraction of 40%. He had no peripheral edema, dizziness or palpitation. February 02: The patient remains intubated, in sinus mechanism, hemodynamically stable on no vasopressors. According to the nursing staff earlier he was following command and moving all extremities. His ammonia level is better. He has no evidence of malignant arrhythmia. His urine output is stable. Medications: Aspirin, Lipitor 40 mg daily, clopidogrel 75 mg daily, insulin, PHYSICAL EXAMINATION: Blood pressure 144/70 heart rate 70, intubated and sedated LUNGS: Clear to auscultation HEART: Regular rate and rhythm, S1, S2. No S3. Systolic ejection murmur ABDOMEN: Soft, no organomegaly EXTREMETIES: No edema LAB: Hemoglobin 12.7, BUN 18, creatinine 0.8. pH 7.35, ammonia 19 was 121 yesterday IMPRESSION: 1. Respiratory arrest with severe respiratory acidosis and hypercapnia 2. Metabolic encephalopathy, most likely hepatic encephalopathy 3. History of alcoholism 4. History of COPD 5. Cardiomyopathy probable alcoholic cardiomyopathy 6. Right carotid obstruction 7. Hypothermia resolved PLAN: 1. Wean and extubate as tolerated 2. Continue supportive care 3. Depending on his progress further recommendations will be made Objective - Vital Signs Vital signs: Vital Signs Temp 97.4 F L 02/02/25 08:00 Pulse 71 02/02/25 09:00 Resp 26 H 02/02/25 09:00 BP 144/79 02/02/25 09:00 Pulse Ox 100 02/02/25 09:00 FiO2 40 02/02/25 10:05 Intake & Output 02/01/25 02/02/25 02/02/25 18:59 06:59 18:59 Intake Total 025.022 1308.126 258.174 Output Total 450 410 70 Balance -373.637 6490.126 188.174 Weight 68.039 kg 54 kg Intake: IV 100 1300 200 Sodium Chloride 0.9% 1, 100 1300 200 000 ml @ 100 mls/hr IV . Q10H [facility] Rx#:[id number] Intake, IV Titration 101.616 221.126 58.174 Amount Norepinephrine 4 mg In 2.074 Sodium Chloride 0.9% 250 ml @ 0.03 MCG/KG/MIN 7. 777 mls/hr IV .Q24H [facility] Rx#:[id number] propofoL 1,000 mg In 99.542 221.126 58.174 Empty Bag 1 bag @ 15 MCG/ KG/MIN 6.124 mls/hr IV . [id number] [facility] Rx#:[id number] Output: Urine 450 410 70 Uretheral (Rosario) 240 Other: Voiding Method Indwelling Catheter Indwelling Catheter Indwelling Catheter ABP, PAP, CO, CI - Last Documented Arterial Blood Pressure 157/67 - Labs CBC & Chem 7: 02/02/25 03:43 02/02/25 03:43 Labs: Abnormal Lab Results - Last 24 Hours (Table) 02/01/25 02/01/25 02/01/25 Range/Units 09:30 09:30 09:30 RBC (4.40-5.60) 10*6/uL Hgb (13.0-17.0) g/dL Hct (39.6-50.0) % MCV (80.0-97.0) fL MCH (27.0-32.0) pg ABG pH (7.35-7.45) ABG pCO2 (35-45) mmHg ABG pO2 (83-108) mmHg ABG HCO3 (21-25) mmol/L ABG Total CO2 (19-24) mmol/L ABG O2 Saturation (94-97) % Hemoglobin (13.0-17.5) gm/dL Chloride 108 H (98-107) mmol/L Glucose 231 H (74-99) mg/dL POC Glucose (mg/dL) (70-110) mg/dL Plasma Lactic Acid Yaakov 2.1 H* (0.7-2.0) mmol/L Calcium 8.3 L (8.4-10.2) mg/dL Magnesium (1.6-2.3) mg/dL Ammonia 74 H (<30) umol/L Cortisol 25.4 H (3.1-22.4) UG/DL 02/01/25 02/01/25 02/01/25 Range/Units 11:26 12:41 13:23 RBC (4.40-5.60) 10*6/uL Hgb (13.0-17.0) g/dL Hct (39.6-50.0) % MCV (80.0-97.0) fL MCH (27.0-32.0) pg ABG pH 7.22 L (7.35-7.45) ABG pCO2 64 H 46 H (35-45) mmHg ABG pO2 82 L (83-108) mmHg ABG HCO3 27 H 26 H (21-25) mmol/L ABG Total CO2 28 H 28 H (19-24) mmol/L ABG O2 Saturation 98.0 H (94-97) % Hemoglobin 12.0 L 12.5 L (13.0-17.5) gm/dL Chloride 111 H (98-107) mmol/L Glucose 104 H (74-99) mg/dL POC Glucose (mg/dL) (70-110) mg/dL Plasma Lactic Acid Yaakov (0.7-2.0) mmol/L Calcium 8.2 L (8.4-10.2) mg/dL Magnesium (1.6-2.3) mg/dL Ammonia (<30) umol/L Cortisol (3.1-22.4) UG/DL 02/01/25 02/02/25 02/02/25 Range/Units 23:18 03:42 03:43 RBC 3.65 L (4.40-5.60) 10*6/uL Hgb 12.7 L D (13.0-17.0) g/dL Hct 38.1 L (39.6-50.0) % MCV 104.4 H D (80.0-97.0) fL MCH 34.8 H (27.0-32.0) pg ABG pH (7.35-7.45) ABG pCO2 (35-45) mmHg ABG pO2 (83-108) mmHg ABG HCO3 (21-25) mmol/L ABG Total CO2 (19-24) mmol/L ABG O2 Saturation (94-97) % Hemoglobin (13.0-17.5) gm/dL Chloride (98-107) mmol/L Glucose (74-99) mg/dL POC Glucose (mg/dL) 149 H 153 H (70-110) mg/dL Plasma Lactic Acid Yaakov (0.7-2.0) mmol/L Calcium (8.4-10.2) mg/dL Magnesium (1.6-2.3) mg/dL Ammonia (<30) umol/L Cortisol (3.1-22.4) UG/DL 02/02/25 02/02/25 02/02/25 Range/Units 03:43 04:50 09:38 RBC (4.40-5.60) 10*6/uL Hgb (13.0-17.0) g/dL Hct (39.6-50.0) % MCV (80.0-97.0) fL MCH (27.0-32.0) pg ABG pH (7.35-7.45) ABG pCO2 (35-45) mmHg ABG pO2 (83-108) mmHg ABG HCO3 (21-25) mmol/L ABG Total CO2 25 H (19-24) mmol/L ABG O2 Saturation 97.8 H (94-97) % Hemoglobin 12.5 L (13.0-17.5) gm/dL Chloride 110 H (98-107) mmol/L Glucose 139 H (74-99) mg/dL POC Glucose (mg/dL) 158 H (70-110) mg/dL Plasma Lactic Acid Yaakov (0.7-2.0) mmol/L Calcium (8.4-10.2) mg/dL Magnesium 1.4 L (1.6-2.3) mg/dL Ammonia (<30) umol/L Cortisol (3.1-22.4) UG/DL Microbiology - Last 24 Hours (Table) 02/01/25 09:14 Gram Stain - Preliminary Sputum
[2025-02-02 10:38] LABS: ABG Base Excess -2.8 mmol/L; ABG HCO3 22 mmol/L (21-25); ABG Oxygen Saturation 99.2 % (94-97); ABG PCO2 37 mmHg (35-45); ABG PH 7.38 (7.35-7.45); ABG PO2 127 mmHg (83-108); ABG TCO2 23 mmol/L (19-24)
[2025-02-02 11:45] LABS: Glucose,Whole Blood 142 mg/dL (70-110)
--- NOTE | 2025-02-02 12:34 | P.PN ---
Subjective Progress Note Date: 02/02/25 Principal diagnosis: Acute hypoxic and hypercapnic Respiratory failure: Multifactorial This is a 69-year-old white male, history of alcohol abuse, tobacco dependence syndrome, patient was found this morning by his in the bathroom unresponsive and tachypneic. Brought into the emergency room, and upon arrival the patient was intubated. Initial venous blood gas reflected hypercapnia and severe respiratory acidosis with a pH of 6.96. ABG postintubation showed a pO2 of 82 pCO2 64 pH of 7.22 and this was on 40% FiO2 with tidal volume 400 and rate of 22. Then another ABG was done after adjustment of his rate came back showing a pO2 of 95 pCO2 46 pH of 7.37. His blood sugar was 99, lactic acid was normal found to have leukocytosis with WBC count of 17.76 hemoglobin 15.7 basic metabolic profile was relatively normal BUN is 17 creatinine 1.07 troponin was a bit elevated at 0.193 drug screen was negative viral screen was also negative. I saw the patient down in the ER, and I felt that this is most likely a presentation of acute hypercapnia related to underlying COPD or possible CVA. Patient had a CT of the brain which came back negative after evaluating the p atient in the ER, recommended admission to ICU, discussed his condition with his briefly at bedside. Urinalysis did show evidence of hematuria, negative leukocyte esterase and negative nitrites. Patient was seen today on 02/02/2025, patient remains in the ICU, intubated and mechanically ventilated, on assist-control rate of 26 tidal volume 400 FiO2 40% PEEP of 5 ABG showed a pO2 of 99 pCO2 43 pH of 7.35. Patient is presently on 10 mcg/kg/min of propofol, and I have recommended holding the propofol altogether to be able to address for possible weaning today. Patient is empirically on an tibiotics in the form of cefepime and vancomycin as his presentation was rather vague, and the admitting physician was concerned about sepsis. Chest x-ray is showing improvement compared to admission chest x-ray yesterday. Strongly doubt pneumonia. WBC count today is normal hemoglobin is 12.7 electrolytes are all normal renal profile is normal, blood sugar is 153. Ammonia level today is down to 19 from 74 yesterday. Procalcitonin level is 0.06, will discontinue vancomycin and continue cefepime for now until all cultures are back we will likely discontinue cefepime in the next 24 hours. Objective - Vital Signs Vital signs: Vital Signs Temp 97.4 F L 02/02/25 08:00 Pulse 90 02/02/25 11:00 Resp 26 H 02/02/25 11:00 BP 152/81 02/02/25 10:00 Pulse Ox 97 02/02/25 11:00 FiO2 35 02/02/25 11:00 Intake & Output 02/01/25 02/02/25 02/02/25 18:59 06:59 18:59 Intake Total 918.325 9090.126 473.143 Output Total 450 410 135 Balance -834.387 9817.126 338.143 Weight 68.039 kg 54 kg 54 kg Intake: IV 100 1300 400 Sodium Chloride 0.9% 1, 100 1300 400 000 ml @ 100 mls/hr IV . Q10H [facility] Rx#:[id number] Intake, IV Titration 101.616 221.126 73.143 Amount Norepinephrine 4 mg In 2.074 Sodium Chloride 0.9% 250 ml @ 0.03 MCG/KG/MIN 7. 777 mls/hr IV .Q24H [facility] Rx#:[id number] propofoL 1,000 mg In 99.542 221.126 73.143 Empty Bag 1 bag @ 15 MCG/ KG/MIN 6.124 mls/hr IV . [id number] [facility] Rx#:[id number] Output: Urine 450 410 135 Uretheral (Rosario) 240 Other: Voiding Method Indwelling Catheter Indwelling Catheter Indwelling Catheter ABP, PAP, CO, CI - Last Documented Arterial Blood Pressure 175/76 - Exam Physical Examination: Revealed a 69-year-old white male intubated mechanically ventilated, opens eyes, follows very simple instructions Head: Atraumatic, normocephalic Eyes: PERRLA, EOMI, nonicteric. Throat: Clear, endotracheal tube is intact orogastric tube is intact. Neck: Supple no neck masses no JVD no stridor. Lungs: Diminished breath sounds at bases no rhonchi no wheezes Heart: Distant S1-S2, no S3 gallop. Abdomen: Soft nontender no megaly no rebound no guarding Extremities: No clubbing edema or cyanosis Neurologic exam: Remains on low-dose of propofol however he is opening eyes and follows simple instructions like closing eyes wiggling toes squeezing hands Psychiatric: Could not fully assess.. - Labs CBC & Chem 7: 02/02/25 03:43 02/02/25 03:43 Labs: Abnormal Lab Results - Last 24 Hours (Table) 02/01/25 02/01/25 02/01/25 Range/Units 09:30 12:41 13:23 RBC (4.40-5.60) 10*6/uL Hgb (13.0-17.0) g/dL Hct (39.6-50.0) % MCV (80.0-97.0) fL MCH (27.0-32.0) pg ABG pCO2 46 H (35-45) mmHg ABG HCO3 26 H (21-25) mmol/L ABG Total CO2 28 H (19-24) mmol/L ABG O2 Saturation 98.0 H (94-97) % Hemoglobin 12.5 L (13.0-17.5) gm/dL Chloride 111 H (98-107) mmol/L Glucose 104 H (74-99) mg/dL POC Glucose (mg/dL) (70-110) mg/dL Calcium 8.2 L (8.4-10.2) mg/dL Magnesium (1.6-2.3) mg/dL Cortisol 25.4 H (3.1-22.4) UG/DL 02/01/25 02/02/25 02/02/25 Range/Units 23:18 03:42 03:43 RBC 3.65 L (4.40-5.60) 10*6/uL Hgb 12.7 L D (13.0-17.0) g/dL Hct 38.1 L (39.6-50.0) % MCV 104.4 H D (80.0-97.0) fL MCH 34.8 H (27.0-32.0) pg ABG pCO2 (35-45) mmHg ABG HCO3 (21-25) mmol/L ABG Total CO2 (19-24) mmol/L ABG O2 Saturation (94-97) % Hemoglobin (13.0-17.5) gm/dL Chloride (98-107) mmol/L Glucose (74-99) mg/dL POC Glucose (mg/dL) 149 H 153 H (70-110) mg/dL Calcium (8.4-10.2) mg/dL Magnesium (1.6-2.3) mg/dL Cortisol (3.1-22.4) UG/DL 02/02/25 02/02/25 02/02/25 Range/Units 03:43 04:50 09:38 RBC (4.40-5.60) 10*6/uL Hgb (13.0-17.0) g/dL Hct (39.6-50.0) % MCV (80.0-97.0) fL MCH (27.0-32.0) pg ABG pCO2 (35-45) mmHg ABG HCO3 (21-25) mmol/L ABG Total CO2 25 H (19-24) mmol/L ABG O2 Saturation 97.8 H (94-97) % Hemoglobin 12.5 L (13.0-17.5) gm/dL Chloride 110 H (98-107) mmol/L Glucose 139 H (74-99) mg/dL POC Glucose (mg/dL) 158 H (70-110) mg/dL Calcium (8.4-10.2) mg/dL Magnesium 1.4 L (1.6-2.3) mg/dL Cortisol (3.1-22.4) UG/DL 02/02/25 Range/Units 11:43 RBC (4.40-5.60) 10*6/uL Hgb (13.0-17.0) g/dL Hct (39.6-50.0) % MCV (80.0-97.0) fL MCH (27.0-32.0) pg ABG pCO2 (35-45) mmHg ABG HCO3 (21-25) mmol/L ABG Total CO2 (19-24) mmol/L ABG O2 Saturation (94-97) % Hemoglobin (13.0-17.5) gm/dL Chloride (98-107) mmol/L Glucose (74-99) mg/dL POC Glucose (mg/dL) 142 H (70-110) mg/dL Calcium (8.4-10.2) mg/dL Magnesium (1.6-2.3) mg/dL Cortisol (3.1-22.4) UG/DL Microbiology - Last 24 Hours (Table) 02/01/25 09:14 Gram Stain - Preliminary Sputum Assessment and Plan Assessment: Impression: Acute hypoxic and hypercapnic respiratory failure with severe respiratory acid osis and profoundly low pH on presentation Acute toxic metabolic encephalopathy most likely secondary to hypercapnia, and related to hepatic encephalopathy with elevated bated ammonia level History of alcoholism History of underlying COPD which is another contributing factor to his hypercapnia Hyperkalemia secondary to respiratory acidosis with profoundly low pH History of underlying cardiomyopathy ejection fraction of 40% most likely related to his alcoholism. History of benign essential hypertension Tobacco dependence syndrome Recommendation: Continue ventilatory support however I will give the patient today a trial of weaning if he does well, and this will be addressed after stopping propofol. Hold lactulose today. Since his ammonia level is normal Continue bronchodilators for underlying COPD Continue to monitor electrolytes and correct accordingly Continue GI and DVT prophylaxis Discontinue vancomycin, will likely discontinue cefepime in the next 24 hours Continue CIWA protocol Patient is critically ill Critical care time is 34 minutes Prognosis is guarded, will continue to follow Time with Patient: Greater than 30
--- NOTE | 2025-02-02 12:37 | P.PN ---
Subjective Progress Note Date: 02/02/25 Hospital Course: Patient is a 69-year-old male with past medical history of alcohol abuse, hype rtension, SVTs,, history of mildly impaired LV function EF 40%, tobacco use disorder, dyslipidemia, recently discharged from our institution on 01/13/2025 after being admitted for alcohol intoxication, fall, underwent cardiology evaluation for elevated troponin, TTE showed EF of 40% with hypokinesis involving the inferior wall, was recommended to undergo heart cath as outpatient, discharged on Plavix and aspirin, statins, hypertension meds., Presented to the ER on 02/01 with altered mental status. History obtained from chart review due to acuity of condition and patient being intubated. History obtained from patient's who he lives with, patient's children provide with collateral history as well. Patient has been doing generally well after his discharge, family only noted some shortness of breath going up and down stairs. He stopped drinking alcohol. Said his usual state of health yesterday evening had a dinner, went to the bed at the noon time. His found him on 02/01 in the bathroom on the floor, unconscious, not responding, moaning, with eyes staring at the ceiling. She called EMS and patient was brought here No fevers, chills, sick contacts, no unusual symptoms reported by patient's family On arrival hypothermic temperature 89.4, bradycardic heart rate 53, respirations 11 on mechanical ventilation, blood pressure soft 105/62, SpO2 100% on FiO2 40%. Lab work significant for leukocytosis 17.7, normal hemoglobin and platelet count, normal coagulation panel ABG showed severe respiratory acidosis with pH of 6.96, pCO2 more than 98, pO2 more than 420, UDS negative, UA positive for protein, glucose, negative for UTI. EKG showed sinus rhythm with heart rate of 90s, QTc 430, ST depression in V4, V5, V6, lead II, personally reviewed CT brain showed no acute process, chronic white matter ischemic type changes, age-related atrophy. CTA head and neck showed bilateral pleural effusions, mild diffuse increased lung marking, right internal carotid artery appears to be obstructed at its origin, vascular calcification of the left internal carotid artery Chest x-ray showed no acute cardiopulmonary process, ETT tube in place, NG tube in place Patient was admitted for further management of acute hypoxic hypercapnic respiratory failure requiring intubation, severe respiratory acidosis, elevated troponin. Vascular surgery consulted and recommended carotid duplex that showed occlusion of the right internal carotid artery and large plaques on the left with moderate stenosis of approximately 50%. Cardiology consulted, recommended conservative management for now. Patient was extubated on 02/02, placed on nasal cannula Pertinent Imaging: On chest x-ray there was just mild increased pulmonary vasculature Subjective: Patient was seen and examined while still intubated Pertinent positives and negatives as discussed above, a complete review of systems was performed and all other systems are negative. Vitals Signs Reviewed. General: Intubated, nontoxic-appearing Derm: warm, dry Head: Bruising present Eyes: EOMI, no lid lag, anicteric sclera, pupils equal round reactive to light ENT: Nose and ears atraumatic Neck: No thyromegaly, supple Mouth: no lip lesion, mucus membranes moist, ETT and NG in place Cardiovascular: S1S2 reg, no murmur, no edema Lungs: Some bilateral rhonchi, , no wheeze, Abdominal: soft, nontender to palpation, no guarding, no appreciable organomegaly Ext: no gross muscle atrophy, unable to perform full exam as patient is i ntubated and sedated Neuro: Intact cranial nerves, follows simple command Psych: Unable to perform full evaluation, patient is calm appearing, still intubated during my exam Data Reviewed Today: Pertinent Labs: WBC normal, hemoglobin 12.7, platelet count normal, ABG normal pH 7.35, pCO2 and pO2 normal, sodium and potassium normal, bicarb normal, creatinine normal, blood glucose is well-controlled, magnesium 1.4, ammonia 19 Assessment and Plan: Acute hypoxic hypercapnic respiratory failure quiring intubation02/01, s/p extubation 02/02 Severe respiratory acidosis, resolved SIRS hypothermia, leukocytosis, resolved Elevated troponin Acute toxic metabolic encephalopathy Right internal carotid artery obstruction Hyperammonemia, resolved hyperKalemia, resolved -ICU consulted, appreciate recommendations -Cardiology and vascular surgery consulted, appreciate recommendations -Started on broad-spectrum antibiotics cefepime 2 g every 12 hours, for vancomycin 1250 mg, pharmacy to dose, monitor for renal toxicity with daily BMP. Recently admitted as inpatient status provided with MRSA and pseudomonal coverage -MRSA swab, blood cultures, sputum cultures ordered and pending -Follow-up lactic acid level, procalcitonin, Cepheid ordered and pending -Accu-Cheks every 6 hours, hypoglycemia protocol, low intensity SSI -Continue telemetry, strict I's and O's HFrEF EF 40% not in acute exacerbation Hypokinesis involving the inferior wall Alcohol abuse Hypertension -Continue with aspirin 81 mg daily, atorvastatin 40 mg nightly, clopidogrel 75 mg daily, Coreg 12.5 twice daily, losartan 25 p.o. daily -Cardiology following CODE STATUS: Full code DVT prophylaxis: Heparin Anticipated discharge date: TBD Anticipated discharge place: TBD Objective - Vital Signs Vital signs: Vital Signs Temp 97.4 F L 02/02/25 08:00 Pulse 90 02/02/25 11:00 Resp 26 H 02/02/25 11:00 BP 152/81 02/02/25 10:00 Pulse Ox 97 02/02/25 11:00 FiO2 35 02/02/25 11:00 Intake & Output 02/01/25 02/02/25 02/02/25 18:59 06:59 18:59 Intake Total 875.601 6065.126 473.143 Output Total 450 410 135 Balance -238.129 2759.126 338.143 Weight 68.039 kg 54 kg 54 kg Intake: IV 100 1300 400 Sodium Chloride 0.9% 1, 100 1300 400 000 ml @ 100 mls/hr IV . Q10H [facility] Rx#:[id number] Intake, IV Titration 101.616 221.126 73.143 Amount Norepinephrine 4 mg In 2.074 Sodium Chloride 0.9% 250 ml @ 0.03 MCG/KG/MIN 7. 777 mls/hr IV .Q24H [facility] Rx#:[id number] propofoL 1,000 mg In 99.542 221.126 73.143 Empty Bag 1 bag @ 15 MCG/ KG/MIN 6.124 mls/hr IV . [id number] [facility] Rx#:[id number] Output: Urine 450 410 135 Uretheral (Rosario) 240 Other: Voiding Method Indwelling Catheter Indwelling Catheter Indwelling Catheter ABP, PAP, CO, CI - Last Documented Arterial Blood Pressure 175/76 - Labs CBC & Chem 7: 02/02/25 03:43 02/02/25 03:43 Labs: Abnormal Lab Results - Last 24 Hours (Table) 02/01/25 02/01/25 02/01/25 Range/Units 09:30 12:41 13:23 RBC (4.40-5.60) 10*6/uL Hgb (13.0-17.0) g/dL Hct (39.6-50.0) % MCV (80.0-97.0) fL MCH (27.0-32.0) pg ABG pCO2 46 H (35-45) mmHg ABG HCO3 26 H (21-25) mmol/L ABG Total CO2 28 H (19-24) mmol/L ABG O2 Saturation 98.0 H (94-97) % Hemoglobin 12.5 L (13.0-17.5) gm/dL Chloride 111 H (98-107) mmol/L Glucose 104 H (74-99) mg/dL POC Glucose (mg/dL) (70-110) mg/dL Calcium 8.2 L (8.4-10.2) mg/dL Magnesium (1.6-2.3) mg/dL Cortisol 25.4 H (3.1-22.4) UG/DL 02/01/25 02/02/25 02/02/25 Range/Units 23:18 03:42 03:43 RBC 3.65 L (4.40-5.60) 10*6/uL Hgb 12.7 L D (13.0-17.0) g/dL Hct 38.1 L (39.6-50.0) % MCV 104.4 H D (80.0-97.0) fL MCH 34.8 H (27.0-32.0) pg ABG pCO2 (35-45) mmHg ABG HCO3 (21-25) mmol/L ABG Total CO2 (19-24) mmol/L ABG O2 Saturation (94-97) % Hemoglobin (13.0-17.5) gm/dL Chloride (98-107) mmol/L Glucose (74-99) mg/dL POC Glucose (mg/dL) 149 H 153 H (70-110) mg/dL Calcium (8.4-10.2) mg/dL Magnesium (1.6-2.3) mg/dL Cortisol (3.1-22.4) UG/DL 02/02/25 02/02/25 02/02/25 Range/Units 03:43 04:50 09:38 RBC (4.40-5.60) 10*6/uL Hgb (13.0-17.0) g/dL Hct (39.6-50.0) % MCV (80.0-97.0) fL MCH (27.0-32.0) pg ABG pCO2 (35-45) mmHg ABG HCO3 (21-25) mmol/L ABG Total CO2 25 H (19-24) mmol/L ABG O2 Saturation 97.8 H (94-97) % Hemoglobin 12.5 L (13.0-17.5) gm/dL Chloride 110 H (98-107) mmol/L Glucose 139 H (74-99) mg/dL POC Glucose (mg/dL) 158 H (70-110) mg/dL Calcium (8.4-10.2) mg/dL Magnesium 1.4 L (1.6-2.3) mg/dL Cortisol (3.1-22.4) UG/DL 02/02/25 Range/Units 11:43 RBC (4.40-5.60) 10*6/uL Hgb (13.0-17.0) g/dL Hct (39.6-50.0) % MCV (80.0-97.0) fL MCH (27.0-32.0) pg ABG pCO2 (35-45) mmHg ABG HCO3 (21-25) mmol/L ABG Total CO2 (19-24) mmol/L ABG O2 Saturation (94-97) % Hemoglobin (13.0-17.5) gm/dL Chloride (98-107) mmol/L Glucose (74-99) mg/dL POC Glucose (mg/dL) 142 H (70-110) mg/dL Calcium (8.4-10.2) mg/dL Magnesium (1.6-2.3) mg/dL Cortisol (3.1-22.4) UG/DL Microbiology - Last 24 Hours (Table) 02/01/25 09:14 Gram Stain - Preliminary Sputum
[2025-02-02 12:44] LABS: Allen Test Performed? No
[2025-02-02] MEDS: carvediloL 12.5 MG TAB PO SCH (15:47)
[2025-02-02] MEDS: LOSARTAN 25 MG TAB PO SCH (15:47)
[2025-02-02] MEDS: CLEVIDIPINE BUTYRATE 25 MG in EMPTY BAG 1 BAG IV SCH (17:03)
[2025-02-02 17:27] LABS: Glucose,Whole Blood 139 mg/dL (70-110)
[2025-02-02] MEDS: VANCOMYCIN 1,000 MG in SODIUM CHLORIDE 0.9% 250 ML IVPB SCH (17:46)
[2025-02-02] MEDS: FUROSEMIDE 10 MG/ML 4 ML VIAL ONE (18:25)
[2025-02-02] MEDS: FUROSEMIDE 10 MG/ML 2 ML VIAL IV ONE (18:26)
--- NOTE | 2025-02-02 18:38 | XR ---
EXAMINATION TYPE: XR chest 1V portable DATE OF EXAM: 02/02/2025 6:29 PM COMPARISON: None. CLINICAL INDICATION: Male, 69 years old with history of Shortness of Breath, TECHNIQUE: XR chest 1V portable view(s) obtained. FINDINGS: The heart size is normal. The pulmonary vasculature is upper limits for normal. Mild diffuse increased lung markings are present. Findings appear similar to prior exam. Correlate fo r mild diffuse pulmonary edema and volume overload. Endotracheal tube and nasogastric tube in removed. IMPRESSION: 1. Mild stable appearing diffuse pulmonary edema. 2. Lines and catheters been removed. [facility], , 02/02/2025 6:35 PM
[2025-02-02 23:20] LABS: Glucose,Whole Blood 152 mg/dL (70-110)
[2025-02-03] MEDS ORDERED: VANCOMYCIN TROUGH DUE 1 EACH MISC MISCELLANE ONE (05:00)
[2025-02-03 05:19] LABS: Basophils # (A) 0.01 10*3/uL (0.00-0.10); Basophils % (A) 0.1 %; HCT 37.3 % (39.6-50.0); HGB 12.5 g/dL (13.0-17.0); Lymphocytes # (A) 0.92 10*3/uL (0.90-5.00); Lymphocytes % (A) 6.7 %; MCH 34.7 pg (27.0-32.0); MCHC 33.5 g/dL (32.0-37.0); MCV 103.6 fL (80.0-97.0); Monocytes # (A) 0.66 10*3/uL (0.20-1.00); Monocytes % (A) 4.8 %; Neutrophils # (A) 12.04 10*3/uL (1.80-7.70); Neutrophils % (A) 87.8 %; Platelet Count 152 10*3/uL (140-440); RDW 12.4 % (11.5-14.5); WBC 13.71 10*3/uL (4.50-10.00)
[2025-02-03 05:35] LABS: African American GFR (CKD) >90 (>60 ml/min/1.73 sqM); Anion Gap 8 mmol/L; Blood Urea Nitrogen 25 mg/dL (9-20); Carbon Dioxide 24 mmol/L (22-30); Chloride 107 mmol/L (98-107); Glucose 154 mg/dL (74-99); Non-African American GFR(CKD) >90 (>60 ml/min/1.73 sqM); Potassium 3.8 mmol/L (3.5-5.1); Sodium 139 mmol/L (137-145)
[2025-02-03 05:36] LABS: Calcium 9.3 mg/dL (8.4-10.2); Magnesium 1.8 mg/dL (1.6-2.3)
[2025-02-03 06:03] LABS: Glucose,Whole Blood 145 mg/dL (70-110)
--- NOTE | 2025-02-03 08:15 | XR ---
EXAMINATION TYPE: XR chest 1V portable DATE OF EXAM: 02/03/2025 4:54 AM COMPARISON: 02/02/2025. CLINICAL INDICATION: Male, 69 years old with history of Post extubation/possible aspiration, TECHNIQUE: XR chest 1V portable view(s) obtained. FINDINGS: The heart size is normal. The pulmonary vasculature is prominent. Bibasilar infiltrates are present. This may be more focal in the right lower lobe. Atelectasis pneum onia or atypical pulmonary edema and aspiration pneumonia could be considered. IMPRESSION: 1. Prominent vascular markings and increasing diffuse infiltrates. Correlate for pulmonary edema. Fol low-up recommended. 2. May be slightly greater infiltrate in the right lower lobe. Aspiration could be considered. Atypic al pulmonary edema, atelectasis, and pneumonia are within the differential. [facility], , 02/03/2025 8:12 AM
[2025-02-03] MEDS: FOLIC ACID 1 MG TAB PO SCH (08:56)
[2025-02-03] MEDS: FUROSEMIDE 10 MG/ML 2 ML VIAL IV ONE (08:56)
[2025-02-03] MEDS: THIAMINE 100 MG TAB PO SCH (08:56)
[2025-02-03] MEDS: POTASSIUM CHLORIDE ER 20 MEQ TAB.ER PO SCH ×2 (08:56→19:44)
[2025-02-03] MEDS: MAGNESIUM SULFATE-D5W PMX 1 GM in DEXTROSE/WATER 1 100ML.BAG IVPB ONE (08:57)
[2025-02-03] MEDS ORDERED: LOSARTAN 25 MG TAB PO SCH (09:00)
--- NOTE | 2025-02-03 09:46 | P.PN ---
Subjective Progress Note Date: 02/03/25 PROGRESS NOTE The patient is a 69-year-old male with prior history of alcohol intake, history of chronic tobacco use was found by his family in the bathroom in the morning, unresponsive and tachypneic. He was brought into the emergency room and subsequently intubated. His pH was 6.96 after intubation. He had mild troponin elevation on presentation and he is in sinus mechanism. The history is obtained from the family apparently he has not consumed any alcohol since discharge but continues to smoke. He has dyspnea on exertion but has not complained of chest discomfort. He has prior history of syncope that was thought to be related to alcohol intake. His echocardiogram done during last admission told anesthesia showed an ejection fraction of 40%. He had no peripheral edema, dizziness or palpitation. February 02: The patient remains intubated, in sinus mechanism, hemodynamically stable on no vasopressors. According to the nursing staff earlier he was following command and moving all extremities. His ammonia level is better. He has no evidence of malignant arrhythmia. His urine output is stable. February 03: The patient is extubated, awake and alert, denying any chest discomfort, dizzi ness or palpitations. His breathing is stable. He denies any nausea or vomiting. He is in sinus mechanism. His urinary output is stable. Medications: Aspirin, Lipitor 40 mg daily, clopidogrel 75 mg daily, insulin, losartan 25 mg daily, carvedilol 12.5 mg twice a day PHYSICAL EXAMINATION: Blood pressure 150/50 heart rate 84 LUNGS: Clear to auscultation HEART: Regular rate and rhythm, S1, S2. No S3. Systolic ejection murmur ABDOMEN: Soft, no organomegaly, nontender EXTREMETIES: No edema LAB: Hemoglobin 12.5, BUN 25, creatinine 0.76. Potassium 3.8, ammonia 19 IMPRESSION: 1. Respiratory arrest with severe respiratory acidosis and hypercapnia, extubated 2. Metabolic encephalopathy, most likely hepatic encephalopathy 3. History of alcoholism 4. History of COPD 5. Cardiomyopathy probable alcoholic cardiomyopathy 6. Right carotid obstruction 7. Hypothermia resolved PLAN: 1. Follow blood pressure and if needed increase the dose of losartan 2. Continue beta-kevin, statin and clopidogrel 3. Increase physical activity 4. Depending on his progress further recommendations will be made Objective - Vital Signs Vital signs: Vital Signs Temp 99.0 F 02/03/25 05:00 Pulse 87 02/03/25 08:09 Resp 22 02/03/25 07:00 BP 161/88 02/03/25 02:00 Pulse Ox 97 02/03/25 07:00 FiO2 35 02/03/25 00:48 Intake & Output 02/02/25 02/03/25 02/03/25 18:59 06:59 18:59 Intake Total 1035.276 342.434 20 Output Total 410 1495 75 Balance 625.276 -1152.566 -55 Weight 54 kg 55.5 kg Intake: IV 960 320 20 Cefepime 2 gm In Dextrose 100 5% in Water 100 ml @ 25 mls/hr IVPB Q12HR [facility] Rx# :[id number] Sodium Chloride 0.9% 1, 960 220 20 000 ml @ 100 mls/hr IV . Q10H [facility] Rx#:[id number] Intake, IV Titration 75.276 22.434 Amount Clevidipine Butyrate 25 2.133 22.434 mg In Empty Bag 1 bag @ 1 MG/HR 2 mls/hr IV .Q24H [facility] Rx#:[id number] propofoL 1,000 mg In 73.143 Empty Bag 1 bag @ 15 MCG/ KG/MIN 6.124 mls/hr IV . [id number] [facility] Rx#:[id number] Output: Urine 410 1495 75 Other: Voiding Method Indwelling Catheter Indwelling Catheter # Bowel Movements 1 ABP, PAP, CO, CI - Last Documented Arterial Blood Pressure 157/60 - Labs CBC & Chem 7: 02/03/25 04:40 02/03/25 05:01 Labs: Abnormal Lab Results - Last 24 Hours (Table) 02/02/25 02/02/25 02/02/25 Range/Units 10:36 11:43 17:24 WBC (4.50-10.00) 10*3/uL RBC (4.40-5.60) 10*6/uL Hgb (13.0-17.0) g/dL Hct (39.6-50.0) % MCV (80.0-97.0) fL MCH (27.0-32.0) pg Immature Gran # (0.00-0.04) 10*3/uL Neutrophils # (1.80-7.70) 10*3/uL Eosinophils # (0.04-0.35) 10*3/uL ABG pO2 127 H (83-108) mmHg ABG O2 Saturation 99.2 H (94-97) % BUN (9-20) mg/dL Glucose (74-99) mg/dL POC Glucose (mg/dL) 142 H 139 H (70-110) mg/dL 02/02/25 02/03/25 02/03/25 Range/Units 23:19 04:40 05:01 WBC 13.71 H (4.50-10.00) 10*3/uL RBC 3.60 L (4.40-5.60) 10*6/uL Hgb 12.5 L (13.0-17.0) g/dL Hct 37.3 L (39.6-50.0) % MCV 103.6 H (80.0-97.0) fL MCH 34.7 H (27.0-32.0) pg Immature Gran # 0.08 H (0.00-0.04) 10*3/uL Neutrophils # 12.04 H (1.80-7.70) 10*3/uL Eosinophils # 0.00 L (0.04-0.35) 10*3/uL ABG pO2 (83-108) mmHg ABG O2 Saturation (94-97) % BUN 25 H (9-20) mg/dL Glucose 154 H (74-99) mg/dL POC Glucose (mg/dL) 152 H (70-110) mg/dL 02/03/25 Range/Units 06:02 WBC (4.50-10.00) 10*3/uL RBC (4.40-5.60) 10*6/uL Hgb (13.0-17.0) g/dL Hct (39.6-50.0) % MCV (80.0-97.0) fL MCH (27.0-32.0) pg Immature Gran # (0.00-0.04) 10*3/uL Neutrophils # (1.80-7.70) 10*3/uL Eosinophils # (0.04-0.35) 10*3/uL ABG pO2 (83-108) mmHg ABG O2 Saturation (94-97) % BUN (9-20) mg/dL Glucose (74-99) mg/dL POC Glucose (mg/dL) 145 H (70-110) mg/dL Microbiology - Last 24 Hours (Table) 02/01/25 09:14 Gram Stain - Final Sputum Sputum Culture - Final 02/01/25 09:50 Nasal Screen MRSA/MSSA - Final Nasal Swab Staphylococcus aureus,Not MRSA 02/01/25 09:30 Blood Culture - Preliminary Blood 02/01/25 09:03 Urine Culture - Final Urine,Voided
--- NOTE | 2025-02-03 09:54 | P.PN ---
Subjective Progress Note Date: 02/03/25 Hospital Course: Patient is a 69-year-old male with past medical history of alcohol abuse, hype rtension, SVTs,, history of mildly impaired LV function EF 40%, tobacco use disorder, dyslipidemia, recently discharged from our institution on 01/13/2025 after being admitted for alcohol intoxication, fall, underwent cardiology evaluation for elevated troponin, TTE showed EF of 40% with hypokinesis involving the inferior wall, was recommended to undergo heart cath as outpatient, discharged on Plavix and aspirin, statins, hypertension meds., Presented to the ER on 02/01 with altered mental status. History obtained from chart review due to acuity of condition and patient being intubated. History obtained from patient's who he lives with, patient's children provide with collateral history as well. Patient has been doing generally well after his discharge, family only noted some shortness of breath going up and down stairs. He stopped drinking alcohol. Said his usual state of health yesterday evening had a dinner, went to the bed at the noon time. His found him on 02/01 in the bathroom on the floor, unconscious, not responding, moaning, with eyes staring at the ceiling. She called EMS and patient was brought here No fevers, chills, sick contacts, no unusual symptoms reported by patient's family On arrival hypothermic temperature 89.4, bradycardic heart rate 53, respirations 11 on mechanical ventilation, blood pressure soft 105/62, SpO2 100% on FiO2 40%. Lab work significant for leukocytosis 17.7, normal hemoglobin and platelet count, normal coagulation panel ABG showed severe respiratory acidosis with pH of 6.96, pCO2 more than 98, pO2 more than 420, UDS negative, UA positive for protein, glucose, negative for UTI. EKG showed sinus rhythm with heart rate of 90s, QTc 430, ST depression in V4, V5, V6, lead II, personally reviewed CT brain showed no acute process, chronic white matter ischemic type changes, age-related atrophy. CTA head and neck showed bilateral pleural effusions, mild diffuse increased lung marking, right internal carotid artery appears to be obstructed at its origin, vascular calcification of the left internal carotid artery Chest x-ray showed no acute cardiopulmonary process, ETT tube in place, NG tube in place Patient was admitted for further management of acute hypoxic hypercapnic respiratory failure requiring intubation, severe respiratory acidosis, elevated troponin. Vascular surgery consulted and recommended carotid duplex that showed occlusion of the right internal carotid artery and large plaques on the left with moderate stenosis of approximately 50%. Cardiology consulted, recommended conservative management for now. Patient was extubated on 02/02, placed on nasal cannula 02/03: Short of breath overnight, required BiPAP, now on 2 L oxygen, chest x-ray with signs of pulmonary edema, received Lasix 20 IV once. Nasal swab positive for Staphylococcus not MRSA, final sputum and urine cultures negative, blood cultures preliminary negative, vancomycin discontinued, cefepime continued Subjective: Complains of shallow breathing, feeling weak, denies chest pain, abdominal pain Pertinent positives and negatives as discussed above, a complete review of systems was performed and all other systems are negative. Vitals Signs Reviewed. General: Chronically ill-appearing, nontoxic Derm: warm, dry Head: Bruising present Eyes: EOMI, no lid lag, anicteric sclera, pupils equal round reactive to light ENT: Nose and ears atraumatic Neck: No thyromegaly, supple Mouth: no lip lesion, mucus membranes moist Cardiovascular: S1S2 reg, no murmur, no edema Lungs: Some bilateral rhonchi, , no wheeze, Abdominal: soft, nontender to palpation, no guarding, no appreciable organomegaly Ext: no gross muscle atrophy, unable to perform full exam as patient is intubated and sedated Neuro: Intact cranial nerves, follows simple command Psych: Unable to perform full evaluation, patient is calm appearing, still intubated during my exam Data Reviewed Today: Pertinent Labs: Leukocytosis 13.7, hemoglobin 12.5, platelet count normal, sodium, potassium, bicarb, creatinine normal, glucose controlled, ammonia 19, magnesium 1.8 Assessment and Plan: Acute hypoxic hypercapnic respiratory failure quiring intubation02/01, s/p ex tubation 02/02 Severe respiratory acidosis, resolved SIRS hypothermia, leukocytosis, resolved Elevated troponin Acute toxic metabolic encephalopathy Right internal carotid artery obstruction Hyperammonemia, resolved hyperKalemia, resolved -ICU consulted, appreciate recommendations -Cardiology and vascular surgery consulted, appreciate recommendations -Continue cefepime 2 g every 12 hours SOT 06/03 -MRSA swab -Staphylococcus not MRSA, blood cultures preliminary negative, sputum cultures and urine cultures finalized, negative -Accu-Cheks every 6 hours, hypoglycemia protocol, low intensity SSI -Continue telemetry, strict I's and O's -Continue supplemental oxygen, wean off as tolerated -On Solu-Medrol 60 mg IV every 6 hours HFrEF EF 40% exacerbation Hypokinesis involving the inferior wall Hypertension -Lasix 20 mg IV twice daily -Continue with aspirin 81 mg daily, atorvastatin 40 mg nightly, clopidogrel 75 mg daily, Coreg 12.5 twice daily, losartan 25 p.o. daily -Cardiology following Alcohol abuse -Quit after last admission per patient's -Will continue with thiamine 100 mg p.o. daily, folic acid 1 mg p.o. daily CODE STATUS: Full code DVT prophylaxis: Heparin Anticipated discharge date: TBD Anticipated discharge place: TBD Objective - Vital Signs Vital signs: Vital Signs Temp 99.0 F 02/03/25 05:00 Pulse 87 02/03/25 08:09 Resp 22 02/03/25 07:00 BP 161/88 02/03/25 02:00 Pulse Ox 97 02/03/25 07:00 FiO2 35 02/03/25 00:48 Intake & Output 02/02/25 02/03/25 02/03/25 18:59 06:59 18:59 Intake Total 1035.276 342.434 20 Output Total 410 1495 75 Balance 625.276 -1152.566 -55 Weight 54 kg 55.5 kg Intake: IV 960 320 20 Cefepime 2 gm In Dextrose 100 5% in Water 100 ml @ 25 mls/hr IVPB Q12HR [facility] Rx# :[id number] Sodium Chloride 0.9% 1, 960 220 20 000 ml @ 100 mls/hr IV . Q10H [facility] Rx#:[id number] Intake, IV Titration 75.276 22.434 Amount Clevidipine Butyrate 25 2.133 22.434 mg In Empty Bag 1 bag @ 1 MG/HR 2 mls/hr IV .Q24H [facility] Rx#:[id number] propofoL 1,000 mg In 73.143 Empty Bag 1 bag @ 15 MCG/ KG/MIN 6.124 mls/hr IV . [id number] [facility] Rx#:[id number] Output: Urine 410 1495 75 Other: Voiding Method Indwelling Catheter Indwelling Catheter # Bowel Movements 1 ABP, PAP, CO, CI - Last Documented Arterial Blood Pressure 157/60 - Labs CBC & Chem 7: 02/03/25 04:40 02/03/25 05:01 Labs: Abnormal Lab Results - Last 24 Hours (Table) 02/02/25 02/02/25 02/02/25 Range/Units 10:36 11:43 17:24 WBC (4.50-10.00) 10*3/uL RBC (4.40-5.60) 10*6/uL Hgb (13.0-17.0) g/dL Hct (39.6-50.0) % MCV (80.0-97.0) fL MCH (27.0-32.0) pg Immature Gran # (0.00-0.04) 10*3/uL Neutrophils # (1.80-7.70) 10*3/uL Eosinophils # (0.04-0.35) 10*3/uL ABG pO2 127 H (83-108) mmHg ABG O2 Saturation 99.2 H (94-97) % BUN (9-20) mg/dL Glucose (74-99) mg/dL POC Glucose (mg/dL) 142 H 139 H (70-110) mg/dL 02/02/25 02/03/25 02/03/25 Range/Units 23:19 04:40 05:01 WBC 13.71 H (4.50-10.00) 10*3/uL RBC 3.60 L (4.40-5.60) 10*6/uL Hgb 12.5 L (13.0-17.0) g/dL Hct 37.3 L (39.6-50.0) % MCV 103.6 H (80.0-97.0) fL MCH 34.7 H (27.0-32.0) pg Immature Gran # 0.08 H (0.00-0.04) 10*3/uL Neutrophils # 12.04 H (1.80-7.70) 10*3/uL Eosinophils # 0.00 L (0.04-0.35) 10*3/uL ABG pO2 (83-108) mmHg ABG O2 Saturation (94-97) % BUN 25 H (9-20) mg/dL Glucose 154 H (74-99) mg/dL POC Glucose (mg/dL) 152 H (70-110) mg/dL 02/03/25 Range/Units 06:02 WBC (4.50-10.00) 10*3/uL RBC (4.40-5.60) 10*6/uL Hgb (13.0-17.0) g/dL Hct (39.6-50.0) % MCV (80.0-97.0) fL MCH (27.0-32.0) pg Immature Gran # (0.00-0.04) 10*3/uL Neutrophils # (1.80-7.70) 10*3/uL Eosinophils # (0.04-0.35) 10*3/uL ABG pO2 (83-108) mmHg ABG O2 Saturation (94-97) % BUN (9-20) mg/dL Glucose (74-99) mg/dL POC Glucose (mg/dL) 145 H (70-110) mg/dL Microbiology - Last 24 Hours (Table) 02/01/25 09:14 Gram Stain - Final Sputum Sputum Culture - Final 02/01/25 09:50 Nasal Screen MRSA/MSSA - Final Nasal Swab Staphylococcus aureus,Not MRSA 02/01/25 09:30 Blood Culture - Preliminary Blood 02/01/25 09:03 Urine Culture - Final Urine,Voided
--- NOTE | 2025-02-03 11:32 | P.PN ---
Subjective Progress Note Date: 02/03/25 Principal diagnosis: Acute hypoxic and hypercapnic Respiratory failure: Multifactorial This is a 69-year-old white male, history of alcohol abuse, tobacco dependence syndrome, patient was found this morning by his in the bathroom unresponsive and tachypneic. Brought into the emergency room, and upon arrival the patient was intubated. Initial venous blood gas reflected hypercapnia and severe respiratory acidosis with a pH of 6.96. ABG postintubation showed a pO2 of 82 pCO2 64 pH of 7.22 and this was on 40% FiO2 with tidal volume 400 and rate of 22. Then another ABG was done after adjustment of his rate came back showing a pO2 of 95 pCO2 46 pH of 7.37. His blood sugar was 99, lactic acid was normal found to have leukocytosis with WBC count of 17.76 hemoglobin 15.7 basic metabolic profile was relatively normal BUN is 17 creatinine 1.07 troponin was a bit elevated at 0.193 drug screen was negative viral screen was also negative. I saw the patient down in the ER, and I felt that this is most likely a presentation of acute hypercapnia related to underlying COPD or possible CVA. Patient had a CT of the brain which came back negative after evaluating the p atient in the ER, recommended admission to ICU, discussed his condition with his briefly at bedside. Urinalysis did show evidence of hematuria, negative leukocyte esterase and negative nitrites. Patient was seen today on 02/02/2025, patient remains in the ICU, intubated and mechanically ventilated, on assist-control rate of 26 tidal volume 400 FiO2 40% PEEP of 5 ABG showed a pO2 of 99 pCO2 43 pH of 7.35. Patient is presently on 10 mcg/kg/min of propofol, and I have recommended holding the propofol altogether to be able to address for possible weaning today. Patient is empirically on an tibiotics in the form of cefepime and vancomycin as his presentation was rather vague, and the admitting physician was concerned about sepsis. Chest x-ray is showing improvement compared to admission chest x-ray yesterday. Strongly doubt pneumonia. WBC count today is normal hemoglobin is 12.7 electrolytes are all normal renal profile is normal, blood sugar is 153. Ammonia level today is down to 19 from 74 yesterday. Procalcitonin level is 0.06, will discontinue vancomycin and continue cefepime for now until all cultures are back we will likely discontinue cefepime in the next 24 hours. Patient was seen today on 02/03/2025, patient was extubated yesterday and he tolerated the extubation well. Initially he was placed on BiPAP 09/27/35%, he is now on nasal cannula, not in any distress. Yesterday the patient did receive Lasix for symptoms of shortness of breath and crackles on physical exam, and his chest x-ray was suggestive of interstitial edema, and possible right lower lobe pneumonia. Chest x-ray today continues to show the same, hence the patient will receive more diuretics again today, based on previous echocardiogram, patient does have history of LV dysfunction with ejection fraction in the range of 40%. Will diurese again, will continue with empiric antibiotics for presumptive aspiration pneumonia considering his initial clinical presentation of unresponsiveness requiring intubation mechanical ventilation. WBC count showed leukocytosis 13.7 hemoglobin 12.5 electrolytes are normal renal profile is normal Objective - Vital Signs Vital signs: Vital Signs Temp 98.5 F 02/03/25 08:00 Pulse 80 02/03/25 11:14 Resp 32 H 02/03/25 11:00 BP 161/88 02/03/25 02:00 Pulse Ox 94 L 02/03/25 11:00 FiO2 35 02/03/25 00:48 Intake & Output 02/02/25 02/03/25 02/03/25 18:59 06:59 18:59 Intake Total 1035.276 342.434 680 Output Total 410 1495 1580 Balance 625.276 -1152.566 -900 Weight 54 kg 55.5 kg Intake: IV 960 320 80 Cefepime 2 gm In Dextrose 100 5% in Water 100 ml @ 25 mls/hr IVPB Q12HR [facility] Rx# :[id number] Sodium Chloride 0.9% 1, 960 220 80 000 ml @ 20 mls/hr IV . Q24H [facility] Rx#:[id number] Intake, IV Titration 75.276 22.434 Amount Clevidipine Butyrate 25 2.133 22.434 mg In Empty Bag 1 bag @ 1 MG/HR 2 mls/hr IV .Q24H [facility] Rx#:[id number] propofoL 1,000 mg In 73.143 Empty Bag 1 bag @ 15 MCG/ KG/MIN 6.124 mls/hr IV . [id number] [facility] Rx#:[id number] Oral 600 Output: Urine 410 1495 1580 Other: Voiding Method Indwelling Catheter Indwelling Catheter Indwelling Catheter # Bowel Movements 1 ABP, PAP, CO, CI - Last Documented Arterial Blood Pressure 153/61 - Exam Physical Examination: Revealed a 69-year-old white male, in no distress, on nasal cannula, he was earlier on BiPAP 12/5/35%. Head: Atraumatic, normocephalic Eyes: PERRLA, EOMI, nonicteric. Throat: Clear, moist mucous membranes. Neck: Supple no neck masses no JVD no stridor. Lungs: Minimal crackles at the bases no rhonchi no wheezes Heart: Distant S1-S2, no S3 gallop. Abdomen: Soft nontender no megaly no rebound no guarding Extremities: No clubbing edema or cyanosis Neurologic exam: Alert and oriented x 3 no gross focal deficit Psychiatric: Normal mood affect and normal mental status examination Skin: No rashes - Labs CBC & Chem 7: 02/03/25 04:40 02/03/25 05:01 Labs: Abnormal Lab Results - Last 24 Hours (Table) 02/02/25 02/02/25 02/02/25 Range/Units 10:36 11:43 17:24 WBC (4.50-10.00) 10*3/uL RBC (4.40-5.60) 10*6/uL Hgb (13.0-17.0) g/dL Hct (39.6-50.0) % MCV (80.0-97.0) fL MCH (27.0-32.0) pg Immature Gran # (0.00-0.04) 10*3/uL Neutrophils # (1.80-7.70) 10*3/uL Eosinophils # (0.04-0.35) 10*3/uL ABG pO2 127 H (83-108) mmHg ABG O2 Saturation 99.2 H (94-97) % BUN (9-20) mg/dL Glucose (74-99) mg/dL POC Glucose (mg/dL) 142 H 139 H (70-110) mg/dL 02/02/25 02/03/25 02/03/25 Range/Units 23:19 04:40 05:01 WBC 13.71 H (4.50-10.00) 10*3/uL RBC 3.60 L (4.40-5.60) 10*6/uL Hgb 12.5 L (13.0-17.0) g/dL Hct 37.3 L (39.6-50.0) % MCV 103.6 H (80.0-97.0) fL MCH 34.7 H (27.0-32.0) pg Immature Gran # 0.08 H (0.00-0.04) 10*3/uL Neutrophils # 12.04 H (1.80-7.70) 10*3/uL Eosinophils # 0.00 L (0.04-0.35) 10*3/uL ABG pO2 (83-108) mmHg ABG O2 Saturation (94-97) % BUN 25 H (9-20) mg/dL Glucose 154 H (74-99) mg/dL POC Glucose (mg/dL) 152 H (70-110) mg/dL 02/03/25 Range/Units 06:02 WBC (4.50-10.00) 10*3/uL RBC (4.40-5.60) 10*6/uL Hgb (13.0-17.0) g/dL Hct (39.6-50.0) % MCV (80.0-97.0) fL MCH (27.0-32.0) pg Immature Gran # (0.00-0.04) 10*3/uL Neutrophils # (1.80-7.70) 10*3/uL Eosinophils # (0.04-0.35) 10*3/uL ABG pO2 (83-108) mmHg ABG O2 Saturation (94-97) % BUN (9-20) mg/dL Glucose (74-99) mg/dL POC Glucose (mg/dL) 145 H (70-110) mg/dL Microbiology - Last 24 Hours (Table) 02/01/25 09:14 Gram Stain - Final Sputum Sputum Culture - Final 02/01/25 09:50 Nasal Screen MRSA/MSSA - Final Nasal Swab Staphylococcus aureus,Not MRSA 02/01/25 09:30 Blood Culture - Preliminary Blood 02/01/25 09:03 Urine Culture - Final Urine,Voided Assessment and Plan Assessment: Impression: Acute hypoxic and hypercapnic respiratory failure with severe respiratory acidosis and profoundly low pH on presentation patient required intubation on his initial presentation, he is now extubated, extubated on 02/02/2025. Acute toxic metabolic encephalopathy most likely secondary to hypercapnia, and related to hepatic encephalopathy with elevated bated ammonia level History of alcoholism History of underlying COPD which is another contributing factor to his hypercapnia Hyperkalemia secondary to respiratory acidosis with profoundly low pH, resolved History of underlying cardiomyopathy ejection fraction of 40% most likely related to his alcoholism. Acute systolic congestive heart failure aspiration pneumonia is strongly suspected History of benign essential hypertension Tobacco dependence syndrome Recommendation: Continue to monitor in the ICU for the next 24 hours Titrate oxygen accordingly use BiPAP if necessary Continue diuretics patient received another dose of Lasix 20 mg IV push today Continue antibiotics/cefepime, no need for vancomycin. Continue bronchodilators for underlying COPD Continue to monitor electrolytes and correct accordingly Continue GI and DVT prophylaxis Continue CIWA protocol for now. Prognosis is guarded, will continue to follow Time with Patient: Less than 30
[2025-02-03 11:51] LABS: Glucose,Whole Blood 293 mg/dL (70-110)
[2025-02-03] MEDS: INSULIN LISPRO (HumaLOG) 100 UNIT/ML 10 mL VL SQ SCH (12:23)
[2025-02-03 15:59] LABS: Glucose,Whole Blood 169 mg/dL (70-110)
[2025-02-03 19:52] LABS: Glucose,Whole Blood 112 mg/dL (70-110)
[2025-02-03] MEDS: FUROSEMIDE 10 MG/ML 2 ML VIAL IV SCH (20:09)
[2025-02-04 00:01] LABS: Glucose,Whole Blood 182 mg/dL (70-110)
[2025-02-04 05:30] LABS: Basophils # (A) 0.01 10*3/uL (0.00-0.10); Basophils % (A) 0.1 %; HCT 35.8 % (39.6-50.0); HGB 12.2 g/dL (13.0-17.0); Lymphocytes # (A) 0.95 10*3/uL (0.90-5.00); Lymphocytes % (A) 7.3 %; MCH 34.9 pg (27.0-32.0); MCHC 34.1 g/dL (32.0-37.0); MCV 102.3 fL (80.0-97.0); Monocytes # (A) 0.66 10*3/uL (0.20-1.00); Monocytes % (A) 5.1 %; Neutrophils # (A) 11.29 10*3/uL (1.80-7.70); Neutrophils % (A) 86.7 %; Platelet Count 139 10*3/uL (140-440); RDW 12.2 % (11.5-14.5); WBC 13.01 10*3/uL (4.50-10.00)
[2025-02-04 05:44] LABS: African American GFR (CKD) >90 (>60 ml/min/1.73 sqM); Anion Gap 5 mmol/L; Blood Urea Nitrogen 33 mg/dL (9-20); Calcium 9.3 mg/dL (8.4-10.2); Carbon Dioxide 33 mmol/L (22-30); Chloride 99 mmol/L (98-107); Glucose 133 mg/dL (74-99); Magnesium 1.9 mg/dL (1.6-2.3); Non-African American GFR(CKD) >90 (>60 ml/min/1.73 sqM); Potassium 3.9 mmol/L (3.5-5.1); Sodium 137 mmol/L (137-145)
[2025-02-04] MEDS: MAGNESIUM SULFATE-D5W PMX 1 GM in DEXTROSE/WATER 1 100ML.BAG IVPB ONE (06:01)
[2025-02-04] MEDS: POTASSIUM CHLORIDE ER 20 MEQ TAB.ER PO SCH (06:02)
[2025-02-04 06:39] LABS: Glucose,Whole Blood 164 mg/dL (70-110)
--- NOTE | 2025-02-04 08:11 | XR ---
EXAMINATION TYPE: XR chest 1V portable DATE OF EXAM: 02/04/2025 4:29 AM COMPARISON: Multiple radiographs, with the most recent on 02/03/2025 TECHNIQUE: XR chest 1V portable Portable AP radiograph of the chest. CLINICAL INDICATION:Male, 69 years old with history of f/u right lower lobe infiltrate; FINDINGS: Lungs/Pleura: No pleural effusion or pneumothorax. Improving right basilar patchy airspace opacities. Pulmonary vascularity: Unremarkable. Heart/mediastinum: Cardiomediastinal silhouette is unremarkable. Atherosclerotic calcifications are seen in the aorta. Musculoskeletal: No acute osseous pathology. IMPRESSION: Improving right basilar patchy airspace opacities. [facility], , 02/04/2025 8:09 AM
[2025-02-04] MEDS: PANTOPRAZOLE 40 MG TABLET PO SCH (09:22)
[2025-02-04 11:45] LABS: Glucose,Whole Blood 195 mg/dL (70-110)
--- NOTE | 2025-02-04 12:08 | P.PN ---
Subjective Progress Note Date: 02/04/25 Principal diagnosis: Right ICA occlusion Patient was seen and examined today as a follow-up. He remains in ICU. He has been extubated and currently 2 L of oxygen per nasal cannula. Carotid ultrasound reported right ICA occlusion and approximately 50% stenosis of the left ICA. Patient denies any focal deficits. Objective - Vital Signs Vital signs: Vital Signs Temp 97.1 F L 02/04/25 08:00 Pulse 71 02/04/25 11:00 Resp 17 02/04/25 11:00 BP 145/69 02/04/25 11:00 Pulse Ox 96 02/04/25 11:00 FiO2 35 02/03/25 00:48 Intake & Output 02/03/25 02/04/25 02/04/25 18:59 06:59 18:59 Intake Total 1120 903.300 330 Output Total 2405 1890 785 Balance -1285 -986.700 -455 Weight 54.5 kg Intake: IV 220 360 90 Cefepime 2 gm In Dextrose 100 50 5% in Water 100 ml @ 25 mls/hr IVPB Q12HR [facility] Rx# :[id number] Sodium Chloride 0.9% 1, 220 260 40 000 ml @ 20 mls/hr IV . Q24H [facility] Rx#:[id number] Intake, IV Titration 43.300 Amount Clevidipine Butyrate 25 43.300 mg In Empty Bag 1 bag @ 1 MG/HR 2 mls/hr IV .Q24H [facility] Rx#:[id number] Oral 900 500 240 Output: Urine 2405 1890 785 Other: Voiding Method Indwelling Catheter Indwelling Catheter Indwelling Catheter # Bowel Movements 1 ABP, PAP, CO, CI - Last Documented Arterial Blood Pressure 156/60 - Exam General appearance: The patient is alert, oriented, appears in no acute distress. HET: Head is normocephalic and atraumatic. Pupils are equal and reactive. Neck: Supple. Heart: Regular. Lungs: Equal expansion, normal respiratory effort. Abdomen: Soft, nontender, nondistended. Extremities: Normal skin color and turgor. Neurological: Does not appear to have any focal deficits. Alert and oriented. - Labs CBC & Chem 7: 02/04/25 05:00 02/04/25 05:00 Labs: Abnormal Lab Results - Last 24 Hours (Table) 04/02/03/25 02/03/25 Range/Units 15:57 19:51 23:59 WBC (4.50-10.00) 10*3/uL RBC (4.40-5.60) 10*6/uL Hgb (13.0-17.0) g/dL Hct (39.6-50.0) % MCV (80.0-97.0) fL MCH (27.0-32.0) pg Plt Count (140-440) 10*3/uL Immature Gran # (0.00-0.04) 10*3/uL Neutrophils # (1.80-7.70) 10*3/uL Eosinophils # (0.04-0.35) 10*3/uL Carbon Dioxide (22-30) mmol/L BUN (9-20) mg/dL Glucose (74-99) mg/dL POC Glucose (mg/dL) 169 H 112 H 182 H (70-110) mg/dL Troponin I (0.000-0.034) ng/mL 02/04/25 02/04/25 02/04/25 Range/Units 05:00 05:00 05:42 WBC 13.01 H (4.50-10.00) 10*3/uL RBC 3.50 L (4.40-5.60) 10*6/uL Hgb 12.2 L (13.0-17.0) g/dL Hct 35.8 L (39.6-50.0) % MCV 102.3 H (80.0-97.0) fL MCH 34.9 H (27.0-32.0) pg Plt Count 139 L (140-440) 10*3/uL Immature Gran # 0.10 H (0.00-0.04) 10*3/uL Neutrophils # 11.29 H (1.80-7.70) 10*3/uL Eosinophils # 0.00 L (0.04-0.35) 10*3/uL Carbon Dioxide 33 H (22-30) mmol/L BUN 33 H (9-20) mg/dL Glucose 133 H (74-99) mg/dL POC Glucose (mg/dL) (70-110) mg/dL Troponin I 0.408 H* (0.000-0.034) ng/mL 02/04/25 02/04/25 Range/Units 06:38 11:42 WBC (4.50-10.00) 10*3/uL RBC (4.40-5.60) 10*6/uL Hgb (13.0-17.0) g/dL Hct (39.6-50.0) % MCV (80.0-97.0) fL MCH (27.0-32.0) pg Plt Count (140-440) 10*3/uL Immature Gran # (0.00-0.04) 10*3/uL Neutrophils # (1.80-7.70) 10*3/uL Eosinophils # (0.04-0.35) 10*3/uL Carbon Dioxide (22-30) mmol/L BUN (9-20) mg/dL Glucose (74-99) mg/dL POC Glucose (mg/dL) 164 H 195 H (70-110) mg/dL Troponin I (0.000-0.034) ng/mL Microbiology - Last 24 Hours (Table) 02/01/25 09:30 Blood Culture - Preliminary Blood 02/01/25 09:14 Gram Stain - Final Sputum Sputum Culture - Final Assessment and Plan Assessment: 1. Altered mental status changes patient found unresponsive on bathroom floor 2. Acute hypoxic respiratory failure requiring intubation, now extubated 3. Right internal carotid artery occlusion 4. Hypothermia, resolved 5. Acute metabolic encephalopathy 6. Cardiomyopathy with EF around 40% 7. Recent [place] 8. Hypertension 9. History of alcohol abuse 10. Tobacco use Plan: 1. Carotid duplex ordered and reviewed. Confirms right ICA occlusion, left ICA around 50% stenosis no indication for any vascular surgical intervention. 2. Recommend outpatient follow-up with vascular surgery, can also workup lower extremity evaluation at that time as well. 3. Continue medical management with continue aspirin, Plavix and statin 4. Rest of medical management per supervisory clerk and multiple consultants Thank you for this consultation. We will sign off at this time. The impression and plan of care has been dictated as directed. Dr. Rosario I performed a history and examination of this patient, discussed the same with the dictator. I agree with the dictator's note ,documented as a scribe. Any additional findings or plans will be noted.
--- NOTE | 2025-02-04 12:21 | P.PN ---
Subjective Progress Note Date: 02/04/25 This is a 69-year-old white male, history of alcohol abuse, tobacco dependence syndrome, patient was found this morning by his in the bathroom unresponsive and tachypneic. Brought into the emergency room, and upon arrival the patient was intubated. Initial venous blood gas reflected hypercapnia and severe respiratory acidosis with a pH of 6.96. ABG postintubation showed a pO2 of 82 pCO2 64 pH of 7.22 and this was on 40% FiO2 with tidal volume 400 and rate of 22. Then another ABG was done after adjustment of his rate came back showing a pO2 of 95 pCO2 46 pH of 7.37. His blood sugar was 99, lactic acid was normal found to have leukocytosis with WBC count of 17.76 hemoglobin 15.7 basic meta bolic profile was relatively normal BUN is 17 creatinine 1.07 troponin was a bit elevated at 0.193 drug screen was negative viral screen was also negative. I saw the patient down in the ER, and I felt that this is most likely a presentation of acute hypercapnia related to underlying COPD or possible CVA. Patient had a CT of the brain which came back negative after evaluating the patient in the ER, recommended admission to ICU, discussed his condition with his briefly at bedside. Urinalysis did show evidence of hematuria, negative leukocyte esterase and negative nitrites. Patient was seen today on 02/02/2025, patient remains in the ICU, intubated and mechanically ventilated, on assist-control rate of 26 tidal volume 400 FiO2 40% PEEP of 5 ABG showed a pO2 of 99 pCO2 43 pH of 7.35. Patient is presently on 10 mcg/kg/min of propofol, and I have recommended holding the propofol altogether to be able to address for possible weaning today. Patient is empirically on antibiotics in the form of cefepime and vancomycin as his presentation was rather vague, and the admitting physician was concerned about sepsis. Chest x- ray is showing improvement compared to admission chest x-ray yesterday. Strongly doubt pneumonia. WBC count today is normal hemoglobin is 12.7 electrolytes are all normal renal profile is normal, blood sugar is 153. Ammonia level today is down to 19 from 74 yesterday. Procalcitonin level is 0.06, will discontinue vancomycin and continue cefepime for now until all cultures are back we will likely discontinue cefepime in the next 24 hours. Patient was seen today on 02/03/2025, patient was extubated yesterday and he tolerated the extubation well. Initially he was placed on BiPAP 09/27/35%, he is now on nasal cannula, not in any distress. Yesterday the patient did receive Lasix for symptoms of shortness of breath and crackles on physical exam, and his chest x-ray was suggestive of interstitial edema, and possible right lower lobe pneumonia. Chest x-ray today continues to show the same, hence the patient will receive more diuretics again today, based on previous echocardiogram, patient does have history of LV dysfunction with ejection fraction in the range of 40%. Will diurese again, will continue with empiric antibiotics for presumptive aspir ation pneumonia considering his initial clinical presentation of unresponsiveness requiring intubation mechanical ventilation. WBC count showed leukocytosis 13.7 hemoglobin 12.5 electrolytes are normal renal profile is normal The patient is seen today February 04, 2025 and follow-up in the intensive care unit. He is currently awake and alert in no acute distress. Sitting up in a chair at the bedside. Maintaining good O2 saturations in the 90s on 2 L/min per nasal cannula. He is afebrile. Hemodynamically stable. Chest x-ray shows improving right basilar patchy airspace opacities. Sputum culture revealed no growth. Urine culture reveals no growth. Blood culture reveals no growth. White count 13.0. Hemoglobin 12.2. Platelets 139. Sodium 137. Potassium 3.9. Bicarb 33. BUN 33. Creatinine 0.76. Glucose 133. Troponin 0.408. He is continued on DuoNeb inhalations, Symbicort, Solu-Medrol. Heparin for DVT prophylaxis. Remains on IV diuretics. Remains on cefepime. He is currently net -2.2 L balance. Objective - Vital Signs Vital signs: Vital Signs Temp 98 F 02/04/25 12:00 Pulse 71 02/04/25 12:00 Resp 18 02/04/25 12:00 BP 155/70 02/04/25 12:00 Pulse Ox 94 L 02/04/25 12:00 FiO2 35 02/03/25 00:48 Intake & Output 02/03/25 02/04/25 02/04/25 18:59 06:59 18:59 Intake Total 1120 903.300 330 Output Total 2405 1890 785 Balance -1285 -986.700 -455 Weight 54.5 kg Intake: IV 220 360 90 Cefepime 2 gm In Dextrose 100 50 5% in Water 100 ml @ 25 mls/hr IVPB Q12HR [facility] Rx# :[id number] Sodium Chloride 0.9% 1, 220 260 40 000 ml @ 20 mls/hr IV . Q24H [facility] Rx#:[id number] Intake, IV Titration 43.300 Amount Clevidipine Butyrate 25 43.300 mg In Empty Bag 1 bag @ 1 MG/HR 2 mls/hr IV .Q24H [facility] Rx#:[id number] Oral 900 500 240 Output: Urine 2405 1890 785 Other: Voiding Method Indwelling Catheter Indwelling Catheter Indwelling Catheter # Bowel Movements 1 ABP, PAP, CO, CI - Last Documented Arterial Blood Pressure 150/53 - Exam GENERAL EXAM: Alert, thin, pleasant 69-year-old male, on 2 L nasal cannula, sitting up in a chair, comfortable in no apparent distress. HEAD: Normocephalic. EYES: Normal reaction of pupils, equal size. NOSE: Clear with pink turbinates. THROAT: No erythema or exudates. NECK: No masses, no JVD. CHEST: No chest wall deformity. LUNGS: Equal air entry with few scattered rhonchi right base. CVS: S1 and S2 normal with no audible murmur, regular rhythm. ABDOMEN: No hepatosplenomegaly, normal bowel sounds, no guarding or rigidity. SPINE: No scoliosis or deformity SKIN: No rashes CENTRAL NERVOUS SYSTEM: No focal deficits, tone is normal in all 4 extremities. EXTREMITIES: There is no peripheral edema. No clubbing, no cyanosis. Peripheral pulses are intact. - Labs CBC & Chem 7: 02/04/25 05:00 02/04/25 05:00 Labs: Abnormal Lab Results - Last 24 Hours (Table) 02/03/25 02/03/25 02/03/25 Range/Units 15:57 19:51 23:59 WBC (4.50-10.00) 10*3/uL RBC (4.40-5.60) 10*6/uL Hgb (13.0-17.0) g/dL Hct (39.6-50.0) % MCV (80.0-97.0) fL MCH (27.0-32.0) pg Plt Count (140-440) 10*3/uL Immature Gran # (0.00-0.04) 10*3/uL Neutrophils # (1.80-7.70) 10*3/uL Eosinophils # (0.04-0.35) 10*3/uL Carbon Dioxide (22-30) mmol/L BUN (9-20) mg/dL Glucose (74-99) mg/dL POC Glucose (mg/dL) 169 H 112 H 182 H (70-110) mg/dL Troponin I (0.000-0.034) ng/mL 02/04/25 02/04/25 02/04/25 Range/Units 05:00 05:00 05:42 WBC 13.01 H (4.50-10.00) 10*3/uL RBC 3.50 L (4.40-5.60) 10*6/uL Hgb 12.2 L (13.0-17.0) g/dL Hct 35.8 L (39.6-50.0) % MCV 102.3 H (80.0-97.0) fL MCH 34.9 H (27.0-32.0) pg Plt Count 139 L (140-440) 10*3/uL Immature Gran # 0.10 H (0.00-0.04) 10*3/uL Neutrophils # 11.29 H (1.80-7.70) 10*3/uL Eosinophils # 0.00 L (0.04-0.35) 10*3/uL Carbon Dioxide 33 H (22-30) mmol/L BUN 33 H (9-20) mg/dL Glucose 133 H (74-99) mg/dL POC Glucose (mg/dL) (70-110) mg/dL Troponin I 0.408 H* (0.000-0.034) ng/mL 02/04/25 02/04/25 Range/Units 06:38 11:42 WBC (4.50-10.00) 10*3/uL RBC (4.40-5.60) 10*6/uL Hgb (13.0-17.0) g/dL Hct (39.6-50.0) % MCV (80.0-97.0) fL MCH (27.0-32.0) pg Plt Count (140-440) 10*3/uL Immature Gran # (0.00-0.04) 10*3/uL Neutrophils # (1.80-7.70) 10*3/uL Eosinophils # (0.04-0.35) 10*3/uL Carbon Dioxide (22-30) mmol/L BUN (9-20) mg/dL Glucose (74-99) mg/dL POC Glucose (mg/dL) 164 H 195 H (70-110) mg/dL Troponin I (0.000-0.034) ng/mL Microbiology - Last 24 Hours (Table) 02/01/25 09:30 Blood Culture - Preliminary Blood 02/01/25 09:14 Gram Stain - Final Sputum Sputum Culture - Final Assessment and Plan Assessment: Acute hypoxic and hypercapnic respiratory failure with severe respiratory acidosis and profoundly low pH on presentation patient required intubation on his initial presentation, he is now extubated, extubated on 02/02/2025. Acute toxic metabolic encephalopathy most likely secondary to hypercapnia, and related to hepatic encephalopathy with elevated bated ammonia level History of alcoholism History of underlying COPD which is another contributing factor to his hypercapnia Hyperkalemia secondary to respiratory acidosis with profoundly low pH, resolved History of underlying cardiomyopathy ejection fraction of 40% most likely related to his alcoholism. Acute systolic congestive heart failure Aaspiration pneumonia is strongly suspected History of benign essential hypertension Tobacco dependence syndrome Plan: The patient was seen and evaluated Chest x-ray, labs and medications reviewed Currently stable on 2 L nasal cannula Sitting up in a chair is at the bedside Continue DuoNeb inhalations Continue Symbicort Continue Solu-Medrol Titrate down the FiO2 as tolerated Increase his activity as tolerated We will continue to follow I have personally seen and examined the patient, performed the documentation and the assessment and plan as written. Number of minutes spent on the visit: 10 Dictation was produced using [employer] software. Please excuse any grammatical, word or spelling errors.
[2025-02-04] MEDS: IPRATROPIUM-ALBUTEROL 3 ML NEB INHALATION SCH (12:45)
[2025-02-04 16:29] LABS: Glucose,Whole Blood 155 mg/dL (70-110)
--- NOTE | 2025-02-04 16:49 | P.PN ---
Subjective PROGRESS NOTE The patient is a 69-year-old male with prior history of alcohol intake, history of chronic tobacco use was found by his family in the bathroom in the morning, unresponsive and tachypneic. He was brought into the emergency room and shelby bsequently intubated. His pH was 6.96 after intubation. He had mild troponin elevation on presentation and he is in sinus mechanism. The history is obtained from the family apparently he has not consumed any alcohol since discharge but continues to smoke. He has dyspnea on exertion but has not complained of chest discomfort. He has prior history of syncope that was thought to be related to a lcohol intake. His echocardiogram done during last admission told anesthesia showed an ejection fraction of 40%. He had no peripheral edema, dizziness or palpitation. February 02: The patient remains intubated, in sinus mechanism, hemodynamically stable on no vasopressors. According to the nursing staff earlier he was following command and moving all extremities. His ammonia level is better. He has no evidence of malignant arrhythmia. His urine output is stable. February 03: The patient is extubated, awake and alert, denying any chest discomfort, dizziness or palpitations. His breathing is stable. He denies any nausea or vomiting. He is in sinus mechanism. His urinary output is stable. 02/04 Patient transferred from ICU. On 2 L nasal cannula. Blood pressures have been in the 130s to 140s. No chest pain or pressure. Medications: Aspirin, Lipitor 40 mg daily, clopidogrel 75 mg daily, insulin, losartan 25 mg daily, carvedilol 12.5 mg twice a day PHYSICAL EXAMINATION: Blood pressure 150/50 heart rate 84 LUNGS: Clear to auscultation HEART: Regular rate and rhythm, S1, S2. No S3. Systolic ejection murmur ABDOMEN: Soft, no organomegaly, nontender EXTREMETIES: No edema LAB: Hemoglobin 12.5, BUN 25, creatinine 0.76. Potassium 3.8, ammonia 19 IMPRESSION: 1. Respiratory arrest with severe respiratory acidosis and hypercapnia, extubated 2. Metabolic encephalopathy, most likely hepatic encephalopathy 3. History of alcoholism 4. History of COPD 5. Cardiomyopathy probable alcoholic cardiomyopathy 6. Right carotid obstruction 7. Hypothermia resolved PLAN: Optimize heart failure regimen as able. Appears to be slowly improving. Increase losartan from 25-50 and monitor response. Objective - Vital Signs Vital signs: Vital Signs Temp 98.1 F 02/04/25 15:43 Pulse 80 02/04/25 16:35 Resp 16 02/04/25 15:43 BP 141/67 02/04/25 15:43 Pulse Ox 92 L 02/04/25 15:43 FiO2 35 02/03/25 00:48 Intake & Output 02/03/25 02/04/25 02/04/25 18:59 06:59 18:59 Intake Total 1120 903.300 365 Output Total 2405 1890 1130 Balance -1285 -986.700 -765 Weight 54.5 kg Intake: IV 220 360 125 Cefepime 2 gm In Dextrose 100 75 5% in Water 100 ml @ 25 mls/hr IVPB Q12HR [facility] Rx# :[id number] Invasive Line 3 10 Sodium Chloride 0.9% 1, 220 260 40 000 ml @ 20 mls/hr IV . Q24H [facility] Rx#:[id number] Intake, IV Titration 43.300 Amount Clevidipine Butyrate 25 43.300 mg In Empty Bag 1 bag @ 1 MG/HR 2 mls/hr IV .Q24H [facility] Rx#:[id number] Oral 900 500 240 Output: Urine 2405 1890 1130 Other: Voiding Method Indwelling Catheter Indwelling Catheter Indwelling Catheter # Bowel Movements 1 ABP, PAP, CO, CI - Last Documented Arterial Blood Pressure 150/53 - Labs CBC & Chem 7: 02/04/25 05:00 02/04/25 05:00 Labs: Abnormal Lab Results - Last 24 Hours (Table) 02/03/25 02/03/25 02/04/25 Range/Units 19:51 23:59 05:00 WBC (4.50-10.00) 10*3/uL RBC (4.40-5.60) 10*6/uL Hgb (13.0-17.0) g/dL Hct (39.6-50.0) % MCV (80.0-97.0) fL MCH (27.0-32.0) pg Plt Count (140-440) 10*3/uL Immature Gran # (0.00-0.04) 10*3/uL Neutrophils # (1.80-7.70) 10*3/uL Eosinophils # (0.04-0.35) 10*3/uL Carbon Dioxide 33 H (22-30) mmol/L BUN 33 H (9-20) mg/dL Glucose 133 H (74-99) mg/dL POC Glucose (mg/dL) 112 H 182 H (70-110) mg/dL Troponin I (0.000-0.034) ng/mL 02/04/25 02/04/25 02/04/25 Range/Units 05:00 05:42 06:38 WBC 13.01 H (4.50-10.00) 10*3/uL RBC 3.50 L (4.40-5.60) 10*6/uL Hgb 12.2 L (13.0-17.0) g/dL Hct 35.8 L (39.6-50.0) % MCV 102.3 H (80.0-97.0) fL MCH 34.9 H (27.0-32.0) pg Plt Count 139 L (140-440) 10*3/uL Immature Gran # 0.10 H (0.00-0.04) 10*3/uL Neutrophils # 11.29 H (1.80-7.70) 10*3/uL Eosinophils # 0.00 L (0.04-0.35) 10*3/uL Carbon Dioxide (22-30) mmol/L BUN (9-20) mg/dL Glucose (74-99) mg/dL POC Glucose (mg/dL) 164 H (70-110) mg/dL Troponin I 0.408 H* (0.000-0.034) ng/mL 02/04/25 02/04/25 Range/Units 11:42 16:27 WBC (4.50-10.00) 10*3/uL RBC (4.40-5.60) 10*6/uL Hgb (13.0-17.0) g/dL Hct (39.6-50.0) % MCV (80.0-97.0) fL MCH (27.0-32.0) pg Plt Count (140-440) 10*3/uL Immature Gran # (0.00-0.04) 10*3/uL Neutrophils # (1.80-7.70) 10*3/uL Eosinophils # (0.04-0.35) 10*3/uL Carbon Dioxide (22-30) mmol/L BUN (9-20) mg/dL Glucose (74-99) mg/dL POC Glucose (mg/dL) 195 H 155 H (70-110) mg/dL Troponin I (0.000-0.034) ng/mL Microbiology - Last 24 Hours (Table) 02/01/25 09:30 Blood Culture - Preliminary Blood
--- NOTE | 2025-02-04 18:19 | P.PN ---
Subjective Progress Note Date: 02/04/25 69 year old M with PMH EtOH abuse, HTN, SVT, HFrEF of 40%, tobacco abuse, HLD presented to the ED for altered mentation. Recently admitted for after a fall at home from 01/14-01/16. Found to have runs of Vtach on telemetry, sodium of 146, troponin elevation of 0.038, 0.046, 0.056, 0.078, lactic acidosis of 2.7 and blood alcohol level of 333. Cardiology consulted at that time, Echo showed EF 40% with hypokinesis of the inferior wall. He was started on ASA, statin, Plavix, ARB and beta kevin. Discharged with recommendations for cardiac cath to be scheduled in the outpatient setting. According to family, generally doing well since discharge until found in the bathroom floor unconscious on the day of admission. In the ED he underwent extensive evaluation. Tlow 89.4F, BP 114/69, HR 54, RR 21, 100% on ventilator with FiO2 40%. CBC, Coag panel, CMP significant for WBC 17.76, MCV 109.4, K 5.8, bicarb 21, glu 289, AST 95, alb 3. Trop 0.193. Mag 1.8. Procal 0.06. Lactic acid 2.1. TSH 5, FT4 1.27. Cortisol 25.4. Ammonia 121. UA neg LE or nitrite. UDS neg. EtOH neg. COVID, RSV, Flu neg. EKG showed sinus rhythm with heart rate of 90s, QTc 430, ST depression in V4, V5, V6, lead II. CT brain no acute process. CTA head and neck obstruction of the R internal carotid with contralateral flow from the L to R into the R anterior MCA and [employer]. ABG pH 6.96, pCO2 > 98. He was intubated in the ED and admitted to ICU. CXR confirmed ET tube 6.1 cm below the agustin with NG tube in the gastric lumen. Vascular surgery consulted, carotid duplex showed occluded right internal carotid and 50% stenosis of the L carotid, recommended conservative management. Extubated on 02/02. Cardiology consulted, recommending no indications for aggressive cardiac workup at this time. Received intermittent Lasix IV for di uresis. Started on Vancomycin (discontinued 02/03) and Cefepime for infectious concerns, cultures have been negative so far (besides S. aureus on nasal swab). 02/04 Patient was seen and examined. Currently 97% on 3L NC. Maintained on Lasix 20 mg IV BID. Negative 2.236L fluid balance over the past 24H. Antibiotics include Cefepime 2g IV BID. Weaned off Clevidipine drip. CBC, BMP, Mag and Ammonia level pending this morning. CXR done this morning shows pulmonary vascular congestion. General: toxic, no distress, appears older than stated age Derm: warm, dry Head: atraumatic, normocephalic, symmetric Mouth: no lip lesion, mucus membranes moist Cardiovascular: S1S2 reg, no murmur Lungs: Clear to auscultation bilaterally, no rales , no accessory muscle use Ext: no gross muscle atrophy, no edema, no contractures Neuro: No focal neurologic deficits. Psych: Alert and oriented. Based on my assessment of this patient, this patient meets a high complexity level of care. Acute hypoxic respiratory failure: Intubated 02/01, extubated 02/02. Possibly secondary to HFrEF exacerbation. HFrEF exacerbation: EF 40%. Continue Lasix 20 mg IV BID. Coreg as below. Losartan 25 mg PO QD. Strict intake and outtake. Daily weights. Monitor elytes and renal function while on Lasix. Cardiology on board. COPD exacerbation: DuoNeb Q4H scheduled and SoluMedrol 60 mg IV Q6H. Pulmonary on board. Severe sepsis: On admission with hypothermia, leukocytosis and lactic acidosis. UCx neg. Sputum Cx neg. BCx prelim neg. Procal 0.06. Low concerns for infectious cause. Continued on Cefepime 2g IV BID. Acute metabolic encephalopathy: Multifactorial. Hypoxic on admission. Ammonia [address] head and CTA head and neck as above. Continue Lactulose as below. Fall precautions. Obtain B12 and Folate. PT and OT cosnulted. Troponin elevation likely type II NSTEMI: Trop 0.193. Repeat Trop ordered this morning. ASA 81 mg PO QD. Lipitor 40 mg PO QD. Coreg 12.5 mg PO BID. Plavix 75 mg PO QD. Cardiology on board. Carotid stenosis: CTA head and neck and carotid duplex as above. ASA, Plavix, statin as above. Vascular Sx recommending conservative management. Hyperammonemia: Likely due to underlying cirrhosis from EtOH abuse. Continue Lactulose 30g PO QID. Macrocytic anemia: Obtain B12 and Folate as above. Transaminitis likely due to EtOH abuse. Subclinical hypothyroidism: Recommend repeat TSH/FT4 in 6 weeks. Hypertension: BP 146/68 HR 72. Off Clevidipine drip. Losartan and Coreg as above. Monitor vitals and adjust medications if necessary. History of EtOH abuse. Resolved: Sinus bradycardia likely due to hypothermia CODE STATUS: FULL CODE. DVT Prophylaxis: Heparin SQ. GI Prophylaxis: Protonix PO. Designated medical POA if patient is not able to make medical decisions for themselves: I have reviewed the following senior energy consultant notes: Pulmonary, Cardiology. I have reviewed the results of the following tests: I have ordered the following tests: B12, Folate, Trop. CBC, BMP, Mag, Ammonia pending. I have discussed the care of this patient with the following independent historian: I have independently interpreted the following test below: CXR. I have discussed the management of this patient with the following physician: Objective - Vital Signs Vital signs: Vital Signs Temp 97.8 F 02/04/25 04:00 Pulse 72 02/04/25 04:00 Resp 14 02/04/25 04:00 BP 146/68 02/04/25 04:00 Pulse Ox 97 02/04/25 04:00 FiO2 35 02/03/25 00:48 Intake & Output 02/03/25 02/03/25 02/04/25 06:59 18:59 06:59 Intake Total 696.101 4416 843.300 Output Total 1495 2405 1795 Balance -1152.566 -1285 -951.700 Weight 55.5 kg Intake: IV 320 220 300 Cefepime 2 gm In Dextrose 100 100 5% in Water 100 ml @ 25 mls/hr IVPB Q12HR [facility] Rx# :[id number] Sodium Chloride 0.9% 1, 220 220 200 000 ml @ 20 mls/hr IV . Q24H [facility] Rx#:[id number] Intake, IV Titration 22.434 43.300 Amount Clevidipine Butyrate 25 22.434 43.300 mg In Empty Bag 1 bag @ 1 MG/HR 2 mls/hr IV .Q24H [facility] Rx#:[id number] Oral 900 500 Output: Urine 1495 2405 1795 Other: Voiding Method Indwelling Catheter Indwelling Catheter Indwelling Catheter # Bowel Movements 1 ABP, PAP, CO, CI - Last Documented Arterial Blood Pressure 150/61 - Labs CBC & Chem 7: 02/04/25 05:00 02/04/25 05:00 Labs: Abnormal Lab Results - Last 24 Hours (Table) 02/03/25 02/03/25 02/03/25 Range/Units 04:40 05:01 06:02 WBC 13.71 H (4.50-10.00) 10*3/uL RBC 3.60 L (4.40-5.60) 10*6/uL Hgb 12.5 L (13.0-17.0) g/dL Hct 37.3 L (39.6-50.0) % MCV 103.6 H (80.0-97.0) fL MCH 34.7 H (27.0-32.0) pg Immature Gran # 0.08 H (0.00-0.04) 10*3/uL Neutrophils # 12.04 H (1.80-7.70) 10*3/uL Eosinophils # 0.00 L (0.04-0.35) 10*3/uL BUN 25 H (9-20) mg/dL Glucose 154 H (74-99) mg/dL POC Glucose (mg/dL) 145 H (70-110) mg/dL 02/03/25 02/03/25 02/03/25 Range/Units 11:48 15:57 19:51 WBC (4.50-10.00) 10*3/uL RBC (4.40-5.60) 10*6/uL Hgb (13.0-17.0) g/dL Hct (39.6-50.0) % MCV (80.0-97.0) fL MCH (27.0-32.0) pg Immature Gran # (0.00-0.04) 10*3/uL Neutrophils # (1.80-7.70) 10*3/uL Eosinophils # (0.04-0.35) 10*3/uL BUN (9-20) mg/dL Glucose (74-99) mg/dL POC Glucose (mg/dL) 293 H 169 H 112 H (70-110) mg/dL 02/03/25 Range/Units 23:59 WBC (4.50-10.00) 10*3/uL RBC (4.40-5.60) 10*6/uL Hgb (13.0-17.0) g/dL Hct (39.6-50.0) % MCV (80.0-97.0) fL MCH (27.0-32.0) pg Immature Gran # (0.00-0.04) 10*3/uL Neutrophils # (1.80-7.70) 10*3/uL Eosinophils # (0.04-0.35) 10*3/uL BUN (9-20) mg/dL Glucose (74-99) mg/dL POC Glucose (mg/dL) 182 H (70-110) mg/dL Microbiology - Last 24 Hours (Table) 02/01/25 09:30 Blood Culture - Preliminary Blood 02/01/25 09:14 Gram Stain - Final Sputum Sputum Culture - Final
[2025-02-04 20:06] LABS: Glucose,Whole Blood 123 mg/dL (70-110)
[2025-02-04] MEDS: SYMBICORT 160-4.5 MCG INHALER INHALATION SCH (20:59)
[2025-02-05 06:26] LABS: Glucose,Whole Blood 158 mg/dL (70-110)
[2025-02-05] MEDS: LOSARTAN 50 MG TAB PO SCH (09:30)
[2025-02-05 11:54] LABS: Glucose,Whole Blood 271 mg/dL (70-110)
[2025-02-05 12:10] VITALS: BP 125/71; TEMP 97.6
[2025-02-05 12:11] VITALS: RESP 17
[2025-02-05 12:19] VITALS: PULSE 67
[2025-02-05 12:20] LABS: African American GFR (CKD) >90 (>60 ml/min/1.73 sqM); Anion Gap 13 mmol/L; Blood Urea Nitrogen 42 mg/dL (9-20); Calcium 9.7 mg/dL (8.4-10.2); Carbon Dioxide 26 mmol/L (22-30); Chloride 99 mmol/L (98-107); Glucose 156 mg/dL (74-99); Non-African American GFR(CKD) 90 (>60 ml/min/1.73 sqM); Sodium 138 mmol/L (137-145)
[2025-02-05] MEDS: SPIRONOLACTONE 25 MG TAB PO SCH (12:33)
--- NOTE | 2025-02-05 12:38 | P.PN ---
Subjective Progress Note Date: 02/05/25 Principal diagnosis: Respiratory failure. This is a 69-year-old white male, history of alcohol abuse, tobacco dependence syndrome, patient was found this morning by his in the bathroom unresponsive and tachypneic. Brought into the emergency room, and upon arrival the patient was intubated. Initial venous blood gas reflected hypercapnia and severe respiratory acidosis with a pH of 6.96. ABG postintubation showed a pO2 of 82 pCO2 64 pH of 7.22 and this was on 40% FiO2 with tidal volume 400 and rate of 22. Then another ABG was done after adjustment of his rate came back showing a pO2 of 95 pCO2 46 pH of 7.37. His blood sugar was 99, lactic acid was normal found to have leukocytosis with WBC count of 17.76 hemoglobin 15.7 basic metabolic profile was relatively normal BUN is 17 creatinine 1.07 troponin was a bit elevated at 0.193 drug screen was negative viral screen was also negative. I saw the patient down in the ER, and I felt that this is most likely a pr esentation of acute hypercapnia related to underlying COPD or possible CVA. Patient had a CT of the brain which came back negative after evaluating the patient in the ER, recommended admission to ICU, discussed his condition with his briefly at bedside. Urinalysis did show evidence of hematuria, negative leukocyte esterase and negative nitrites. Patient was seen today on 02/02/2025, patient remains in the ICU, intubated and mechanically ventilated, on assist-control rate of 26 tidal volume 400 FiO2 40% PEEP of 5 ABG showed a pO2 of 99 pCO2 43 pH of 7.35. Patient is presently on 10 mcg/kg/min of propofol, and I have recommended holding the propofol altogether to be able to address for possible weaning today. Patient is empirically on antibiotics in the form of cefepime and vancomycin as his presentation was rather vague, and the admitting physician was concerned about sepsis. Chest x- ray is showing improvement compared to admission chest x-ray yesterday. Strongly doubt pneumonia. WBC count today is normal hemoglobin is 12.7 electrolytes are all normal renal profile is normal, blood sugar is 153. Ammonia level today is down to 19 from 74 yesterday. Procalcitonin level is 0.06, will discontinue vancomycin and continue cefepime for now until all cultures are back we will likely discontinue cefepime in the next 24 hours. Patient was seen today on 02/03/2025, patient was extubated yesterday and he tolerated the extubation well. Initially he was placed on BiPAP 09/27/35%, he is now on nasal cannula, not in any distress. Yesterday the patient did receive Lasix for symptoms of shortness of breath and crackles on physical exam, and his chest x-ray was suggestive of interstitial edema, and possible right lower lobe pneumonia. Chest x-ray today continues to show the same, hence the patient will receive more diuretics again today, based on previous echocardiogram, patient does have history of LV dysfunction with ejection fraction in the range of 40%. Will diurese again, will continue with empiric antibiotics for presumptive aspiration pneumonia considering his initial clinical presentation of unresponsiveness requiring intubation mechanical ventilation. WBC count showed leukocytosis 13.7 hemoglobin 12.5 electrolytes are normal renal profile is normal The patient is seen today February 04, 2025 and follow-up in the intensive care unit. He is currently awake and alert in no acute distress. Sitting up in a chair at the bedside. Maintaining good O2 saturations in the 90s on 2 L/min per nasal cannula. He is afebrile. Hemodynamically stable. Chest x-ray shows improving right basilar patchy airspace opacities. Sputum culture revealed no growth. Urine culture reveals no growth. Blood culture reveals no growth. White count 13.0. Hemoglobin 12.2. Platelets 139. Sodium 137. Potassium 3.9. Bicarb 33. BUN 33. Creatinine 0.76. Glucose 133. Troponin 0.408. He is continued on DuoNeb inhalations, Symbicort, Solu-Medrol. Heparin for DVT pro phylaxis. Remains on IV diuretics. Remains on cefepime. He is currently net - 2.2 L balance. Progress note dated February 05, 2025. The patient is seen today in room 369. The patient is doing reasonably well. He is not receiving any IV fluids, or nasal O2. His procalcitonin level was 0.06. The patient is hoping to be discharged soon. His cefepime will be discontinued. His Solu-Medrol was converted to prednisone, 40 mg p.o. every day. Current labs today include a sodium 138, potassium 4, chloride 99, CO2 26, anion gap 13, BUN 42, and creatinine 0.83. Glucose was 271. Calcium 9.7, magn esium 2.0. No new chest x-ray today. Objective - Vital Signs Vital signs: Vital Signs Temp 97.6 F 02/05/25 12:09 Pulse 67 02/05/25 12:18 Resp 17 02/05/25 12:09 BP 125/71 02/05/25 12:09 Pulse Ox 92 L 02/05/25 12:09 FiO2 35 02/03/25 00:48 Intake & Output 02/04/25 02/05/25 02/05/25 18:59 06:59 18:59 Intake Total 605 500 10 Output Total 1130 1500 Balance -525 -1000 10 Weight 47.3 kg Intake: IV 125 20 10 Cefepime 2 gm In Dextrose 75 5% in Water 100 ml @ 25 mls/hr IVPB Q12HR [facility] Rx# :[id number] Invasive Line 3 10 20 10 Sodium Chloride 0.9% 1, 40 000 ml @ 20 mls/hr IV . Q24H [facility] Rx#:[id number] Oral 480 480 Output: Urine 1130 1500 Other: Voiding Method Indwelling Catheter Indwelling Catheter Toilet Urinal # Bowel Movements 1 1 ABP, PAP, CO, CI - Last Documented Arterial Blood Pressure 150/53 - Exam No acute distress, oriented 3. No respiratory distress. Currently on room air. HEENT examination is grossly unremarkable. Mucous membranes are moist. No oral lesions. Neck supple. Full range of motion. No adenopathy thyromegaly or neck vein distention. Cardiovascular examination reveals regular rhythm rate. S1-S2 normal. No S3 or S4. No discernible murmur noted. Heart sounds are distant. Lungs reveal scattered bilateral rhonchi. No wheezes or crackles. Breath sounds equal throughout. Abdomen soft bowel sounds are heard. No masses or tenderness. Extremities are intact. No cyanosis clubbing or edema. Skin is without rash or lesion. Neurologic examination is brief but nonfocal. - Labs CBC & Chem 7: 02/04/25 05:00 02/05/25 06:32 Labs: Abnormal Lab Results - Last 24 Hours (Table) 02/04/25 02/04/25 02/05/25 Range/Units 16:27 20:04 06:24 BUN (9-20) mg/dL Glucose (74-99) mg/dL POC Glucose (mg/dL) 155 H 123 H 158 H (70-110) mg/dL 02/05/25 02/05/25 Range/Units 06:32 11:53 BUN 42 H (9-20) mg/dL Glucose 156 H (74-99) mg/dL POC Glucose (mg/dL) 271 H (70-110) mg/dL Microbiology - Last 24 Hours (Table) 02/01/25 09:30 Blood Culture - Preliminary Blood Assessment and Plan Assessment: Acute hypoxic and hypercapnic respiratory failure with severe respiratory acidosis and profoundly low pH on presentation patient required intubation on his initial presentation, he is now extubated, extubated on 02/02/2025. Acute toxic metabolic encephalopathy most likely secondary to hypercapnia, and related to hepatic encephalopathy with elevated ammonia level. History of alcoholism. History of underlying COPD which is another contributing factor to his hypercapnia. Hyperkalemia secondary to respiratory acidosis with profoundly low pH, resolved. History of underlying cardiomyopathy ejection fraction of 40% most likely related to his alcoholism. Acute systolic congestive heart failure. Aaspiration pneumonia is strongly suspected. History of benign essential hypertension. Tobacco dependence syndrome. Plan: Plan dated February 05, 2025. The patient is seen today in room 369. He is currently not on any supplemental oxygen. He is not receiving any IV fluids. His procalcitonin level was normal at 0.06. All labs, x-rays, and medications are reviewed. The patient's Solu-Me drol was changed to prednisone 40 mg a day. Will discontinue his cefepime. We will continue to follow make recommendations along the way. The patient remains a full code. Prognosis is guarded. Dictation was produced using [email or web address] software. Please excuse any grammatical, word or spelling errors. Time with Patient: Less than 30
[2025-02-05 13:26] VITALS: BMI 14.9
--- NOTE | 2025-02-05 13:43 | P.PN ---
Subjective HISTORY OF PRESENT ILLNESS: The patient is a 69-year-old male with prior history of alcohol intake, history of chronic tobacco use was found by his family in the bathroom in the morning, unresponsive and tachypneic. He was brought into the emergency room and subsequently intubated. His pH was 6.96 after intubation. He had mild troponin elevation on presentation and he is in sinus mechanism. The history is obtained from the family apparently he has not consumed any alcohol since discharge but continues to smoke. He has dyspnea on exertion but has not complained of chest discomfort. He has prior history of syncope that was thought to be related to alcohol intake. His echocardiogram done during last admission told anesthesia showed an ejection fraction of 40%. He had no peripheral edema, dizziness or palpitation. February 02: The patient remains intubated, in sinus mechanism, hemodynamically stable on no vasopressors. According to the nursing staff earlier he was following command and moving all extremities. His ammonia level is better. He has no evidence of malignant arrhythmia. His urine output is stable. February 03: The patient is extubated, awake and alert, denying any chest discomfort, dizziness or palpitations. His breathing is stable. He denies any nausea or vomiting. He is in sinus mechanism. His urinary output is stable. 02/04 Patient transferred from ICU. On 2 L nasal cannula. Blood pressures have been in the 130s to 140s. No chest pain or pressure. 02/05/2025 Patient examined this morning at the bedside. Patient is sitting up in the chair. Patient currently denies chest pain or pressure. He denies shortness of breath. Vital signs are stable. Blood pressure [id number]. PHYSICAL EXAM: VITAL SIGNS: Reviewed. GENERAL: Well-developed in no acute distress. NECK: Supple. No JVD or thyromegaly LUNGS: Respirations even and unlabored. Lungs essentially clear to auscultation bilaterally. HEART: Regular rate and rhythm. S1 and S2 heard. Systolic murmur noted. EXTREMITIES: Normal range of motion. No clubbing or cyanosis. Peripheral pulses intact. No lower extremity edema ASSESSMENT: 1. Respiratory arrest with severe respiratory acidosis and hypercapnia, extubated 2. Metabolic encephalopathy, most likely hepatic encephalopathy 3. History of alcoholism 4. History of COPD 5. Cardiomyopathy probable nonischemic due to alcoholism 6. Right carotid obstruction 7. Hypothermia resolved PLAN: Continue current cardiac medications including aspirin, atorvastatin, carvedilol, Plavix, and losartan Discontinue IV Lasix. Begin oral Lasix 20 mg daily Add Aldactone 25 mg daily Continue to monitor blood pressure Recommend outpatient ischemic evaluation Patient is currently stable for discharge from a cardiac standpoint Nurse practitioner note has been reviewed by physician. Signing provider agrees with the documented findings, assessment, and plan of care documented by [employer] as a scribe. Objective - Vital Signs Vital signs: Vital Signs Temp 97.6 F 02/05/25 12:09 Pulse 67 02/05/25 12:18 Resp 17 02/05/25 12:09 BP 125/71 02/05/25 12:09 Pulse Ox 92 L 02/05/25 12:09 FiO2 35 02/03/25 00:48 Intake & Output 02/04/25 02/05/25 02/05/25 18:59 06:59 18:59 Intake Total 605 500 128 Output Total 1130 1500 200 Balance -525 -1000 -72 Weight 47.3 kg 47.3 kg Intake: IV 125 20 10 Cefepime 2 gm In Dextrose 75 5% in Water 100 ml @ 25 mls/hr IVPB Q12HR [facility] Rx# :[id number] Invasive Line 3 10 20 10 Sodium Chloride 0.9% 1, 40 000 ml @ 20 mls/hr IV . Q24H [facility] Rx#:[id number] Oral 480 480 118 Output: Urine 1130 1500 200 Other: Voiding Method Indwelling Catheter Indwelling Catheter Toilet Urinal # Voids 3 # Bowel Movements 1 1 2 ABP, PAP, CO, CI - Last Documented Arterial Blood Pressure 150/53 - Labs CBC & Chem 7: 02/04/25 05:00 02/05/25 06:32 Labs: Abnormal Lab Results - Last 24 Hours (Table) 02/04/25 02/04/25 02/05/25 Range/Units 16:27 20:04 06:24 BUN (9-20) mg/dL Glucose (74-99) mg/dL POC Glucose (mg/dL) 155 H 123 H 158 H (70-110) mg/dL 02/05/25 02/05/25 Range/Units 06:32 11:53 BUN 42 H (9-20) mg/dL Glucose 156 H (74-99) mg/dL POC Glucose (mg/dL) 271 H (70-110) mg/dL Microbiology - Last 24 Hours (Table) 02/01/25 09:30 Blood Culture - Preliminary Blood
--- NOTE | 2025-02-05 15:02 | P.DS ---
Providers Date of admission: 02/01/25 10:17 Expected date of discharge: 02/05/25 Attending physician: Checo Villanueva Consults: 02/01/25 10:17 Consult Physician Stat Consulting Provider: Milton Balderas Consult Reason/Comments: Hypoxic hypercapnic respiratory failure Do you want consulting provider notified?: Already Contacted 02/01/25 10:43 Consult Physician Routine Consulting Provider: Zana Carr Consult Reason/Comments: elevated troponin, hfref, intubated Do you want consulting provider notified?: Yes Primary care physician: [facility] Course: 69 year old M with PMH EtOH abuse, HTN, SVT, HFrEF of 40%, tobacco abuse, HLD presented to the ED for altered mentation. Recently admitted for after a fall at home from 01/14-01/16. Found to have runs of Vtach on telemetry, sodium of 146, troponin elevation of 0.038, 0.046, 0.056, 0.078, lactic acidosis of 2.7 and blood alcohol level of 333. Cardiology consulted at that time, Echo showed EF 40% with hypokinesis of the inferior wall. He was started on ASA, statin, Plavix, ARB and beta kevin. Discharged with recommendations for cardiac cath to be scheduled in the outpatient setting. According to family, generally doing well since discharge until found in the bathroom floor unconscious on the day of admission. In the ED he underwent extensive evaluation. Tlow 89.4F, BP 114/69, HR 54, RR 21, 100% on ventilator with FiO2 40%. CBC, Coag panel, CMP significant for WBC 17.76, MCV 109.4, K 5.8, bicarb 21, glu 289, AST 95, alb 3. Trop 0.193. Mag 1.8. Procal 0.06. Lactic acid 2.1. TSH 5, FT4 1.27. Cortisol 25.4. Ammonia 121. UA neg LE or nitrite. UDS neg. EtOH neg. COVID, RSV, Flu neg. EKG showed sinus rhythm with heart rate of 90s, QTc 430, ST depression in V4, V5, V6, lead II. CT brain no acute process. CTA head and neck obstruction of the R internal carotid with contralateral flow from the L to R into the R anterior MCA and GOLD AND SILVER ASSAYER. ABG pH 6.96, pCO2 > 98. He was intubated in the ED and admitted to ICU. CXR confirmed ET tube 6.1 cm below the agustin with NG tube in the gastric lumen. Vascular surgery consulted, carotid duplex showed occluded right internal carotid and 50% stenosis of the L carotid, recommended conservative management. Extubated on 02/02. Cardiology consulted, recommending no indications for aggressive cardiac workup at this time. Received intermittent Lasix IV for diuresis. Started on Vancomycin (discontinued 02/03) and Cefepime for infectious concerns, cultures have been negative so far (besides S. aureus on nasal swab). 02/04 Patient was seen and examined. Currently 97% on 3L NC. Maintained on Lasix 20 mg IV BID. Negative 2.236L fluid balance over the past 24H. Antibiotics include Cefepime 2g IV BID. Weaned off Clevidipine drip. CBC, BMP, Mag and Ammonia level pending this morning. CXR done this morning shows pulmonary vascular congestion. 02/05 Patient was seen and examined. Doing well with PT and OT. Cardiology has switched the patient to Lasix 20 mg PO QD and added Aldactone. Cleared by Cardiology for discharge. Pulmonary has discontinued antibiotics. BMP shows BUN 42, glu 156. Mag 2. B12 496, Folate 11.8, Ammonia 12. Discharge Plan: Script signed for nebulizer. Prescription for DuoNeb, Symbicort INH and Prednisone taper sent to pharmacy along with Lactulose, Losartan, Aldactone, Lasix and Protonix. Follow up with PCP within 1-2 days, Cardiology on 02/08, Vascular surgery on 02/21, and Pulmonary on 03/05. General: toxic, no distress, appears older than stated age Derm: warm, dry Head: atraumatic, normocephalic, symmetric Mouth: no lip lesion, mucus membranes moist Cardiovascular: S1S2 reg, no murmur Lungs: Clear to auscultation bilaterally, no rales , no accessory muscle use Ext: no gross muscle atrophy, no edema, no contractures Neuro: No focal neurologic deficits. Psych: Alert and oriented. Discharge Diagnosis: Acute hypoxic respiratory failure: Intubated 02/01, extubated 02/02. Possibly secondary to HFrEF exacerbation. HFrEF exacerbation: EF 40%. Lasix 20 mg PO QD. Coreg as below. Losartan 25 mg PO QD. Aldactone 50 mg PO QD. COPD exacerbation: DuoNeb Q4H PRN and Prednisone taper. Severe sepsis versus SIRS: On admission with hypothermia, leukocytosis and lactic acidosis. UCx neg. Sputum Cx neg. BCx prelim neg. Procal 0.06. Low concerns for infectious cause. Antibiotics discontinued. Acute metabolic encephalopathy: Multifactorial. Hypoxic on admission. Ammonia [address] head and CTA head and neck as above. Continue Lactulose as below. B12 and Folate as above. Troponin elevation likely type II NSTEMI: Trop 0.193, 0.408. ASA 81 mg PO QD. Lipitor 40 mg PO QD. Coreg 12.5 mg PO BID. Plavix 75 mg PO QD. Outpatient ischemic workup with Cardiology. Carotid stenosis: CTA head and neck and carotid duplex as above. ASA, Plavix, statin as above. Vascular Sx recommending conservative management. Hyperammonemia: Likely due to underlying cirrhosis from EtOH abuse. Continue Lactulose 20g PO TID. Macrocytic anemia: B12 and Folate as above. Transaminitis likely due to EtOH abuse. Subclinical hypothyroidism: Recommend repeat TSH/FT4 in 6 weeks. Hypertension: BP 125/71 HR 78. Off Clevidipine drip. Losartan, Lasix, Aldactone and Coreg as above. History of EtOH abuse. Resolved: Sinus bradycardia likely due to hypothermia This complex discharge took 50 minutes to complete and coordinate. Patient Condition at Discharge: Stable Plan - Discharge Summary New Discharge Prescriptions: New Lactulose [Cephulac] 20 gm PO TID #2700 ml Losartan [Cozaar] 50 mg PO DAILY #30 tab Ipratropium-Albuterol Nebulize [Duoneb 0.5 mg-3 mg/3 ml Soln] 3 ml INHALATION RT-QID PRN #120 each PRN Reason: Shortness Of Breath Or Wheezing predniSONE See Taper PO DIRECTED #30 tab Pantoprazole [Protonix] 40 mg PO AC-BRKFST #30 tab Spironolactone [Aldactone] 25 mg PO DAILY #30 tab Furosemide [Lasix] 20 mg PO DAILY #30 tab Budesonide-Formot 160-4.5 Mcg [Symbicort 160-4.5 Mcg Inhaler] 2 puff INHALATION RT-BID #1 each Continue Aspirin 81 mg PO DAILY #30 tab carvediloL [Coreg*] 12.5 mg PO BID-W/MEALS #30 tab Clopidogrel [Plavix] 75 mg PO DAILY #30 tab Folic Acid 1 mg PO DAILY #30 tab Atorvastatin [Lipitor] 40 mg PO HS #30 tab Thiamine [Vitamin B-1] 100 mg PO DAILY #30 tab Discontinued Losartan [Cozaar] 25 mg PO DAILY #30 tab Discharge Medication List Aspirin 81 mg PO DAILY #30 tab 01/16/25 [Rx] Atorvastatin [Lipitor] 40 mg PO HS #30 tab 01/16/25 [Rx] Clopidogrel [Plavix] 75 mg PO DAILY #30 tab 01/16/25 [Rx] Folic Acid 1 mg PO DAILY #30 tab 01/16/25 [Rx] Thiamine [Vitamin B-1] 100 mg PO DAILY #30 tab 01/16/25 [Rx] carvediloL [Coreg*] 12.5 mg PO BID-W/MEALS #30 tab 01/16/25 [Rx] Budesonide-Formot 160-4.5 Mcg [Symbicort 160-4.5 Mcg Inhaler] 2 puff INHALATION RT-BID #1 each 02/05/25 [Rx] Furosemide [Lasix] 20 mg PO DAILY #30 tab 02/05/25 [Rx] Ipratropium-Albuterol Nebulize [Duoneb 0.5 mg-3 mg/3 ml Soln] 3 ml INHALATION RT-QID PRN #120 each 02/05/25 [Rx] Lactulose [Cephulac] 20 gm PO TID #2700 ml 02/05/25 [Rx] Losartan [Cozaar] 50 mg PO DAILY #30 tab 02/05/25 [Rx] Pantoprazole [Protonix] 40 mg PO AC-BRKFST #30 tab 02/05/25 [Rx] Spironolactone [Aldactone] 25 mg PO DAILY #30 tab 02/05/25 [Rx] predniSONE See Taper PO DIRECTED #30 tab 02/05/25 [Rx] Follow up Appointment(s)/Referral(s): Ladi Allen MD [STAFF PHYSICIAN] - 02/08/25 10:30 am Ruiz Jean DO [Doctor of Osteopathic Medicine] - 02/21/25 9:45 am (Vascular surgical follow-up for right ICA occlusion, left ICA carotid stenosis surveillance within 6 months) Emily Amado MD [Primary Care Provider] - 02/13/25 12:00 pm Jm Dominguez DO [Doctor of Osteopathic Medicine] - 03/05/25 1:30 pm Patient Instructions/Handouts: Fall Prevention for Older Adults (DC), Hepatic Encephalopathy (DC) Activity/Diet/Wound Care/Special Instructions: Diet: Low salt, 1.5L fluid restriction Discharge Disposition: HOME SELF-CARE
[2025-02-06] MEDS ORDERED: FUROSEMIDE 20 MG TAB PO SCH (09:00)
[2025-02-06] MEDS ORDERED: predniSONE 20 MG TAB PO SCH (09:00)
== END 2025-02-05 15:43 | disposition home or self-care (01) | DRG 871 ==
LOC: EC 07:55 → 2SICU 10:17 → 3SCARD 02-04 13:37
PROVIDERS: ADMIT Student in an Organized Health Care Education/Training Program; ATTEND Student in an Organized Health Care Education/Training Program
PROC: 5A1945Z Respiratory Ventilation, 24-96 Consecutive Hours (ICD-10-PCS; principal; 2025-02-01)
PROC: 0BH17EZ Insertion of Endotracheal Airway into Trachea, Via Natural or Artificial Opening (ICD-10-PCS; 2025-02-01)
PROC: 03HY32Z Insertion of Monitoring Device into Upper Artery, Percutaneous Approach (ICD-10-PCS; 2025-02-01)
PROC: 4A133B1 Monitoring of Arterial Pressure, Peripheral, Percutaneous Approach (ICD-10-PCS; 2025-02-01)
PROC: 4A133J1 Monitoring of Arterial Pulse, Peripheral, Percutaneous Approach (ICD-10-PCS; 2025-02-01)
DX: A41.9 Sepsis, unspecified organism (principal); G92.8 Other toxic encephalopathy; J96.01 Acute respiratory failure with hypoxia; I50.21 Acute systolic (congestive) heart failure; I21.A1 Myocardial infarction type 2; I50.23 Acute on chronic systolic (congestive) heart failure; J18.9 Pneumonia, unspecified organism; J96.02 Acute respiratory failure with hypercapnia; J44.0 Chronic obstructive pulmonary disease with (acute) lower respiratory infection; I11.0 Hypertensive heart disease with heart failure; F10.20 Alcohol dependence, uncomplicated; K76.82 Hepatic encephalopathy; E03.8 Other specified hypothyroidism; F32.A Depression, unspecified; I65.23 Occlusion and stenosis of bilateral carotid arteries; D53.9 Nutritional anemia, unspecified; I42.6 Alcoholic cardiomyopathy; I47.20 Ventricular tachycardia, unspecified; J44.1 Chronic obstructive pulmonary disease with (acute) exacerbation; E72.20 Disorder of urea cycle metabolism, unspecified; E87.29 Other acidosis; E87.1 Hypo-osmolality and hyponatremia; K74.60 Unspecified cirrhosis of liver; R65.20 Severe sepsis without septic shock; Z11.52 Encounter for screening for COVID-19; T68.XXXA Hypothermia, initial encounter; R00.1 Bradycardia, unspecified; E87.5 Hyperkalemia; F17.210 Nicotine dependence, cigarettes, uncomplicated; E78.5 Hyperlipidemia, unspecified; Y90.8 Blood alcohol level of 240 mg/100 ml or more; Z79.02 Long term (current) use of antithrombotics/antiplatelets; Z79.82 Long term (current) use of aspirin; Z79.899 Other long term (current) drug therapy
CPT/HCPCS: 31500; 36415; 36600; 51702; 70450; 70496; 70498; 71045; 80048; 80053; 80306; 80320; 81001; 82140; 82533; 82607; 82746; 82803; 82805; 83036; 83605; 83735; 84132; 84145; 84439; 84443; 84484; 85025; 85027; 85610; 85730; 87040; 87070; 87086; 87205; 87636; 93005; 93880; 94002; 94003; 94640; 94660; 94760; 96361; 96365; 96366; 96367; 96368; 96375; 96376; 99291

== ENCOUNTER → 2025-03-11 | Outpatient (CLI) | payer MEDICARE ==
[2025-03-11 14:46] LABS: African American GFR (CKD) 85 (>60 ml/min/1.73 sqM); Blood Urea Nitrogen 28 mg/dL (9-20); Non-African American GFR(CKD) 73 (>60 ml/min/1.73 sqM)
--- NOTE | 2025-03-12 08:07 | CT ---
EXAMINATION TYPE: CT angio abd aorta w/Runoff DATE OF EXAM: 03/11/2025 COMPARISON: CT January 13, 2025 CLINICAL INDICATION: Male, 69 years old with history of I70.213 ATHSCL [place] ARTERIES OF EXTRM W INT RMT C, CLAUDICATION. POOR CIRCULATION IN LEGS AND FEET, TECHNIQUE: CTA scan of the abdomen and pelvis with bilateral lower extremity runoff is performed without and wit h IV Contrast, patient injected with 100 ml mL of Isovue 370., (none if empty) Oral contrast used: (none if empty) CT DLP: 821.70 mGycm, Automated exposure control for dose reduction was used. 3-D reconstructed image s are created on an independent workstation and reviewed. FINDINGS: VASCULAR: Moderate peripheral calcified plaque infrarenal abdominal aorta. There is noncalcified plaq ue causing stenosis approaching but under 50% proximal right renal artery. No significant stenosis in the left renal artery. More prominent calcified plaque and noncalcified plaque in the SMA with steno sis greater than 50% narrowing axial image 16 and coronal image 13. Patent celiac axis. Patent SHARIFA. Moderate to severe mixed plaque in the common iliac arteries bilaterally. Significant stenosis distal right common iliac artery near axial image 111 is present. Moderate to severe mixed plaque in the il iac arteries bilaterally with additional significant stenosis axial image 128 on the right. There is significant stenosis/near complete occlusion due to noncalcified plaque left external iliac artery ax ial image 130. Right common femoral artery shows areas of calcified and noncalcified plaque causing narrowing approa amanuel near 50%. Superficial femoral artery shows mild to moderate diffuse plaque without significant stenosis popliteal artery shows mild plaque without significant stenosis. Left common femoral artery shows mild to moderate peripheral plaque without significant stenosis. Lef t superficial femoral artery shows mild diffuse plaque without significant stenosis. Popliteal arter y shows focal moderate calcified plaque near the knee joint without significant stenosis. There is poor opacification past the proximal to mid leg level Makes evaluation suboptimal. There is visualization of symmetric at least two-vessel flow in the mid to distal leg. LUNG BASES: No significant abnormality is appreciated. LIVER/GB: There are dependent gallstones redemonstrated. PANCREAS: No significant abnormality is seen. SPLEEN: No significant abnormality is seen. ADRENALS: No significant abnormality is seen. KIDNEYS: No significant abnormality is seen. BOWEL: Distal colonic diverticulosis redemonstrated. No abnormal small or large bowel dilatation. PROSTATE/SEMINAL VESICLES: No gross abnormality seen. LYMPH NODES: No greater than 1cm abdominal or pelvic lymph nodes are appreciated. OSSEOUS STRUCTURES: No significant abnormality is seen. OTHER: No significant additional abnormality is seen. IMPRESSION: 1. Suboptimal distal runoff below proximal leg level. There is significant stenosis just over 50% in the SMA noted. There are areas of significant stenosis in the iliac arteries of the pelvis bilaterall y identified. [facility], , 03/12/2025 8:04 AM
== END | disposition home or self-care (01) ==
LOC: RADCTMAIN 14:00
PROVIDERS: ATTEND Surgery
DX: I70.213 Atherosclerosis of native arteries of extremities with intermittent claudication, bilateral legs (principal); I70.8 Atherosclerosis of other arteries
CPT/HCPCS: 82565; 84520; 75635; 36415; Q9967

== ENCOUNTER → 2025-03-19 | Outpatient (CLI) | payer MEDICARE ==
[2025-03-19 15:24] LABS: ALT 27 U/L (4-49); AST 32 U/L (17-59); African American GFR (CKD) >90 (>60 ml/min/1.73 sqM); Albumin 4.8 g/dL (3.5-5.0); Albumin/Globulin Ratio 1.7; Alkaline Phosphatase 77 U/L (38-126); Anion Gap 13 mmol/L; Blood Urea Nitrogen 21 mg/dL (9-20); Calcium 10.5 mg/dL (8.4-10.2); Carbon Dioxide 25 mmol/L (22-30); Chloride 101 mmol/L (98-107); Globulin 2.8 g/dL; Glucose 108 mg/dL (74-99); Magnesium 1.8 mg/dL (1.6-2.3); Non-African American GFR(CKD) 89 (>60 ml/min/1.73 sqM); Potassium 4.8 mmol/L (3.5-5.1); Sodium 139 mmol/L (137-145); Total Bilirubin 0.9 mg/dL (0.2-1.3); Total Protein 7.6 g/dL (6.3-8.2)
[2025-03-19 15:44] LABS: Basophils # (A) 0.08 10*3/uL (0.00-0.10); Basophils % (A) 0.5 %; Eosinophils # (A) 0.01 10*3/uL (0.04-0.35); Eosinophils % (A) 0.1 %; HCT 45.5 % (39.6-50.0); Lymphocytes # (A) 1.95 10*3/uL (0.90-5.00); Lymphocytes % (A) 11.6 %; MCH 33.9 pg (27.0-32.0); MCHC 33.6 g/dL (32.0-37.0); MCV 100.9 fL (80.0-97.0); Mean Platelet Volume 12.1 fL (9.5-12.2); Monocytes # (A) 0.72 10*3/uL (0.20-1.00); Monocytes % (A) 4.3 %; Neutrophils # (A) 13.88 10*3/uL (1.80-7.70); Neutrophils % (A) 82.4 %; Platelet Count 164 10*3/uL (140-440); RBC 4.51 10*6/uL (4.40-5.60); RDW 12.6 % (11.5-14.5); WBC 16.83 10*3/uL (4.50-10.00)
[2025-03-19 16:03] LABS: HGB 15.3 g/dL (13.0-17.0)
[2025-03-19 20:44] LABS: Chol/HDL Ratio 3.42 Ratio
== END | disposition home or self-care (01) ==
LOC: LABPAT 13:58
PROVIDERS: ATTEND Internal Medicine Interventional Cardiology
DX: Z53.9 Procedure and treatment not carried out, unspecified reason (principal)
CPT/HCPCS: 80053; 80061; 82306; 83735; 84436; 84443; 85025

== ENCOUNTER 2025-04-24 07:17 | Day surgery (SDC) | payer MEDICARE ==
[2025-04-22 12:12] VITALS: BMI 18.3
[~2025-04-24 07:17] MED LIST: ALPRAZolam 0.25 MG TAB PO PRN; ALPRAZolam 0.5 MG TAB PO PRN; ZOLPIDEM 5 MG TAB PO PRN
[2025-04-24] MEDS: IV FLUID CONTINUATION 1,000 ML IV ONE (07:30)
[2025-04-24] MEDS: EMPTY BAG 1 BAG with SODIUM CHLORIDE 0.9% 1,000 ML IV SCH (07:39)
[2025-04-24 08:01] LABS: Basophils # (A) 0.04 10*3/uL (0.00-0.10); Basophils % (A) 0.3 %; Eosinophils # (A) 0.02 10*3/uL (0.04-0.35); Eosinophils % (A) 0.2 %; HCT 49.7 % (39.6-50.0); HGB 16.5 g/dL (13.0-17.0); Lymphocytes # (A) 2.15 10*3/uL (0.90-5.00); Lymphocytes % (A) 17.3 %; MCH 32.9 pg (27.0-32.0); MCHC 33.2 g/dL (32.0-37.0); MCV 99.0 fL (80.0-97.0); Monocytes # (A) 0.83 10*3/uL (0.20-1.00); Monocytes % (A) 6.7 %; Neutrophils # (A) 9.24 10*3/uL (1.80-7.70); Neutrophils % (A) 74.5 %; Platelet Count 182 10*3/uL (140-440); RBC 5.02 10*6/uL (4.40-5.60); RDW 13.7 % (11.5-14.5); WBC 12.40 10*3/uL (4.50-10.00)
[2025-04-24] MEDS: HEPARIN SODIUM,PORCINE 10,000 UNIT in SODIUM CHLORIDE 0.9% 1,000 ML IRRIGATION PRN (09:16)
[2025-04-24] MEDS: HEPARIN SODIUM,PORCINE (1 ML) 2,500 UNIT in SODIUM CHLORIDE 0.9% 250 ML IRRIGATION PRN (09:16)
[2025-04-24] MEDS: fentaNYL (PF) 50 MCG/ML 2 ML AMP IVP ONE (09:17)
[2025-04-24] MEDS: MIDAZOLAM 2 MG/2 ML VIAL IVP ONE (09:17)
[2025-04-24] MEDS: LIDOCAINE 1% INJ 10MG/ML (20 ML MDV) SQ ONE (09:20)
[2025-04-24] MEDS: HEPARIN SODIUM 1,000 UN/ML (10ML VL) IVP ONE (09:28)
[2025-04-24] MEDS: IOPAMIDOL-370 100ML BTL INJ ONE (10:30)
[2025-04-24] MEDS ORDERED: NAPROXEN 250 MG TAB PO PRN (10:51)
[2025-04-24] MEDS ORDERED: NALOXONE 0.4 MG/ML 1 ML VIAL IVP PRN (10:52)
--- NOTE | 2025-04-24 10:58 | P.PCN ---
Date of Procedure: 04/24/25 Operative Findings: PERCUTANEOUS PERIPHERAL INTERVENTION Performing physician Zana Carr M.D. Procedure performed 1. Successful angioplasty of the right SFA and bilateral external iliac arteries 2. Adjunctive use of atherectomy as well as IVUS 3. Bilateral iliac and femoral angiogram 4. Ultrasound-guided access of the left common femoral artery Indication Symptomatic 69-year-old gentleman with occlusive PAD documented on angiogram was performed few weeks ago Approach Left common femoral artery Complications None Level of sedation Moderate with a sedation time of 72 minutes Procedure description After obtaining informed consent the patient was brought to the cardiac Diversional Therapist'S Assistant with the left common femoral artery was cannulated using micropuncture technique under ultrasound guidance the micropuncture wire passed easily then I placed a 6 Sudanese 55 cm sheath at the left common femoral artery and that was 55 cm sheath. Subsequently anticoagulation was initiated using heparin with continuous ACT monitoring. After that I did go up and over from the left common to the right common iliac artery using a 035 stiff Glidewire with the backup support of 5 Sudanese rim catheter. The sheath was parked at the right common femoral artery. The right common femoral artery and right SFA angiogram was performed and revealed critical disease involving the right SFA which was wired using a 014 wire and IVUS was performed and showed a diameter around 5 mm. Atherectomy was performed using the Hawk 1 device with extraction of plaque. After that balloon angioplasty was performed using 5 mm regular balloon and subsequently 5 mm drug- coated balloon. Final angiogram showed good angiographic results. Subsequently the sheath was pulled to the right common iliac artery where IVUS was performed and showed intermediate lesion involving the right common iliac artery not flow- limiting and critical disease involving the right external iliac artery which was dilated using a regular balloon before I deployed 7 mm x 40 mm Zilver PTX drug-coated stent postdilated using 6 mm balloon with final results showing excellent angiographic results. Then IVUS was performed to the left external iliac artery which showed a diameter around 7 mm. 8 mm x 80 mm Zilver PTX was also deployed and postdilated using 7 mm balloon. Final angiogram showed excellent angiographic results. I did exchange my long sheath Overall 35 wire into a short 6 cm sheath. The procedure was completed with no complication Postprocedure management 1. Dual antiplatelet therapy 2. Aggressive cholesterol control 3. Risk factors modification 4. Follow-up with the patient
[2025-04-24] MEDS: SODIUM CHLORIDE 0.9% 1,000 ML in EMPTY BAG 1 BAG IV SCH (11:00)
[2025-04-24] MEDS: ATORVASTATIN 40 MG TAB PO SCH (20:18)
[2025-04-25] MEDS: PANTOPRAZOLE 40 MG TABLET PO SCH (06:14)
[2025-04-25 07:11] LABS: African American GFR (CKD) >90 (>60 ml/min/1.73 sqM); Non-African American GFR(CKD) 84 (>60 ml/min/1.73 sqM)
[2025-04-25] MEDS: LOSARTAN 50 MG TAB PO SCH (08:40)
[2025-04-25] MEDS: SPIRONOLACTONE 25 MG TAB PO SCH (08:40)
[2025-04-25] MEDS: FOLIC ACID 1 MG TAB PO SCH (08:40)
[2025-04-25] MEDS: ASPIRIN 81 MG PO SCH (08:40)
[2025-04-25] MEDS: predniSONE 10 MG TAB PO SCH (08:40)
[2025-04-25] MEDS: CLOPIDOGREL 75 MG TAB PO SCH (08:41)
[2025-04-25] MEDS: THIAMINE 100 MG TAB PO SCH (08:41)
[2025-04-25] MEDS: LACTULOSE 20 GM/30 ML CUP PO SCH (08:44)
[2025-04-25 10:14] VITALS: BP 133/79; PULSE 72; RESP 17; TEMP 98.4
--- NOTE | 2025-04-25 13:20 | P.PCN ---
Date of Procedure: 04/25/25 Operative Findings: The patient is a pleasant 69-year-old gentleman who was admitted to the hospital and underwent successful atherectomy and balloon angioplasty of the right SFA and successful stenting of bilateral iliacs. He was seen and evaluated this morning. He is doing well. I was able to feel faint pulses in both pedal arteries bilaterally. The left groin is soft and nontender with a small hematoma was noted. The patient will be discharged on dual antiplatelet therapy and I will follow-up with the patient next week in the office
== END 2025-04-25 10:43 | disposition home or self-care (01) ==
LOC: CATHCVL 07:17 → 3SCARD 13:39 → CATHCVL 04-25 10:43
PROVIDERS: ATTEND Internal Medicine Interventional Cardiology
DX: I70.213 Atherosclerosis of native arteries of extremities with intermittent claudication, bilateral legs (principal); I24.9 Acute ischemic heart disease, unspecified; I25.2 Old myocardial infarction; I42.9 Cardiomyopathy, unspecified; I10 Essential (primary) hypertension; E78.5 Hyperlipidemia, unspecified; I65.23 Occlusion and stenosis of bilateral carotid arteries; F17.210 Nicotine dependence, cigarettes, uncomplicated; Z79.02 Long term (current) use of antithrombotics/antiplatelets; Z79.82 Long term (current) use of aspirin; Z79.899 Other long term (current) drug therapy; Z88.0 Allergy status to penicillin
CPT/HCPCS: 37221; 37225; 76937; 37252; 37253; 82565; 85025; C1894 ×2; C1769 ×4; C1725 ×3; C1714; C1753; C2623; C1874 ×2; J2250; J1644 ×3; J2003; J3010; J7512; Q9967